=== PATIENT | male | born 1955 | race Caucasian/White ===

== ENCOUNTER 2019-12-02 12:07 | Inpatient (IN) | payer MEDICARE, SELFPAY ==
--- NOTE | 2019-11-29 10:29 | HO.ANESPROP2 ---
Documented by User: Tatum Lopez 11/29/19 10:45 HPI - Anesthesia Eval Consult details Narrative: 64yo M for bilateral fifth toe amp PMFSH Past Medical History Medical History Anxiety Cardiomyopathy CHF (congestive heart failure) Diabetes History of sigmoidoscopy HTN (hypertension) Hypogonadism Obesity 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 Proteinuria Renal cancer Surgical History Surgical History History of cataract surgery History of colectomy History of colonoscopy History of reversal of ileostomy Social History Social History (Updated 12/02/19 @ 10:23 by Yeni Jones) Alcohol intake: current Alcohol intake frequency: does not drink Smoking Status: Former smoker Tobacco Type: Cigarette Smoked in Last 30 Days: No Smoking Quit Date: 15 years ago Advance Directives: No Advance Directives Information Provided: No Meds Allergies Allergy/AdvReac Type Severity Reaction Status Date / Time No Known Allergies Allergy Unverified 11/14/19 18:27 [No Known Allergies*] metformin AdvReac Unknown diarrhea Verified 05/02/19 00:00 none Allergy Unknown Uncoded 10/11/19 00:00 Home Medications Medication Instructions Recorded Confirmed Type aspirin 325 mg PO DAILY 11/29/19 11/29/19 History carvedilol 6.25 mg PO BID 11/29/19 11/29/19 History gabapentin 300 mg PO TID 11/29/19 11/29/19 History glipizide 2.5 mg PO DAILY 11/29/19 11/29/19 History lisinopril 30 mg PO DAILY 11/29/19 11/29/19 History lorazepam 0.5 mg PO BEDTIME PRN 11/29/19 11/29/19 History oxycodone 15 mg PO Q4H PRN 11/29/19 12/02/19 History sennosides [senna] 8.6 mg PO BEDTIME 11/29/19 11/29/19 History sertraline 50 mg PO DAILY 11/29/19 11/29/19 History sulfamethoxazole-trimethoprim 1 tab PO BID 11/29/19 11/29/19 History [Bactrim DS] vancomycin 500 mg PO QID 11/29/19 11/29/19 History Exam Exam Date and Time: November 29, 2019 1029 Pertinent Lab Results Pertinent Lab Results: Laboratory Tests 09/19/19 09/19/19 12:34 12:34 WBC 7.1 Hgb 7.9 L Hct 27.0 L Plt Count 254 D Sodium 141 Potassium 4.6 Chloride 104 Bicarbonate 32 H BUN 25 H Creatinine 1.40 ECHO 05/2019: LVEF 30-35%, Gr 2 DD, LA mod dilated, mild calc of AV, mild MAC, mild TR, mod pulm htn MIBI 05/2019: nml perfusion EKG 09/02/19: NSR with SA @ 88, nonspec T wave abn Assessment and Plan Assessment Anesthesia Assessment: Chart Reviewed Documented by User: Yeni Jones 12/02/19 11:16 PMF Past Medical History Medical History Anxiety Cardiomyopathy CHF (congestive heart failure) Diabetes History of sigmoidoscopy HTN (hypertension) Hypogonadism Obesity 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 Proteinuria Renal cancer Surgical History Surgical History History of cataract surgery History of colectomy History of colonoscopy History of reversal of ileostomy Social History Social History (Updated 12/02/19 @ 10:23 by Yeni Jones) Alcohol intake: current Alcohol intake frequency: does not drink Smoking Status: Former smoker Tobacco Type: Cigarette Smoked in Last 30 Days: No Smoking Quit Date: 15 years ago Advance Directives: No Advance Directives Information Provided: No Meds Allergies Allergy/AdvReac Type Severity Reaction Status Date / Time No Known Allergies Allergy Unverified 11/14/19 18:27 [No Known Allergies*] metformin AdvReac Unknown diarrhea Verified 05/02/19 00:00 none Allergy Unknown Uncoded 10/11/19 00:00 Home Medications Medication Instructions Recorded Confirmed Type aspirin 325 mg PO DAILY 11/29/19 11/29/19 History carvedilol 6.25 mg PO BID 11/29/19 11/29/19 History gabapentin 300 mg PO TID 11/29/19 11/29/19 History glipizide 2.5 mg PO DAILY 11/29/19 11/29/19 History lisinopril 30 mg PO DAILY 11/29/19 11/29/19 History lorazepam 0.5 mg PO BEDTIME PRN 11/29/19 11/29/19 History oxycodone 15 mg PO Q4H PRN 11/29/19 12/02/19 History sennosides [senna] 8.6 mg PO BEDTIME 11/29/19 11/29/19 History sertraline 50 mg PO DAILY 11/29/19 11/29/19 History sulfamethoxazole-trimethoprim 1 tab PO BID 11/29/19 11/29/19 History [Bactrim DS] vancomycin 500 mg PO QID 11/29/19 11/29/19 History Exam Airway Mallampati Class: II Loose/Missing/Broken Teeth: Yes, Upper and Lower Heart: RRR Lungs: CTA Assessment and Plan Assessment Anesthesia Assessment: Anesthesia Plan Discussed, Consent Obtained and Chart Reviewed Final Anesthetic Review NPO: Yes ASA Class: II Final Preanesthetic Review: Meds & Allergies Reviewed, Consent Obtained/Reviewed, Med/Surg/Anes Hx Reviewed and Anes Risks/Benef Reviewed Patient Risk: High Procedure Risk: Low Anesthetic Plan Anesthetic Plan: GA Disposition: Standard PACU
[2019-12-02] VITALS (18 sets, daily range): BP systolic 120–166; BP diastolic 41–75; PULSE 54–77; RESP 16–20; TEMP 36.6–37.7; O2SAT 92–100; BMI 37.8
[2019-12-02 09:51] LABS: Glucose, Whole Blood 68 mg/dL (60-115)
--- NOTE | 2019-12-02 10:05 | HO.ANESPROP2 ---
[facility] [place] Past Medical History Medical History Anxiety Cardiomyopathy CHF (congestive heart failure) Diabetes History of sigmoidoscopy HTN (hypertension) Hypogonadism Obesity 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 Proteinuria Renal cancer Surgical History Surgical History History of cataract surgery History of colectomy History of colonoscopy History of reversal of ileostomy Social History Social History Advance Directives: No Advance Directives Information Provided: No Meds Allergies Allergy/AdvReac Type Severity Reaction Status Date / Time No Known Allergies Allergy Unverified 11/14/19 18:27 [No Known Allergies*] metformin AdvReac Unknown diarrhea Verified 05/02/19 00:00 none Allergy Unknown Uncoded 10/11/19 00:00 Home Medications Medication Instructions Recorded Confirmed Type aspirin 325 mg PO DAILY 11/29/19 11/29/19 History carvedilol 6.25 mg PO BID 11/29/19 11/29/19 History gabapentin 300 mg PO TID 11/29/19 11/29/19 History glipizide 2.5 mg PO DAILY 11/29/19 11/29/19 History lisinopril 30 mg PO DAILY 11/29/19 11/29/19 History lorazepam 0.5 mg PO BEDTIME PRN 11/29/19 11/29/19 History oxycodone 15 mg PO Q4H PRN 11/29/19 11/29/19 History sennosides [senna] 8.6 mg PO BEDTIME 11/29/19 11/29/19 History sertraline 50 mg PO DAILY 11/29/19 11/29/19 History sulfamethoxazole-trimethoprim 1 tab PO BID 11/29/19 11/29/19 History [Bactrim DS] vancomycin 500 mg PO QID 11/29/19 11/29/19 History Exam Exam Date and Time: December 02, 2019 1005 Height,Weight and Vital Signs: Height 6 ft 2 in Weight 133.81 kg Last Vital Signs Temp 98.9 F 12/02/19 09:38 Pulse 61 12/02/19 09:38 Resp 16 12/02/19 09:38 BP 137/68 12/02/19 09:38 Pulse Ox 97 12/02/19 09:38 Pertinent Lab Results Pertinent Lab Results: Laboratory Tests 12/02/19 09:48 POC Glucose 68 Airway Mallampati Class: I TM Dist: >3cm Neck ROM: Full Loose/Missing/Broken Teeth: Yes, Upper and Lower Heart: RRR Lungs: CTA
[2019-12-02 10:08] LABS: Hematocrit 27.9 % (42-52); Hemoglobin 8.2 g/dl (14.0-18.0); Mean Corpuscular HGB Conc 29.4 g/dl (31.0-36.0); Mean Corpuscular Hemoglobin 22.5 pg (27.0-33.0); Mean Corpuscular Volume 76.6 fL (80-98); Platelet Count 260 X10*3/uL (160-400); Red Blood Count 3.64 X10*6/uL (4.60-5.80); Red Cell Distribution Width 17.9 % (11.0-16.0); White Blood Count 6.4 X10*3/uL (4.8-10.8)
[2019-12-02 12:04] LABS: Glucose, Whole Blood 59 mg/dL (60-115)
[2019-12-02] MEDS: Acetaminophen 325 MG TABLET 650 MG PO (12:26)
[2019-12-02] MEDS: oxyCODONE HCl Immed Release 5 MG TABLET PO ×2 (12:29→21:09)
[2019-12-02 12:37] LABS: Glucose, Whole Blood 95 mg/dL (60-115)
--- NOTE | 2019-12-02 14:30 | OP_ITS ---
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 He has had noninvasive arterial testing, appears to be relatively stable. He now presents for operative intervention. Risks, benefits, and complications were discussed in detail with the patient. The patient understood and consented. PREOPERATIVE DIAGNOSIS: bilateral foot gangerene POSTOPERATIVE DIAGNOSIS:same PROCEDURE PERFORMED: Bilateral 5th toe ray amputation. ESTIMATED BLOOD LOSS: Minimal. COMPLICATIONS: ANESTHESIA: General. ASSISTANTS: SPECIMENS: Two. PREPROCEDURE DIAGNOSIS: Bilateral lower extremity 5th toe gangrene. POSTPROCEDURE DIAGNOSIS: Bilateral lower extremity 5th toe gangrene. DESCRIPTION OF PROCEDURE: The patient was brought to the operating room, prior to which a time-out was called for patient identification and site verification. Bilateral feet were prepped and draped in standard surgical fashion. First, we turned our attention to the right side. We made a curvilinear incision over the 5th toe going all the way down through the metatarsal head. We went through skin and soft tissue using a power saw. We cut through across the metatarsal and subsequently file that down. The deep layer was reapproximated using 2-0 Vicryl, superficial layer with a 2-0 nylon. We approximated as close as possible. Wound was irrigated out prior to closer. Xeroform and sterile dressing were applied. In a similar fashion, we did the same thing on the left side. We went all the way down below the metatarsal head and transected with a power saw. Once again, deep layer was reapproximated with 2-0 Vicryl, superficial layer with 2-0 nylon. Xeroform and sterile dressing were applied. At the end of the case, sponge and instrument counts were correct. The patient tolerated the procedure well, returned to Recovery with stable vitals. DRAINS: None. MD HENOK Wesley/JOSELITO / [id number] MTDD
[2019-12-02] MEDS: 0.9 % Sodium Chloride Flush 3 ML SYRINGE 2 ML IVFLUSH (16:30)
[2019-12-02] MEDS: Dextrose 5 % and 0.9 % NaCl 1,000 ML 80 ML IVCONT (18:55)
[2019-12-02] MEDS: ceFAZolin Sodium/Dextrose,Iso 2 GM/50 ML PIGGYBACK IV (18:56)
[2019-12-02] MEDS: Morphine Sulfate 2 MG/ML CARTRIDGE IVPUSH (18:57)
[2019-12-02 21:13] LABS: Glucose, Whole Blood 89 mg/dL (60-115)
[2019-12-02] MEDS: HYDROmorphone HCl 1 MG/ML SYRINGE IVPUSH (22:37)
--- NOTE | 2019-12-02 23:00 | PC.NURSE ---
PATIENT RECEIVED PRN MORPHINE FOR 8/10 PAIN IN LEFT FOOT. MORPHINE WAS INEFFECTIVE. PRN OXYCODONE WAS GIVEN PO, AND ALSO INEFFECTIVE AT RELIEVING PAIN. PATIENT WAS EXHIBITING 10/10 PAIN IN LEFT FOOT, UNCONTROLLABLE SHAKING, NAUSEA, AND HEADACHE. REQUESTED ORDER FOR ADDITIONAL PAIN MEDS FROM HOSPITALIST. 1MG DILAUDID GIVEN IV WITH POSITIVE EFFECTS. BLEEDING WAS NOTED THROUGH THE AYE BANDAGE, AT THE UNDERSIDE OF THE LEFT FOOT. MESSAGE WAS SENT TO CENTRAL OFFICE ASSOCIATE SURGEON TO UPDATE. NO NEW ORDERS RECEIVED. BLEEDING SEEMED TO HAVE STOPPED AND WAS LATER NOTED TO APPEAR DRIED. CONTINUE TO MONITOR FOR CHANGES. PATIENT REFUSED SUBCUTANEOUS HEPARIN, COVERING PHYSICIAN NOTIFIED. DOCUMENTED ON APR
[2019-12-03] VITALS (8 sets, daily range): BP systolic 133–166; BP diastolic 56–72; PULSE 67–78; RESP 16–20; TEMP 37.2–37.7; O2SAT 96–99
[2019-12-03] MEDS: Morphine Sulfate 2 MG/ML CARTRIDGE IVPUSH ×5 (00:55→19:21)
[2019-12-03] MEDS: oxyCODONE HCl Immed Release 5 MG TABLET PO ×3 (08:07→18:12)
[2019-12-03] MEDS: HYDROmorphone HCl 2 MG/ML VIAL IVPUSH (08:44)
--- NOTE | 2019-12-03 09:44 | P.PNGS_ITS ---
Subjective Subjective Patient reports: still having pain Interval history: patient is postop day 1 status post bilateral 5th toe amputation. He had a rather rough night. Pain was poorly controlled. He is tolerating a diet this morning. He has no other interval issues. He is now for postop day 1 followup Physical Exam Vital Signs and I&O and Narrative: Vital Signs and I&O: Vital Signs Temp 99.6 F 12/03/19 08:00 Pulse 69 12/03/19 08:00 Resp 19 12/03/19 08:00 BP 153/72 H 12/03/19 08:00 Pulse Ox 99 12/03/19 08:00 Intake & Output 12/02/19 12/03/19 12/03/19 18:59 06:59 18:59 Intake Total 0 / 270 270 / 270 1000 / 1000 Output Total 300 / 1375 1075 / 1375 Balance -300 / -1105 -805 / -1105 1000 / 1000 Urine Output (Aver age ml/kg/hr) 0.19 0.67 0.67 Weight 295 lb Intake: Intake, Oral Kaiser unt 220 / 220 Intake, IV Amoun t 0 / 50 50 / 50 1000 / 1000 ceFAZolin Sodi um/Dextrose,Iso 2 50 / 50 gm In 50 ml @ 100 mls/hr IV POSTOP@1740 SC H Rx#:[id number] Dextrose 5 % a nd 0.9 % NaCl 1, 1000 / 1000 000 ml @ 80 ml s/hr IVCONT . [id number] [facility] Rx #:[id number] Lactated Ringe rs 1,000 ml In 1, 0 / 0 000 ml @ 20 ml s/hr IVCONT .Q24H [facility] Rx#:[id number] Output: Output, Urine Am ount 300 / 1375 1075 / 1375 Other: Meal Refused No NPO Yes No Dinner % Eaten 75% Urine Urinal Body Mass Index 37.8 Const: General: cooperative, healthy appearing and in distress ( pain appears to be an issue) mild Neck: Neck: Yes normal visual inspection Chest: Chest palpation & inspection: normal inspection of the chest Resp: Effort & Inspection: normal respiratory effort and able to speak in complete sentences Cardio: Jugular venous distension: no JVD Rate: regular rate Heart s ounds: S1 normal heart sound present and S2 normal heart sound present Skin: General skin exam: no rashes or lesions noted Lesions: no lesions Extrem: General: Yes normal to inspection Progress Note: A&P Assessment and plan (1) Amputation toe: Status: Acute Assessment and Plan: patient is postop day 1. Will continue conservative management. For dressing changes Tomorrow. I have increased his pain management and added Dilaudid to better assist in pain control. hospitalist consult pending. Once pain is better controlled may return to facility. Fall Risk Details Current Medications: Current Medications Generic Name Dose Route Start Last Admin Trade Name Freq PRN Reason Stop Dose Admin Acetaminophen 650 mg 12/02/19 16:09 Acetaminophen 325 Mg Tablet PO Q6H PRN Pain, Mild (Pain Scale 1-3) Heparin Sodium (Porcine) 5,000 unit 12/02/19 17:00 12/03/19 07:10 Heparin Sodium,Porcine 5,000 Unit/Ml Vial SUBCUT Not Given Q8H [facility] Hydromorphone HCl 2 mg 12/03/19 08:37 12/03/19 08:44 Hydromorphone Hcl 2 Mg/Ml Vial IVPUSH 2 mg Q6H PRN Administration Pain, Severe (Pain Scale 7-10) Dextrose/Sodium Chloride 1,000 mls @ 80 mls/hr 12/02/19 16:09 12/03/19 08:11 D5ns IVCONT Infused .[id number] [facility] Infusion Morphine Sulfate 2 mg 12/02/19 16:09 12/03/19 07:07 Morphine Sulfate 2 Mg/Ml Cartridge IVPUSH 2 mg Q4H PRN Administration Pain, Severe (Pain Scale 7-10) Oxycodone HCl 5 mg 12/02/19 16:09 12/03/19 08:07 Oxycodone Hcl Immed Release 5 Mg Tablet PO 5 mg Q4H PRN Administration Pain, Moderate (Pain Scale 4-6 Sodium Chloride 2 ml 12/02/19 16:00 12/03/19 07:10 0.9 % Sodium Chloride Flush 3 Ml Syringe IVFLUSH Not Given QSHIFT [facility] Time Spent With Patient Time: Total time spent is greater than 50% in coordination of care (as documented) at patient's floor/unit and/or counseling patient: 25 minutes Time with patient: 25 - 35 minutes
--- NOTE | 2019-12-03 09:54 | P.CONIM_ITS ---
History of Present Illness Data of Consult Service Date: 12/03/19 Requesting physician: Felton Farmer Primary Care Provider: MD JENA Ware Reason for consult: Medical Management 64-year-old man with history of cardiomyopathy, hypertension and diabetes, admitted by vascular surgery and is status post bilateral 5th toe amputation. Patient did have some issues overnight with pain management however this morning stated that he does feel better and his pain is much better controlled with addition of pain medications. His vital signs are stable at this point. Medical consultation was placed for medical management. Review of Systems Review of Systems: Denies any recent fever chills or decrease in appetite respiratory denies any shortness of breath coverage production cardiovascular is adjustment of any PND or edema gastrointestinal denies any dysphagia abdominal pain nausea vomiting or diarrhea genitourinary denies any dysuria frequency or hematuria musculoskeletal Pain to bilateral feet, status post bilateral 5th toe amputation neuropsych denies any weakness or seizures all other systems reviewed are negative [facility] Medical History (Updated 12/03/19 @ 10:04 by Chasidy Willis NP) Anxiety Cardiomyopathy CHF (congestive heart failure) Diabetes History of sigmoidoscopy HTN (hypertension) Hypogonadism Obesity 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 Proteinuria Renal cancer Pertinent family history: CAD Family history: reviewed and not pertinent Surgical History History of cataract surgery History of colectomy History of colonoscopy History of reversal of ileostomy Social History (Updated 12/02/19 @ 10:23 by Yeni Jones) Alcohol intake: current Alcohol intake frequency: does not drink Smoking Status: Former smoker Tobacco Type: Cigarette Smoked in Last 30 Days: No Smoking Quit Date: 15 years ago Currently Displaying Signs/Symptoms of Drug Intoxication Withdrawal: No Advance Directives: No Advance Directives Information Provided: No Do you have thoughts of harming others: None Do you have a plan to hurt others: No Plan Meds Allergies Allergy/AdvReac Type Severity Reaction Status Date / Time No Known Allergies Allergy Unverified 11/14/19 18:27 [No Known Allergies*] metformin AdvReac Unknown diarrhea Verified 05/02/19 00:00 none Allergy Unknown Uncoded 10/11/19 00:00 Home Medications Medication Instructions Recorded Confirmed Type aspirin 325 mg PO DAILY 11/29/19 11/29/19 History carvedilol 6.25 mg PO BID 11/29/19 11/29/19 History gabapentin 300 mg PO TID 11/29/19 11/29/19 History glipizide 2.5 mg PO DAILY 11/29/19 11/29/19 History lisinopril 30 mg PO DAILY 11/29/19 11/29/19 History lorazepam 0.5 mg PO BEDTIME PRN 11/29/19 11/29/19 History oxycodone 15 mg PO Q4H PRN 11/29/19 12/02/19 History sennosides [senna] 8.6 mg PO BEDTIME 11/29/19 11/29/19 History sertraline 50 mg PO DAILY 11/29/19 11/29/19 History sulfamethoxazole-trimethoprim 1 tab PO BID 11/29/19 11/29/19 History [Bactrim DS] vancomycin 500 mg PO QID 11/29/19 11/29/19 History Physical Exam Vital Signs and Narrative: Vital Signs: Last Vital Signs Temp 99.6 F 12/03/19 08:00 Pulse 69 12/03/19 08:00 Resp 19 12/03/19 08:00 BP 153/72 H 12/03/19 08:00 Pulse Ox 99 12/03/19 08:00 Body Mass Index 37.8 Appearing in no acute distress head is normocephalic atraumatic eyes pupils are PERRLA sclera is anicteric mouth throat mucous membranes are intact and moist neck is supple no lymphadenopathy, no JVD noted lung sounds are clear to auscultation heart regular rate rhythm, clear S1, S2 positive bowel sounds, abdomen is soft, nontender musculoskeletal bilateral feet dressing intact. neuro patient is alert x3, no focal deficits Results Labs Labs: Laboratory Tests 12/02/19 12/02/19 12/02/19 09:46 09:48 12:00 WBC 6.4 RBC 3.64 L Hgb 8.2 L Hct 27.9 L MCV 76.6 L MCH 22.5 L MCHC 29.4 L RDW 17.9 H Plt Count 260 MPV 9.0 L Absolute Nucleated RBC 0.000 Nucleated RBC % (auto) 0.0 POC Glucose 68 59 L* 12/02/19 12/02/19 12:32 21:09 WBC RBC Hgb Hct MCV MCH MCHC RDW Plt Count MPV Absolute Nucleated RBC Nucleated RBC % (auto) POC Glucose 95 89 Assessment and Plan (1) Amputation toe: Status: Acute (2) Cardiomyopathy: Problem details: EF 30-35% Status: Chronic (3) Anxiety: Status: Chronic (4) Diabetes: Status: Chronic (5) HTN (hypertension): Status: Chronic 64-year-old man admitted vascular surgery and status post bilateral 5th toe amputation. Bilateral toe amputation. Management as per surgical team. Hypertension . Stable blood pressure. Continue lisinopril. Diabetes . Sliding scale, ADA diet, Hold glipizide, low blood sugars yesterday. Cardiomyopathy. continue carvedilol. Anxiety. Continue lorazepam and sertraline. DVT prophylaxis with heparin Discussed with Dr. Henry Full code
[2019-12-03 10:15] LABS: MANUAL DIFF FLAG NO
[2019-12-03 10:23] LABS: Basophils Percent Auto 0.4 % (0-2); Eosinophils Absolute Auto 0.3 X10*3/uL (0.0-0.4); Eosinophils Percent Auto 3.9 % (0-4); Hematocrit 25.9 % (42-52); Hemoglobin 7.8 g/dl (14.0-18.0); Imm Gran Abs Auto 0.04 X10*3/uL (0.00-0.03); Imm Gran Pct Auto 0.5 % (0.0-0.4); Lymphocytes Percent Auto 12.7 % (20-40); Mean Corpuscular HGB Conc 30.1 g/dl (31.0-36.0); Mean Corpuscular Hemoglobin 22.8 pg (27.0-33.0); Mean Corpuscular Volume 75.7 fL (80-98); Mean Platelet Volume 9.1 fL (9.4-12.4); Monocytes Absolute Auto 0.8 X10*3/uL (0.1-1.2); Monocytes Percent Auto 9.4 % (2-11); Neutrophils Absolute Auto 5.9 X10*3/uL (2.0-8.3); Neutrophils Percent Auto 73.1 % (45-73); Platelet Count 234 X10*3/uL (160-400); Red Blood Count 3.42 X10*6/uL (4.60-5.80); Red Cell Distribution Width 17.8 % (11.0-16.0)
[2019-12-03 10:50] LABS: Blood Urea Nitrogen 29 mg/dL (9-16); Calcium 7.8 mg/dL (8.4-10.2); Creatinine Clr Calc Pharmacy 144.7; Estimated Glomerular Filt Rate > 60; Glucose Random 105 mg/dL (60-115)
[2019-12-03 11:00] LABS: Anion Gap 9 (12-20); Carbon Dioxide 26 mmol/L (22-29); Chloride 104 mmol/L (96-108); Potassium 4.3 mmol/l (3.3-5.1); Sodium 135 mmol/L (135-145)
--- NOTE | 2019-12-03 12:51 | MHC.CM.PN ---
NURSE EDUCATIONAL PROGRAM DIRECTOR NOTE [facility] [employer];;l RECORD REVIEWED ALONG WITH CASE DISCUSSED WITH STAFF NurSE MET WITH PATIENT AND EXPLAINED THE ROLE OF THE NURSE EDUCATIONAL PROGRAM DIRECTOR TO HOMe . HE REPROTED THAT HE HAS BEEN IN [facility]HAB AND THE PLAN IS FOR HIM TO RETURN BACK THERE FOR COMPLeTION OF HIS REHAB , HE REPORTED THAT PRIOR TO REHAB HE WAS LIVING WITH HIS MOTHER DOMINGUEZ BRANDT (BUT SHE IS CURRENTLY iN REHAB AT THE [facility] HE IS NOW POST OP discharge plqn retunr back to [facility] for continuation of his reghab transportstion to be determined actin mellisas vs julio césar [facility] imm givern educated about the importance of having hcp and wioll send clinicals to [facility]
--- NOTE | 2019-12-03 14:46 | PM.EVENT ---
Event Note Event Note: The patient was seen and evaluated with Chasidy Willis NP. I agree with her note, assessment and plan with the following. In summary, 64-year-old man admitted vascular surgery and status post bilateral 5th toe amputation. post amputation management per surgical team continue treatment diabetes and hypertension Monitor blood pressure and blood values Thank you for the consult, will continue to follow the patient with you
--- NOTE | 2019-12-03 15:23 | HO.POSTANES ---
Post Anesthesia Evaluation Post Anesthesia Evaluation Vital Signs: Vital Signs Temp Pulse Resp BP Pulse Ox 12/03/19 12:28 98.9 F 67 17 133/56 L 98 12/03/19 08:00 99.6 F 69 19 153/72 H 99 12/03/19 04:00 18 Anesthesia: General Mental Status: Awake Pain Control: Satisfactory Nausea/Vomiting: None Hydration: Adequate Anesthesia-Related Issues: No Anes. Related Issues
[2019-12-03 17:00] LABS: Glucose, Whole Blood 85 mg/dL (60-115)
--- NOTE | 2019-12-03 18:06 | PC.NURSE ---
0700am pt crying and shaking in pain 12/06 . Pt medicated at 0705 with morphine with no effect , pt complaining of sever pain cont to cry , pt medicated at 0800 with oxycodone , call to Dr dragan Clarke into see pt , new order for Dilaudid 2mg given at 0844 with good effect . Pt states pain improved by 0930
[2019-12-03 21:20] LABS: Glucose, Whole Blood 98 mg/dL (60-115)
[2019-12-03] MEDS: carvediloL 6.25 MG TABLET PO (21:40)
[2019-12-04] VITALS (9 sets, daily range): BP systolic 118–175; BP diastolic 56–74; PULSE 61–74; RESP 16–19; TEMP 36.3–37.3; O2SAT 97–99
[2019-12-04] MEDS: Morphine Sulfate 2 MG/ML CARTRIDGE IVPUSH ×5 (00:21→19:33)
[2019-12-04] MEDS: 0.9 % Sodium Chloride Flush 3 ML SYRINGE 2 ML IVFLUSH ×4 (01:31→20:32)
[2019-12-04 07:08] LABS: Hematocrit 26.7 % (42-52); Hemoglobin 8.1 g/dl (14.0-18.0); Mean Corpuscular HGB Conc 30.3 g/dl (31.0-36.0); Mean Corpuscular Hemoglobin 22.9 pg (27.0-33.0); Mean Corpuscular Volume 75.6 fL (80-98); Mean Platelet Volume 9.3 fL (9.4-12.4); Platelet Count 236 X10*3/uL (160-400); Red Blood Count 3.53 X10*6/uL (4.60-5.80); Red Cell Distribution Width 17.7 % (11.0-16.0)
[2019-12-04 07:37] LABS: Glucose, Whole Blood 86 mg/dL (60-115)
[2019-12-04] MEDS: carvediloL 6.25 MG TABLET PO ×2 (07:38→20:31)
[2019-12-04] MEDS: Sertraline HCL 50 MG TABLET PO (07:38)
[2019-12-04] MEDS: lisinopriL 10 MG TABLET 30 MG PO (07:39)
[2019-12-04] MEDS: oxyCODONE HCl Immed Release 5 MG TABLET PO (07:39)
[2019-12-04 07:42] LABS: Anion Gap 11 (12-20); Blood Urea Nitrogen 26 mg/dL (9-16); Calcium 7.7 mg/dL (8.4-10.2); Carbon Dioxide 24 mmol/L (22-29); Chloride 106 mmol/L (96-108); Creatinine Clr Calc Pharmacy 146.6; Estimated Glomerular Filt Rate > 60; Glucose Random 82 mg/dL (60-115); Potassium 4.1 mmol/l (3.3-5.1); Sodium 137 mmol/L (135-145)
--- NOTE | 2019-12-04 09:04 | MHC.CM.PN ---
dc plan is to return to [facility], ref. has been made. cm to cot. to follow.
[2019-12-04] MEDS: HYDROmorphone HCl 2 MG/ML VIAL IVPUSH (10:34)
--- NOTE | 2019-12-04 11:06 | HO.VASCPN ---
Subjective Subjective Patient reports: no new complaints, feels better and still having pain Interval history: Patient is postop day 2 status post bilateral 5th toe amputation. Appears to be doing relatively well. Pain is better controlled. He is for dressing change today. Physical Exam Vital Signs and I&O and Narrative: Vital Signs and I&O: Vital Signs Temp 98.1 F 12/04/19 07:29 Pulse 65 12/04/19 07:29 Resp 18 12/04/19 07:29 BP 175/74 H 12/04/19 07:29 Pulse Ox 98 12/04/19 07:29 Intake & Output 12/03/19 12/04/19 12/04/19 18:59 06:59 18:59 Intake Total 1760 / 1880 120 / 1880 480 / 480 Output Total 850 / 1700 850 / 1700 350 / 350 Balance 910 / 180 -730 / 180 130 / 130 Urine Output (Aver age ml/kg/hr) 0.53 0.53 0.22 Intake: Intake, Oral [place] unt 760 / 880 120 / 880 480 / 480 Intake, IV Amoun t 1000 / 1000 Dextrose 5 % a nd 0.9 % NaCl 1, 1000 / 1000 000 ml @ 80 ml s/hr IVCONT . [id number] [facility] Rx #:[id number] Output: Output, Urine Am ount 850 / 1700 850 / 1700 350 / 350 Other: Meal Refused No NPO No Breakfast % Eate n 75% 0% Lunch % Eaten 100% Number of Incont inent Voids 2 Urine Urinal Urinal Urine Color Yellow Tea Body Mass Index 37.8 Const: General: cooperative, healthy appearing and no acute distress Orientation/consciousness: oriented to person, oriented to place and oriented to time HENMT: Head: Yes normal to inspection Neck: Carotids: no bruits Chest: Chest palpation & inspection: normal inspection of the chest Resp: Effort & Inspection: normal respiratory effort and able to speak in complete sentences Auscultation: clear to auscultation bilaterally Cardio: Rate: regular rate Heart sounds: S1 normal heart sound present and S2 normal heart sound present GI: Inspection: Yes normal to inspection Skin: Other: Bilateral amputation sites healing well. Minimal drainage. Bleeding appropriately. Good granulation base. General skin exam: no rashes or lesions noted Neuro: General: oriented to person, oriented to place, oriented to time and CN's II-XI intact bilaterally Extrem: General: Yes normal to inspection, Yes full ROM and Yes no clubbing, cyanosis or edema Psych: Appearance: grossly normal and well kempt Speech and movement: Normal speech and movement present Affect: normal affect Progress Note: A&P Assessment and plan (1) Amputation toe: Status: Acute Assessment and Plan: Patient is status post bilateral toe amp. Pain control continues to be an issue. If it does improve would plan for discharge tomorrow. Dressing was changed. He may return to facility most likely tomorrow. Will coordinate effort. Dressing orders written. Will also involve PT OT. Fall Risk Details Current Medications: Current Medications Generic Name Dose Route Start Last Admin Trade Name Freq PRN Reason Stop Dose Admin Acetaminophen 650 mg 12/02/19 16:09 Acetaminophen 325 Mg Tablet PO Q6H PRN Pain, Mild (Pain Scale 1-3) Carvedilol 6.25 mg 12/03/19 21:00 12/04/19 07:38 Carvedilol 6.25 Mg Tablet PO 6.25 mg BID [facility] Administration Protocol Heparin Sodium (Porcine) 5,000 unit 12/02/19 17:00 12/04/19 07:43 Heparin Sodium,Porcine 5,000 Unit/Ml Vial SUBCUT Not Given Q8H [facility] Hydromorphone HCl 2 mg 12/03/19 08:37 12/04/19 10:34 Hydromorphone Hcl 2 Mg/Ml Vial IVPUSH 2 mg Q6H PRN Administration Pain, Severe (Pain Scale 7-10) Insulin Human Lispro 0 unit 12/03/19 16:30 12/04/19 07:41 Insulin Lispro 100 Unit/Ml 3 Ml Vial SUBCUT 12/04/19 11:42 Not Given QIDACHS [facility] Protocol Lisinopril 30 mg 12/04/19 09:00 12/04/19 07:39 Lisinopril 10 Mg Tablet PO 30 mg DAILY [facility] Administration Protocol Lorazepam 0.5 mg 12/03/19 10:06 Lorazepam 0.5 Mg Tablet PO BEDTIME PRN Anxiety Morphine Sulfate 2 mg 12/02/19 16:09 12/04/19 08:27 Morphine Sulfate 2 Mg/Ml Cartridge IVPUSH 2 mg Q4H PRN Administration Pain, Severe (Pain Scale 7-10) Oxycodone HCl 5 mg 12/02/19 16:09 12/04/19 07:39 Oxycodone Hcl Immed Release 5 Mg Tablet PO 5 mg Q4H PRN Administration Pain, Moderate (Pain Scale 4-6 Sertraline HCl 50 mg 12/04/19 09:00 12/04/19 07:38 Sertraline Hcl 50 Mg Tablet PO 50 mg DAILY [facility] Administration Sodium Chloride 2 ml 12/02/19 16:00 12/04/19 07:41 0.9 % Sodium Chloride Flush 3 Ml Syringe IVFLUSH 2 ml QSHIFT [facility] Administration Time Spent With Patient Time: Total time spent is greater than 50% in coordination of care (as documented) at patient's floor/unit and/or counseling patient: Time with patient: 15 - 24 minutes
[2019-12-04 11:38] LABS: Glucose, Whole Blood 104 mg/dL (60-115)
--- NOTE | 2019-12-04 12:16 | HO.PM.IMPN ---
Subjective Subjective Date of Service: 12/04/19 Interval History: seen and evaluated this morning Complaining of pain both of his lower extremities next [place] denies any fever or chills No reported overnight events Review of Systems Review of Systems: Yes all other systems are reviewed and are negative Constitutional Constitutional: Reports no additional constitutional complaints Musculoskeletal pain at the surgical site, no drainage. Physical Exam Vital Signs and I&O and Narrative: Vital Signs and I&O: Vital Signs Temp 98.7 F 12/04/19 11:09 Pulse 61 12/04/19 11:55 Resp 18 12/04/19 11:09 BP 118/56 L 12/04/19 11:55 Pulse Ox 99 12/04/19 11:55 Intake & Output 12/03/19 12/04/19 12/04/19 18:59 06:59 18:59 Intake Total 1760 / 1880 120 / 1880 480 / 480 Output Total 850 / 1700 850 / 1700 750 / 750 Balance 910 / 180 -730 / 180 -270 / -270 Urine Output (Aver age ml/kg/hr) 0.53 0.53 0.47 Intake: Intake, Oral [place] unt 760 / 880 120 / 880 480 / 480 Intake, IV Amoun t 1000 / 1000 Dextrose 5 % a nd 0.9 % NaCl 1, 1000 / 1000 000 ml @ 80 ml s/hr IVCONT . [id number] [facility] Rx #:[id number] Output: Output, Urine Am ount 850 / 1700 850 / 1700 750 / 750 Other: Meal Refused No NPO No Breakfast % Eate n 75% 0% Lunch % Eaten 100% Number of Incont inent Voids 2 Urine Urinal Urinal Urine Color Yellow Tea Body Mass Index 37.8 Const: General: cooperative and well developed Nutritional Appearance: average body habitus Orientation/consciousness: oriented to person and oriented to place Neck: Neck: Yes normal visual inspection and Yes full ROM Resp: Effort & Inspection: normal respiratory effort Auscultation: clear to auscultation bilaterally Cardio: Jugular venous distension: no JVD Heart sounds: S1 normal heart sound present and S2 normal heart sound present GI: Inspection: Yes normal to inspection Auscultation: normal bowel sounds Neuro: General: oriented to person and oriented to place Extrem: Other: Bilateral lower extremities in dressing, no drainage noted. Objective Data Current Medications Generic Name Dose Route Start Last Admin Trade Name Christianq PRN Reason Stop Dose Admin Acetaminophen 650 mg 12/02/19 16:09 Acetaminophen 325 Mg Tablet PO Q6H PRN Pain, Mild (Pain Scale 1-3) Carvedilol 6.25 mg 12/03/19 21:00 12/04/19 07:38 Carvedilol 6.25 Mg Tablet PO 6.25 mg BID [facility] Administration Protocol Heparin Sodium (Porcine) 5,000 unit 12/02/19 17:00 12/04/19 07:43 Heparin Sodium,Porcine 5,000 Unit/Ml Vial SUBCUT Not Given Q8H [facility] Hydromorphone HCl 1 mg 12/04/19 11:11 Hydromorphone Hcl 2 Mg/Ml Vial IVPUSH Q6H PRN Pain, Severe (Pain Scale 7-10) Lisinopril 30 mg 12/04/19 09:00 12/04/19 07:39 Lisinopril 10 Mg Tablet PO 30 mg DAILY [facility] Administration Protocol Lorazepam 0.5 mg 12/03/19 10:06 Lorazepam 0.5 Mg Tablet PO BEDTIME PRN Anxiety Morphine Sulfate 2 mg 12/02/19 16:09 12/04/19 08:27 Morphine Sulfate 2 Mg/Ml Cartridge IVPUSH 2 mg Q4H PRN Administration Pain, Severe (Pain Scale 7-10) Oxycodone HCl 10 mg 12/04/19 11:11 Oxycodone Hcl Immed Release 5 Mg Tablet PO Q4H PRN Pain, Moderate (Pain Scale 4-6 Sertraline HCl 50 mg 12/04/19 09:00 12/04/19 07:38 Sertraline Hcl 50 Mg Tablet PO 50 mg DAILY [facility] Administration Sodium Chloride 2 ml 12/02/19 16:00 12/04/19 07:41 0.9 % Sodium Chloride Flush 3 Ml Syringe IVFLUSH 2 ml QSHIFT [facility] Administration Labs CBC & Chem 7: 12/04/19 06:20 12/04/19 06:20 Labs: Laboratory Results - last 24 hr 12/03/19 12/03/19 12/04/19 16:57 21:16 06:20 MCV 75.6 L MCH 22.9 L MCHC 30.3 L RDW 17.7 H Plt Count 236 MPV 9.3 L Absolute Nucleated RBC 0.000 Nucleated RBC % (auto) 0.0 Anion Gap Estim Creat Clear Calc Estimated GFR POC Glucose 85 98 Random Glucose Calcium 12/04/19 12/04/19 12/04/19 06:20 07:33 11:35 MCV MCH MCHC RDW Plt Count MPV Absolute Nucleated RBC Nucleated RBC % (auto) Anion Gap 11 L Estim Creat Clear Calc 146.6 Estimated GFR > 60 POC Glucose 86 104 Random Glucose 82 Calcium 7.7 L Assessment and Plan (1) Amputation toe: Status: Acute (2) Diabetes: Status: Chronic (3) HTN (hypertension): Status: Chronic (4) Anxiety: Status: Chronic (5) Cardiomyopathy: Problem details: EF 30-35% Status: Chronic Assessment and Plan: 64-year-old man admitted vascular surgery and status post bilateral 5th toe amputation. Bilateral toe amputation. Pain management increase oxycodone to 10 mg as needed To use Dilaudid as needed vascular surgery following the wounds Management as per surgical team. Hypertension . Stable blood pressure. Continue lisinopril. Diabetes . Sliding scale, ADA diet, Hold glipizide Cardiomyopathy. continue carvedilol. Anxiety. Continue lorazepam and sertraline. DVT prophylaxis heparin
[2019-12-04 17:06] LABS: Glucose, Whole Blood 87 mg/dL (60-115)
[2019-12-04] MEDS: oxyCODONE HCl Immed Release 5 MG TABLET 10 MG PO (17:29)
[2019-12-04 20:49] LABS: Glucose, Whole Blood 123 mg/dL (60-115)
[2019-12-05] VITALS (7 sets, daily range): BP systolic 143–160; BP diastolic 56–72; PULSE 60–69; RESP 16–20; TEMP 36.2–36.8; O2SAT 95–98; BMI 37.8
[2019-12-05] MEDS: LORazepam 0.5 MG TABLET PO (00:35)
[2019-12-05] MEDS: Morphine Sulfate 2 MG/ML CARTRIDGE IVPUSH ×3 (00:35→09:33)
[2019-12-05 06:47] LABS: MANUAL DIFF FLAG NO
[2019-12-05 06:57] LABS: Basophils Absolute Auto 0.1 X10*3/uL (0.0-0.2); Basophils Percent Auto 0.8 % (0-2); Eosinophils Absolute Auto 0.7 X10*3/uL (0.0-0.4); Eosinophils Percent Auto 11.9 % (0-4); Hematocrit 25.9 % (42-52); Hemoglobin 7.9 g/dl (14.0-18.0); Imm Gran Abs Auto 0.02 X10*3/uL (0.00-0.03); Imm Gran Pct Auto 0.3 % (0.0-0.4); Lymphocytes Absolute Auto 1.1 X10*3/uL (1.2-4.9); Lymphocytes Percent Auto 18.5 % (20-40); Mean Corpuscular HGB Conc 30.5 g/dl (31.0-36.0); Mean Corpuscular Hemoglobin 23.2 pg (27.0-33.0); Mean Platelet Volume 9.1 fL (9.4-12.4); Monocytes Absolute Auto 0.7 X10*3/uL (0.1-1.2); Monocytes Percent Auto 11.7 % (2-11); Neutrophils Absolute Auto 3.4 X10*3/uL (2.0-8.3); Neutrophils Percent Auto 56.8 % (45-73); Platelet Count 238 X10*3/uL (160-400); Red Blood Count 3.41 X10*6/uL (4.60-5.80); Red Cell Distribution Width 17.6 % (11.0-16.0)
[2019-12-05] MEDS: oxyCODONE HCl Immed Release 5 MG TABLET 10 MG PO (07:32)
[2019-12-05] MEDS: Sertraline HCL 50 MG TABLET PO (07:33)
[2019-12-05] MEDS: lisinopriL 10 MG TABLET 30 MG PO (07:33)
[2019-12-05 07:34] LABS: Anion Gap 10 (12-20); Blood Urea Nitrogen 24 mg/dL (9-16); Calcium 7.8 mg/dL (8.4-10.2); Carbon Dioxide 25 mmol/L (22-29); Chloride 106 mmol/L (96-108); Creatinine Clr Calc Pharmacy 137.4; Estimated Glomerular Filt Rate > 60; Glucose Random 119 mg/dL (60-115); Potassium 4.1 mmol/l (3.3-5.1); Sodium 137 mmol/L (135-145)
[2019-12-05] MEDS: carvediloL 6.25 MG TABLET PO ×2 (07:35→20:05)
[2019-12-05] MEDS: 0.9 % Sodium Chloride Flush 3 ML SYRINGE 2 ML IVFLUSH ×2 (07:36→16:58)
[2019-12-05 08:24] LABS: Glucose, Whole Blood 104 mg/dL (60-115)
[2019-12-05] MEDS: HYDROmorphone HCl 2 MG TABLET PO (09:56)
[2019-12-05] MEDS: Acetaminophen 325 MG TABLET 650 MG PO ×3 (09:56→22:33)
--- NOTE | 2019-12-05 11:37 | P.PNIM_ITS ---
Subjective Subjective Date of Service: 12/05/19 Interval History: the patient was seen and evaluated this morning Laying his bed, complaining pain on his legs Denies any fever, chills or shortness of breath No reported other overnight events. Review of Systems Review of Systems: Yes all other systems are reviewed and are negative Respiratory Respiratory: Reports no additional respiratory complaints Physical Exam Vital Signs and I&O and Narrative: Vital Signs and I&O: Vital Signs Temp 97.3 F 12/05/19 07:50 Pulse 60 12/05/19 10:57 Resp 18 12/05/19 07:50 BP 160/72 H 12/05/19 10:57 Pulse Ox 98 12/05/19 10:57 Intake & Output 12/04/19 12/05/19 12/05/19 18:59 06:59 18:59 Intake Total 960 / 960 Output Total 1100 / 1100 0 / 1100 Balance -140 / -140 0 / -140 Urine Output (Aver age ml/kg/hr) 0.69 0.00 Intake: Intake, Oral [place] unt 960 / 960 Output: Output, Urine Am ount 1100 / 1100 0 / 1100 Other: Breakfast % Eate n 0% Lunch % Eaten 100% Dinner % Eaten 75% Number of Unmeas ured Voids 1 Urine Color Pale Yellow Body Mass Index 37.8 Const: General: cooperative and comfortable Orientation/consciousness: oriented to person and oriented to place Neck: Neck: Yes normal visual inspection and Yes full ROM Resp: Effort & Inspection: normal respiratory effort Auscultation: clear to auscultation bilaterally Cardio: Jugular venous distension: no JVD Heart sounds: S1 normal heart sound present and S2 normal heart sound present GI: Inspection: Yes normal to inspection Auscultation: normal bowel sounds Neuro: General: oriented to person and oriented to place Extrem: Other: bilateral feet covered with dressing, no drainage noted. Objective Data Current Medications Generic Name Dose Route Start Last Admin Trade Name Freq PRN Reason Stop Dose Admin Acetaminophen 650 mg 12/05/19 09:45 12/05/19 09:56 Acetaminophen 325 Mg Tablet PO 650 mg Q6H [facility] Administration Carvedilol 6.25 mg 12/03/19 21:00 12/05/19 07:35 Carvedilol 6.25 Mg Tablet PO 6.25 mg BID [facility] Administration Protocol Heparin Sodium (Porcine) 5,000 unit 12/02/19 17:00 12/05/19 07:35 Heparin Sodium,Porcine 5,000 Unit/Ml Vial SUBCUT Not Given Q8H [facility] Hydromorphone HCl 1 mg 12/05/19 09:44 Hydromorphone Hcl 2 Mg/Ml Vial IVPUSH Q4H PRN Pain, Severe (Pain Scale 7-10) Lisinopril 30 mg 12/04/19 09:00 12/05/19 07:33 Lisinopril 10 Mg Tablet PO 30 mg DAILY [facility] Administration Protocol Lorazepam 0.5 mg 12/03/19 10:06 12/05/19 00:35 Lorazepam 0.5 Mg Tablet PO 0.5 mg BEDTIME PRN Administration Anxiety Sertraline HCl 50 mg 12/04/19 09:00 12/05/19 07:33 Sertraline Hcl 50 Mg Tablet PO 50 mg DAILY [facility] Administration Sodium Chloride 2 ml 12/02/19 16:00 12/05/19 07:36 0.9 % Sodium Chloride Flush 3 Ml Syringe IVFLUSH 2 ml QSHIFT [facility] Administration Labs CBC & Chem 7: 12/05/19 06:35 12/05/19 06:35 Labs: Laboratory Results - last 24 hr 12/04/19 12/04/19 12/04/19 11:35 17:02 20:44 MCV MCH MCHC RDW Plt Count MPV Immature Gran % (Auto) Neut % (Auto) Lymph % (Auto) Hendricks % (Auto) Eos % (Auto) Baso % (Auto) Lymph # (Auto) Hendricks # (Auto) Eos # (Auto) Baso # (Auto) Abs Immat Gran (auto) Absolute Neuts (auto) Absolute Nucleated RBC Nucleated RBC % (auto) Anion Gap Estim Creat Clear Calc Estimated GFR POC Glucose 104 87 123 H Random Glucose Calcium 12/05/19 12/05/19 12/05/19 06:35 06:35 07:53 MCV 76.0 L MCH 23.2 L MCHC 30.5 L RDW 17.6 H Plt Count 238 MPV 9.1 L Immature Gran % (Auto) 0.3 Neut % (Auto) 56.8 Lymph % (Auto) 18.5 L [place] % (Auto) 11.7 H Eos % (Auto) 11.9 H Baso % (Auto) 0.8 Lymph # (Auto) 1.1 L Hendricks # (Auto) 0.7 Eos # (Auto) 0.7 H Baso # (Auto) 0.1 Abs Immat Gran (auto) 0.02 Absolute Neuts (auto) 3.4 Absolute Nucleated RBC 0.000 Nucleated RBC % (auto) 0.0 Anion Gap 10 L Estim Creat Clear Calc 137.4 Estimated GFR > 60 POC Glucose 104 Random Glucose 119 H D Calcium 7.8 L Assessment and Plan (1) Amputation toe: Status: Acute (2) Diabetes: Status: Chronic (3) Cardiomyopathy: Problem details: EF 30-35% Status: Chronic (4) Anxiety: Status: Chronic (5) HTN (hypertension): Status: Chronic Assessment and Plan: 64-year-old man admitted vascular surgery and status post bilateral 5th toe amputation. Bilateral toe amputation. Pain management Discontinue oxycodone start Tylenol around the clock To use Dilaudid p.o. and IV as needed vascular surgery following the wounds Management as per surgical team. Hypertension . Stable blood pressure. Continue lisinopril. Diabetes . Sliding scale, ADA diet, Hold glipizide Cardiomyopathy. continue carvedilol. Anxiety. Continue lorazepam and sertraline. DVT prophylaxis heparin
[2019-12-05 12:20] LABS: Glucose, Whole Blood 120 mg/dL (60-115)
[2019-12-05] MEDS: Docusate Sodium 100 MG/10 ML LIQUID PO (12:39)
--- NOTE | 2019-12-05 12:55 | HO.VASCPN ---
Subjective Subjective Patient reports: no new complaints and feels better Interval history: patient is postop day 3 status post bilateral of 5th toe amputation. No events overnight. Pain appears to be somewhat better controlled. Tolerating regular diet. Was up comfortably in bed watching a movie at the time of my visit. Physical Exam Vital Signs and I&O and Narrative: Vital Signs and I&O: Vital Signs Temp 97.3 F 12/05/19 11:55 Pulse 60 12/05/19 11:55 Resp 18 12/05/19 11:55 BP 149/69 H 12/05/19 11:55 Pulse Ox 95 12/05/19 11:55 Intake & Output 12/04/19 12/05/19 12/05/19 18:59 06:59 18:59 Intake Total 960 / 960 Output Total 1100 / 1100 0 / 1100 Balance -140 / -140 0 / -140 Urine Output (Aver age ml/kg/hr) 0.69 0.00 Intake: Intake, Oral [place] unt 960 / 960 Output: Output, Urine Am ount 1100 / 1100 0 / 1100 Other: Breakfast % Eate n 0% Lunch % Eaten 100% Dinner % Eaten 75% Number of Unmeas ured Voids 1 Urine Color Pale Yellow Body Mass Index 37.8 Const: General: cooperative, healthy appearing and no acute distress Orientation/consciousness: oriented to person, oriented to place and oriented to time HENMT: Head: Yes normal to inspection Neck: Carotids: no bruits Chest: Chest palpation & inspection: normal inspection of the chest Resp: Effort & Inspection: normal respiratory effort and able to speak in complete sentences Auscultation: clear to auscultation bilaterally Cardio: Rate: regular rate Heart sounds: S1 normal heart sound present and S2 normal heart sound present GI: Inspection: Yes normal to inspection Skin: General skin exam: no rashes or lesions noted Wounds: amputation site ( Bilateral 5th toe clean dry and intact) Neuro: General: oriented to person, oriented to place, oriented to time and CN's II-XI intact bilaterally Extrem: General: Yes normal to inspection, Yes full ROM and Yes no clubbing, cyanosis or edema Psych: Appearance: grossly normal and well kempt Speech and movement: Normal speech and movement present Affect: normal affect Progress Note: A&P Assessment and plan (1) Amputation toe: Status: Acute Assessment and Plan: patient doing extremely well status post bilateral toe amputation. Case discussed with social work for placement to rehab. Will obtain COVID testing. Case discussed with hospitalist team as well. If pain reasonably controlled and he is feeling well would anticipate transfer to rehab facility as early as tomorrow. Thank you for allowing us to assist in his care. Fall Risk Details Current Medications: Current Medications Generic Name Dose Route Start Last Admin Trade Name Freq PRN Reason Stop Dose Admin Acetaminophen 650 mg 12/05/19 09:45 12/05/19 09:56 Acetaminophen 325 Mg Tablet PO 650 mg Q6H [facility] Administration Carvedilol 6.25 mg 12/03/19 21:00 12/05/19 07:35 Carvedilol 6.25 Mg Tablet PO 6.25 mg BID [facility] Administration Protocol Docusate Sodium 100 mg 12/05/19 12:05 12/05/19 12:39 Docusate Sodium 100 Mg/10 Ml Liquid PO 100 mg DAILY [facility] Administration Heparin Sodium (Porcine) 5,000 unit 12/02/19 17:00 12/05/19 07:35 Heparin Sodium,Porcine 5,000 Unit/Ml Vial SUBCUT Not Given Q8H [facility] Hydromorphone HCl 1 mg 12/05/19 09:44 Hydromorphone Hcl 2 Mg/Ml Vial IVPUSH Q4H PRN Pain, Severe (Pain Scale 7-10) Lisinopril 30 mg 12/04/19 09:00 12/05/19 07:33 Lisinopril 10 Mg Tablet PO 30 mg DAILY [facility] Administration Protocol Lorazepam 0.5 mg 12/03/19 10:06 12/05/19 00:35 Lorazepam 0.5 Mg Tablet PO 0.5 mg BEDTIME PRN Administration Anxiety Sertraline HCl 50 mg 12/04/19 09:00 12/05/19 07:33 Sertraline Hcl 50 Mg Tablet PO 50 mg DAILY [facility] Administration Sodium Chloride 2 ml 12/02/19 16:00 12/05/19 07:36 0.9 % Sodium Chloride Flush 3 Ml Syringe IVFLUSH 2 ml QSHIFT [facility] Administration Time Spent With Patient Time: Total time spent is greater than 50% in coordination of care (as documented) at patient's floor/unit and/or counseling patient: Time with patient: 15 - 24 minutes
[2019-12-05] MEDS: HYDROmorphone HCl 2 MG/ML VIAL 1 MG IVPUSH ×3 (14:04→22:34)
--- NOTE | 2019-12-05 14:04 | MHC.CM.PN ---
DISCHARGE NOTE PT WILL DISCHARGE BACK TO [facility] TODAY AT 1600 [facility]IA [facility]
[2019-12-05 16:17] LABS: SARS COV2 PCR INHOUSE NEGATIVE (Negative)
[2019-12-05 16:49] LABS: Glucose, Whole Blood 115 mg/dL (60-115)
--- NOTE | 2019-12-05 16:49 | MHC.CM.PN ---
DISCHARGE NOTE PT PREPARED TO DC BACK TO [facility] TODAY. COVID TEST DONE AND RESULTS FORWARDED. BLS TRANSPORT BOOKED AND ON HOLD. ONCE DC ORDER IS IN, PTS NURSE IS AWARE THEY SHOULD CALL [facility] NURSE AT [phone] TO GIVE REPORT AND SET UP A TIME. ONCE A TIME IS KNOWN, NURSE WILL INFORM CM TO ALERT TRANSPORTATION
[2019-12-05 21:11] LABS: Glucose, Whole Blood 111 mg/dL (60-115)
[2019-12-06] VITALS: BP 156/73; PULSE 61; RESP 16; TEMP 35.9; O2SAT 98
[2019-12-06] MEDS: 0.9 % Sodium Chloride Flush 3 ML SYRINGE 2 ML IVFLUSH ×2 (02:02→10:19)
[2019-12-06] MEDS: Acetaminophen 325 MG TABLET 650 MG PO ×2 (03:52→09:07)
[2019-12-06 04:00] VITALS: BP 161/72; PULSE 63; RESP 16; TEMP 36; O2SAT 99
[2019-12-06] MEDS: HYDROmorphone HCl 2 MG/ML VIAL 1 MG IVPUSH (04:39)
[2019-12-06 08:00] VITALS: BP 170/81; PULSE 61; RESP 19; TEMP 36; O2SAT 97
[2019-12-06 08:02] LABS: Glucose, Whole Blood 114 mg/dL (60-115)
[2019-12-06] MEDS: HYDROmorphone HCl 2 MG TABLET 1 MG PO ×2 (09:05→13:05)
[2019-12-06] MEDS: Sertraline HCL 50 MG TABLET PO (09:06)
[2019-12-06] MEDS: lisinopriL 10 MG TABLET 30 MG PO (09:07)
[2019-12-06] MEDS: Docusate Sodium 100 MG/10 ML LIQUID PO (09:07)
[2019-12-06] MEDS: carvediloL 6.25 MG TABLET PO (09:07)
--- NOTE | 2019-12-06 09:49 | MHC.CM.PN ---
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
--- NOTE | 2019-12-06 09:51 | MHC.CM.PN ---
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 transportation family
--- NOTE | 2019-12-06 10:25 | TS_ITS ---
ADMITTING DIAGNOSIS: Nonhealing bilateral lower extremity foot ulcers. DISCHARGE DIAGNOSIS: Nonhealing bilateral lower extremity foot ulcers. HOSPITAL COURSE: The patient was brought in electively on 12/02/2019, underwent bilateral 5th toe amputation. Postoperatively, he was admitted for observation due to bilateral amputee. Pain control seem to be an issue throughout his hospitalization. It did eventually resolved and he was subsequently transitioned to p.o. pain medications. He was upon discharge doing well. Pain was well controlled, tolerating a regular diet. No additional issues. CONDITION UPON DISCHARGE: Stable. DISCHARGE DIET: Regular. DISCHARGE MEDICATIONS: Included aspirin 325 mg oral daily, carvedilol 6.25 mg oral twice a day, gabapentin 300 mg oral 3 times a day, glipizide 2.5 mg oral daily, lisinopril 30 mg oral daily, lorazepam 0.5 mg oral at bedtime, oxycodone 15 mg oral every 4 hours as needed for pain, senna 8.6 mg oral at bedtime, sertraline 500 mg oral daily. All antibiotics were discontinued. DISCHARGE INSTRUCTIONS: Wound care: Xeroform followed by 4 x 4 and Kerlix wrap to bilateral lower extremities to be changed daily. May ambulate. He is to follow up with us in approximately 2 weeks' time for suture removal. Should there be any questions or concerns, please contact our office at [phone]. MD HENOK Wesley/JOSELITO / [phone]
[2019-12-06 11:42] VITALS: BP 175/95; PULSE 69; RESP 17; TEMP 36.5; O2SAT 98
[2019-12-06 11:56] LABS: Glucose, Whole Blood 114 mg/dL (60-115)
--- NOTE | 2019-12-06 16:27 | P.PNIM_ITS ---
Subjective Subjective Interval History: the patient was seen and evaluated this morning Laying his bed, complaining pain on his legs Denies any fever, chills or shortness of breath No reported other overnight events. Physical Exam Vital Signs and I&O and Narrative: Vital Signs and I&O: Vital Signs Temp 97.7 F 12/06/19 11:42 Pulse 69 12/06/19 11:42 Resp 17 12/06/19 11:42 BP 175/95 H 12/06/19 11:42 Pulse Ox 98 12/06/19 11:42 Intake & Output 12/05/19 12/06/19 12/06/19 18:59 06:59 18:59 Intake Total 960 / 1200 240 / 1200 Output Total 300 / 650 350 / 650 Balance 660 / 550 -110 / 550 Urine Output (Aver age ml/kg/hr) 0.19 0.22 Weight 133.81 kg Intake: Intake, Oral [place] unt 960 / 1200 240 / 1200 Output: Output, Urine Am ount 300 / 650 350 / 650 Other: Meal Refused No Breakfast % Eate n 100% Lunch % Eaten 100% Dinner % Eaten 100% Number of Unmeas ured Voids 1 Urine Urinal Urine Color Yellow Body Mass Index 37.8 Const: General: cooperative, comfortable and well developed Nutritional Appearance: average body habitus Orientation/consciousness: oriented to person and oriented to place Neck: Neck: Yes normal visual inspection and Yes full ROM Resp: Effort & Inspection: normal respiratory effort Auscultation: clear to auscultation bilaterally Cardio: Jugular venous distension: no JVD Heart sounds: S1 normal heart sound present and S2 normal heart sound present GI: Inspection: Yes normal to inspection Auscultation: normal bowel sounds Neuro: General: oriented to person and oriented to place Extrem: Other: bilateral feet covered with dressing, no drainage noted. Objective Data Labs CBC & Chem 7: 12/05/19 06:35 12/05/19 06:35 Labs: Laboratory Results - last 24 hr 12/05/19 12/05/19 12/06/19 16:46 21:07 07:17 POC Glucose 115 111 114 12/06/19 11:41 POC Glucose 114 Assessment and Plan (1) Amputation toe: Status: Acute (2) Diabetes: Status: Chronic (3) Cardiomyopathy: Problem details: EF 30-35% Status: Chronic (4) Anxiety: Status: Chronic (5) HTN (hypertension): Status: Chronic Assessment and Plan: 64-year-old man admitted vascular surgery and status post bilateral 5th toe ampu tation. Bilateral toe amputation. Pain management Discontinue oxycodone start Tylenol around the clock To use Dilaudid p.o. and IV as needed vascular surgery following the wounds Management as per surgical team. Hypertension . Stable blood pressure. Continue lisinopril. Diabetes . Sliding scale, ADA diet, Hold glipizide Cardiomyopathy. continue carvedilol. Anxiety. Continue lorazepam and sertraline. DVT prophylaxis heparin
== END 2019-12-06 13:23 | DRG 256 ==
LOC: HO.S3 13:53
PROVIDERS: Nurse Practitioner; Student in an Organized Health Care Education/Training Program; Admitting Provider Surgery Vascular Surgery; PCP Internal Medicine; Visit Provider Surgery Vascular Surgery
PROC: 0Y6Y0Z0 Detachment at Left 5th Toe, Complete, Open Approach (ICD-10-PCS; principal; 2019-12-02 10:30)
DX: E11.52 Type 2 diabetes mellitus with diabetic peripheral angiopathy with gangrene (principal); I42.9 Cardiomyopathy, unspecified; E11.621 Type 2 diabetes mellitus with foot ulcer; E11.42 Type 2 diabetes mellitus with diabetic polyneuropathy; L97.529 Non-pressure chronic ulcer of other part of left foot with unspecified severity; L97.519 Non-pressure chronic ulcer of other part of right foot with unspecified severity; F41.9 Anxiety disorder, unspecified; I11.0 Hypertensive heart disease with heart failure; Z20.828 Contact with and (suspected) exposure to other viral communicable diseases; E66.9 Obesity, unspecified; Z68.37 Body mass index [BMI] 37.0-37.9, adult; Z87.891 Personal history of nicotine dependence; Z79.82 Long term (current) use of aspirin; Z79.891 Long term (current) use of opiate analgesic; Z79.899 Other long term (current) drug therapy
CPT/HCPCS: 36415; 80048; 82947; 85025; 85027; 87635; 88305; 88311; 97110; 97162; 97535; J0690; J1170; J2250; J2270; J3010

== ENCOUNTER 2019-12-17 16:30 | Inpatient (IN) | payer MEDICARE, OTHER, SELFPAY ==
[2019-12-17 16:37] VITALS: BP 112/48; PULSE 66; RESP 20; TEMP 36.8; O2SAT 99; BMI 80.6
--- NOTE | 2019-12-17 16:52 | XR_ITS ---
EXAMINATION: XR CHEST CLINICAL INFORMATION: Shortness of breath COMPARISON: Chest x-ray 09/02/2019 TECHNIQUE: Frontal view of the chest was obtained. FINDINGS: Cardiac silhouette is normal in size. Lungs are well aerated. There is no lobar consolidation. No pleural effusion or pneumothorax. Stable positioning of left chest subclavian port. Right upper extremity PICC line expected position with tip terminating within the mid SVC. IMPRESSION: No acute pulmonary pathology.
--- NOTE | 2019-12-17 16:54 | ED.ABDPAIN ---
HPI - Abdominal Pain General Chief Complaint: Abdominal Pain Stated Complaint: NAUSEA,ABD PAIN, CONCERN ABOUT LABS Time Seen by Provider: 12/17/19 16:43 History of Present Illness HPI narrative: Patient is a 64-year-old male with a history diabetes, cardiomyopathy, hypertension, status post amputation presented today with having abdominal pain earlier today. Mainly over the right side. No subjective fever. [facility] noted patient had a temperature of 103. Patient denies any coughing any congestion any upper respiratory symptoms. No pain on urination. there is no change in the amount of ostomy output. No vomiting. No nausea. The abdominal pain has subsided. Currently patient has no symptoms. Patient denies any frequency. No coughing. Related Data Home Medications Medication Instructions Recorded Confirmed aspirin 325 mg PO DAILY 11/29/19 11/29/19 carvedilol 6.25 mg PO BID 11/29/19 11/29/19 gabapentin 300 mg PO TID 11/29/19 11/29/19 glipizide 2.5 mg PO DAILY 11/29/19 11/29/19 lisinopril 30 mg PO DAILY 11/29/19 11/29/19 lorazepam 0.5 mg PO BEDTIME PRN 11/29/19 11/29/19 oxycodone 15 mg PO Q4H PRN 11/29/19 12/02/19 sennosides [senna] 8.6 mg PO BEDTIME 11/29/19 11/29/19 sertraline 50 mg PO DAILY 11/29/19 11/29/19 Allergies Allergy/AdvReac Type Severity Reaction Status Date / Time No Known Allergies Allergy Unverified 11/14/19 18:27 [No Known Allergies*] metformin AdvReac Unknown diarrhea Verified 05/02/19 00:00 none Allergy Unknown Uncoded 10/11/19 00:00 Review of Systems Review of Systems Constitutional: No Weight loss, No Fever, No Chills, No Night Sweats, No Fatigue, No Malaise ENT/Mouth: No Hearing loss, No Ear Pain, No Nasal Congestion, No Sinus Pain, No Hoarseness, No sore throat, No Rhinorrhea, No Swallowing Difficulty Eyes: No Eye Pain, No Swelling, No Redness, No Foreign Body, No Discharge, No Vision Changes Cardiovascular: No Chest Pain, No SOB, No Dyspnea on Exertion, No Orthopnea, No Edema, No Palpitations Respiratory: No Cough, No Sputum, No Wheezing, No Smoke Exposure, No Dyspnea Gastrointestinal: No Nausea, No Vomiting, No Diarrhea, No Constipation, + abdominal Pain, No Hematochezia, No Melena Genitourinary: no irregular bleeding, No Dysuria, No Urinary Frequency, No Hematuria, No Urinary Incontinence, No Urgency, No Flank Pain, No Urinary Flow Changes, No Hesitancy Musculoskeletal: No joint pain, No Myalgias, No Joint Swelling Skin: No Skin Lesions, No rash Neuro: No Weakness, No Numbness, No Paresthesias, No Loss of Consciousness, No Dizziness, No Headache Psych: No Anxiety/Panic, No Depression, No SI/HI/AH/VH, No Social Issues, Heme/Lymph: No Bruising, No Bleeding,No Lymphadenopathy Endocrine: No Polyuria, No Polydipsia, No Temperature Intolerance Physical Exam Vital Signs: Vital Signs: Vital Signs Temp Pulse Resp BP Pulse Ox 12/17/19 22:52 99.0 F 92 20 150/54 H 96 12/17/19 22:00 98.5 F 92 17 123/46 L 93 12/17/19 20:56 101.0 F H 96 20 181/70 H 93 12/17/19 19:22 68 16 139/65 96 12/17/19 16:37 98.3 F 66 20 112/48 L 99 Body Mass Index 80.6 Appearance: Alert. Oriented X3. No acute distress. Eyes: Pupils equal, round and reactive to light. ENT: Pharynx normal. Neck: Normal inspection. Neck supple. No lymph nodes noted. No crepitus CVS: Normal heart rate and rhythm. Pulses normal. Normal S1 and S2 Respiratory: No respiratory distress. Breath sounds normal. No Wheezing. No rales Abdomen: Soft and nontender. No rigidity. No distention. good BS x4 Skin: Skin warm and dry. Normal skin color. Normal skin turgor. Extremities: No lower extremity edema. Neurovascular intact to all extremities. No Lacerations. No Rash Neuro: Oriented X 3. No motor deficit. No sensory deficit. Moving all extermities. No slurred speech MDM - Abdominal Pain MDM Narrative Medical decision making narrative: patient's BUN creatinine elevated at 56 and 1. his potassium initially return 6.2. It was repeated and the potassium was the same. EKG showed a sinus pattern heart rate is 90 p.r. cares QT within normal limits there is no acute ST segment elevation noted. There is no T-wave that speak. Patient given insulin, glucose, Kayexalate. Placed on a monitor. Will admit patient for further evaluation. IV fluids given. Patient had an elevated white count of 22.[address] scan of the abdomen did not show any acute findings. Patient's urine did show a UTI. Likely the cause of patient's elevated white count. We will go ahead and start antibiotics. Currently in stable condition awaiting admissions. Lab Data Result diagrams: 12/17/19 17:28 12/17/19 21:07 Labs: Lab Results 12/17/19 12/17/19 12/17/19 Range/Units 17:28 17:28 21:07 WBC 22.5 H (4.8-10.8) X10*3/uL RBC 3.60 L (4.60-5.80) X10*6/uL Hgb 8.3 L (14.0-18.0) g/dl Hct 27.7 L (42-52) % MCV 76.9 L (80-98) fL MCH 23.1 L (27.0-33.0) pg MCHC 30.0 L (31.0-36.0) g/dl RDW 18.5 H (11.0-16.0) % Plt Count 251 (160-400) X10*3/uL MPV 9.4 (9.4-12.4) fL Immature Gran % (Auto) 0.7 H (0.0-0.4) % Neut % (Auto) 85.9 H (45-73) % Lymph % (Auto) 6.8 L (20-40) % [place] % (Auto) 6.2 (2-11) % Eos % (Auto) 0.2 (0-4) % Baso % (Auto) 0.2 (0-2) % Lymph # (Auto) 1.5 (1.2-4.9) X10*3/uL [place] # (Auto) 1.4 H (0.1-1.2) X10*3/uL Eos # (Auto) 0.1 (0.0-0.4) X10*3/uL Baso # (Auto) 0.1 (0.0-0.2) X10*3/uL Abs Immat Gran (auto) 0.16 H (0.00-0.03) X10*3/uL Absolute Neuts (auto) 19.3 H (2.0-8.3) X10*3/uL Absolute Nucleated RBC 0.000 (0.0-0.012) X10*3/uL Nucleated RBC % (auto) 0.0 (0.0-0.2) /100WBC Sodium 132 L 132 L (135-145) mmol/L Potassium 6.2 H* D 6.2 H* (3.3-5.1) mmol/l Chloride 105 104 (96-108) mmol/L Carbon Dioxide 22 22 (22-29) mmol/L Anion Gap 11 L 12 (12-20) BUN 58 H D 56 H (9-16) mg/dL Creatinine 1.13 1.15 (0.5-1.4) mg/dL Estim Creat Clear Calc 154.5 151.8 Estimated GFR > 60 > 60 Random Glucose 81 85 (60-115) mg/dL Lactic Acid (0.5-2.0) mmol/L Calcium 8.1 L 8.2 L (8.4-10.2) mg/dL Total Bilirubin 0.3 (0.0-1.0) mg/dL Direct Bilirubin 0.2 (0.0-0.5) mg/dL AST 100 H (5-37) U/L ALT 134 H (0-40) U/L Alkaline Phosphatase 123 H (39-117) U/L Total Protein 6.3 L (6.5-8.0) g/dL Albumin 2.7 L (3.5-5.0) g/dL Lipase 6 L (8-78) U/L Urine Color Urine Appearance Urine pH (5.0-8.0) Ur Specific [place] (1.005-1.025) Urine Protein (NEG-TRACE) MG/DL Urine Glucose (UA) (NEG) MG/DL Urine Ketones (NEG) MG/DL Urine Blood (NEG) Urine Nitrite (NEG) Ur Leukocyte Esterase (NEG) Urine RBC (0) /HPF Urine WBC (0-4) /HPF Ur Squamous Epith Cells /LPF Urine Bacteria /LPF 12/17/19 12/17/19 Range/Units 22:40 22:52 WBC (4.8-10.8) X10*3/uL RBC (4.60-5.80) X10*6/uL Hgb (14.0-18.0) g/dl Hct (42-52) % MCV (80-98) fL MCH (27.0-33.0) pg MCHC (31.0-36.0) g/dl RDW (11.0-16.0) % Plt Count (160-400) X10*3/uL MPV (9.4-12.4) fL Immature Gran % (Auto) (0.0-0.4) % Neut % (Auto) (45-73) % Lymph % (Auto) (20-40) % [place] % (Auto) (2-11) % Eos % (Auto) (0-4) % Baso % (Auto) (0-2) % Lymph # (Auto) (1.2-4.9) X10*3/uL [place] # (Auto) (0.1-1.2) X10*3/uL Eos # (Auto) (0.0-0.4) X10*3/uL Baso # (Auto) (0.0-0.2) X10*3/uL Abs Immat Gran (auto) (0.00-0.03) X10*3/uL Absolute Neuts (auto) (2.0-8.3) X10*3/uL Absolute Nucleated RBC (0.0-0.012) X10*3/uL Nucleated RBC % (auto) (0.0-0.2) /100WBC Sodium (135-145) mmol/L Potassium (3.3-5.1) mmol/l Chloride (96-108) mmol/L Carbon Dioxide (22-29) mmol/L Anion Gap (12-20) BUN (9-16) mg/dL Creatinine (0.5-1.4) mg/dL Estim Creat Clear Calc Estimated GFR Random Glucose (60-115) mg/dL Lactic Acid 0.6 (0.5-2.0) mmol/L Calcium (8.4-10.2) mg/dL Total Bilirubin (0.0-1.0) mg/dL Direct Bilirubin (0.0-0.5) mg/dL AST (5-37) U/L ALT (0-40) U/L Alkaline Phosphatase (39-117) U/L Total Protein (6.5-8.0) g/dL Albumin (3.5-5.0) g/dL Lipase (8-78) U/L Urine Color YELLOW Urine Appearance TURBID Urine pH 7.0 (5.0-8.0) Ur Specific [place] 1.015 (1.005-1.025) Urine Protein 3+ H (NEG-TRACE) MG/DL Urine Glucose (UA) NEG (NEG) MG/DL Urine Ketones NEG (NEG) MG/DL Urine Blood 3+ H (NEG) Urine Nitrite POS H (NEG) Ur Leukocyte Esterase 2+ H (NEG) Urine RBC 0 (0) /HPF Urine WBC TNTC H (0-4) /HPF Ur Squamous Epith Cells TRACE /LPF Urine Bacteria 2+ /LPF Critical Care Time Critical Care Time Total Critical Care Time: 40 Attestation: I have personally provided 40 minutes of critical care time exclusive of time spent on separately billable procedures. Time includes review of lab data, radiology results, discussion with consultants, and monitoring for potential decompensation. Interventions were performed as documented above Discharge Plan Discharge Clinical Impression: Acute hyperkalemia, Acute UTI Prescriptions: No Action sennosides [senna] 8.6 mg Tablet 8.6 mg PO BEDTIME RF: 0 carvedilol 6.25 mg Tablet 6.25 mg PO BID RF: 0 aspirin 325 mg Tablet 325 mg PO DAILY RF: 0 oxycodone 15 mg Tablet 15 mg PO Q4H PRN (Reason: Pain, Mild) RF: 0 lorazepam 0.5 mg Tablet 0.5 mg PO BEDTIME PRN (Reason: Anxiety) RF: 0 glipizide 2.5 mg Tablet Extended Release 24hr 2.5 mg PO DAILY RF: 0 lisinopril 30 mg Tablet 30 mg PO DAILY RF: 0 gabapentin 300 mg Capsule 300 mg PO TID RF: 0 sertraline 50 mg Tablet 50 mg PO DAILY RF: 0 PMFSH Past Medical History Medical History Anxiety Cardiomyopathy CHF (congestive heart failure) Diabetes History of sigmoidoscopy HTN (hypertension) Hypogonadism Obesity 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 Proteinuria Renal cancer Surgical History History of cataract surgery History of colectomy History of colonoscopy History of reversal of ileostomy Social History Social History Household Members: None Housing: Assisted Living Facility Alcohol intake: current Alcohol intake frequency: does not drink Smoking Status: Former smoker Tobacco Type: Cigarette Smoked in Last 30 Days: No Use of substances other than those prescribed or required for medical reasons: No Advance Directives: No Advance Directives Information Provided: No service: No Current occupational status: disabled
--- NOTE | 2019-12-17 17:26 | PC.NURSE ---
PT HAS PICC LINE RIGHT ARM. PER OK TO USE TO LABS/FLUIDS.
--- NOTE | 2019-12-17 17:31 | PC.NURSE ---
PT REFUSING COVID TEST. STATES HE HAD ONE YESTEDAY AND WAS NEGATIVE. MADE AWARE.
[2019-12-17] MEDS: ondansetron HCL 4 MG/2 ML VIAL IVPUSH (17:32)
[2019-12-17] MEDS: 0.9 % Sodium Chloride 1,000 ML 999 ML IVCONT ×3 (17:32→22:12)
[2019-12-17 17:47] LABS: MANUAL DIFF FLAG NO
[2019-12-17 17:52] LABS: Basophils Absolute Auto 0.1 X10*3/uL (0.0-0.2); Basophils Percent Auto 0.2 % (0-2); Eosinophils Absolute Auto 0.1 X10*3/uL (0.0-0.4); Eosinophils Percent Auto 0.2 % (0-4); Hematocrit 27.7 % (42-52); Hemoglobin 8.3 g/dl (14.0-18.0); Imm Gran Abs Auto 0.16 X10*3/uL (0.00-0.03); Imm Gran Pct Auto 0.7 % (0.0-0.4); Lymphocytes Absolute Auto 1.5 X10*3/uL (1.2-4.9); Lymphocytes Percent Auto 6.8 % (20-40); Mean Corpuscular Hemoglobin 23.1 pg (27.0-33.0); Mean Corpuscular Volume 76.9 fL (80-98); Mean Platelet Volume 9.4 fL (9.4-12.4); Monocytes Absolute Auto 1.4 X10*3/uL (0.1-1.2); Monocytes Percent Auto 6.2 % (2-11); Neutrophils Absolute Auto 19.3 X10*3/uL (2.0-8.3); Neutrophils Percent Auto 85.9 % (45-73); Platelet Count 251 X10*3/uL (160-400); Red Cell Distribution Width 18.5 % (11.0-16.0); White Blood Count 22.5 X10*3/uL (4.8-10.8)
--- NOTE | 2019-12-17 18:11 | CT_ITS ---
EXAMINATION: CT ABDOMEN AND PELVIS WITH CONTRAST CLINICAL INFORMATION: 64-year-old male with abdominal pain COMPARISON: CT abdomen pelvis 09/19/2019 TECHNIQUE: Multidetector volumetric images were obtained from the superior aspect of the liver through the pubic symphysis following administration 85 mL of Omnipaque 350 intravenous contrast. Sagittal and coronal reformatted images were obtained on the technologist's workstation. Oral contrast: No This CT examination was performed using dose optimization techniques as appropriate, variously including the following: *Automated exposure control *Adjustment of mA and/or kV according to patient size (this includes techniques or standardized protocols for targeted exams where dose is matched to indication/reason for exam; i.e. extremities or head) *Use of iterative reconstruction technique DLP: 966 mGy-cm FINDINGS: Visualized lung bases demonstrate mild dependent atelectasis. The liver demonstrates normal size, contour and attenuation. The gallbladder is normal in appearance. Mild fatty atrophy of the pancreas. The spleen and adrenal glands are unremarkable. Symmetrically enhancing kidneys. There is no hydronephrosis bilaterally. A few small bilateral renal cysts are noted. Prominent bilateral perinephric stranding is again appreciated. The stomach is decompressed. Loops of small bowel are normal in caliber. Patient is status post partial left colectomy with left lower quadrant colostomy. There is a mild stool burden within the proximal colon. The appendix is unremarkable. There is similar diastases of the ventral abdominal wall with some soft tissue stranding without subcutaneous abscess. There is chronic rectal wall thickening with similar masslike soft tissue extension posteriorly. There is no gross pelvic abscess. The bladder is well-distended. There is mild diffuse bladder wall thickening which is slightly more prominent posteriorly. Similar shotty bilateral inguinal lymph nodes. Nonaneurysmal abdominal aorta which demonstrates mild to moderate atherosclerotic disease. Prominent retroperitoneal lymph nodes are stable. Degenerative changes of the spine. IMPRESSION: Similar perirectal changes with no presacral mass. There is no bowel obstruction. No air is present within the bladder. There is no hydronephrosis of either kidney.
[2019-12-17 18:48] LABS: Alanine Aminotransferase 134 U/L (0-40); Albumin Level 2.7 g/dL (3.5-5.0); Alkaline Phosphatase 123 U/L (39-117); Anion Gap 11 (12-20); Aspartate Amino Transferase 100 U/L (5-37); Bilirubin Direct 0.2 mg/dL (0.0-0.5); Bilirubin Total 0.3 mg/dL (0.0-1.0); Blood Urea Nitrogen 58 mg/dL (9-16); Calcium 8.1 mg/dL (8.4-10.2); Carbon Dioxide 22 mmol/L (22-29); Chloride 105 mmol/L (96-108); Creatinine Clr Calc Pharmacy 154.5; Estimated Glomerular Filt Rate > 60; Glucose Random 81 mg/dL (60-115); Lipase 6 U/L (8-78); Potassium 6.2 mmol/l (3.3-5.1); Sodium 132 mmol/L (135-145); Total Protein 6.3 g/dL (6.5-8.0)
[2019-12-17] MEDS: iohexoL 350 MG/ML 100 ML INFUS..BTL IV (19:17)
[2019-12-17 19:22] VITALS: BP 139/65; PULSE 68; RESP 16; O2SAT 96
[2019-12-17 20:56] VITALS: BP 181/70; PULSE 96; RESP 20; TEMP 38.3; O2SAT 93
--- NOTE | 2019-12-17 21:59 | ECG_ITS ---
Test Reason : HYPERKALEMIA Blood Pressure : / mmHG Vent. Rate : 089 BPM Atrial Rate : 089 BPM P-R Int : 188 ms QRS Dur : 094 ms QT Int : 358 ms P-R-T Axes : 001 000 091 degrees QTc Int : 435 ms Normal sinus rhythm Nonspecific T wave abnormality Abnormal ECG When compared with ECG of 02-SEP-2019 16:06, T wave inversion no longer evident in v5-6 Referred By: Saba Hedrick Electronically Signed By:ANIL SALGADO MD
[2019-12-17 22:00] VITALS: BP 123/46; PULSE 92; RESP 17; TEMP 36.9; O2SAT 93
[2019-12-17 22:01] LABS: Anion Gap 12 (12-20); Blood Urea Nitrogen 56 mg/dL (9-16); Calcium 8.2 mg/dL (8.4-10.2); Carbon Dioxide 22 mmol/L (22-29); Chloride 104 mmol/L (96-108); Creatinine Clr Calc Pharmacy 151.8; Estimated Glomerular Filt Rate > 60; Glucose Random 85 mg/dL (60-115); Potassium 6.2 mmol/l (3.3-5.1); Sodium 132 mmol/L (135-145)
[2019-12-17] MEDS: Insulin Regular, Human 100 UNIT/ML 3 ML VIAL IVPUSH (22:12)
[2019-12-17 22:52] VITALS: BP 150/54; PULSE 92; RESP 20; TEMP 37.2; O2SAT 96
[2019-12-17 23:04] LABS: Glucose Urine UA NEG (NEG); Leukocyte Esterase Urine 2+ (NEG); Nitrite Urine POS (NEG); Specific Gravity - Urine 1.015 (1.005-1.025); Urine Blood 3+ (NEG); Urine Ketones NEG (NEG); Urine Protein 3+ MG/DL (NEG-TRACE)
[2019-12-17 23:05] LABS: Appearance Urine TURBID; Color Urine YELLOW
[2019-12-17 23:23] LABS: Bacteria Urine 2+ /LPF; RBC Urine 0 /HPF (0); Squamous Epithelial Cell Urine TRACE /LPF; WBC Urine TNTC /HPF (0-4)
[2019-12-17 23:35] LABS: Lactic Acid 0.6 mmol/L (0.5-2.0)
[2019-12-18] VITALS (9 sets, daily range): BP systolic 98–128; BP diastolic 41–70; PULSE 70–81; RESP 16–20; TEMP 36.3–36.8; O2SAT 93–99
[2019-12-18 00:03] LABS: SARS COV2 PCR INHOUSE NEGATIVE (Negative)
[2019-12-18] MEDS: cefTRIAXone sodium 1 GM in 0.9 % Sodium Chloride 50 ML IV ×2 (01:00→20:16)
--- NOTE | 2019-12-18 01:12 | PM.IMHP ---
History of Present Illness Date of Service: 12/18/19 Chief Complaint: abnormal labs / fever 64 y/o male with extensive PMHX who presented from [place] due to abnormal labs/fever. Per history provided by the patient, he reports that has been in the NH after had colostomy bag place x2 s/p colon cancer. Today was transferred to our facility as was found to have abnormal labs as well as fever. On presentation to the ED patient is found to have an episode of fever of 101, hypertensive initially which corrected without intervention. WBC of 22.5 with left shift, UA strongly positive for UTI. Imaging of abdomen negative for any acute pathology. K of 6.2, creatinine normal. Elevated LFT's without evidence of obstruction on imaging. Patient was given Kayexalate, Insulin and one dose of Rocephin per ED. EKG negative at present for any acute changes. Decision for admission given. Patient seen and examined at the bedside, laying down in bed in no acute distress. vitals stable. ROS as above otherwise negative. Physical exam positive for colostomy bag. PMHX: Hypertension Rectal cancer Diabetes mellitus type 2 Diabetic neuropathy Status post low anterior resection with loop ileostomy PSx: s/p ileostomy Toxic habits: No hx of alcohol abuse, smoking or IVDA Review of Systems Review of Systems: Yes Other (chills/subjective fever ) [facility] Medical History Anxiety Cardiomyopathy CHF (congestive heart failure) Diabetes History of sigmoidoscopy HTN (hypertension) Hypogonadism Obesity 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 Proteinuria Renal cancer Family history: reviewed and not pertinent Surgical History History of cataract surgery History of colectomy History of colonoscopy History of reversal of ileostomy Social History Household Members: None Housing: Assisted Living Facility Alcohol intake: current Alcohol intake frequency: does not drink Smoking Status: Former smoker Tobacco Type: Cigarette Smoked in Last 30 Days: No Use of substances other than those prescribed or required for medical reasons: No Advance Directives: No Advance Directives Information Provided: No service: No Current occupational status: disabled Meds Allergies Allergy/AdvReac Type Severity Reaction Status Date / Time No Known Allergies Allergy Unverified 11/14/19 18:27 [No Known Allergies*] metformin AdvReac Unknown diarrhea Verified 05/02/19 00:00 none Allergy Unknown Uncoded 10/11/19 00:00 Home Medications Medication Instructions Recorded Confirmed Type aspirin 325 mg PO DAILY 11/29/19 11/29/19 History carvedilol 6.25 mg PO BID 11/29/19 11/29/19 History gabapentin 300 mg PO TID 11/29/19 11/29/19 History glipizide 2.5 mg PO DAILY 11/29/19 11/29/19 History lisinopril 30 mg PO DAILY 11/29/19 11/29/19 History lorazepam 0.5 mg PO BEDTIME PRN 11/29/19 11/29/19 History oxycodone 15 mg PO Q4H PRN 11/29/19 12/02/19 History sennosides [senna] 8.6 mg PO BEDTIME 11/29/19 11/29/19 History sertraline 50 mg PO DAILY 11/29/19 11/29/19 History Physical Exam Vital Signs and Narrative: Vital Signs: Last Vital Signs Temp 99.0 F 12/17/19 22:52 Pulse 92 12/17/19 22:52 Resp 20 12/17/19 22:52 BP 150/54 H 12/17/19 22:52 Pulse Ox 96 12/17/19 22:52 Body Mass Index 80.6 Const: General: cooperative, healthy appearing and comfortable Orientation/consciousness: patient oriented x3 HENMT: Head: Yes normal to inspection Eyes: General: appearance normal, both eyes and all related structures Neck: Yes normal visual inspection Chest: Chest palpation & inspection: normal inspection of the chest Resp: Effort & Inspection: normal respiratory effort Cardio: Jugular venous distension: no JVD Rate: regular rate Rhythm: regular rhythm Heart sounds: S1 normal heart sound present and S2 normal heart sound present GI: Inspection: Yes normal to inspection Rectal Exam - Male: Yes other (colostomy bag in place ) Skin: General skin exam: no rashes or lesions noted Neuro: General: patient oriented x3 Motor exam (neuro): 5/5 motor strength present throughout Extrem: General: Yes normal to inspection Psych: Appearance: grossly normal Results Labs Labs: Laboratory Tests 12/17/19 12/17/19 12/17/19 17:28 17:28 21:07 WBC 22.5 H RBC 3.60 L Hgb 8.3 L Hct 27.7 L MCV 76.9 L MCH 23.1 L MCHC 30.0 L RDW 18.5 H Plt Count 251 MPV 9.4 Immature Gran % (Auto) 0.7 H Neut % (Auto) 85.9 H Lymph % (Auto) 6.8 L [place] % (Auto) 6.2 Eos % (Auto) 0.2 Baso % (Auto) 0.2 Lymph # (Auto) 1.5 [place] # (Auto) 1.4 H Eos # (Auto) 0.1 Baso # (Auto) 0.1 Abs Immat Gran (auto) 0.16 H Absolute Neuts (auto) 19.3 H Absolute Nucleated RBC 0.000 Nucleated RBC % (auto) 0.0 Sodium 132 L 132 L Potassium 6.2 H* D 6.2 H* Chloride 105 104 Carbon Dioxide 22 22 Anion Gap 11 L 12 BUN 58 H D 56 H Creatinine 1.13 1.15 Estim Creat Clear Calc 154.5 151.8 Estimated GFR > 60 > 60 Random Glucose 81 85 Lactic Acid Calcium 8.1 L 8.2 L Total Bilirubin 0.3 Direct Bilirubin 0.2 AST 100 H ALT 134 H Alkaline Phosphatase 123 H Total Protein 6.3 L Albumin 2.7 L Lipase 6 L Urine Color Urine Appearance Urine pH Ur Specific [place] Urine Protein Urine Glucose (UA) Urine Ketones Urine Blood Urine Nitrite Ur Leukocyte Esterase Urine RBC Urine WBC Ur Squamous Epith Cells Urine Bacteria Coronavirus (PCR) 12/17/19 12/17/19 12/17/19 22:40 22:40 22:52 WBC RBC Hgb Hct MCV MCH MCHC RDW Plt Count MPV Immature Gran % (Auto) Neut % (Auto) Lymph % (Auto) [place] % (Auto) Eos % (Auto) Baso % (Auto) Lymph # (Auto) [place] # (Auto) Eos # (Auto) Baso # (Auto) Abs Immat Gran (auto) Absolute Neuts (auto) Absolute Nucleated RBC Nucleated RBC % (auto) Sodium Potassium Chloride Carbon Dioxide Anion Gap BUN Creatinine Estim Creat Clear Calc Estimated GFR Random Glucose Lactic Acid 0.6 Calcium Total Bilirubin Direct Bilirubin AST ALT Alkaline Phosphatase Total Protein Albumin Lipase Urine Color YELLOW Urine Appearance TURBID Urine pH 7.0 Ur Specific [place] 1.015 Urine Protein 3+ H Urine Glucose (UA) NEG Urine Ketones NEG Urine Blood 3+ H Urine Nitrite POS H Ur Leukocyte Esterase 2+ H Urine RBC 0 Urine WBC TNTC H Ur Squamous Epith Cells TRACE Urine Bacteria 2+ Coronavirus (PCR) NEGATIVE Assessment and Plan (1) Sepsis: Status: Acute S/p one dose of zosyn for gram negative coverage Continue with zosyn and follow up Ucx and Bcx Keep MAP >65 mmHg electronic device monitor IV hydration Infectious disease consult in the am Awaiting for ED to finish medication reconciliation (2) Acute UTI: Status: Acute Zosyn for gram negative coverage Follow up Bcx and Ucx Infectious disease consult in the am (3) Acute hyperkalemia: Status: Acute S/p insulin and kayexalate treatment follow up repeat BMP in 3 hrs from now (4) HTN (hypertension): Status: Chronic Hold Lisinopril given hyperkalemia Continue with carvedilol home dose (5) Diabetes: Status: Chronic Hold PO hypoglycemic meds Start with Insulin regimen
[2019-12-18] MEDS: Gabapentin 100 MG CAPSULE PO (05:37)
--- NOTE | 2019-12-18 05:57 | PC.NURSE ---
Arrived from ED at around 0430 and transferred safely to bed. Alert and oriented x4, coherent and conversant, complained of neuropathic pain on both feet. He has intact dressing on both feet from left 5th toe and right 5th toe amputation. Incontinent of urine, placed [place] catheter. Paged Dr. Laureano for pain medication, Gabapentin 100 mg given. Resting comfortably in bed at the time being. Needs were attended. Will continue care plan Spoke to ED nurse prior to patient arrival to [facility] if patient need tele and stated not needed. Patient has XK+ of 6.2 and refused Kayexalate at ED.
[2019-12-18 07:59] LABS: Glucose, Whole Blood 85 mg/dL (60-115)
[2019-12-18 08:24] LABS: Basophils Percent Auto 0.1 % (0-2); Eosinophils Percent Auto 0.1 % (0-4); Hematocrit 23.9 % (42-52); Hemoglobin 7.2 g/dl (14.0-18.0); Imm Gran Abs Auto 0.19 X10*3/uL (0.00-0.03); Imm Gran Pct Auto 0.9 % (0.0-0.4); Lymphocytes Absolute Auto 1.4 X10*3/uL (1.2-4.9); Lymphocytes Percent Auto 6.5 % (20-40); MANUAL DIFF FLAG SCAN; Mean Corpuscular HGB Conc 30.1 g/dl (31.0-36.0); Mean Corpuscular Hemoglobin 23.2 pg (27.0-33.0); Mean Corpuscular Volume 76.8 fL (80-98); Mean Platelet Volume 9.4 fL (9.4-12.4); Monocytes Absolute Auto 1.5 X10*3/uL (0.1-1.2); Neutrophils Absolute Auto 18.4 X10*3/uL (2.0-8.3); Neutrophils Percent Auto 85.4 % (45-73); Platelet Count 212 X10*3/uL (160-400); Red Blood Count 3.11 X10*6/uL (4.60-5.80); Red Cell Distribution Width 18.6 % (11.0-16.0); SCAN SMEAR FLAG 1; White Blood Count 21.5 X10*3/uL (4.8-10.8)
[2019-12-18 09:04] LABS: Alanine Aminotransferase 115 U/L (0-40); Albumin Level 2.3 g/dL (3.5-5.0); Alkaline Phosphatase 100 U/L (39-117); Aspartate Amino Transferase 78 U/L (5-37); Bilirubin Direct 0.2 mg/dL (0.0-0.5); Bilirubin Total 0.3 mg/dL (0.0-1.0); Total Protein 5.4 g/dL (6.5-8.0)
[2019-12-18 09:06] LABS: Anion Gap 12 (12-20); Blood Urea Nitrogen 60 mg/dL (9-16); Carbon Dioxide 19 mmol/L (22-29); Chloride 104 mmol/L (96-108); Creatinine Clr Calc Pharmacy 125.6; Estimated Glomerular Filt Rate 52; Glucose Random 78 mg/dL (60-115); Potassium 5.6 mmol/l (3.3-5.1); Sodium 129 mmol/L (135-145)
[2019-12-18 09:12] LABS: SLIDE REVIEW VERIFIED
[2019-12-18 09:30] LABS: Calcium 7.5 mg/dL (8.4-10.2)
[2019-12-18] MEDS: 0.9 % Sodium Chloride 1,000 ML 100 ML IVCONT (09:35)
[2019-12-18] MEDS: Sertraline HCL 50 MG TABLET 100 MG PO (09:36)
[2019-12-18] MEDS: Aspirin 325 MG TABLET PO (09:36)
[2019-12-18 09:50] LABS: HBsAGNum1 0.16 S/CO (0.00-0.99); Hepatitis B Surface Antigen Negative (Negative)
[2019-12-18 09:51] LABS: ~Hepatitis A Antibody IgM Nonreactive (Nonreactive)
--- NOTE | 2019-12-18 10:13 | MHC.CM.PN ---
IMM 12/18/19 MALE 64 LIVES ALONE IN [place]. He was sent to [facility] from [facility] He has been at [facility] for 2 months (per Pt report)for STR. He requires assist all functional mobility. DP return to [facility] for STR , via BLS.
--- NOTE | 2019-12-18 11:55 | MHC.PIE ---
P PT WITH DOUBLE LUMEN PICC TO RIGHT UPPER ARM. UNABLE TO FLUSH EITHER PORT. CLAVES CHANGED TO BOTH PORTS AND STILL UNBLE TO FLUSH I DR PAGAN NOTIFIED E AWAITNING ANY NEW ORDERS
--- NOTE | 2019-12-18 14:34 | PC.NURSE ---
NEW IV SITE TO LEFT ARM. DR PAGAN AWARE. NO NEW ORDERS AT THIS TIME. MD WILL ADDRESS PICC REMOVAL
--- NOTE | 2019-12-18 14:39 | PC.NURSE ---
PT REFUSED REPOSITIONING, REFUSED TO HAVE THIS NURSE CHECK DRESSINGS ON FEET UPON ARRIVAL TO THIS UNIT. DOES NOT WANT TO BE BOTHERED, STATES JUST LET ME SLEEP WILL ATTEMPT LATER
--- NOTE | 2019-12-18 14:57 | PC.NURSE ---
CONTACTED [facility] REGARDING IV ANTIBIOTICS. STATED PT NO LONGER IS RECEIVING ANTIBIOTICS, ONLY A HEPLOCK FLUSH FOR PICC. DR PAGAN AWARE
[2019-12-18] MEDS: 0.9 % Sodium Chloride Flush 3 ML SYRINGE IVFLUSH (15:34)
[2019-12-18] MEDS: oxyCODONE HCl Immed Release 5 MG TABLET PO ×2 (16:39→22:14)
[2019-12-18] MEDS: Sennosides 8.6 MG TABLET PO (20:16)
[2019-12-18] MEDS: carvediloL 6.25 MG TABLET PO (20:16)
[2019-12-18] MEDS: Acetaminophen 325 MG TABLET 650 MG PO (20:17)
[2019-12-19] VITALS (8 sets, daily range): BP systolic 99–186; BP diastolic 44–77; PULSE 66–95; RESP 18–20; TEMP 36.9–37.2; O2SAT 97–99; BMI 80.6
[2019-12-19] MEDS: 0.9 % Sodium Chloride 1,000 ML 100 ML IVCONT (01:09)
[2019-12-19 06:21] LABS: MANUAL DIFF FLAG NO
[2019-12-19 06:34] LABS: Basophils Percent Auto 0.2 % (0-2); Eosinophils Absolute Auto 0.1 X10*3/uL (0.0-0.4); Eosinophils Percent Auto 0.6 % (0-4); Hematocrit 27.9 % (42-52); Hemoglobin 8.4 g/dl (14.0-18.0); Imm Gran Abs Auto 0.13 X10*3/uL (0.00-0.03); Imm Gran Pct Auto 0.7 % (0.0-0.4); Lymphocytes Absolute Auto 0.8 X10*3/uL (1.2-4.9); Lymphocytes Percent Auto 4.7 % (20-40); Mean Corpuscular HGB Conc 30.1 g/dl (31.0-36.0); Mean Corpuscular Hemoglobin 22.8 pg (27.0-33.0); Mean Corpuscular Volume 75.8 fL (80-98); Mean Platelet Volume 9.9 fL (9.4-12.4); Monocytes Absolute Auto 1.3 X10*3/uL (0.1-1.2); Monocytes Percent Auto 7.2 % (2-11); Neutrophils Absolute Auto 15.4 X10*3/uL (2.0-8.3); Neutrophils Percent Auto 86.6 % (45-73); Platelet Count 258 X10*3/uL (160-400); Red Blood Count 3.68 X10*6/uL (4.60-5.80); Red Cell Distribution Width 18.6 % (11.0-16.0); White Blood Count 17.8 X10*3/uL (4.8-10.8)
[2019-12-19 07:04] LABS: Anion Gap 16 (12-20); Blood Urea Nitrogen 60 mg/dL (9-16); Calcium 7.6 mg/dL (8.4-10.2); Carbon Dioxide 16 mmol/L (22-29); Chloride 106 mmol/L (96-108); Creatinine Clr Calc Pharmacy 136.4; Estimated Glomerular Filt Rate 57; Glucose Random 93 mg/dL (60-115); Potassium 5.8 mmol/l (3.3-5.1); Sodium 132 mmol/L (135-145)
[2019-12-19] MEDS: oxyCODONE HCl Immed Release 5 MG TABLET PO ×2 (07:11→13:49)
[2019-12-19] MEDS: 0.9 % Sodium Chloride Flush 3 ML SYRINGE IVFLUSH ×2 (07:12→17:52)
[2019-12-19 08:03] LABS: Glucose, Whole Blood 144 mg/dL (60-115)
[2019-12-19] MEDS: Sodium Polystyrene Sulfon/Sorb 15 GM/60 ML ORAL.SUSP 30 GM PO (09:19)
[2019-12-19] MEDS: carvediloL 6.25 MG TABLET PO ×2 (09:20→21:15)
[2019-12-19] MEDS: Aspirin 325 MG TABLET PO (09:21)
[2019-12-19] MEDS: Sertraline HCL 50 MG TABLET 100 MG PO (09:45)
--- NOTE | 2019-12-19 10:56 | P.CONNP_ITS ---
History of Present Illness Reason for Consult Consult date: 12/19/19 Reason for consult: hyperK Chief Complaint Chief complaint: Abnormal labs/fever History of Present Illness Narrative: C/O N/V and noted abnl labs and fevver: hyperK, mild hypoNa incr wbc and anemia Overall feeling better Was on lisiniopril Recieved jkayex and repeat K better No NSAID use Multiple chronic med probs: Hypertension Rectal cancer Diabetes mellitus type 2 Diabetic neuropathy Status post low anterior resection with loop ileostomy ( colon Ca) Review of Systems Review of Systems Yes all other systems are reviewed and are negative [facility] Past Medical History Medical History Anxiety Cardiomyopathy CHF (congestive heart failure) Diabetes History of sigmoidoscopy HTN (hypertension) Hypogonadism Obesity 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 Proteinuria Renal cancer Family History Family history: reviewed and not pertinent Surgical History Surgical History History of cataract surgery History of colectomy History of colonoscopy History of reversal of ileostomy Social History Social History Household Members: Other Housing: Shelter Do you presently have visiting nurse or other home services: No Alcohol intake: current Alcohol intake frequency: does not drink Smoking Status: Former smoker Tobacco Type: Cigarette Smoked in Last 30 Days: No Patient Interested in Nicotine Replacement: No Patient Given Instructions on How to Stop Smoking: No (quit 15 years ago) Second Hand Smoke Exposure: No Use of substances other than those prescribed or required for medical reasons: No Currently Displaying Signs/Symptoms of Drug Intoxication Withdrawal: No Any prior treatment program specific to substance use: No Have you been hit, kicked, punched, or otherwise hurt by someone within the past year? If so, by whom?: No Do you feel safe in your current relationship?: No Current Relationship Is there a partner from a previous relationship who is making you feel unsafe now?: No Are you made to feel afraid or neglected: No Spiritual Healthcare Practices: Not this time Religion Healthcare Practices: Yazdanism Cultural Healthcare Practices: None Advance Directives: No Advance Directives Information Provided: No Advance Directives on File: No Do you have thoughts of harming others: None Do you have a plan to hurt others: No Plan Recently lost weight without trying: No service: Yes (per pt report) Current occupational status: disabled Meds Allergies Allergy/AdvReac Type Severity Reaction Status Date / Time No Known Allergies Allergy Unverified 11/14/19 18:27 [No Known Allergies*] metformin AdvReac Unknown diarrhea Verified 05/02/19 00:00 none Allergy Unknown Uncoded 10/11/19 00:00 Home Medications Medication Instructions Recorded Confirmed Type aspirin 325 mg PO DAILY 11/29/19 12/18/19 History carvedilol 6.25 mg PO BID 11/29/19 12/18/19 History gabapentin 600 mg PO TID 11/29/19 12/18/19 History glipizide 2.5 mg PO DAILY 11/29/19 12/18/19 History lisinopril 30 mg PO DAILY 11/29/19 12/18/19 History lorazepam 0.5 mg PO TID PRN 11/29/19 12/18/19 History sennosides [senna] 8.6 mg PO BEDTIME 11/29/19 12/18/19 History sertraline 100 mg PO DAILY 11/29/19 12/18/19 History hydromorphone 2 mg PO Q6-8H PRN 12/18/19 12/18/19 History Physical Exam Vital Signs: Vital Signs Temp Pulse Resp BP Pulse Ox 12/19/19 09:20 77 120/53 L 12/19/19 07:56 99 F 77 20 120/53 L 97 12/19/19 00:00 98.6 F 71 20 110/61 98 12/18/19 20:16 78 126/70 12/18/19 15:18 98.1 F 72 16 128/60 99 12/18/19 11:11 98.1 F 74 20 114/56 L 98 Body Mass Index 80.6 Appearance: Alert. Oriented X3. No acute distress. Eyes: Pupils equal, round and reactive to light. ENT: Pharynx normal. Neck: Normal inspection. Neck supple. No lymph nodes noted. No crepitus CVS: Normal heart rate and rhythm. Pulses normal. Normal S1 and S2 Respiratory: No respiratory distress. Breath sounds normal. No Wheezing. No rales Abdomen: Soft and nontender. No rigidity. No distention. good BS x4 Skin: Skin warm and dry. Normal skin color. Normal skin turgor. Extremities: No lower extremity edema. Neurovascular intact to all extremities. No Lacerations. No Rash Neuro: Oriented X 3. No motor deficit. No sensory deficit. Moving all extermities. No slurred speech Const General: cooperative, healthy appearing and comfortable Orientation/consciousness: patient oriented x3 HENMT Head: Yes normal to inspection Eyes General: appearance normal, both eyes and all related structures Neck Neck: Yes normal visual inspection Chest Chest palpation & inspection: normal inspection of the chest Resp Effort & Inspection: normal respiratory effort Cardio Jugular venous distension: no JVD Rate: regular rate Rhythm: regular rhythm Heart sounds: S1 normal heart sound present and S2 normal heart sound present GI Inspection: Yes normal to inspection Rectal Exam - Male: Yes other (colostomy bag in place ) Skin General skin exam: no rashes or lesions noted Neuro General: patient oriented x3 Motor exam (neuro): 5/5 motor strength present throughout Extrem General: Yes normal to inspection Psych Appearance: grossly normal Results Lab Results Result Diagrams: 12/19/19 05:20 12/19/19 05:20 Lab results: Chemistry 12/17/19 12/17/19 12/18/19 17:28 21:07 07:57 Sodium 132 L 132 L 129 L Potassium 6.2 H* D 6.2 H* 5.6 H Carbon Dioxide 22 22 19 L BUN 58 H D 56 H 60 H Creatinine 1.13 1.15 1.39 Calcium 8.1 L 8.2 L 7.5 L 12/19/19 05:20 Sodium 132 L Potassium 5.8 H Carbon Dioxide 16 L BUN 60 H Creatinine 1.28 Calcium 7.6 L Hematology 12/17/19 12/18/19 12/19/19 17:28 07:57 05:20 WBC 22.5 H 21.5 H 17.8 H Hgb 8.3 L 7.2 L 8.4 L Plt Count 251 212 258 Urinalysis 12/17/19 22:52 Urine Color YELLOW Urine Appearance TURBID Urine pH 7.0 Ur Specific [place] 1.015 Urine Protein 3+ H Urine Glucose (UA) NEG Urine Ketones NEG Urine Blood 3+ H Urine Nitrite POS H Ur Leukocyte Esterase 2+ H Urine RBC 0 Urine WBC TNTC H Ur Squamous Epith Cells TRACE Assessment and Plan (1) Sepsis: Status: Acute (2) Acute UTI: Status: Acute (3) Acute hyperkalemia: Status: Acute (4) HTN (hypertension): Status: Chronic (5) Diabetes: Status: Chronic 1. HyperK: multifact including being on AYE-I and NAGMA causinbg transcellular shifting better after kayex 2. HypoNa: mild 3. N/V: w/u in porgrerss 4. Anemia 5. NAGMA: d/t ileostomy 6. DM REC: IV NaHCO3 to vol replace and incr HCO3 which will help control K; repeat K as may need additional kayexlate; avid AYE/ARB; anemia w/u; cheak [facility] Will follow with team
[2019-12-19 11:48] LABS: Glucose, Whole Blood 121 mg/dL (60-115)
[2019-12-19] MEDS: Sodium Bicarbonate 8.4% 50 MEQ in Dextrose 5 % 950 ML 100 MEQ IVCONT (13:49)
[2019-12-19 16:22] LABS: Glucose, Whole Blood 116 mg/dL (60-115)
--- NOTE | 2019-12-19 16:36 | HO.PM.IMPN ---
Subjective Subjective Date of Service: 12/19/19 Interval History: seen and examined this Am was being upcooperative with care initially but then complied doesnt want to remove picc line and tired of being poked reports weakness, but otherwise okay Review of Systems General - no fevers or chills, weakness Cardiovascular - no chest pain Respiratory - no shortness of breath or cough Abdominal- no abdominal pain, nausea, vomiting, diarrhea Physical Exam Vital Signs: Vital Signs: Vital Signs Temp Pulse Resp BP Pulse Ox 12/19/19 16:00 98.7 F 69 20 148/74 H 99 12/19/19 11:16 98.4 F 66 18 99/44 L 97 12/19/19 09:20 77 120/53 L 12/19/19 07:56 99 F 77 20 120/53 L 97 12/19/19 00:00 98.6 F 71 20 110/61 98 12/18/19 20:16 78 126/70 Body Mass Index 80.6 General - no acute distress, appears comfortable Cardiovascular - regular rate and rhythm, S1-S2 Lungs - normal respiratory effort, clear to auscultation bilaterally, no wheezing Abdomen - soft, nontender, no rebound regarding Extremities - no edema bilaterally Neuro - awake and alert, no focal deficits Objective Data Current Medications Generic Name Dose Route Start Last Admin Trade Name Carloz PRN Reason Stop Dose Admin Aspirin 325 mg 12/18/19 09:00 12/19/19 09:21 Aspirin 325 Mg Tablet PO 325 mg DAILY [facility] Administration Carvedilol 6.25 mg 12/18/19 09:00 12/19/19 09:20 Carvedilol 6.25 Mg Tablet PO 6.25 mg BID [facility] Administration Protocol Heparin Sodium (Porcine) 5,000 unit 12/18/19 08:00 12/19/19 09:21 Heparin Sodium,Porcine 5,000 Unit/Ml Vial SUBCUT Not Given Q8H [facility] Ceftriaxone Sodium 1 gm/ 50 mls @ 100 mls/hr 12/18/19 22:00 12/18/19 20:46 Sodium Chloride IV Infused Q24H [facility] Infusion Sodium Bicarbonate 50 meq/ 1,000 mls @ 100 mls/hr 12/19/19 11:45 12/19/19 13:49 Dextrose IVCONT 100 mls/hr .Q10H [facility] Administration Insulin Human Lispro 5 unit 12/18/19 07:30 12/19/19 13:50 Insulin Lispro 100 Unit/Ml 3 Ml Vial SUBCUT Not Given QIDACHS [facility] Oxycodone HCl 5 mg 12/18/19 16:17 12/19/19 13:49 Oxycodone Hcl Immed Release 5 Mg Tablet PO 5 mg Q6H PRN Administration Pain, Severe (Pain Scale 7-10) Senna 8.6 mg 12/18/19 21:00 12/18/19 20:16 Sennosides 8.6 Mg Tablet PO 8.6 mg BEDTIME [facility] Administration Sertraline HCl 100 mg 12/18/19 09:00 12/19/19 09:45 Sertraline Hcl 50 Mg Tablet PO 100 mg DAILY [facility] Administration Sodium Chloride 3 ml 12/18/19 08:00 12/19/19 07:12 0.9 % Sodium Chloride Flush 3 Ml Syringe IVFLUSH 3 ml QSHIFT [facility] Administration Labs CBC & Chem 7: 12/19/19 05:20 12/19/19 05:20 Microbiology Microbiology Results: Microbiology 12/17/19 Unknown Urine clean catch - Clean Catch Midstream Urine Culture - Preliminary Culture in progress. Assessment and Plan (1) Acute UTI: Status: Acute Assessment and Plan: This is a 64-year-old male who [facility] for reported abnormal labs and fever. He is admitted for hyperkalemia and possibly acute urinary tract infection 1. urinary tract infection c&s pending blood cx ordered 12/18/2019 Am, but cancelled -- no documentation as to why, but it appears that patient may have refused ??; no signs of sepsis at this time, but will ensure patient is not bacteremic 2. HyperK initially improved, but now increasing nephrology consulted bicarb drip started 3. Chronic Anemia h/h stable monitor 4. HTN continue current meds 5. DM sliding scale diabetic diet 6. Mood continue meds Full Code DVT pptx, heparin
[2019-12-19] MEDS: oxyCODONE HCl Immed Release 5 MG TABLET 10 MG PO (19:41)
[2019-12-19 21:09] LABS: Glucose, Whole Blood 143 mg/dL (60-115)
[2019-12-19] MEDS: cefTRIAXone sodium 1 GM in 0.9 % Sodium Chloride 50 ML IV (21:15)
[2019-12-20] MEDS: Sodium Bicarbonate 8.4% 50 MEQ in Dextrose 5 % 950 ML 100 MEQ IVCONT (00:21)
[2019-12-20] MEDS: oxyCODONE HCl Immed Release 5 MG TABLET 10 MG PO ×3 (03:22→18:32)
[2019-12-20 03:37] VITALS: BP 152/74; PULSE 74; RESP 18; TEMP 36.6; O2SAT 99
[2019-12-20 06:16] LABS: MANUAL DIFF FLAG NO
[2019-12-20 06:33] LABS: Basophils Percent Auto 0.2 % (0-2); Eosinophils Absolute Auto 0.2 X10*3/uL (0.0-0.4); Eosinophils Percent Auto 1.3 % (0-4); Hematocrit 24.1 % (42-52); Hemoglobin 7.4 g/dl (14.0-18.0); Imm Gran Abs Auto 0.07 X10*3/uL (0.00-0.03); Imm Gran Pct Auto 0.6 % (0.0-0.4); Lymphocytes Absolute Auto 0.8 X10*3/uL (1.2-4.9); Lymphocytes Percent Auto 6.6 % (20-40); Mean Corpuscular HGB Conc 30.7 g/dl (31.0-36.0); Mean Corpuscular Volume 74.8 fL (80-98); Mean Platelet Volume 9.6 fL (9.4-12.4); Monocytes Percent Auto 8.2 % (2-11); Neutrophils Absolute Auto 9.8 X10*3/uL (2.0-8.3); Neutrophils Percent Auto 83.1 % (45-73); Platelet Count 243 X10*3/uL (160-400); Red Blood Count 3.22 X10*6/uL (4.60-5.80); Red Cell Distribution Width 18.4 % (11.0-16.0); White Blood Count 11.8 X10*3/uL (4.8-10.8)
[2019-12-20 06:56] LABS: Blood Urea Nitrogen 44 mg/dL (9-16); Calcium 7.2 mg/dL (8.4-10.2); Creatinine Clr Calc Pharmacy 164.7; Estimated Glomerular Filt Rate > 60; Glucose Random 134 mg/dL (60-115)
[2019-12-20 07:11] LABS: Anion Gap 13 (12-20); Carbon Dioxide 18 mmol/L (22-29); Chloride 106 mmol/L (96-108); Potassium 4.3 mmol/l (3.3-5.1); Sodium 133 mmol/L (135-145)
[2019-12-20 08:00] VITALS: BP 134/65; PULSE 69; RESP 20; TEMP 36.1; O2SAT 98
--- NOTE | 2019-12-20 08:45 | P.PNNP_ITS ---
Subjective Subjective Interval history: seen and examined this Am cooperative today reports feeling better No new issues Physical Exam Vital Signs: Vital Signs: Vital Signs Temp Pulse Resp BP Pulse Ox 12/20/19 23:42 98.7 F 72 18 165/76 H 96 12/20/19 20:59 63 148/67 H 12/20/19 15:25 98 F 63 17 148/67 H 98 12/20/19 11:18 69 134/65 12/20/19 08:00 97.0 F 69 20 134/65 98 12/20/19 03:37 97.9 F 74 18 152/74 H 99 Body Mass Index 80.6 Appearance: Alert. Oriented X3. No acute distress. Eyes: Pupils equal, round and reactive to light. ENT: Pharynx normal. Neck: Normal inspection. Neck supple. No lymph nodes noted. No crepitus CVS: Normal heart rate and rhythm. Pulses normal. Normal S1 and S2 Respiratory: No respiratory distress. Breath sounds normal. No Wheezing. No rales Abdomen: Soft and nontender. No rigidity. No distention. good BS x4 Skin: Skin warm and dry. Normal skin color. Normal skin turgor. Extremities: No lower extremity edema. Neurovascular intact to all extremities. No Lacerations. No Rash Neuro: Oriented X 3. No motor deficit. No sensory deficit. Moving all extermities. No slurred speech Const: General: cooperative, healthy appearing and comfortable O rientation/consciousness: patient oriented x3 HENMT: Head: Yes normal to inspection Eyes: General: appearance normal, both eyes and all related structures Neck: Neck: Yes normal visual inspection Chest: Chest palpation & inspection: normal inspection of the chest Resp: Effort & Inspection: normal respiratory effort Cardio: Jugular venous distension: no JVD Rate: regular rate Rhythm: regular rhythm Heart sounds: S1 normal heart sound present and S2 normal heart sound present GI: Inspection: Yes normal to inspection Rectal Exam - Male: Yes other (colostomy bag in place ) Skin: General skin exam: no rashes or lesions noted Neuro: General: patient oriented x3 Motor exam (neuro): 5/5 motor strength present throughout Extrem: General: Yes normal to inspection Psych: Appearance: grossly normal Assessment & Plan Assessment and plan (1) Sepsis: Status: Acute (2) Acute UTI: Status: Acute (3) Acute hyperkalemia: Status: Acute (4) HTN (hypertension): Status: Chronic (5) Diabetes: Status: Chronic Assessment and Plan: 1. HyperK: resolved 2. HypoNa: mild 3. N/V: resolved 4. Anemia 5. NAGMA: d/t ileostomy 6. DM 7. H/O NRProt REC: cont po NaHCO3 avoid AYE/ARB; anemia w/u; recheck UAC Will follow with team Time Spent With Patient Time: Total time spent is greater than 50% in coordination of care (as documented) at patient's floor/unit and/or counseling patient:
[2019-12-20 09:01] LABS: Alanine Aminotransferase 83 U/L (0-40); Albumin Level 2.3 g/dL (3.5-5.0); Alkaline Phosphatase 139 U/L (39-117); Aspartate Amino Transferase 43 U/L (5-37); Total Protein 5.6 g/dL (6.5-8.0)
[2019-12-20 09:26] LABS: Bilirubin Direct < 0.2 mg/dL (0.0-0.5); Bilirubin Total 0.2 mg/dL (0.0-1.0)
[2019-12-20] MEDS: Aspirin 325 MG TABLET PO (11:17)
[2019-12-20 11:18] VITALS: BP 134/65; PULSE 69
[2019-12-20] MEDS: Sertraline HCL 50 MG TABLET 100 MG PO (11:18)
[2019-12-20] MEDS: carvediloL 6.25 MG TABLET PO ×2 (11:18→20:59)
--- NOTE | 2019-12-20 11:43 | MHC.CM.PN ---
IMM 12/19/19 DC Today to [facility] via S.
--- NOTE | 2019-12-20 13:16 | MHC.CM.PN ---
Per RN DC on hold.
[2019-12-20] MEDS: Alteplase Cath Clear 2 MG VIAL INTRACATH (14:25)
[2019-12-20] MEDS: 0.9 % Sodium Chloride Flush 3 ML SYRINGE IVFLUSH (15:14)
[2019-12-20] MEDS: Sodium Bicarbonate 650 MG TABLET PO ×2 (15:21→20:58)
[2019-12-20 15:25] VITALS: BP 148/67; PULSE 63; RESP 17; TEMP 36.6; O2SAT 98
--- NOTE | 2019-12-20 15:39 | P.PNIM_ITS ---
Subjective Subjective Date of Service: 12/20/19 Interval History: seen and examined this Am cooperative today reports feeling better feels ready for discharge Review of Systems General - no fevers or chills Cardiovascular - no chest pain Respiratory - no shortness of breath or cough Abdominal- no abdominal pain, nausea, vomiting, diarrhea Physical Exam Vital Signs: Vital Signs: Vital Signs Temp Pulse Resp BP Pulse Ox 12/20/19 15:25 98 F 63 17 148/67 H 98 12/20/19 11:18 69 134/65 12/20/19 08:00 97.0 F 69 20 134/65 98 12/20/19 03:37 97.9 F 74 18 152/74 H 99 12/19/19 23:51 98.6 F 74 18 140/65 H 97 12/19/19 21:15 80 12/19/19 19:44 98.5 F 95 20 186/77 H 97 12/19/19 16:00 98.7 F 69 20 148/74 H 99 Body Mass Index 80.6 General - no acute distress, appears comfortable Cardiovascular - regular rate and rhythm, S1-S2 Lungs - normal respiratory effort, clear to auscultation bilaterally, no wheezing Abdomen - soft, nontender, no rebound regarding Extremities - no edema bilaterally, wound clean Neuro - awake and alert, no focal deficits Objective Data Current Medications Generic Name Dose Route Start Last Admin Trade Name Carloz PRN Reason Stop Dose Admin Aspirin 325 mg 12/18/19 09:00 12/20/19 11:17 Aspirin 325 Mg Tablet PO 325 mg DAILY [facility] Administration Carvedilol 6.25 mg 12/18/19 09:00 12/20/19 11:18 Carvedilol 6.25 Mg Tablet PO 6.25 mg BID [facility] Administration Protocol Heparin Sodium (Porcine) 5,000 unit 12/18/19 08:00 12/20/19 15:15 Heparin Sodium,Porcine 5,000 Unit/Ml Vial SUBCUT Not Given Q8H [facility] Ceftriaxone Sodium 1 gm/ 50 mls @ 100 mls/hr 12/18/19 22:00 12/19/19 22:18 Sodium Chloride IV Infused Q24H [facility] Infusion Insulin Human Lispro 5 unit 12/18/19 07:30 12/20/19 15:15 Insulin Lispro 100 Unit/Ml 3 Ml Vial SUBCUT Not Given QIDACHS [facility] Oxycodone HCl 10 mg 12/19/19 16:39 12/20/19 11:18 Oxycodone Hcl Immed Release 5 Mg Tablet PO 10 mg Q6H PRN Administration Pain, Severe (Pain Scale 7-10) Senna 8.6 mg 12/18/19 21:00 12/19/19 21:18 Sennosides 8.6 Mg Tablet PO Not Given BEDTIME [facility] Sertraline HCl 100 mg 12/18/19 09:00 12/20/19 11:18 Sertraline Hcl 50 Mg Tablet PO 100 mg DAILY [facility] Administration Sodium Bicarbonate 650 mg 12/20/19 15:00 12/20/19 15:21 Sodium Bicarbonate 650 Mg Tablet PO 650 mg TID [facility] Administration Sodium Chloride 3 ml 12/18/19 08:00 12/20/19 15:14 0.9 % Sodium Chloride Flush 3 Ml Syringe IVFLUSH 3 ml QSHIFT [facility] Administration Labs CBC & Chem 7: 12/20/19 05:26 12/20/19 05:26 Microbiology Microbiology Results: Microbiology 12/17/19 Unknown Urine clean catch - Clean Catch Midstream Urine Culture - Preliminary Gram negative jason Gram negative jason#2 Assessment and Plan (1) Acute UTI: Status: Acute Assessment and Plan: This is a 64-year-old male who was sent from custodial facility for reported abnormal labs and fever. He is admitted for hyperkalemia and possibly acute urinary tract infection 1. urinary tract infection c&s pending -- growing GNB clinically responding to rocephin, continue the same now -- await final results; anticipate po antibiotics by tomorrow pt allowed blood cx today, unlikely to help much given hes been on abx for a few days now not septic 2. HyperK, metabolic acidosis K resolved change bicarb drip to PO bicarb neprhology input appreicated 3. Chronic Anemia h/h relatively stable continue with monitoring no need for transfusion at this time 4. HTN continue current meds 5. DM sliding scale diabetic diet 6. Mood continue meds Full Code DVT pptx, heparin
--- NOTE | 2019-12-20 19:26 | PC.NURSE ---
ALTEPLASE GIVEN TO PATIENT PER PROTOCOL. ABLE TO MAKE PURPLE PORT PATENT WITH GOOD BLOOD RETURN. UNABLE TO FLUSH RED PORT STILL. HOSPITALIST MADE AWARE.
[2019-12-20] MEDS: cefTRIAXone sodium 1 GM in 0.9 % Sodium Chloride 50 ML IV (20:52)
[2019-12-20 20:59] VITALS: BP 148/67; PULSE 63
[2019-12-20 23:42] VITALS: BP 165/76; PULSE 72; RESP 18; TEMP 37.1; O2SAT 96
[2019-12-21 07:17] VITALS: BP 149/67; PULSE 75; RESP 18; TEMP 36.7; O2SAT 98
[2019-12-21] MEDS: 0.9 % Sodium Chloride Flush 3 ML SYRINGE IVFLUSH (08:57)
[2019-12-21] MEDS: Sodium Bicarbonate 650 MG TABLET PO ×2 (09:01→13:28)
[2019-12-21] MEDS: carvediloL 6.25 MG TABLET PO (09:01)
[2019-12-21] MEDS: Sertraline HCL 50 MG TABLET 100 MG PO (09:01)
[2019-12-21] MEDS: Aspirin 325 MG TABLET PO (09:01)
[2019-12-21 09:02] VITALS: BMI 32.8
[2019-12-21 09:04] LABS: Glucose, Whole Blood 122 mg/dL (60-115)
[2019-12-21] MEDS: oxyCODONE HCl Immed Release 5 MG TABLET 10 MG PO (09:09)
[2019-12-21 11:14] VITALS: BP 151/65; PULSE 62; RESP 16; TEMP 37.1; O2SAT 97
[2019-12-21 11:20] LABS: Glucose, Whole Blood 105 mg/dL (60-115)
--- NOTE | 2019-12-21 11:55 | P.PNIM_ITS ---
Subjective Subjective Interval History: seen and examined this Am remains cooperative with care no copmlkaints, reports feeling well today Physical Exam Vital Signs: Vital Signs: Vital Signs Temp Pulse Resp BP Pulse Ox 12/21/19 11:14 98.8 F 62 16 151/65 H 97 12/21/19 07:17 98.1 F 75 18 149/67 H 98 12/20/19 23:42 98.7 F 72 18 165/76 H 96 12/20/19 20:59 63 148/67 H 12/20/19 15:25 98 F 63 17 148/67 H 98 Body Mass Index 32.8 General - no acute distress, appears comfortable Cardiovascular - regular rate and rhythm, S1-S2 Lungs - normal respiratory effort, clear to auscultation bilaterally, no wheezing Abdomen - soft, nontender, no rebound regarding Extremities - no edema bilaterally, wounds clean Neuro - awake and alert, no focal deficits Objective Data Current Medications Generic Name Dose Route Start Last Admin Trade Name Freq PRN Reason Stop Dose Admin Aspirin 325 mg 12/18/19 09:00 12/21/19 09:01 Aspirin 325 Mg Tablet PO 325 mg DAILY [facility] Administration Carvedilol 6.25 mg 12/18/19 09:00 12/21/19 09:01 Carvedilol 6.25 Mg Tablet PO 6.25 mg BID [facility] Administration Protocol Heparin Sodium (Porcine) 5,000 unit 12/18/19 08:00 12/21/19 08:57 Heparin Sodium,Porcine 5,000 Unit/Ml Vial SUBCUT Not Given Q8H [facility] Meropenem 1 gm/ Sodium 100 mls @ 100 mls/hr 12/21/19 10:00 12/21/19 11:18 Chloride IV Infused Q8H [facility] Infusion Insulin Human Lispro 0 unit 12/20/19 16:30 12/21/19 11:17 Insulin Lispro 100 Unit/Ml 3 Ml Vial SUBCUT Not Given QIDACHS [facility] Protocol Oxycodone HCl 10 mg 12/19/19 16:39 12/21/19 09:09 Oxycodone Hcl Immed Release 5 Mg Tablet PO 10 mg Q6H PRN Administration Pain, Severe (Pain Scale 7-10) Senna 8.6 mg 12/18/19 21:00 12/20/19 20:59 Sennosides 8.6 Mg Tablet PO Not Given BEDTIME [facility] Sertraline HCl 100 mg 10/21/20 09:00 12/21/19 09:01 Sertraline Hcl 50 Mg Tablet PO 100 mg DAILY [facility] Administration Sodium Bicarbonate 650 mg 12/20/19 15:00 12/21/19 09:01 Sodium Bicarbonate 650 Mg Tablet PO 650 mg TID [facility] Administration Sodium Chloride 3 ml 12/18/19 08:00 12/21/19 08:57 0.9 % Sodium Chloride Flush 3 Ml Syringe IVFLUSH 3 ml QSHIFT [facility] Administration Labs CBC & Chem 7: 12/20/19 05:26 12/20/19 05:26 Microbiology Microbiology Results: Microbiology 12/20/19 05:26 Blood - Venous Blood Culture - Preliminary No growth after 24 hours. 12/20/19 05:26 Blood - Venous Blood Culture - Preliminary No growth after 24 hours. 12/17/19 Unknown Urine clean catch - Clean Catch Midstream Urine Culture - Final Escherichia coli Providencia rettgeri Assessment and Plan (1) Acute UTI: Status: Acute Assessment and Plan: This is a 64-year-old male who was sent from assisted facility for reported abnormal labs and fever. He is admitted for hyperkalemia and possibly acute urinary tract infection 1. ESBL E. Coli + Providencia Rettgeri UTI Change to Merrem, Invanz 1g x 14 days upon d/c (D/W ID) blood cx negative to date 2. HyperK, metabolic acidosis resolved/improved PO bicarb nephrology input appreciated 3. Chronic Anemia stable monitor 4. HTN Coreg 5. DM sliding scale diabetic diet 6. Mood continue meds Full Code DVT pptx, heparin dispo: to SNF once bed available, medically stable for d/c at this time
[2019-12-21 12:02] LABS: Creatinine Urine 28.43 mg/dL
--- NOTE | 2019-12-21 12:07 | MHC.CM.PN ---
Pt will discharge today, back to [facility] . Pt will be transported via [facility]LS at 1400 hours
[2019-12-21 12:38] LABS: Total Protein Urine Random 236 mg/dL (<12)
--- NOTE | 2019-12-21 13:07 | P.DS_ITS ---
DS: Providers Provider Date of admission: 12/18/19 01:44 Primary care physician: Unknown Physician Consults: 12/18/19 07:25 Consult to Physician Routine Consulting Provider: Kasie Gupta Reason for consultation: Sepsis Has provider been notified: No 12/19/19 07:25 Consult to Nephrology Routine Consulting Provider: Jatinder Prado Reason for consultation: persistant hyperK 12/21/19 10:07 Consult to Infectious Diseases Routine Consulting Provider: Dre Armstrong Reason for consultation: RESTRCITED ANTIBIOTIC Has provider been notified: No DS: Diagnosis Discharge Diagnosis (1) Acute UTI: Status: Acute (2) Sepsis: Status: Acute (3) Hyperkalemia: Status: Acute DS: Summary Hospital Course Hospital Course: Patient presented with abnormal labs and a fever reported at the group home [facility]. Upon arrival to the emergency room he was found to be hyperkalemic as well as urinalysis which was concerning for urinary tract infection. For his hyperkalemia he was initially treated with Kayexalate, insulin and did have improvement initially only to have his potassium rebounded. Nephrology was subsequently consulted and recommended bicarb drip with which his hyperkalemia resolved. he will be transition oral bicarb at the time of discharge and his lisinopril has been discontinued. In regards to his urinary tract infection, he was started on ceftriaxone and once his urine cultures resulted positive for ESBL E coli he was transitioned to meropenem in the hospital and will be discharged home with Invanz 1 g for a total 13 more days. Unfortunate, the patient had refused blood cultures multiple times during the 1st 2 days of his stay. However he did allow them later on and those are negative at this time. Of note, patient did have a recent surgery completed by vascular surgery. He needs to follow up with Dr. Farmer at [facility] early next week. Time Spent with Patient Time attestation: Total time spent providing and/or coordinating discharge services: Physical Exam Vital Signs: Vital Signs: Vital Signs Temp Pulse Resp BP Pulse Ox 12/21/19 11:14 98.8 F 62 16 151/65 H 97 12/21/19 07:17 98.1 F 75 18 149/67 H 98 12/20/19 23:42 98.7 F 72 18 165/76 H 96 12/20/19 20:59 63 148/67 H 12/20/19 15:25 98 F 63 17 148/67 H 98 Body Mass Index 32.8 General - no acute distress, appears comfortable Cardiovascular - regular rate and rhythm, S1-S2 Lungs - normal respiratory effort, clear to auscultation bilaterally, no wheezing Abdomen - soft, nontender, no rebound regarding Extremities - no edema bilaterally, wounds clean Neuro - awake and alert, no focal deficits DS: Data Data Completed and Pending Completed studies during hospitalization [Text1]: Procedures Detachment at Left 5th Toe, Complete, Open Approach (12/02/19) Detachment at Right 5th Toe, Complete, Open Approach (12/02/19) Labs on day of discharge: Labs from last 24 hours 12/21/19 12/21/19 12/21/19 11:16 10:31 08:59 POC Glucose 105 122 H U Random Total Protein 236 H Urine Creatinine 28.43 Preliminary micro results at discharge 12/20/19 05:26 Blood Culture - Preliminary Blood - Venous No growth after 24 hours. 12/20/19 05:26 Blood Culture - Preliminary Blood - Venous No growth after 24 hours. Sodium 133 Potassium 4.3 Chloride 106 Bicarb 18 BUN 44 Creatinine 1.06 Discharge Plan Discharge Patient Disposition: Xfer SNF Referrals: [facility] [Other] (RETURN TO SNF at 3:30 pm via BLS ) Felton Farmer MD [Physician] - 1 Week (call for appt next week) Physician,Unknown [Primary Care Provider] - Discharge Medications: New sodium bicarbonate 650 mg Tablet 650 mg PO TID Qty: 90 RF: 0 ertapenem [Invanz] 1 gram recon soln 1 g IV DAILY Qty: 13 RF: 0 hydromorphone [Dilaudid] 2 mg tablet 2 mg PO Q6H PRN (Reason: pain (scale score 7-10)) Qty: 14 RF: 0 Continued lorazepam 0.5 mg Tablet 0.5 mg PO TID PRN (Reason: Anxiety) Qty: 10 RF: 0 sennosides [senna] 8.6 mg Tablet 8.6 mg PO BEDTIME RF: 0 carvedilol 6.25 mg Tablet 6.25 mg PO BID RF: 0 aspirin 325 mg Tablet 325 mg PO DAILY RF: 0 glipizide 2.5 mg Tablet Extended Release 24hr 2.5 mg PO DAILY RF: 0 gabapentin 300 mg Capsule 600 mg PO TID RF: 0 sertraline 50 mg Tablet 100 mg PO DAILY RF: 0 Discontinued hydromorphone 2 mg PO Q6-8H PRN (Reason: Pain, Moderate) RF: 0 lisinopril 30 mg Tablet 30 mg PO DAILY RF: 0 Discharge Orders: Discharge Order (Routine); Ordered 12/21/19 Ordered By: Dre Armstrong Diet: advance to your usual diet Activity on Discharge: As tolerated Visit Report Forms: Patient Portal Discharge page Care Plan Goals: Finish antibiotics Health Concerns: UTI Toe amputations Plan of Treatment: 2 weeks (13 more days of Invanz 1g) Follow up with Dr. Farmer for your follow up appt
[2019-12-21] MEDS: Ertapenem Sodium 1 GM in 0.9 % Sodium Chloride 50 ML IV (13:28)
== END 2019-12-21 17:09 | disposition skilled nursing facility (03) | DRG 872 ==
LOC: HO.ED 23:54 → HO.S3 12-18 02:56 → HO.IMC 12-18 08:30
PROVIDERS: Family Medicine; Internal Medicine Nephrology; Admitting Provider Internal Medicine; Emergency Provider Emergency Medicine Emergency Medical Services; Visit Provider Internal Medicine Hypertension Specialist
DX: A41.9 Sepsis, unspecified organism (principal); I42.9 Cardiomyopathy, unspecified; N39.0 Urinary tract infection, site not specified; E87.2 Acidosis; Z16.12 Extended spectrum beta lactamase (ESBL) resistance; F41.9 Anxiety disorder, unspecified; E87.5 Hyperkalemia; B96.20 Unspecified Escherichia coli [E. coli] as the cause of diseases classified elsewhere; D63.1 Anemia in chronic kidney disease; I11.0 Hypertensive heart disease with heart failure; I50.9 Heart failure, unspecified; E11.9 Type 2 diabetes mellitus without complications; Z20.828 Contact with and (suspected) exposure to other viral communicable diseases; Z87.891 Personal history of nicotine dependence; Z79.82 Long term (current) use of aspirin; Z79.899 Other long term (current) drug therapy
CPT/HCPCS: 36415; 71045; 74177; 80048; 80076; 81001; 81003; 82947; 83605; 83690; 84156; 85025; 86709; 87040; 87086; 87088; 87186; 87340; 87635; 93005; 96361; 96365; 96375; 99232; 99285; 99291; J2405; J2997

== ENCOUNTER → 2020-01-02 15:10 | Outpatient (BNVA) | payer MEDICARE, MEDICAID, OTHER, SELFPAY | PROVIDERS: Visit Provider Surgery Vascular Surgery | DX: S98.132D Complete traumatic amputation of one left lesser toe, subsequent encounter (principal); S98.131D Complete traumatic amputation of one right lesser toe, subsequent encounter | CPT/HCPCS: 99212 ==

== ENCOUNTER → 2020-02-26 13:39 | Outpatient (BNVA) | payer MEDICARE, MEDICAID, SELFPAY | PROVIDERS: Visit Provider Surgery | DX: C20 Malignant neoplasm of rectum (principal) | CPT/HCPCS: 99212 ==

== ENCOUNTER 2020-03-12 09:05 | Outpatient (REF) | payer MEDICARE, MEDICAID, SELFPAY ==
--- NOTE | 2020-03-12 09:09 | CT_ITS ---
EXAMINATION: CT ABDOMEN AND PELVIS WITH CONTRAST CLINICAL INFORMATION: Malignant neoplasm of the rectum. COMPARISON: 12/17/2019 TECHNIQUE: Multidetector volumetric images were obtained from the superior aspect of the liver through the pubic symphysis following administration 85 mL of Omnipaque 350 intravenous contrast. Sagittal and coronal reformatted images were obtained on the technologist's workstation. Oral contrast: No. This CT examination was performed using dose optimization techniques as appropriate, variously including the following: Automated exposure control. Adjustment of mA and/or kV according to patient size (this includes techniques or standardized protocols for targeted exams where dose is matched to indication/reason for exam; i.e. extremities or head). Use of iterative reconstruction technique. DLP: 756 mGy-cm FINDINGS: LUNG BASES: The lung bases are clear. The heart size is normal. LIVER, GALLBLADDER, AND BILIARY TREE: The liver is normal in size, shape, and attenuation. No focal hepatic lesion or biliary ductal dilatation is present. The gallbladder is unremarkable with no evidence of radiopaque gallstones, gallbladder wall thickening, or obvious pericholecystic inflammatory changes. PANCREAS: Unremarkable. SPLEEN: Unremarkable. ADRENAL GLANDS: Unremarkable. KIDNEYS AND URETERS: The kidneys are normal in size, shape, and attenuation. No hydronephrosis, hydroureter, or calculi seen. No perinephric stranding. There is a 9 mm lesion in the upper pole cortex left kidney and an exophytic 1.8 cm lesion lower pole right kidney. BLADDER: Unremarkable. GASTROINTESTINAL TRACT: There is a left descending colostomy with scattered stool seen throughout the remaining colon. Oral contrast opacified small bowel loops are normal caliber. Appendix is normal caliber. There is a rectal stump and remaining distal sigmoid colon filled with fluids. Mild annular thickening of the rectum with perirectal fat stranding is present. There is presacral soft tissue thickening likely post radiation changes and/or port scar. ABDOMINAL WALL: There is diastases of the abdominal wall with hernia. A left lower quadrant colostomy is present. LYMPH NODES: There are small shotty lymph nodes seen in the retroperitoneum and the aortic bifurcation and aortocaval region. The largest lymph node measures 1.0 cm anterior to the distal abdominal aorta on axial image. VASCULAR: Unremarkable. PELVIC VISCERA: Unremarkable. OSSEOUS STRUCTURES: There are degenerative disc changes throughout the lower dorsal and upper lumbar spine. There are degenerative disc changes L2-L3 disc level with ventral and posterior spondylosis. No fracture or lytic process seen. CT/CT abdomen pelvis w con IMPRESSION: There is left descending colostomy with blind ending sigmoid stump. There is diffuse annular thickening involving rectum with intraluminal fluid collection in the sigmoid and the rectal segments. There is mild perirectal fat stranding and moderate presacral soft tissue thickening likely post radiation changes. No abnormal lymph nodes seen in this region. Rest of the colon and small bowel loops are unremarkable. Appendix is normal. Bilateral small renal cysts.
[2020-03-12 09:58] LABS: MANUAL DIFF FLAG NO
[2020-03-12 10:07] LABS: Basophils Percent Auto 0.4 % (0-2); Eosinophils Absolute Auto 0.5 X10*3/uL (0.0-0.4); Eosinophils Percent Auto 7.2 % (0-4); Hemoglobin 8.2 g/dl (14.0-18.0); Imm Gran Abs Auto 0.04 X10*3/uL (0.00-0.03); Imm Gran Pct Auto 0.5 % (0.0-0.4); Immature Retic Fraction 11.5 % (2.3-13.4); Lymphocytes Absolute Auto 1.4 X10*3/uL (1.2-4.9); Lymphocytes Percent Auto 18.9 % (20-40); Mean Corpuscular HGB Conc 28.3 g/dl (31.0-36.0); Mean Corpuscular Hemoglobin 22.2 pg (27.0-33.0); Mean Corpuscular Volume 78.4 fL (80-98); Mean Platelet Volume 9.4 fL (9.4-12.4); Monocytes Absolute Auto 0.8 X10*3/uL (0.1-1.2); Monocytes Percent Auto 10.2 % (2-11); Neutrophils Absolute Auto 4.6 X10*3/uL (2.0-8.3); Neutrophils Percent Auto 62.8 % (45-73); Platelet Count 261 X10*3/uL (160-400); Retic HGB Equivalent 21.6 pg (30.0-35.0); Reticulocyte Percent 2.5 % (0.5-1.8); Reticulocytes Absolute 0.094 X10*6/uL (0.026-0.095); White Blood Count 7.3 X10*3/uL (4.8-10.8)
[2020-03-12 10:41] LABS: Alanine Aminotransferase 40 U/L (0-40); Alkaline Phosphatase 97 U/L (39-117); Anion Gap 13 (12-20); Aspartate Amino Transferase 32 U/L (5-37); Bilirubin Total 0.2 mg/dL (0.0-1.0); Blood Urea Nitrogen 65 mg/dL (9-16); Calcium 8.5 mg/dL (8.4-10.2); Carbon Dioxide 19 mmol/L (22-29); Chloride 114 mmol/L (96-108); Estimated Glomerular Filt Rate 50; Glucose Random 97 mg/dL (60-115); Potassium 5.8 mmol/l (3.3-5.1); Sodium 140 mmol/L (135-145); Total Protein 7.3 g/dL (6.5-8.0)
[2020-03-12 11:01] LABS: Ferritin 127 ng/mL (20-250)
[2020-03-12] MEDS: iohexoL 350 MG/ML 100 ML INFUS..BTL 85 ML IV (11:57)
== END 2020-03-12 09:06 | disposition home or self-care (01) ==
LOC: HO.CT 09:05
PROVIDERS: Visit Provider Surgery
DX: C20 Malignant neoplasm of rectum (principal)
CPT/HCPCS: 36415; 74177; 80053; 82728; 85025; 85045; Q9967

== ENCOUNTER → 2020-03-24 13:15 | Outpatient (BNVA) | payer MEDICARE, MEDICAID, SELFPAY | PROVIDERS: PCP Family Medicine; Visit Provider Surgery | DX: C20 Malignant neoplasm of rectum (principal) | CPT/HCPCS: 99212 ==

== ENCOUNTER → 2020-05-04 11:11 | Outpatient (BNVA) | payer MEDICARE, MEDICAID, SELFPAY | PROVIDERS: PCP Family Medicine; Visit Provider Physician Assistant | DX: Z13.89 Encounter for screening for other disorder (principal) | CPT/HCPCS: Q3014 ==

== ENCOUNTER → 2020-05-19 09:02 | Outpatient (BNVA) | payer MEDICARE, MEDICAID, SELFPAY | PROVIDERS: PCP Family Medicine; Visit Provider Surgery Vascular Surgery | DX: I73.9 Peripheral vascular disease, unspecified (principal) | CPT/HCPCS: 99212 ==

== ENCOUNTER 2020-08-16 15:28 | Inpatient (IN) | payer MEDICARE, MEDICAID, SELFPAY ==
--- NOTE | ~2020-08-16 | CT_ITS ---
EXAMINATION: CT FOOT WITH CONTRAST, BILATERAL CLINICAL INFORMATION: Evaluate for osteomyelitis COMPARISON: None TECHNIQUE: CT of the right foot and of the left foot are performed following intravenous administration of 85 mL Omnipaque 350 iodinated contrast, with sagittal and coronal reformats. This CT examination was performed using dose optimization techniques as appropriate, variously including the following: *Automated exposure control *Adjustment of mA and/or kV according to patient size (this includes techniques or standardized protocols for targeted exams where dose is matched to indication/reason for exam; i.e. extremities or head) *Use of iterative reconstruction technique DLP: 194 mGy-cm FINDINGS: Right foot: There has been amputation of the distal 5th metatarsal and 5th toe. Possible soft tissue defect along the plantar aspect of the 4th MTP joint with there is cortical irregularity of the 4th metatarsal head, as well as the base of the proximal phalanx suggesting osteomyelitis and a septic joint. No additional foci of cortical irregularity concerning for osteomyelitis is evident. Left foot: There has been amputation of the distal 5th metatarsal and 5th toe. No cortical erosions or irregularity concerning for active osteomyelitis. Both feet demonstrate diffuse vascular calcifications. No peripherally enhancing fluid collections are identified to suggest abscess of either foot. CT/CT foot LT w con IMPRESSION: Septic joint with osteomyelitis of the right 4th MTP joint is strongly suspected. No additional foci suspicious for osteomyelitis are identified in either foot.
--- NOTE | ~2020-08-16 | CT_ITS ---
EXAMINATION: CT FOOT WITH CONTRAST, BILATERAL CLINICAL INFORMATION: Evaluate for osteomyelitis COMPARISON: None TECHNIQUE: CT of the right foot and of the left foot are performed following intravenous administration of 85 mL Omnipaque 350 iodinated contrast, with sagittal and coronal reformats. This CT examination was performed using dose optimization techniques as appropriate, variously including the following: *Automated exposure control *Adjustment of mA and/or kV according to patient size (this includes techniques or standardized protocols for targeted exams where dose is matched to indication/reason for exam; i.e. extremities or head) *Use of iterative reconstruction technique DLP: 194 mGy-cm FINDINGS: Right foot: There has been amputation of the distal 5th metatarsal and 5th toe. Possible soft tissue defect along the plantar aspect of the 4th MTP joint with there is cortical irregularity of the 4th metatarsal head, as well as the base of the proximal phalanx suggesting osteomyelitis and a septic joint. No additional foci of cortical irregularity concerning for osteomyelitis is evident. Left foot: There has been amputation of the distal 5th metatarsal and 5th toe. No cortical erosions or irregularity concerning for active osteomyelitis. Both feet demonstrate diffuse vascular calcifications. No peripherally enhancing fluid collections are identified to suggest abscess of either foot. CT/CT foot RT w con IMPRESSION: Septic joint with osteomyelitis of the right 4th MTP joint is strongly suspected. No additional foci suspicious for osteomyelitis are identified in either foot.
--- NOTE | ~2020-08-16 | US_ITS ---
EXAMINATION: NONINVASIVE ASSESSMENT OF THE ARTERIES OF BOTH LOWER EXTREMITIES WITH PVR EXAM AND BILATERAL LOWER EXTREMITY DUPLEX CLINICAL INFORMATION: Nonhealing ulcer right foot TECHNIQUE: Ankle pulse volume recordings, ankle pressure measurements and ankle brachial indices were obtained of the lower extremity arterial system bilaterally in addition to duplex Doppler techniques with wave form analysis and measurement of velocities in the common femoral, profunda femoral, superficial femoral, popliteal and tibial arteries. The study was performed only at rest. COMPARISON: Previous exam October 2019 FINDINGS: a) AT REST: RIGHT LE. The right ankle-brachial index is: 1 2. Right ankle pressure: normal. 3. Right ankle PVR waveform: normal. 4. Right direct duplex Doppler findings: There is mild stenosis and vessel wall calcification of the popliteal and posterior tibial artery. * Common femoral artery: 123 cm/s, Diastolic flow reversal: Yes * Superficial femoral artery (proximal, mid, distal): 89, 120 and 122 cm/s, Diastolic flow reversal: Yes * Popliteal artery: 172 cm/s, Diastolic flow reversal: Yes * Posterior tibial artery: 116 cm/s, Diastolic flow reversal: Yes LEFT LE. The left ankle-brachial index is: 1.2 2. Left ankle pressure: normal. 3. Left ankle PVR waveform: normal. 4. Left direct duplex Doppler findings: There is vessel wall calcification. * Common femoral artery: 151 cm/s, Diastolic flow reversal: Yes * Superficial femoral artery (proximal, mid, distal): 100, 105 and 93 cm/s, Diastolic flow reversal: Yes * Popliteal artery: 267 cm/s, Diastolic flow reversal: Yes * Posterior tibial artery: 90 cm/s, Diastolic flow reversal: Yes RIGOBERTO Reference: * >0.97-1.25 = normal - no significant arterial disease * 0.75-0.96 = mild peripheral arterial disease * 0.5-0.74 = moderate peripheral arterial disease * <0.50 = severe peripheral arterial disease US/US arterial duplex LE BI IMPRESSION: There is increased peak systolic velocity in the bilateral popliteal and posterior tibial arteries. This is increased from October 2019 exam. There are mild stenosis seen in the right popliteal and posterior tibial arteries. Ankle-brachial indices are normal bilaterally.
--- NOTE | ~2020-08-16 | XR_ITS ---
EXAMINATION: XR CHEST CLINICAL INFORMATION: PICC line tip. COMPARISON: None TECHNIQUE: Frontal view of the chest was obtained. FINDINGS: The lungs are well-expanded and clear of acute process. The heart size and pulmonary vascularity is normal. There is a left central port with its tip in the SVC. No gross bony abnormality seen. XR/XR chest 1V IMPRESSION: Left central port catheter tip in proximal SVC. The lungs are clear.
[2020-08-16 16:03] VITALS: BP 134/53; PULSE 60; RESP 18; TEMP 36.6; O2SAT 95; BMI 33.8
--- NOTE | 2020-08-16 16:07 | ECG_ITS ---
Test Reason : CHEST PAIN Blood Pressure : / mmHG Vent. Rate : 056 BPM Atrial Rate : 056 BPM P-R Int : 208 ms QRS Dur : 188 ms QT Int : 514 ms P-R-T Axes : 057 -63 086 degrees QTc Int : 496 ms Atrial-sensed ventricular-paced rhythm Abnormal ECG When compared with ECG of 17-DEC-2019 22:33, Ventricular-paced rhythm now seen Referred By: Mary Grier Electronically Signed By:EDWARD HINES
--- NOTE | 2020-08-16 16:08 | ED.GENADULT ---
HPI - General Adult General Chief complaint: General Medical Stated complaint: WOUND ON FOOT Time Seen by Provider: 08/16/20 15:54 Source: patient and EMS Mode of arrival: EMS Limitations: no limitations History of Present Illness HPI narrative: Patient comes to the emergency room from [facility]. Patient was sent here for evaluation of chest pain and unhealed surgical wound sites from both feet. Also, a chest x-ray was done earlier today at the [facility], chest x-ray report showed a PICC line tip, but the patient does not have a PICC line. Patient states that he does not know why the [facility] staff sent him here for chest pain because he has not had any chest pain at all. Patient denies shortness of breath. Patient states that his complaint of today would be his own healed wound sites in both feet. Patient had bilateral 5th metatarsal amputation bilaterally in November 2019. Patient has severe neuropathy and does not feel his toes. However, he is aware that the surgical sites have been draining constantly for the last few months. For [facility], patient is currently on oral doxycycline, likely due to the current foot infection. Related Data Home Medications Medication Instructions Recorded Confirmed aspirin 325 mg PO DAILY 11/29/19 05/04/20 carvedilol 6.25 mg PO BID 11/29/19 05/04/20 gabapentin 600 mg PO TID 11/29/19 03/24/20 glipizide 2.5 mg PO DAILY 11/29/19 05/04/20 sennosides [senna] 8.6 mg PO BEDTIME 11/29/19 05/04/20 sertraline 100 mg PO DAILY 11/29/19 05/04/20 Previous Rx's Medication Instructions Recorded lorazepam 0.5 mg PO TID PRN #10 tab 12/21/19 sodium bicarbonate 650 mg PO TID #90 tab 12/21/19 Allergies Allergy/AdvReac Type Severity Reaction Status Date / Time metformin AdvReac Unknown diarrhea Verified 05/04/20 11:11 Review of Systems Review of Systems: Constitutional : No Weight loss, No Fever, No Chills, No Night Sweats, No Fatigue, No Malaise ENT/Mouth : No Hearing loss, No Ear Pain, No Nasal Congestion, No Sinus Pain, No Hoarseness, No sore throat, No Rhinorrhea, No Swallowing Difficulty Eyes: No Eye Pain, No Swelling, No Redness, No Foreign Body, No Discharge, No Vision Changes Cardiovascular : No Chest Pain, No SOB, No Dyspnea on Exertion, No Orthopnea, No Edema, No Palpitations Respiratory : No Cough, No Sputum, No Wheezing, No Smoke Exposure, No Dyspnea Gastrointestinal : No Nausea, No Vomiting, No Diarrhea, No Constipation, No abdominal Pain, No Hematochezia, No Melena Genitourinary : no irregular bleeding, No Dysuria, No Urinary Frequency, No Hematuria, No Urinary Incontinence, No Urgency, No Flank Pain, No Urinary Flow Changes, No Hesitancy Musculoskeletal : No joint pain, No Myalgias, No Joint Swelling Skin: complaining of unhealed wound sites in both feet for several months, no pain, complaining of current discharged on the left foot Neuro : No Weakness, No Numbness, No Paresthesias, No Loss of Consciousness, No Dizziness, No Headache Psych : No Anxiety/Panic, No Depression, No SI/HI/AH/VH, No Social Issues, Heme/Lymph: No Bruising, No Bleeding,No Lymphadenopathy Endocrine : No Polyuria, No Polydipsia, No Temperature Intolerance REPLACED BY [facility] Past Medical History Medical History Anxiety Cardiomyopathy CHF (congestive heart failure) Diabetes History of sigmoidoscopy HTN (hypertension) Hypogonadism Obesity 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 Proteinuria Surgical History History of amputation of foot through metatarsal bone History of cataract surgery History of colectomy History of colonoscopy History of reversal of ileostomy Family History Family History Mother Diabetes Social History Social History Household Members: Other Housing: Care Home Do you presently have visiting nurse or other home services: No Alcohol intake: former Years Smoked: 15 years Second Hand Smoke Exposure: No Advance Directives: No Advance Directives Information Provided: No service: Yes (per pt report) Current occupational status: disabled Physical Exam Vital Signs: Vital Signs: Last Vital Signs Temp 97.8 F 08/16/20 19:12 Pulse 58 08/16/20 19:12 Resp 18 08/16/20 19:12 BP 152/73 H 08/16/20 19:12 Pulse Ox 96 08/16/20 19:12 Body Mass Index 33.8 Appearance: Alert. Oriented X3. No acute distress. Eyes: Pupils equal, round and reactive to light. ENT: Pharynx normal. Neck: Normal inspection. Neck supple. No lymph nodes noted. No crepitus CVS: Normal heart rate and rhythm. Pulses normal. Normal S1 and S2 Respiratory: No respiratory distress. Breath sounds normal. No Wheezing. No rales Abdomen: Soft and nontender. No rigidity. No distention. Skin: Skin warm and dry. See below Extremities: No lower extremity edema. Patient has healing surgical sites over the bilateral 5th metatarsal spaces, the left foot is draining a small amount of pus, the right foot Neuro: Oriented X 3. No motor deficit. No sensory deficit. Moving all extermities. No slurred speech. Course Course Course Narrative: I discussed with the patient he likely has right-sided foot osteomyelitis. Patient being admitted. Patient was given Zosyn and vancomycin, at this time, sepsis is not suspected, white blood cell count and lactic acid within normal limits, no fever, no tachycardia, blood pressure 152/73. Fluids are cautiously being given due to patient's history of CHF Medical Decision Making Lab Data Result diagrams: 08/16/20 16:36 08/16/20 16:36 Labs: Lab Results 08/16/20 08/16/20 08/16/20 Range/Units 16:36 16:36 16:36 WBC 6.2 (4.8-10.8) X10*3/uL RBC 3.59 L (4.60-5.80) X10*6/uL Hgb 8.0 L (14.0-18.0) g/dl Hct 27.0 L (42-52) % MCV 75.2 L (80-98) fL MCH 22.3 L (27.0-33.0) pg MCHC 29.6 L (31.0-36.0) g/dl RDW 18.0 H (11.0-16.0) % Plt Count 271 (160-400) X10*3/uL MPV 9.2 L (9.4-12.4) fL Immature Gran % (Auto) 0.8 H (0.0-0.4) % Neut % (Auto) 61.6 (45-73) % Lymph % (Auto) 22.0 (20-40) % Craig % (Auto) 7.9 (2-11) % Eos % (Auto) 7.4 H (0-4) % Baso % (Auto) 0.3 (0-2) % Lymph # (Auto) 1.4 (1.2-4.9) X10*3/uL Craig # (Auto) 0.5 (0.1-1.2) X10*3/uL Eos # (Auto) 0.5 H (0.0-0.4) X10*3/uL Baso # (Auto) 0.0 (0.0-0.2) X10*3/uL Abs Immat Gran (auto) 0.05 H (0.00-0.03) X10*3/uL Absolute Neuts (auto) 3.9 (2.0-8.3) X10*3/uL Absolute Nucleated RBC 0.000 (0.0-0.012) X10*3/uL Nucleated RBC % (auto) 0.0 (0.0-0.2) /100WBC PT (10.8-13.0) SEC INR (0.9-1.1) Sodium 142 (135-145) mmol/L Potassium 4.9 (3.3-5.1) mmol/L Chloride 112 H (96-108) mmol/L Carbon Dioxide 22 (22-29) mmol/L Anion Gap 13 (12-20) BUN 42 H (9-16) mg/dL Creatinine 1.02 (0.5-1.4) mg/dL Estim Creat Clear Calc 104.7 Estimated GFR > 60 POC Glucose (60-115) mg/dL Random Glucose 118 H (60-115) mg/dL Lactic Acid (0.5-2.0) mmol/L Calcium 8.3 L (8.4-10.2) mg/dL Total Bilirubin 0.2 (0.0-1.0) mg/dL Direct Bilirubin < 0.2 (0.0-0.5) mg/dL AST 11 D (5-37) U/L ALT 10 (0-40) U/L Alkaline Phosphatase 81 (39-117) U/L Troponin I High Sens 16.6 (<3.5-35.0) ng/L B-Natriuretic Peptide (<100) pg/mL Total Protein 6.9 (6.5-8.0) g/dL Albumin 2.8 L (3.5-5.0) g/dL 08/16/20 08/16/20 08/16/20 Range/Units 16:36 16:36 16:36 WBC (4.8-10.8) X10*3/uL RBC (4.60-5.80) X10*6/uL Hgb (14.0-18.0) g/dl Hct (42-52) % MCV (80-98) fL MCH (27.0-33.0) pg MCHC (31.0-36.0) g/dl RDW (11.0-16.0) % Plt Count (160-400) X10*3/uL MPV (9.4-12.4) fL Immature Gran % (Auto) (0.0-0.4) % Neut % (Auto) (45-73) % Lymph % (Auto) (20-40) % Craig % (Auto) (2-11) % Eos % (Auto) (0-4) % Baso % (Auto) (0-2) % Lymph # (Auto) (1.2-4.9) X10*3/uL Craig # (Auto) (0.1-1.2) X10*3/uL Eos # (Auto) (0.0-0.4) X10*3/uL Baso # (Auto) (0.0-0.2) X10*3/uL Abs Immat Gran (auto) (0.00-0.03) X10*3/uL Absolute Neuts (auto) (2.0-8.3) X10*3/uL Absolute Nucleated RBC (0.0-0.012) X10*3/uL Nucleated RBC % (auto) (0.0-0.2) /100WBC PT 13.8 H (10.8-13.0) SEC INR 1.2 H (0.9-1.1) Sodium (135-145) mmol/L Potassium (3.3-5.1) mmol/L Chloride (96-108) mmol/L Carbon Dioxide (22-29) mmol/L Anion Gap (12-20) BUN (9-16) mg/dL Creatinine (0.5-1.4) mg/dL Estim Creat Clear Calc Estimated GFR POC Glucose (60-115) mg/dL Random Glucose (60-115) mg/dL Lactic Acid 0.8 (0.5-2.0) mmol/L Calcium (8.4-10.2) mg/dL Total Bilirubin (0.0-1.0) mg/dL Direct Bilirubin (0.0-0.5) mg/dL AST (5-37) U/L ALT (0-40) U/L Alkaline Phosphatase (39-117) U/L Troponin I High Sens (<3.5-35.0) ng/L B-Natriuretic Peptide 747 H (<100) pg/mL Total Protein (6.5-8.0) g/dL Albumin (3.5-5.0) g/dL 08/16/20 Range/Units 21:00 WBC (4.8-10.8) X10*3/uL RBC (4.60-5.80) X10*6/uL Hgb (14.0-18.0) g/dl Hct (42-52) % MCV (80-98) fL MCH (27.0-33.0) pg MCHC (31.0-36.0) g/dl RDW (11.0-16.0) % Plt Count (160-400) X10*3/uL MPV (9.4-12.4) fL Immature Gran % (Auto) (0.0-0.4) % Neut % (Auto) (45-73) % Lymph % (Auto) (20-40) % Craig % (Auto) (2-11) % Eos % (Auto) (0-4) % Baso % (Auto) (0-2) % Lymph # (Auto) (1.2-4.9) X10*3/uL Craig # (Auto) (0.1-1.2) X10*3/uL Eos # (Auto) (0.0-0.4) X10*3/uL Baso # (Auto) (0.0-0.2) X10*3/uL Abs Immat Gran (auto) (0.00-0.03) X10*3/uL Absolute Neuts (auto) (2.0-8.3) X10*3/uL Absolute Nucleated RBC (0.0-0.012) X10*3/uL Nucleated RBC % (auto) (0.0-0.2) /100WBC PT (10.8-13.0) SEC INR (0.9-1.1) Sodium (135-145) mmol/L Potassium (3.3-5.1) mmol/L Chloride (96-108) mmol/L Carbon Dioxide (22-29) mmol/L Anion Gap (12-20) BUN (9-16) mg/dL Creatinine (0.5-1.4) mg/dL Estim Creat Clear Calc Estimated GFR POC Glucose 82 (60-115) mg/dL Random Glucose (60-115) mg/dL Lactic Acid (0.5-2.0) mmol/L Calcium (8.4-10.2) mg/dL Total Bilirubin (0.0-1.0) mg/dL Direct Bilirubin (0.0-0.5) mg/dL AST (5-37) U/L ALT (0-40) U/L Alkaline Phosphatase (39-117) U/L Troponin I High Sens (<3.5-35.0) ng/L B-Natriuretic Peptide (<100) pg/mL Total Protein (6.5-8.0) g/dL Albumin (3.5-5.0) g/dL Imaging Data Chest x-ray: Radiologist's impression: FINDINGS: The lungs are well-expanded and clear of acute process. The heart size and pulmonary vascularity is normal. There is a left central port with its tip in the SVC. No gross bony abnormality seen. XR/XR chest 1V IMPRESSION: Left central port catheter tip in proximal SVC. The lungs are clear. Right and left foot CT scan: Radiologist's impression: [address] [id number] Scan ReportSigned Patient: Antwan PhelanR#: [id number]: [id number]/Sex: 64 / MADM Date: 08/16/20Loc: HO.EDAttending Dr: Ordering Physician: MITCHEL JULIO MD Date of Service: 08/16/20 Procedure(s): CT foot RT w con Accession Number(s): [id number] cc: MITCHEL JULIO MD~ EXAMINATION: CT FOOT WITH CONTRAST, BILATERAL CLINICAL INFORMATION: Evaluate for osteomyelitis COMPARISON: None TECHNIQUE: CT of the right foot and of the left foot are performed following intravenous administration of 85 mL Omnipaque 350 iodinated contrast, with sagittal and coronal reformats. This CT examination was performed using dose optimization techniques as appropriate, variously including the following: *Automated exposure control *Adjustment of mA and/or kV according to patient size (this includes techniques or standardized protocols for targeted exams where dose is matched to indication/reason for exam; i.e. extremities or head) *Use of iterative reconstruction technique DLP: 194 mGy-cm FINDINGS: Right foot: There has been amputation of the distal 5th metatarsal and 5th toe. Possible soft tissue defect along the plantar aspect of the 4th MTP joint with there is cortical irregularity of the 4th metatarsal head, as well as the base of the proximal phalanx suggesting osteomyelitis and a septic joint. No additional foci of cortical irregularity concerning for osteomyelitis is evident. Left foot: There has been amputation of the distal 5th metatarsal and 5th toe. No cortical erosions or irregularity concerning for active osteomyelitis. Both feet demonstrate diffuse vascular calcifications. No peripherally enhancing fluid collections are identified to suggest abscess of either foot. CT/CT foot RT w con IMPRESSION: Septic joint with osteomyelitis of the right 4th MTP joint is strongly suspected. No additional foci suspicious for osteomyelitis are identified in either foot. ECG Data Attestation: I personally reviewed and interpreted this ECG as follows: (Sinus bradycardia, heart rate 56, no ST segment depression or elevation, ventricularly paced, QTC 496) Discharge Plan Discharge Clinical Impression: Foot osteomyelitis, right Qualifiers: Osteomyelitis type: unspecified type Qualified Code(s): M86.9 - Osteomyelitis, unspecified Patient Disposition: Admitted As Inpatient
[2020-08-16 16:43] LABS: MANUAL DIFF FLAG NO
[2020-08-16 16:49] LABS: INTERNATIONAL NORM RATIO 1.2 (0.9-1.1); Prothrombin Time 13.8 SEC (10.8-13.0)
[2020-08-16 16:51] LABS: Basophils Percent Auto 0.3 % (0-2); Eosinophils Absolute Auto 0.5 X10*3/uL (0.0-0.4); Eosinophils Percent Auto 7.4 % (0-4); Imm Gran Abs Auto 0.05 X10*3/uL (0.00-0.03); Imm Gran Pct Auto 0.8 % (0.0-0.4); Lymphocytes Absolute Auto 1.4 X10*3/uL (1.2-4.9); Mean Corpuscular HGB Conc 29.6 g/dl (31.0-36.0); Mean Corpuscular Hemoglobin 22.3 pg (27.0-33.0); Mean Corpuscular Volume 75.2 fL (80-98); Mean Platelet Volume 9.2 fL (9.4-12.4); Monocytes Absolute Auto 0.5 X10*3/uL (0.1-1.2); Monocytes Percent Auto 7.9 % (2-11); Neutrophils Absolute Auto 3.9 X10*3/uL (2.0-8.3); Neutrophils Percent Auto 61.6 % (45-73); Platelet Count 271 X10*3/uL (160-400); Red Blood Count 3.59 X10*6/uL (4.60-5.80); White Blood Count 6.2 X10*3/uL (4.8-10.8)
[2020-08-16 17:20] LABS: Lactic Acid 0.8 mmol/L (0.5-2.0)
[2020-08-16 17:24] LABS: Alanine Aminotransferase 10 U/L (0-40); Albumin Level 2.8 g/dL (3.5-5.0); Alkaline Phosphatase 81 U/L (39-117); Anion Gap 13 (12-20); Aspartate Amino Transferase 11 U/L (5-37); Bilirubin Direct < 0.2 mg/dL (0.0-0.5); Bilirubin Total 0.2 mg/dL (0.0-1.0); Blood Urea Nitrogen 42 mg/dL (9-16); Calcium 8.3 mg/dL (8.4-10.2); Carbon Dioxide 22 mmol/L (22-29); Chloride 112 mmol/L (96-108); Creatinine Clr Calc Pharmacy 104.7; Estimated Glomerular Filt Rate > 60; Glucose Random 118 mg/dL (60-115); Potassium 4.9 mmol/L (3.3-5.1); Sodium 142 mmol/L (135-145); Total Protein 6.9 g/dL (6.5-8.0)
[2020-08-16 17:31] LABS: B Type Natriuretic Peptide 747 pg/mL (<100); Troponin-I High Sensitivity 16.6 ng/L (<3.5-35.0)
[2020-08-16 19:12] VITALS: BP 152/73; PULSE 58; RESP 18; TEMP 36.6; O2SAT 96
[2020-08-16] MEDS: iohexoL 350 MG/ML 100 ML INFUS..BTL IV (19:55)
[2020-08-16 21:04] LABS: Glucose, Whole Blood 82 mg/dL (60-115)
[2020-08-16 21:42] LABS: Troponin-I High Sensitivity 14.3 ng/L (<3.5-35.0)
[2020-08-16 22:28] VITALS: BP 145/55; PULSE 60; RESP 18; TEMP 36.5; O2SAT 92
[2020-08-16] MEDS: Piperacillin Sodium/Tazobactam 3.375 GM in 0.9 % Sodium Chloride 50 ML IV (22:42)
[2020-08-16] MEDS: 0.9 % Sodium Chloride 1,000 ML 500 ML IVCONT (22:42)
[2020-08-17] VITALS (8 sets, daily range): BP systolic 132–174; BP diastolic 55–79; PULSE 51–115; RESP 17–19; TEMP 36.1–37; O2SAT 90–94
[2020-08-17] MEDS: vancomycin HCL 1,500 MG in 0.9 % Sodium Chloride 500 ML 333.33 MG IV
--- NOTE | 2020-08-17 00:31 | CA_ITS ---
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 Study Quality: Fair ECG Rhythm: Sinus Conclusions: - There is mild aortic valve stenosis. - There is moderate mitral annular calcification. - Moderate pulmonary hypertension is present. - The left ventricular systolic function is low normal. The visually estimated ejection fraction is between 50-55%. Findings Procedure Information Contrast agent, definity, is being given per protocol without apparent complications. The patient receives contrast. Left Ventricle Normal left ventricular cavity size. There is mildly increased left ventricular wall thickness. The left ventricular systolic function is low normal. The visually estimated ejection fraction is between 50-55%. There is no evidence of regional wall motion abnormalities. There is paradoxical septal motion consistent with a right ventricular pacemaker. Diastolic function is indeterminate on the basis of available data. Right Ventricle Normal right ventricular cavity size and systolic function. Atria The left atrium is moderately dilated. Aortic Valve There is a normal trileaflet aortic valve. There is mild thickening of the aortic valve. There is mild aortic valve stenosis. The peak aortic velocity is 1.90 m/s. The aortic valve area is 1.28 cm2. There is no aortic valve regurgitation. Mitral Valve There is moderate mitral annular calcification. There is no mitral valve regurgitation. There is no mitral valve stenosis. Pulmonic Valve The pulmonic valve is likely normal. Tricuspid Valve Normal tricuspid valve structure and function. There is trace tricuspid valve regurgitation. Moderately elevated right atrial pressure. Moderate pulmonary hypertension is present. Great Vessels All visible segments of the aorta are normal in size. The visualized portions of the pulmonary artery and branches are normal. Venous The inferior vena cava is dilated and does not collapse with inspiration. Pericardium/Pleural There is no evidence of pericardial effusion. Prior Study Comparison Changes noted compared to prior study. EF has improved from 30-35% to 50 55%. Measurements 2D Linear Measurements LVIDd: 4.49 3.9-5.3/4.2-5.9 cm LVIDd Index: 1.80 2.4-3.2/2.2-3.1 cm/m2 LVIDs: 3.55 2.0-3.6 cm LVPWd: 1.10 0.7-1.1 cm Ao Root: 3.40 2.1-3.5 cm LA Diam: 4.00 2.7-3.8/3.0-4.0 cm LAIDs Index: 1.60 1.5-2.3 cm/m2 LV Mass: 382.51 67-162/88-224 g LV Mass Index: 153.00 43-95/49-115 g/m2 LVOT Diam: 2.10 3.0+(-)1.3 cm 2D Systolic Function EF 4C: 45.00 >55% EF 2C: 39.50 >55% Mitral Valve MV VTI: 0.32 MV Pk Edilberto: 1.87 MV Mn Edilberto: 1.03 MV Pk Grad: 14.00 MV Mn Grad: 6.00 MV Pk E: 1.35 MV Decel Time: 286.00 E'Lateral: 7.94 E'Medial: 10.40 E/E' Med: 13.00 E/E' Lat: 17.00 PHT: 84.00 MVA PHT: 2.62 MVA Continuity: 1.59 Decel Freestone: 4.70 Aortic Valve AoV Pk Edilberto: 1.90 AoV Mn Edilberto: 1.41 AoV VTI: 0.40 AoV Pk Grad: 14.00 Aov Mn Grad: 9.00 LISANDRA Cont.VTI: 1.28 LVOT LVOT Pk Edilberto: 0.89 LVOT Mn Edilberto: 0.56 LVOT VTI: 0.15 LVOT Pk Grad: 3.00 LVOT Mn Grad: 2.00 LVOT Diam: 2.10 LVOT Area: 3.46 Diastolic Function MV Pk E: 1.35 E'Medial: 10.40 E/E' Med: 13.00 E' Laterial: 7.94 E/E' Lat: 17.00 Tricuspid Valve TR Pk Edilberto: 3.21 TR Pk Grad: 41.00 RA Press: 15.00 RVSP: 56.00 Great Vessels Aorta Ao Root-2D: 3.40 2.0-3.7 cm Pulmonary Valve PV Pk Edilberto: 1.10 Peak PV Grad: 5.00 Updated in Other Vendor System with Status of Final Theodore Hayes MD electronically signed on 08/17/2020 4:28:54 PM with status of Final
--- NOTE | 2020-08-17 01:09 | PC.NURSE ---
Patient has a colostomy that this adjusto writer operator was just made aware of. Voice Engineer notified to bring ostomy supplies down. Patient has mucous coming out of his anus and was wearing a brief which was soaked. Bed linens were changed.
[2020-08-17] MEDS: 0.9 % Sodium Chloride Flush 3 ML SYRINGE IVFLUSH ×3 (01:16→13:57)
[2020-08-17 02:05] LABS: Erythrocyte Sedimentation Rate 82 MM/HR (0-15)
[2020-08-17 03:42] LABS: COVID-19 Test Negative (Negative)
[2020-08-17] MEDS: Piperacillin Sodium/Tazobactam 3.375 GM in 0.9 % Sodium Chloride 50 ML IV ×4 (05:08→23:17)
[2020-08-17 05:11] LABS: Glucose, Whole Blood 106 mg/dL (60-115)
[2020-08-17] MEDS: ondansetron HCL 4 MG/2 ML VIAL IVPUSH (05:20)
--- NOTE | 2020-08-17 06:47 | PM.IMHP ---
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 When he was asked to come to the hospital because they were not healing. He denies any fever or chills, reports some pain in the sole of his feet bilaterally as well as some swelling in his feet but denies any chest pain, shortness of breath, nausea or vomiting, no diarrhea constipation, no urinary symptoms. No numbness tingling or weakness anywhere. He is currently wheelchair-bound and does not use his feet for walking. on arrival to the hospital patient is vital significant temperature of 97.8?, heart rate of 60, respiratory rate of 18, blood pressure of 134/53, satting 95% on room air Labs are significant for WBC count 6.2, hemoglobin of 8 which is chronically this low, hematocrit 27, chloride of 112, BUN of 42, creatinine of 1.02, lactic acid of 0.8, CRP of 1.8, ESR of 82, BNP of 747, albumin of 2.8, CT of the feet shows septic joint with osteomyelitis of the right 4th metatarsal joint is strongly suspected. Patient will be admitted for further management Review of Systems Review of Systems: Yes all other systems are reviewed and are negative [facility] Medical History Anxiety Cardiomyopathy CHF (congestive heart failure) Diabetes History of sigmoidoscopy HTN (hypertension) Hypogonadism Obesity 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 Proteinuria Family History Mother Diabetes Surgical History History of amputation of foot through metatarsal bone History of cataract surgery History of colectomy History of colonoscopy History of reversal of ileostomy Social History Household Members: Other Housing: [facility] Do you presently have visiting nurse or other home services: No Alcohol intake: never Patient Tobacco Use Status: Never used Tobacco Years Smoked: 15 years Second Hand Smoke Exposure: No Use of substances other than those prescribed or required for medical reasons: No Have you been hit, kicked, punched, or otherwise hurt by someone within the past year? If so, by whom?: No Do you feel safe in your current relationship?: No Current Relationship Is there a partner from a previous relationship who is making you feel unsafe now?: No Are you made to feel afraid or neglected: No Advance Directives: No Advance Directives Information Provided: No Do you have thoughts of harming others: None Do you have a plan to hurt others: No Plan Recently lost weight without trying: No Nutrition Risks: No Nutritional Risk Poor oral hygiene: Yes service: Yes (per pt report) Current occupational status: disabled Meds Allergies Allergy/AdvReac Type Severity Reaction Status Date / Time metformin AdvReac Unknown diarrhea Verified 05/04/20 11:11 Active Medications: Current Medications Generic Name Dose Route Start Last Admin Trade Name Freq PRN Reason Stop Dose Admin Acetaminophen 650 mg 08/17/20 00:31 Acetaminophen 325 Mg Tablet PO Q6H PRN Pain, Mild (Pain Scale 1-3) Docusate Sodium 100 mg 08/17/20 00:31 Docusate Sodium 100 Mg Capsule PO DAILY PRN Constipation Heparin Sodium (Porcine) 5,000 unit 08/17/20 00:31 08/17/20 01:17 Heparin Sodium,Porcine 5,000 Unit/Ml Vial SUBCUT Not Given Q12H CHECO Piperacillin Sod/Tazobactam 50 mls @ 100 mls/hr 08/17/20 05:00 08/17/20 05:51 Sod 3.375 gm/ Sodium Chloride IV Infused Q6H [facility]CO Infusion Vancomycin HCl 2,000 mg/ 540 mls @ 270 mls/hr 08/17/20 12:00 Sodium Chloride IV Q12H [facility]CO Ondansetron HCl 4 mg 08/17/20 00:31 08/17/20 05:20 Ondansetron Hcl 4 Mg/2 Ml Vial IVPUSH 4 mg Q8H PRN Administration Nausea and Vomiting Oxycodone HCl 5 mg 08/17/20 00:31 Oxycodone Hcl Immed Release 5 Mg Tablet PO Q6H PRN Pain, Severe (Pain Scale 7-10) Pharmacy Consult 1 each 08/17/20 00:31 Consult Rx Vancomycin Dosing MISCELLANE DAILY PRN Consult order Sodium Chloride 3 ml 08/17/20 00:31 08/17/20 01:16 0.9 % Sodium Chloride Flush 3 Ml Syringe IVFLUSH 3 ml [facility] Administration Home Medications Medication Instructions Recorded Confirmed Last Taken Type aspirin 325 mg PO DAILY 11/29/19 05/04/20 Unknown History carvedilol 6.25 mg PO BID 11/29/19 05/04/20 Unknown History gabapentin 800 mg PO TID 11/29/19 03/24/20 Unknown History glipizide 2.5 mg PO DAILY 11/29/19 05/04/20 Unknown History sennosides [senna] 8.6 mg PO BEDTIME 11/29/19 05/04/20 Unknown History sertraline 100 mg PO DAILY 11/29/19 05/04/20 Unknown History acetaminophen 650 mg PO Q6H PRN 08/16/20 08/16/20 Unknown History amlodipine 1 tab PO DAILY 08/16/20 08/16/20 Unknown History ascorbic acid (vitamin C) [Vitamin 500 mg PO DAILY 08/16/20 08/16/20 Unknown History C] bisacodyl 10 mg UT DAILY PRN 08/16/20 08/16/20 Unknown History buspirone 10 mg PO BID 08/16/20 08/16/20 Unknown History cholecalciferol (vitamin D3) 25 mcg PO DAILY 08/16/20 08/16/20 Unknown History divalproex [Depakote] PO 08/16/20 Unknown History doxycycline hyclate 1 cap PO BID 08/16/20 08/16/20 Unknown History ferrous sulfate 325 mg PO DAILY 08/16/20 08/16/20 Unknown History glucagon mg 08/16/20 Unknown History guaifenesin 200 mg PO Q4H PRN 08/16/20 08/16/20 Unknown History guaifenesin 600 mg PO BID 08/16/20 08/16/20 Unknown History loperamide 4 mg DAILY 08/16/20 08/16/20 Unknown History magnesium hydroxide [Milk of 30 ml PO DAILY 08/16/20 08/16/20 Unknown History Magnesia] melatonin 9 mg BEDTIME 08/16/20 08/16/20 Unknown History pregabalin [Lyrica] 100 mg PO TID 08/16/20 08/16/20 Unknown History tramadol 50 mg PO Q6H PRN 08/16/20 08/16/20 Unknown History Physical Exam Vital Signs and Narrative: Vital Signs: Last Vital Signs Temp 98.6 F 08/17/20 05:10 Pulse 115 H 08/17/20 05:10 Resp 18 08/17/20 05:10 BP 145/55 H 08/17/20 00:31 Pulse Ox 92 08/17/20 05:10 Body Mass Index 33.8 Const: General: cooperative and no acute distress Orientation/consciousness: patient oriented x3 Eyes: General: appearance normal, both eyes and all related structures Resp: Effort & Inspection: normal respiratory effort and able to speak in complete sentences Cardio: Rate: regular rate Rhythm: regular rhythm GI: Palpation (GI): Soft to palpation Auscultation: normal bowel sounds Skin: General skin exam: no rashes or lesions noted Neuro: General: patient oriented x3 Cognition (Neuro): normal cognition Extrem: Other: Bilateral 5th toe amputation, surgical site with serosanguineous drainage, no tenderness, no significant erythema, mild warmth General: Yes no pedal edema Results Labs CBC and Chem 7: 08/16/20 16:36 08/16/20 16:36 Labs: Laboratory Results - last 24 hr 08/16/20 08/16/20 08/16/20 16:36 16:36 16:36 MCV 75.2 L MCH 22.3 L MCHC 29.6 L RDW 18.0 H Plt Count 271 MPV 9.2 L Immature Gran % (Auto) 0.8 H Neut % (Auto) 61.6 Lymph % (Auto) 22.0 Banner % (Auto) 7.9 Eos % (Auto) 7.4 H Baso % (Auto) 0.3 Lymph # (Auto) 1.4 Banner # (Auto) 0.5 Eos # (Auto) 0.5 H Baso # (Auto) 0.0 Abs Immat Gran (auto) 0.05 H Absolute Neuts (auto) 3.9 Absolute Nucleated RBC 0.000 Nucleated RBC % (auto) 0.0 ESR PT INR Anion Gap 13 Estim Creat Clear Calc 104.7 Estimated GFR > 60 POC Glucose Random Glucose 118 H Lactic Acid Calcium 8.3 L Total Bilirubin 0.2 Direct Bilirubin < 0.2 AST 11 D ALT 10 Alkaline Phosphatase 81 Troponin I High Sens 16.6 C-Reactive Protein 1.80 H B-Natriuretic Peptide Total Protein 6.9 Albumin 2.8 L COVID-19 (KORYE) COVID-19 Clin Com 08/16/20 08/16/20 08/16/20 16:36 16:36 16:36 MCV MCH MCHC RDW Plt Count MPV Immature Gran % (Auto) Neut % (Auto) Lymph % (Auto) Banner % (Auto) Eos % (Auto) Baso % (Auto) Lymph # (Auto) Banner # (Auto) Eos # (Auto) Baso # (Auto) Abs Immat Gran (auto) Absolute Neuts (auto) Absolute Nucleated RBC Nucleated RBC % (auto) ESR PT 13.8 H INR 1.2 H Anion Gap Estim Creat Clear Calc Estimated GFR POC Glucose Random Glucose Lactic Acid 0.8 Calcium Total Bilirubin Direct Bilirubin AST ALT Alkaline Phosphatase Troponin I High Sens C-Reactive Protein B-Natriuretic Peptide 747 H Total Protein Albumin COVID-19 (KOREY) COVID-19 [employer] 08/16/20 08/16/20 08/16/20 16:36 20:57 21:00 MCV MCH MCHC RDW Plt Count MPV Immature Gran % (Auto) Neut % (Auto) Lymph % (Auto) Banner % (Auto) Eos % (Auto) Baso % (Auto) Lymph # (Auto) Banner # (Auto) Eos # (Auto) Baso # (Auto) Abs Immat Gran (auto) Absolute Neuts (auto) Absolute Nucleated RBC Nucleated RBC % (auto) ESR Cancelled PT INR Anion Gap Estim Creat Clear Calc Estimated GFR POC Glucose 82 Random Glucose Lactic Acid Calcium Total Bilirubin Direct Bilirubin AST ALT Alkaline Phosphatase Troponin I High Sens 14.3 C-Reactive Protein B-Natriuretic Peptide Total Protein Albumin COVID-19 (KOREY) COVID-19 [employer] Com 08/17/20 08/17/20 08/17/20 01:26 03:19 05:08 MCV MCH MCHC RDW Plt Count MPV Immature Gran % (Auto) Neut % (Auto) Lymph % (Auto) Banner % (Auto) Eos % (Auto) Baso % (Auto) Lymph # (Auto) Banner # (Auto) Eos # (Auto) Baso # (Auto) Abs Immat Gran (auto) Absolute Neuts (auto) Absolute Nucleated RBC Nucleated RBC % (auto) ESR 82 H PT INR Anion Gap Estim Creat Clear Calc Estimated GFR POC Glucose 106 Random Glucose Lactic Acid Calcium Total Bilirubin Direct Bilirubin AST ALT Alkaline Phosphatase Troponin I High Sens C-Reactive Protein B-Natriuretic Peptide Total Protein Albumin COVID-19 (KOREY) Negative COVID-19 Clin Com See Note Imaging Radiologist's Impressions: Impressions Chest X-Ray 08/16/20 16:07 IMPRESSION: Left central port catheter tip in proximal SVC. The lungs are clear. Foot CT 08/16/20 17:59 IMPRESSION: Septic joint with osteomyelitis of the right 4th MTP joint is strongly suspected. No additional foci suspicious for osteomyelitis are identified in either foot. Foot CT 08/16/20 17:59 IMPRESSION: Septic joint with osteomyelitis of the right 4th MTP joint is strongly suspected. No additional foci suspicious for osteomyelitis are identified in either foot. Assessment and Plan (1) Foot osteomyelitis, right: Qualifiers: Osteomyelitis type: unspecified type Qualified Code(s): M86.9 - Osteomyelitis, unspecified Status: Acute (2) Nonhealing surgical wound: Status: Acute (3) Diabetic foot ulcers: Status: Acute # nonhealing surgical wound - this set of surgical wounds of the 5th metatarsal amputation on both feet is draining, does not appear to have healed - patient with no leukocytosis afebrile - has elevated ESR and CRP - evidence of osteomyelitis on the right on CT - will start patient on broad-spectrum antibiotics - will consult surgery and Infectious Disease # osteomyelitis of the right 4th metatarsal - broad-spectrum antibiotics - infectious and surgical team consult # diabetes - low-dose sliding scale insulin - diabetic diet # hypertension - stable - continue amlodipine Some of his medications cannot be verified and will need pharmacy verification DVT prophylaxis: Heparin subQ Quality Stroke Does the patient have a stroke diagnosis?: No VTE Prior VTE?: No VTE Risk Level:: Medical - moderate - high VTE Device Contraindication: Treatment Not Indicated VTE Drug Contraindication: N/A - Med Ordered
[2020-08-17 07:25] LABS: Glucose, Whole Blood 100 mg/dL (60-115)
[2020-08-17] MEDS: Pregabalin 100 MG CAPSULE PO ×3 (08:58→20:20)
[2020-08-17] MEDS: Cholecalciferol (Vitamin D3) 25 MCG TABLET PO (08:59)
[2020-08-17] MEDS: busPIRone HCl 10 MG TABLET PO ×2 (08:59→20:20)
[2020-08-17] MEDS: amLODIPine Besylate 5 MG TABLET PO (08:59)
[2020-08-17] MEDS: Ascorbic Acid 500 MG TABLET PO (09:02)
[2020-08-17] MEDS: vancomycin HCL 750 MG in 0.9 % Sodium Chloride 250 ML 265 MG IV ×2 (11:00→19:29)
[2020-08-17 11:14] LABS: Glucose, Whole Blood 113 mg/dL (60-115)
[2020-08-17] MEDS: Heparin Sodium,Porcine 5,000 UNIT/ML VIAL 5000 UNIT SUBCUT (11:55)
--- NOTE | 2020-08-17 12:59 | MHC.CM.PN ---
IMM 08/17/20 Male 64DX NON healing wounds.HCP on file. Lives @ [facility]. return to [facility] via BLS. CM will follow.
[2020-08-17 13:23] LABS: Basophils Percent Auto 0.2 % (0-2); Eosinophils Absolute Auto 0.1 X10*3/uL (0.0-0.4); Eosinophils Percent Auto 0.8 % (0-4); Hemoglobin 8.4 g/dl (14.0-18.0); Imm Gran Pct Auto 0.8 % (0.0-0.4); Lymphocytes Absolute Auto 0.3 X10*3/uL (1.2-4.9); Lymphocytes Percent Auto 2.8 % (20-40); MANUAL DIFF FLAG SCAN; Mean Corpuscular Hemoglobin 21.3 pg (27.0-33.0); Mean Corpuscular Volume 76.1 fL (80-98); Mean Platelet Volume 8.7 fL (9.4-12.4); Monocytes Absolute Auto 0.4 X10*3/uL (0.1-1.2); Monocytes Percent Auto 3.4 % (2-11); Platelet Count 243 X10*3/uL (160-400); Red Blood Count 3.94 X10*6/uL (4.60-5.80); Red Cell Distribution Width 18.5 % (11.0-16.0); SCAN SMEAR FLAG 1; White Blood Count 11.9 X10*3/uL (4.8-10.8)
[2020-08-17 13:47] LABS: SLIDE REVIEW VERIFIED
[2020-08-17 13:53] LABS: Anion Gap 10 (12-20); Blood Urea Nitrogen 35 mg/dL (9-16); Calcium 8.4 mg/dL (8.4-10.2); Carbon Dioxide 25 mmol/L (22-29); Chloride 112 mmol/L (96-108); Creatinine Clr Calc Pharmacy 93.6; Estimated Glomerular Filt Rate > 60; Glucose Random 136 mg/dL (60-115); Potassium 4.7 mmol/L (3.3-5.1); Sodium 142 mmol/L (135-145)
--- NOTE | 2020-08-17 14:11 | P.PNIM_ITS ---
Subjective Subjective Date of Service: 08/18/20 Interval History: Follow up foot wound non healing no pain Physical Exam Vital Signs: Vital Signs: Last Vital Signs Temp 97.5 F 08/17/20 11:17 Pulse 58 08/17/20 11:17 Resp 19 08/17/20 11:17 BP 150/67 H 08/17/20 11:17 Pulse Ox 91 L 08/17/20 11:17 Body Mass Index 33.8 Appearing in no acute distress lung sounds are clear to auscultation heart regular rate rhythm, clear S1, S2 positive bowel sounds, abdomen is soft, nontender neuro patient is alert x3, no focal deficits Objective Data Current Medications Generic Name Dose Route Start Last Admin Trade Name Freq PRN Reason Stop Dose Admin Acetaminophen 650 mg 08/17/20 00:31 Acetaminophen 325 Mg Tablet PO Q6H PRN Pain, Mild (Pain Scale 1-3) Amlodipine Besylate 5 mg 08/17/20 09:00 08/17/20 08:59 Amlodipine Besylate 5 Mg Tablet PO 5 mg DAILY [facility] Administration Protocol Ascorbic Acid 500 mg 08/17/20 09:00 08/17/20 09:02 Ascorbic Acid 500 Mg Tablet PO 500 mg DAILY [facility] Administration Bisacodyl 10 mg 08/17/20 06:58 Bisacodyl 10 Mg Supp.Rect [place] DAILY PRN Constipation Buspirone HCl 10 mg 08/17/20 09:00 08/17/20 08:59 Buspirone Hcl 10 Mg Tablet PO 10 mg BID [facility] Administration Docusate Sodium 100 mg 08/17/20 00:31 Docusate Sodium 100 Mg Capsule PO DAILY PRN Constipation Heparin Sodium (Porcine) 5,000 unit 08/17/20 00:31 08/17/20 11:55 Heparin Sodium,Porcine 5,000 Unit/Ml Vial SUBCUT 5,000 unit Q12H [facility] Administration Piperacillin Sod/Tazobactam 50 mls @ 100 mls/hr 08/17/20 05:00 08/17/20 10:32 Sod 3.375 gm/ Sodium Chloride IV Infused Q6H [facility] Infusion Vancomycin HCl 750 mg/ Sodium 265 mls @ 265 mls/hr 08/17/20 12:00 08/17/20 11:52 Chloride IV Infused Q8H [facility] Infusion Insulin Human Lispro 0 unit 08/17/20 07:30 08/17/20 11:01 Insulin Lispro 100 Unit/Ml 3 Ml Vial SUBCUT Not Given QIDACHS [facility] Protocol Melatonin 9 mg 08/17/20 21:00 Melatonin 3 Mg Tablet PO BEDTIME [facility] Ondansetron HCl 4 mg 08/17/20 00:31 08/17/20 05:20 Ondansetron Hcl 4 Mg/2 Ml Vial IVPUSH 4 mg Q8H PRN Administration Nausea and Vomiting Oxycodone HCl 5 mg 08/17/20 00:31 Oxycodone Hcl Immed Release 5 Mg Tablet PO Q6H PRN Pain, Severe (Pain Scale 7-10) Pharmacy Consult 1 each 08/17/20 00:31 Consult Rx Vancomycin Dosing MISCELLANE DAILY PRN Consult order Pregabalin 100 mg 08/17/20 09:00 08/17/20 14:00 Pregabalin 100 Mg Capsule PO 100 mg TID [facility] Administration Sodium Chloride 3 ml 08/17/20 00:31 08/17/20 13:57 0.9 % Sodium Chloride Flush 3 Ml Syringe IVFLUSH 3 ml QSHIFT [facility] Administration Tramadol HCl 50 mg 08/17/20 06:58 Tramadol Hcl 50 Mg Tablet PO Q6H PRN Pain Vitamin D 25 mcg 08/17/20 09:00 08/17/20 08:59 Cholecalciferol (Vitamin D3) 25 Mcg Tablet PO 25 mcg DAILY [facility] Administration Labs CBC & Chem 7: 08/18/20 05:18 08/18/20 05:18 Labs: Laboratory Results - last 24 hr 08/16/20 08/16/20 08/16/20 16:36 16:36 16:36 MCV 75.2 L MCH 22.3 L MCHC 29.6 L RDW 18.0 H Plt Count 271 MPV 9.2 L Immature Gran % (Auto) 0.8 H Neut % (Auto) 61.6 Lymph % (Auto) 22.0 [place] % (Auto) 7.9 Eos % (Auto) 7.4 H Baso % (Auto) 0.3 Lymph # (Auto) 1.4 [place] # (Auto) 0.5 Eos # (Auto) 0.5 H Baso # (Auto) 0.0 Abs Immat Gran (auto) 0.05 H Absolute Neuts (auto) 3.9 Absolute Nucleated RBC 0.000 Nucleated RBC % (auto) 0.0 Smear Tech's Comments ESR PT INR Anion Gap 13 Estim Creat Clear Calc 104.7 Estimated GFR > 60 POC Glucose Random Glucose 118 H Lactic Acid Calcium 8.3 L Total Bilirubin 0.2 Direct Bilirubin < 0.2 AST 11 D ALT 10 Alkaline Phosphatase 81 Troponin I High Sens 16.6 C-Reactive Protein 1.80 H B-Natriuretic Peptide Total Protein 6.9 Albumin 2.8 L COVID-19 ([facility]) COVID-19 [employer] 08/16/20 08/16/20 08/16/20 16:36 16:36 16:36 MCV MCH MCHC RDW Plt Count MPV Immature Gran % (Auto) Neut % (Auto) Lymph % (Auto) [place] % (Auto) Eos % (Auto) Baso % (Auto) Lymph # (Auto) [place] # (Auto) Eos # (Auto) Baso # (Auto) Abs Immat Gran (auto) Absolute Neuts (auto) Absolute Nucleated RBC Nucleated RBC % (auto) Smear Tech's Comments ESR PT 13.8 H INR 1.2 H Anion Gap Estim Creat Clear Calc Estimated GFR POC Glucose Random Glucose Lactic Acid 0.8 Calcium Total Bilirubin Direct Bilirubin AST ALT Alkaline Phosphatase Troponin I High Sens C-Reactive Protein B-Natriuretic Peptide 747 H Total Protein Albumin COVID-19 ([facility]) COVID-19 [employer] 08/16/20 08/16/20 08/16/20 16:36 20:57 21:00 MCV MCH MCHC RDW Plt Count MPV Immature Gran % (Auto) Neut % (Auto) Lymph % (Auto) [place] % (Auto) Eos % (Auto) Baso % (Auto) Lymph # (Auto) [place] # (Auto) Eos # (Auto) Baso # (Auto) Abs Immat Gran (auto) Absolute Neuts (auto) Absolute Nucleated RBC Nucleated RBC % (auto) Smear Tech's Comments ESR Cancelled PT INR Anion Gap Estim Creat Clear Calc Estimated GFR POC Glucose 82 Random Glucose Lactic Acid Calcium Total Bilirubin Direct Bilirubin AST ALT Alkaline Phosphatase Troponin I High Sens 14.3 C-Reactive Protein B-Natriuretic Peptide Total Protein Albumin COVID-19 ([facility]) COVID-19 [employer] 08/17/20 08/17/20 08/17/20 01:26 03:19 05:08 MCV MCH MCHC RDW Plt Count MPV Immature Gran % (Auto) Neut % (Auto) Lymph % (Auto) [place] % (Auto) Eos % (Auto) Baso % (Auto) Lymph # (Auto) [place] # (Auto) Eos # (Auto) Baso # (Auto) Abs Immat Gran (auto) Absolute Neuts (auto) Absolute Nucleated RBC Nucleated RBC % (auto) Smear Tech's Comments ESR 82 H PT INR Anion Gap Estim Creat Clear Calc Estimated GFR POC Glucose 106 Random Glucose Lactic Acid Calcium Total Bilirubin Direct Bilirubin AST ALT Alkaline Phosphatase Troponin I High Sens C-Reactive Protein B-Natriuretic Peptide Total Protein Albumin COVID-19 ([facility]) Negative COVID-19 Clin Com See Note 08/17/20 08/17/20 08/17/20 07:13 11:00 13:15 MCV 76.1 L MCH 21.3 L MCHC 28.0 L RDW 18.5 H Plt Count 243 MPV 8.7 L Immature Gran % (Auto) 0.8 H Neut % (Auto) 92.0 H Lymph % (Auto) 2.8 L [place] % (Auto) 3.4 Eos % (Auto) 0.8 Baso % (Auto) 0.2 Lymph # (Auto) 0.3 L [place] # (Auto) 0.4 Eos # (Auto) 0.1 Baso # (Auto) 0.0 Abs Immat Gran (auto) 0.10 H Absolute Neuts (auto) 11.0 H Absolute Nucleated RBC 0.000 Nucleated RBC % (auto) 0.0 Smear Tech's Comments VERIFIED ESR PT INR Anion Gap Estim Creat Clear Calc Estimated GFR POC Glucose 100 113 Random Glucose Lactic Acid Calcium Total Bilirubin Direct Bilirubin AST ALT Alkaline Phosphatase Troponin I High Sens C-Reactive Protein B-Natriuretic Peptide Total Protein Albumin COVID-19 ([facility]) COVID-19 Clin Com 08/17/20 13:15 MCV MCH MCHC RDW Plt Count MPV Immature Gran % (Auto) Neut % (Auto) Lymph % (Auto) [place] % (Auto) Eos % (Auto) Baso % (Auto) Lymph # (Auto) [place] # (Auto) Eos # (Auto) Baso # (Auto) Abs Immat Gran (auto) Absolute Neuts (auto) Absolute Nucleated RBC Nucleated RBC % (auto) Smear Tech's Comments ESR PT INR Anion Gap 10 L Estim Creat Clear Calc 93.6 Estimated GFR > 60 POC Glucose Random Glucose 136 H Lactic Acid Calcium 8.4 Total Bilirubin Direct Bilirubin AST ALT Alkaline Phosphatase Troponin I High Sens C-Reactive Protein B-Natriuretic Peptide Total Protein Albumin COVID-19 ([facility]) COVID-19 Clin Com Progress Note: A&P (1) Diabetic foot ulcers: Status: Acute Assessment and Plan: 64-year-old man admitted with osteomyelitis nonhealing surgical wound. this set of surgical wounds of the 5th metatarsal amputation on both feet is draining, does not appear to have healed patient with no leukocytosis afebrile has elevated ESR and CRP evidence of osteomyelitis on the right on CT - will start patient on broad-spectrum antibiotics - will consult surgery and Infectious Disease diabetes - low-dose sliding scale insulin - diabetic diet hypertension - stable - continue amlodipine DVT prophylaxis: Heparin subQ attending: Dr. Armstrong full code Quality Stroke Does the patient have a stroke diagnosis?: No VTE Prior VTE?: No VTE Risk Level:: Medical - moderate - high VTE Device Contraindication: Treatment Not Indicated VTE Drug Contraindication: N/A - Med Ordered
--- NOTE | 2020-08-17 15:57 | P.CNID_ITS ---
History of Present Illness Data of Consult Service Date: 08/17/20 Requesting physician: Dre Armstrong Primary Care Provider: Winston Mir MD HPI Reason for consult: left foot infection He presents to hospital with left foot discomfort He had area draining last two weeks at least He has no fever He has CT scan plantar left fourth MTP joint osteomyelitis Review of Systems Review of Systems: Yes all other systems are reviewed and are negative PMFSH Past Medical History Medical History Anxiety Cardiomyopathy CHF (congestive heart failure) Diabetes History of sigmoidoscopy HTN (hypertension) Hypogonadism Obesity 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 Proteinuria Family History Family History Mother Diabetes Family history: reviewed and not pertinent Surgical History Surgical History History of amputation of foot through metatarsal bone History of cataract surgery History of colectomy History of colonoscopy History of reversal of ileostomy Social History Social History Household Members: Other Housing: Shelter Do you presently have visiting nurse or other home services: No Alcohol intake: never Patient Tobacco Use Status: Never used Tobacco Years Smoked: 15 years Second Hand Smoke Exposure: No Use of substances other than those prescribed or required for medical reasons: No Currently Displaying Signs/Symptoms of Drug Intoxication Withdrawal: No Have you been hit, kicked, punched, or otherwise hurt by someone within the past year? If so, by whom?: No Do you feel safe in your current relationship?: No Current Relationship Is there a partner from a previous relationship who is making you feel unsafe now?: No Are you made to feel afraid or neglected: No Advance Directives: No Advance Directives Information Provided: No Do you have thoughts of harming others: None Do you have a plan to hurt others: No Plan Recently lost weight without trying: No Nutrition Risks: No Nutritional Risk Poor oral hygiene: Yes service: No Current occupational status: disabled Meds Allergies Allergy/AdvReac Type Severity Reaction Status Date / Time metformin AdvReac Unknown diarrhea Verified 05/04/20 11:11 Active Medications: Current Medications Generic Name Dose Route Start Last Admin Trade Name Freq PRN Reason Stop Dose Admin Acetaminophen 650 mg 08/17/20 00:31 Acetaminophen 325 Mg Tablet PO Q6H PRN Pain, Mild (Pain Scale 1-3) Amlodipine Besylate 5 mg 08/17/20 09:00 08/17/20 08:59 Amlodipine Besylate 5 Mg Tablet PO 5 mg DAILY [facility] Administration Protocol Ascorbic Acid 500 mg 08/17/20 09:00 08/17/20 09:02 Ascorbic Acid 500 Mg Tablet PO 500 mg DAILY [facility] Administration Bisacodyl 10 mg 08/17/20 06:58 Bisacodyl 10 Mg Supp.Rect [place] DAILY PRN Constipation Buspirone HCl 10 mg 08/17/20 09:00 08/17/20 08:59 Buspirone Hcl 10 Mg Tablet PO 10 mg BID [facility] Administration Docusate Sodium 100 mg 08/17/20 00:31 Docusate Sodium 100 Mg Capsule PO DAILY PRN Constipation Heparin Sodium (Porcine) 5,000 unit 08/17/20 00:31 08/17/20 11:55 Heparin Sodium,Porcine 5,000 Unit/Ml Vial SUBCUT 5,000 unit Q12H [facility] Administration Piperacillin Sod/Tazobactam 50 mls @ 100 mls/hr 08/17/20 05:00 08/17/20 10:32 Sod 3.375 gm/ Sodium Chloride IV Infused Q6H [facility] Infusion Vancomycin HCl 750 mg/ Sodium 265 mls @ 265 mls/hr 08/17/20 12:00 08/17/20 11:52 Chloride IV Infused Q8H [facility] Infusion Insulin Human Lispro 0 unit 08/17/20 07:30 08/17/20 11:01 Insulin Lispro 100 Unit/Ml 3 Ml Vial SUBCUT Not Given QIDACHS [facility] Protocol Melatonin 9 mg 08/17/20 21:00 Melatonin 3 Mg Tablet PO BEDTIME [facility] Ondansetron HCl 4 mg 08/17/20 00:31 08/17/20 05:20 Ondansetron Hcl 4 Mg/2 Ml Vial IVPUSH 4 mg Q8H PRN Administration Nausea and Vomiting Oxycodone HCl 5 mg 08/17/20 00:31 Oxycodone Hcl Immed Release 5 Mg Tablet PO Q6H PRN Pain, Severe (Pain Scale 7-10) Pharmacy Consult 1 each 08/17/20 00:31 Consult Rx Vancomycin Dosing MISCELLANE DAILY PRN Consult order Pregabalin 100 mg 08/17/20 09:00 08/17/20 14:00 Pregabalin 100 Mg Capsule PO 100 mg TID [facility] Administration Sodium Chloride 3 ml 08/17/20 00:31 08/17/20 13:57 0.9 % Sodium Chloride Flush 3 Ml Syringe IVFLUSH 3 ml QSHIFT [facility] Administration Tramadol HCl 50 mg 08/17/20 06:58 Tramadol Hcl 50 Mg Tablet PO Q6H PRN Pain Vitamin D 25 mcg 08/17/20 09:00 08/17/20 08:59 Cholecalciferol (Vitamin D3) 25 Mcg Tablet PO 25 mcg DAILY [facility] Administration Home Medications Medication Instructions Recorded Confirmed Last Taken Type aspirin 325 mg PO DAILY 11/29/19 08/17/20 Unknown History carvedilol 6.25 mg PO BID 11/29/19 08/17/20 Unknown History glipizide 2.5 mg PO DAILY 11/29/19 08/17/20 Unknown History sennosides [senna] 8.6 mg PO BEDTIME 11/29/19 08/17/20 Unknown History amlodipine 1 tab PO DAILY 08/16/20 08/16/20 Unknown History ascorbic acid (vitamin C) [Vitamin 500 mg PO DAILY 08/16/20 08/16/20 Unknown History C] bisacodyl 10 mg [place] DAILY PRN 08/16/20 08/16/20 Unknown History buspirone 10 mg PO BID 08/16/20 08/16/20 Unknown History cholecalciferol (vitamin D3) 25 mcg PO DAILY 08/16/20 08/16/20 Unknown History divalproex [Depakote] 125 mg PO DAILY@199908/16/20 08/17/20 Unknown History doxycycline hyclate 1 cap PO BID 08/16/20 08/16/20 Unknown History ferrous sulfate 325 mg PO DAILY 08/16/20 08/16/20 Unknown History guaifenesin 200 mg PO Q4H PRN 08/16/20 08/16/20 Unknown History loperamide 2 mg BID PRN 08/16/20 08/17/20 Unknown History magnesium hydroxide [Milk of 30 ml PO DAILY PRN 08/16/20 08/16/20 Unknown History Magnesia] melatonin 9 mg BEDTIME 08/16/20 08/16/20 Unknown History pregabalin [Lyrica] 100 mg PO TID 08/16/20 08/16/20 Unknown History tramadol 50 mg PO Q6H PRN 08/16/20 08/16/20 Unknown History acetaminophen 650 mg PO Q6H PRN 08/17/20 08/17/20 Unknown History gabapentin 800 mg PO TID 08/17/20 08/17/20 Unknown History glucagon 1 mg IM Q20M PRN 08/17/20 08/17/20 Unknown History guaifenesin [Mucinex] 600 mg PO BID 08/17/20 08/17/20 Unknown History sertraline 100 mg PO DAILY 08/17/20 08/17/20 Unknown History Physical Exam Vital Signs: Vital Signs: Last Vital Signs Temp 97.5 F 08/17/20 11:17 Pulse 58 08/17/20 11:17 Resp 19 08/17/20 11:17 BP 150/67 H 08/17/20 11:17 Pulse Ox 91 L 08/17/20 11:17 Body Mass Index 33.8 Const: General: cooperative HENMT: Head: Yes normal to inspection Mouth: Normal oral and palatal mucosa present Resp: Effort & Inspection: normal respiratory effort Cardio: Rate: regular rate Rhythm: regular rhythm GI: Palpation (GI): Soft to palpation and nontender : General: Yes no CVA tenderness Back/Spine/Pelvis: Back: no CVA tenderness Extrem: Other: left foot erythema fourth MTP joint Results Labs CBC & Chem 7: 08/17/20 13:15 08/17/20 13:15 Labs: Short CBC 08/16/20 08/17/20 Range/Units 16:36 13:15 WBC 6.2 11.9 H (4.8-10.8) X10*3/uL Hgb 8.0 L 8.4 L (14.0-18.0) g/dl Hct 27.0 L 30.0 L (42-52) % Plt Count 271 243 (160-400) X10*3/uL BMP 08/16/20 08/17/20 16:36 13:15 Sodium 142 142 Potassium 4.9 4.7 Chloride 112 H 112 H Carbon Dioxide 22 25 BUN 42 H 35 H Creatinine 1.02 1.14 Calcium 8.3 L 8.4 Liver Function 06/20/21 Range/Units 16:36 Total Bilirubin 0.2 (0.0-1.0) mg/dL Direct Bilirubin < 0.2 (0.0-0.5) mg/dL AST 11 D (5-37) U/L ALT 10 (0-40) U/L Alkaline Phosphatase 81 (39-117) U/L Albumin 2.8 L (3.5-5.0) g/dL Assessment and Plan (1) Diabetic foot ulcers: Status: Acute Diabetic foot infection There is concern over anerobes,gram negative,gram positive Would continue Vancomycin and Zosyn Would likely give Ertapenem for six weeks if no MRSA found Surgical evaluation (2) Nonhealing surgical wound: Status: Acute
[2020-08-17 16:27] LABS: Glucose, Whole Blood 112 mg/dL (60-115)
[2020-08-17 20:03] LABS: Glucose, Whole Blood 130 mg/dL (60-115)
[2020-08-17] MEDS: Melatonin 3 MG TABLET 9 MG PO (20:20)
[2020-08-17] MEDS: oxyCODONE HCl Immed Release 5 MG TABLET PO (20:23)
[2020-08-18] VITALS (7 sets, daily range): BP systolic 107–147; BP diastolic 63–90; PULSE 56–97; RESP 15–20; TEMP 35.9–37.1; O2SAT 97–100
[2020-08-18] MEDS: 0.9 % Sodium Chloride Flush 3 ML SYRINGE IVFLUSH ×4 (00:51→21:56)
[2020-08-18] MEDS: vancomycin HCL 750 MG in 0.9 % Sodium Chloride 250 ML 166.67 MG IV (03:42)
[2020-08-18] MEDS: Piperacillin Sodium/Tazobactam 3.375 GM in 0.9 % Sodium Chloride 50 ML IV ×4 (05:16→21:54)
[2020-08-18] MEDS: oxyCODONE HCl Immed Release 5 MG TABLET PO ×2 (05:21→17:29)
[2020-08-18 06:16] LABS: Hematocrit 26.9 % (42-52); Hemoglobin 7.6 g/dl (14.0-18.0); Mean Corpuscular HGB Conc 28.3 g/dl (31.0-36.0); Mean Corpuscular Hemoglobin 21.4 pg (27.0-33.0); Mean Corpuscular Volume 75.8 fL (80-98); Mean Platelet Volume 9.4 fL (9.4-12.4); Platelet Count 231 X10*3/uL (160-400); Red Blood Count 3.55 X10*6/uL (4.60-5.80); Red Cell Distribution Width 18.5 % (11.0-16.0); White Blood Count 5.9 X10*3/uL (4.8-10.8)
[2020-08-18 06:44] LABS: Anion Gap 11 (12-20); Blood Urea Nitrogen 34 mg/dL (9-16); Calcium 7.9 mg/dL (8.4-10.2); Carbon Dioxide 22 mmol/L (22-29); Chloride 113 mmol/L (96-108); Creatinine Clr Calc Pharmacy 86.8; Estimated Glomerular Filt Rate 59; Glucose Random 73 mg/dL (60-115); Potassium 4.5 mmol/L (3.3-5.1); Sodium 141 mmol/L (135-145)
[2020-08-18 07:15] LABS: Glucose, Whole Blood 87 mg/dL (60-115)
[2020-08-18] MEDS: Pregabalin 100 MG CAPSULE PO ×3 (07:59→21:54)
[2020-08-18] MEDS: amLODIPine Besylate 5 MG TABLET PO (07:59)
[2020-08-18] MEDS: Cholecalciferol (Vitamin D3) 25 MCG TABLET PO (07:59)
[2020-08-18] MEDS: Ascorbic Acid 500 MG TABLET PO (08:00)
[2020-08-18] MEDS: busPIRone HCl 10 MG TABLET PO ×2 (08:00→21:54)
--- NOTE | 2020-08-18 10:06 | PM.CNGS ---
History of Present Illness Consult details Consult date: 08/18/20 Reason for consult: wound care Narrative: 64-year-old gentleman well known to me with prior history bilateral diabetic nonhealing lateral 5th toe foot ulcers. He has undergone bilateral amputations of the 5th toes. He was in a facility and there was concern about nonhealing amputation sites and in particular the right 4th toe. He now presents to us for vascular evaluation. Review of Systems Review of Systems: Yes all other systems are reviewed and are negative Constitutional: Constitutional: Reports no additional constitutional complaints ENT: Reports Normal hearing present Cardiovascular: Cardiovascular: Denies chest pain, Denies chest pain at rest, Denies chest pain with activity and Denies pedal edema Respiratory: Respiratory: Denies cough Gastrointestinal: Gastrointestinal: Denies abdominal pain Musculoskeletal: Musculoskeletal: Denies abnormal gait, Denies muscle cramps and Denies radiating pain into limb Integumentary/Breasts: Skin/Breast: Denies skin ulcer and Denies wounds Neurologic: Reports Normal hearing present and Denies abnormal gait Psychiatric: Psychiatric: Reports no additional psychiatric complaints PMFSH Past Medical History Medical History Anxiety Cardiomyopathy CHF (congestive heart failure) Diabetes History of sigmoidoscopy HTN (hypertension) Hypogonadism Obesity 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 Proteinuria Family History Family History Mother Diabetes Family history: reviewed and not pertinent Surgical History Surgical History History of amputation of foot through metatarsal bone History of cataract surgery History of colectomy History of colonoscopy History of reversal of ileostomy Social History Social History Household Members: Other Housing: Skilled Nursing Do you presently have visiting nurse or other home services: No Alcohol intake: never Patient Tobacco Use Status: Never used Tobacco Years Smoked: 15 years Second Hand Smoke Exposure: No Use of substances other than those prescribed or required for medical reasons: No Currently Displaying Signs/Symptoms of Drug Intoxication Withdrawal: No Have you been hit, kicked, punched, or otherwise hurt by someone within the past year? If so, by whom?: No Do you feel safe in your current relationship?: No Current Relationship Is there a partner from a previous relationship who is making you feel unsafe now?: No Are you made to feel afraid or neglected: No Advance Directives: No Advance Directives Information Provided: No Do you have thoughts of harming others: None Do you have a plan to hurt others: No Plan Recently lost weight without trying: No Nutrition Risks: No Nutritional Risk Poor oral hygiene: Yes service: No Current occupational status: disabled Meds Allergies Allergy/AdvReac Type Severity Reaction Status Date / Time metformin AdvReac Unknown diarrhea Verified 05/04/20 11:11 Active Medications: Current Medications Generic Name Dose Route Start Last Admin Trade Name Freq PRN Reason Stop Dose Admin Acetaminophen 650 mg 08/17/20 00:31 Acetaminophen 325 Mg Tablet PO Q6H PRN Pain, Mild (Pain Scale 1-3) Amlodipine Besylate 5 mg 08/17/20 09:00 08/18/20 07:59 Amlodipine Besylate 5 Mg Tablet PO 5 mg DAILY CHECO Administration Protocol Ascorbic Acid 500 mg 08/17/20 09:00 08/18/20 08:00 Ascorbic Acid 500 Mg Tablet PO 500 mg DAILY CHECO Administration Bisacodyl 10 mg 08/17/20 06:58 Bisacodyl 10 Mg Supp.Rect MI DAILY PRN Constipation Buspirone HCl 10 mg 08/17/20 09:00 08/18/20 08:00 Buspirone Hcl 10 Mg Tablet PO 10 mg BID CHECO Administration Docusate Sodium 100 mg 08/17/20 00:31 Docusate Sodium 100 Mg Capsule PO DAILY PRN Constipation Heparin Sodium (Porcine) 5,000 unit 08/17/20 00:31 08/18/20 00:51 Heparin Sodium,Porcine 5,000 Unit/Ml Vial SUBCUT Not Given Q12H CHECO Piperacillin Sod/Tazobactam 50 mls @ 100 mls/hr 08/17/20 05:00 08/18/20 05:54 Sod 3.375 gm/ Sodium Chloride IV Infused Q6H CHECO Infusion Vancomycin HCl 750 mg/ Sodium 265 mls @ 265 mls/hr 08/17/20 12:00 08/18/20 05:18 Chloride IV Infused Q8H CHECO Infusion Insulin Human Lispro 0 unit 08/17/20 07:30 08/18/20 07:54 Insulin Lispro 100 Unit/Ml 3 Ml Vial SUBCUT Not Given QIDACHS [facility] Protocol Melatonin 9 mg 08/17/20 21:00 08/17/20 20:20 Melatonin 3 Mg Tablet PO 9 mg BEDTIME CHECO Administration Ondansetron HCl 4 mg 08/17/20 00:31 08/17/20 05:20 Ondansetron Hcl 4 Mg/2 Ml Vial IVPUSH 4 mg Q8H PRN Administration Nausea and Vomiting Oxycodone HCl 5 mg 08/17/20 00:31 08/18/20 05:21 Oxycodone Hcl Immed Release 5 Mg Tablet PO 5 mg Q6H PRN Administration Pain, Severe (Pain Scale 7-10) Pharmacy Consult 1 each 08/17/20 00:31 Consult Rx Vancomycin Dosing MISCELLANE DAILY PRN Consult order Pregabalin 100 mg 08/17/20 09:00 08/18/20 07:59 Pregabalin 100 Mg Capsule PO 100 mg TID CHECO Administration Sodium Chloride 3 ml 08/17/20 00:31 08/18/20 07:59 0.9 % Sodium Chloride Flush 3 Ml Syringe IVFLUSH 3 ml QSHIFT CHECO Administration Tramadol HCl 50 mg 08/17/20 06:58 Tramadol Hcl 50 Mg Tablet PO Q6H PRN Pain Vitamin D 25 mcg 08/17/20 09:00 08/18/20 07:59 Cholecalciferol (Vitamin D3) 25 Mcg Tablet PO 25 mcg DAILY CHECO Administration Home Medications Medication Instructions Recorded Confirmed Last Taken Type aspirin 325 mg PO DAILY 11/29/19 08/17/20 Unknown History carvedilol 6.25 mg PO BID 11/29/19 08/17/20 Unknown History glipizide 2.5 mg PO DAILY 11/29/19 08/17/20 Unknown History sennosides [senna] 8.6 mg PO BEDTIME 11/29/19 08/17/20 Unknown History amlodipine 1 tab PO DAILY 08/16/20 08/16/20 Unknown History ascorbic acid (vitamin C) [Vitamin 500 mg PO DAILY 08/16/20 08/16/20 Unknown History C] bisacodyl 10 mg MI DAILY PRN 08/16/20 08/16/20 Unknown History buspirone 10 mg PO BID 08/16/20 08/16/20 Unknown History cholecalciferol (vitamin D3) 25 mcg PO DAILY 08/16/20 08/16/20 Unknown History divalproex [Depakote] 125 mg PO DAILY@199908/16/20 08/17/20 Unknown History doxycycline hyclate 1 cap PO BID 08/16/20 08/16/20 Unknown History ferrous sulfate 325 mg PO DAILY 08/16/20 08/16/20 Unknown History guaifenesin 200 mg PO Q4H PRN 08/16/20 08/16/20 Unknown History loperamide 2 mg BID PRN 08/16/20 08/17/20 Unknown History magnesium hydroxide [Milk of 30 ml PO DAILY PRN 08/16/20 08/16/20 Unknown History Magnesia] melatonin 9 mg BEDTIME 08/16/20 08/16/20 Unknown History pregabalin [Lyrica] 100 mg PO TID 08/16/20 08/16/20 Unknown History tramadol 50 mg PO Q6H PRN 08/16/20 08/16/20 Unknown History acetaminophen 650 mg PO Q6H PRN 08/17/20 08/17/20 Unknown History gabapentin 800 mg PO TID 08/17/20 08/17/20 Unknown History glucagon 1 mg IM Q20M PRN 08/17/20 08/17/20 Unknown History guaifenesin [Mucinex] 600 mg PO BID 08/17/20 08/17/20 Unknown History sertraline 100 mg PO DAILY 08/17/20 08/17/20 Unknown History Physical Exam Vital Signs: Vital Signs: Last Vital Signs Temp 96.6 F L 08/18/20 07:05 Pulse 86 08/18/20 07:59 Resp 18 08/18/20 07:05 BP 139/63 08/18/20 07:59 Pulse Ox 99 08/18/20 07:05 Body Mass Index 33.8 Const: General: cooperative, healthy appearing and comfortable Orientation/consciousness: oriented to person, oriented to place and oriented to time HENMT: Head: Yes normal to inspection Neck: Neck: Yes normal visual inspection Carotids: no bruits Chest: Chest palpation & inspection: normal inspection of the chest Resp: Effort & Inspection: normal respiratory effort and able to speak in complete sentences Auscultation: clear to auscultation bilaterally, no crackles, no rales, no rhonchi and no wheezes Cardio: Rate: regular rate Rhythm: regular rhythm Heart sounds: S1 normal heart sound present and S2 normal heart sound present Bruits: no carotid bruits Peripheral pulses: Peripheral pulses 2+ throughout GI: Inspection: Yes normal to inspection Skin: Wounds: amputation site (Small punctate openings on bilateral amputation sites with good granulation) Hair: normal Neuro: General: oriented to person, oriented to place and oriented to time Cranial nerves: Yes CN's II-XII intact bilaterally and Yes Normal hearing present Cognition (Neuro): normal cognition Motor exam (neuro): 5/5 motor strength present throughout Extrem: Other: venous exam: No significant superficial varicosities or spider telangiectasias, minimal edema General: No clubbing, No cyanosis and No edema Psych: Appearance: grossly normal Mental Status: mental status grossly normal Speech and movement: Normal speech and movement present Results Labs Result diagrams: 08/18/20 05:18 08/18/20 05:18 Labs: Abnormal lab results 08/17/20 08/17/20 08/17/20 Range/Units 13:15 13:15 19:53 WBC 11.9 H (4.8-10.8) X10*3/uL RBC 3.94 L (4.60-5.80) X10*6/uL Hgb 8.4 L (14.0-18.0) g/dl Hct 30.0 L (42-52) % MCV 76.1 L (80-98) fL MCH 21.3 L (27.0-33.0) pg MCHC 28.0 L (31.0-36.0) g/dl RDW 18.5 H (11.0-16.0) % MPV 8.7 L (9.4-12.4) fL Immature Gran % (Auto) 0.8 H (0.0-0.4) % Neut % (Auto) 92.0 H (45-73) % Lymph % (Auto) 2.8 L (20-40) % Lymph # (Auto) 0.3 L (1.2-4.9) X10*3/uL Abs Immat Gran (auto) 0.10 H (0.00-0.03) X10*3/uL Absolute Neuts (auto) 11.0 H (2.0-8.3) X10*3/uL Chloride 112 H (96-108) mmol/L Anion Gap 10 L (12-20) BUN 35 H (9-16) mg/dL POC Glucose 130 H (60-115) mg/dL Random Glucose 136 H (60-115) mg/dL Calcium (8.4-10.2) mg/dL 08/18/20 08/18/20 Range/Units 05:18 05:18 WBC (4.8-10.8) X10*3/uL RBC 3.55 L (4.60-5.80) X10*6/uL Hgb 7.6 L (14.0-18.0) g/dl Hct 26.9 L (42-52) % MCV 75.8 L (80-98) fL MCH 21.4 L (27.0-33.0) pg MCHC 28.3 L (31.0-36.0) g/dl RDW 18.5 H (11.0-16.0) % MPV (9.4-12.4) fL Immature Gran % (Auto) (0.0-0.4) % Neut % (Auto) (45-73) % Lymph % (Auto) (20-40) % Lymph # (Auto) (1.2-4.9) X10*3/uL Abs Immat Gran (auto) (0.00-0.03) X10*3/uL Absolute Neuts (auto) (2.0-8.3) X10*3/uL Chloride 113 H (96-108) mmol/L Anion Gap 11 L (12-20) BUN 34 H (9-16) mg/dL POC Glucose (60-115) mg/dL Random Glucose (60-115) mg/dL Calcium 7.9 L (8.4-10.2) mg/dL Short CBC 08/17/20 08/18/20 Range/Units 13:15 05:18 WBC 11.9 H 5.9 (4.8-10.8) X10*3/uL Hgb 8.4 L 7.6 L (14.0-18.0) g/dl Hct 30.0 L 26.9 L (42-52) % Plt Count 243 231 (160-400) X10*3/uL BMP 08/17/20 08/18/20 13:15 05:18 Sodium 142 141 Potassium 4.7 4.5 Chloride 112 H 113 H Carbon Dioxide 25 22 BUN 35 H 34 H Creatinine 1.14 1.23 Calcium 8.4 7.9 L All other labs normal. Assessment and Plan (1) PVD (peripheral vascular disease): Status: Acute Patient underwent bilateral toe amputation on 12/02/2019. He has been doing relatively well but the wounds are slow to heal. It appears that they have good granulation beds. Right 4th toe is viable. Would recommend continued local wound care. Id note appreciated and would consider 6 weeks IV antibiotics. Of note arterial testing is within normal limits with an RIGOBERTO on the right of 1.0 and on the left of 1.2. No surgical intervention indicated. Thank you for allowing us to assist in this patient's care. If there are any questions or concerns please do not hesitate to contact us. Procedures Date of Service Date of Service: 08/18/20
[2020-08-18 10:54] LABS: Glucose, Whole Blood 90 mg/dL (60-115)
--- NOTE | 2020-08-18 11:25 | PM.IMPN ---
Subjective Subjective Date of Service: 08/18/20 <Chasidy Willis NP - Last Filed: 08/18/20 11:39> 08/19/20 <Dre Armstrong MD - Last Filed: 08/19/20 16:22> Interval History: follow-up foot wound nonhealing ulcer moderate amount of pain to both of his feet <Chasidy Willis NP - Last Filed: 08/18/20 11:39> Physical Exam Vital Signs: Vital Signs: Last Vital Signs Temp 97.0 F 08/18/20 11:14 Pulse 57 08/18/20 11:14 Resp 20 08/18/20 11:14 BP 145/68 H 08/18/20 11:14 Pulse Ox 100 08/18/20 11:14 Body Mass Index 33.8 <Chasidy Willis NP - Last Filed: 08/18/20 11:39> Appearing in no acute distress lung sounds are clear to auscultation heart regular rate rhythm, clear S1, S2 positive bowel sounds, abdomen is soft, nontender neuro patient is alert x3, no focal deficits <Chasidy Willis NP - Last Filed: 08/18/20 11:39> Objective Data Current Medications Generic Name Dose Route Start Last Admin Trade Name Freq PRN Reason Stop Dose Admin Acetaminophen 650 mg 08/17/20 00:31 Acetaminophen 325 Mg Tablet PO Q6H PRN Pain, Mild (Pain Scale 1-3) Amlodipine Besylate 5 mg 08/17/20 09:00 08/18/20 07:59 Amlodipine Besylate 5 Mg Tablet PO 5 mg DAILY CHECO Administration Protocol Ascorbic Acid 500 mg 08/17/20 09:00 08/18/20 08:00 Ascorbic Acid 500 Mg Tablet PO 500 mg DAILY CHECO Administration Bisacodyl 10 mg 08/17/20 06:58 Bisacodyl 10 Mg Supp.Rect DC DAILY PRN Constipation Buspirone HCl 10 mg 08/17/20 09:00 08/18/20 08:00 Buspirone Hcl 10 Mg Tablet PO 10 mg BID CHECO Administration Docusate Sodium 100 mg 08/17/20 00:31 Docusate Sodium 100 Mg Capsule PO DAILY PRN Constipation Heparin Sodium (Porcine) 5,000 unit 08/17/20 00:31 08/18/20 00:51 Heparin Sodium,Porcine 5,000 Unit/Ml Vial SUBCUT Not Given Q12H [facility]CO Piperacillin Sod/Tazobactam 50 mls @ 100 mls/hr 08/17/20 05:00 08/18/20 05:54 Sod 3.375 gm/ Sodium Chloride IV Infused Q6H [facility] Infusion Vancomycin HCl 750 mg/ Sodium 265 mls @ 265 mls/hr 08/17/20 12:00 08/18/20 05:18 Chloride IV Infused Q8H [facility] Infusion Insulin Human Lispro 0 unit 08/17/20 07:30 08/18/20 07:54 Insulin Lispro 100 Unit/Ml 3 Ml Vial SUBCUT Not Given QIDACHS [facility] Protocol Melatonin 9 mg 08/17/20 21:00 08/17/20 20:20 Melatonin 3 Mg Tablet PO 9 mg BEDTIME CHECO Administration Ondansetron HCl 4 mg 08/17/20 00:31 08/17/20 05:20 Ondansetron Hcl 4 Mg/2 Ml Vial IVPUSH 4 mg Q8H PRN Administration Nausea and Vomiting Oxycodone HCl 5 mg 08/17/20 00:31 08/18/20 05:21 Oxycodone Hcl Immed Release 5 Mg Tablet PO 5 mg Q6H PRN Administration Pain, Severe (Pain Scale 7-10) Pharmacy Consult 1 each 08/17/20 00:31 Consult Rx Vancomycin Dosing MISCELLANE DAILY PRN Consult order Pregabalin 100 mg 08/17/20 09:00 08/18/20 07:59 Pregabalin 100 Mg Capsule PO 100 mg TID CHECO Administration Sodium Chloride 3 ml 08/17/20 00:31 08/18/20 07:59 0.9 % Sodium Chloride Flush 3 Ml Syringe IVFLUSH 3 ml QSHIFT [facility]CO Administration Tramadol HCl 50 mg 08/17/20 06:58 Tramadol Hcl 50 Mg Tablet PO Q6H PRN Pain Vitamin D 25 mcg 08/17/20 09:00 08/18/20 07:59 Cholecalciferol (Vitamin D3) 25 Mcg Tablet PO 25 mcg DAILY CHECO Administration <Chasidy Willis NP - Last Filed: 08/18/20 11:39> Labs CBC & Chem 7: : 08/19/20 04:38 08/19/20 04:38 <Chasidy Willis NP - Last Filed: 08/18/20 11:39> Labs: Laboratory Results - last 24 hr 08/17/20 08/17/20 08/17/20 13:15 13:15 16:23 MCV 76.1 L MCH 21.3 L MCHC 28.0 L RDW 18.5 H Plt Count 243 MPV 8.7 L Immature Gran % (Auto) 0.8 H Neut % (Auto) 92.0 H Lymph % (Auto) 2.8 L [place] % (Auto) 3.4 Eos % (Auto) 0.8 Baso % (Auto) 0.2 Lymph # (Auto) 0.3 L [place] # (Auto) 0.4 Eos # (Auto) 0.1 Baso # (Auto) 0.0 Abs Immat Gran (auto) 0.10 H Absolute Neuts (auto) 11.0 H Absolute Nucleated RBC 0.000 Nucleated RBC % (auto) 0.0 Smear Tech's Comments VERIFIED Anion Gap 10 L Estim Creat Clear Calc 93.6 Estimated GFR > 60 POC Glucose 112 Random Glucose 136 H Calcium 8.4 08/17/20 08/18/20 08/18/20 19:53 05:18 05:18 MCV 75.8 L MCH 21.4 L MCHC 28.3 L RDW 18.5 H Plt Count 231 MPV 9.4 Immature Gran % (Auto) Neut % (Auto) Lymph % (Auto) [place] % (Auto) Eos % (Auto) Baso % (Auto) Lymph # (Auto) [place] # (Auto) Eos # (Auto) Baso # (Auto) Abs Immat Gran (auto) Absolute Neuts (auto) Absolute Nucleated RBC 0.000 Nucleated RBC % (auto) 0.0 Smear Tech's Comments Anion Gap 11 L Estim Creat Clear Calc 86.8 Estimated GFR 59 POC Glucose 130 H Random Glucose 73 D Calcium 7.9 L 08/18/20 08/18/20 07:04 10:51 MCV MCH MCHC RDW Plt Count MPV Immature Gran % (Auto) Neut % (Auto) Lymph % (Auto) [place] % (Auto) Eos % (Auto) Baso % (Auto) Lymph # (Auto) [place] # (Auto) Eos # (Auto) Baso # (Auto) Abs Immat Gran (auto) Absolute Neuts (auto) Absolute Nucleated RBC Nucleated RBC % (auto) Smear Tech's Comments Anion Gap Estim Creat Clear Calc Estimated GFR POC Glucose 87 90 Random Glucose Calcium <Chasidy Willis NP - Last Filed: 08/18/20 11:39> Microbiology Microbiology Results: Microbiology 08/16/20 16:40 Blood - Venous Blood Culture - Preliminary No growth after 24 hours. 08/16/20 16:36 Blood - Venous Blood Culture - Preliminary No growth after 24 hours. <Chasidy Willis NP - Last Filed: 08/18/20 11:39> Progress Note: A&P (1) Diabetic foot ulcers: Status: Acute <Chasidy Willis NP - Last Filed: 08/18/20 11:39> Assessment and Plan: 64-year-old man admitted with osteomyelitis Anemia. Seems chronic but low today hx of rectal cancer, radiation no obvious bleeding -Check iron studies -occult stool nonhealing surgical wound. this set of surgical wounds of the 5th metatarsal amputation on both feet is draining, does not appear to have healed patient with no leukocytosis afebrile has elevated ESR and CRP evidence of osteomyelitis on the right on CT CX neg after 24 hrs if no MRSA will likely need 6 weeks of ertapenem - continue broad-spectrum antibiotics for now - will consult surgery and Infectious Disease - PICC line tomorrow if neg blood cx diabetes - low-dose sliding scale insulin - diabetic diet hypertension - stable - continue amlodipine DVT prophylaxis: Heparin subQ attending: Dr. Armstrong full code <Chasidy Willis NP - Last Filed: 08/18/20 11:39> Quality Stroke Does the patient have a stroke diagnosis?: No <Chasidy Willis NP - Last Filed: 08/18/20 11:39> VTE Prior VTE?: No <Chasidy Willis NP - Last Filed: 08/18/20 11:39> VTE Risk Level:: Medical - moderate - high <Chasidy Willis NP - Last Filed: 08/18/20 11:39> VTE Device Contraindication: Treatment Not Indicated <Chasidy Willis NP - Last Filed: 08/18/20 11:39> VTE Drug Contraindication: N/A - Med Ordered <Chaisdy Willis NP - Last Filed: 08/18/20 11:39>
[2020-08-18 11:26] LABS: Vancomycin Trough 20.1 mcg/mL (10.0-20.0)
[2020-08-18] MEDS: vancomycin HCL 750 MG in 0.9 % Sodium Chloride 250 ML 166 MG IV (11:51)
[2020-08-18 12:15] LABS: Iron 22 mcg/dL (45-160); Percent Iron Saturation 9 % (15-50); Total Iron Binding Capacity 245 mcg/dL (228-428); Unsaturated Iron Binding 223 ug/dL
[2020-08-18 12:35] LABS: Ferritin 66 ng/mL (20-250)
[2020-08-18 12:57] LABS: Folate 7.1 ng/mL (> or = 4.0); Vitamin B12 591 pg/mL (200-900)
[2020-08-18 14:56] LABS: OBS Int Ctl Valid YES; OBS1 NEGATIVE (NEGATIVE)
[2020-08-18 16:23] LABS: Glucose, Whole Blood 84 mg/dL (60-115)
[2020-08-18] MEDS: vancomycin HCL 750 MG in 0.9 % Sodium Chloride 250 ML 265 MG IV (17:21)
[2020-08-18] MEDS: Melatonin 3 MG TABLET 9 MG PO (21:54)
--- NOTE | 2020-08-19 01:39 | PC.NURSE ---
Patient is refusing all injections including poc, heparin etc. Patient educated on the importance of complying with the plan of care and medication regimen. Will con't to encourage participation with care plan.
[2020-08-19 03:46] VITALS: BP 148/81; PULSE 60; RESP 18; TEMP 36.6; O2SAT 93
[2020-08-19 04:44] LABS: Hematocrit 25.9 % (42-52); Hemoglobin 7.5 g/dl (14.0-18.0); Mean Corpuscular Hemoglobin 21.6 pg (27.0-33.0); Mean Corpuscular Volume 74.6 fL (80-98); Mean Platelet Volume 8.6 fL (9.4-12.4); Platelet Count 193 X10*3/uL (160-400); Red Blood Count 3.47 X10*6/uL (4.60-5.80); Red Cell Distribution Width 18.6 % (11.0-16.0); White Blood Count 6.1 X10*3/uL (4.8-10.8)
[2020-08-19] MEDS: Piperacillin Sodium/Tazobactam 3.375 GM in 0.9 % Sodium Chloride 50 ML IV ×2 (05:16→10:00)
[2020-08-19 05:18] LABS: Anion Gap 9 (12-20); Blood Urea Nitrogen 27 mg/dL (9-16); Calcium 7.8 mg/dL (8.4-10.2); Carbon Dioxide 22 mmol/L (22-29); Chloride 116 mmol/L (96-108); Creatinine Clr Calc Pharmacy 94.5; Estimated Glomerular Filt Rate > 60; Glucose Random 124 mg/dL (60-115); Sodium 143 mmol/L (135-145)
[2020-08-19 05:24] LABS: Vancomycin Trough 18.6 mcg/mL (10.0-20.0)
[2020-08-19 07:08] LABS: Glucose, Whole Blood 106 mg/dL (60-115)
[2020-08-19] MEDS: vancomycin HCL 750 MG in 0.9 % Sodium Chloride 250 ML 265 MG IV (07:08)
[2020-08-19] MEDS: 0.9 % Sodium Chloride Flush 3 ML SYRINGE IVFLUSH ×2 (07:14→15:20)
[2020-08-19] MEDS: traMADoL HCL 50 MG TABLET PO (07:22)
[2020-08-19 07:23] VITALS: BP 149/67; PULSE 55; RESP 18; TEMP 36.4; O2SAT 96
[2020-08-19] MEDS: Acetaminophen 325 MG TABLET 650 MG PO (08:25)
[2020-08-19] MEDS: oxyCODONE HCl Immed Release 5 MG TABLET PO (08:25)
[2020-08-19] MEDS: Cholecalciferol (Vitamin D3) 25 MCG TABLET PO (08:30)
[2020-08-19] MEDS: amLODIPine Besylate 5 MG TABLET PO (08:30)
[2020-08-19] MEDS: Pregabalin 100 MG CAPSULE PO ×2 (08:30→14:02)
[2020-08-19] MEDS: busPIRone HCl 10 MG TABLET PO (08:30)
[2020-08-19] MEDS: Ascorbic Acid 500 MG TABLET PO (08:30)
[2020-08-19 11:08] LABS: Glucose, Whole Blood 132 mg/dL (60-115)
[2020-08-19 11:14] VITALS: BP 144/69; PULSE 61; RESP 20; TEMP 36.5; O2SAT 96
--- NOTE | 2020-08-19 13:19 | P.PICC_ITS ---
PICC Line Insertion NPICC Diagnosis: OSTEOMYELITIS Indication: JAIL IV ANTIBIOTICS Pertinent Labs: REVIEWED Technique: Following informed consent including risks, benefits and alternatives and using sterile technique including cap and mask, sterile gown, glove and drape, the RIGHT arm was prepped and draped in the usual sterile fashion of full barrier technique with CHG. Following completion of [place] Protocol the skin and soft tissues were anesthetized with 1% Lidocaine plain. Using ultrasound guidance, BASILIC vein access was obtained IN SINGLE ATTEMPT BY THIS RN. Over an 0.018 wire through peel-away sheath, a SINGLE LUMEN, PASV, 4-ROMANIAN PICC line was positioned. Catheter length is 41 CM internal length, 0 CM external length, for a total trimmed length of 41 CM. The procedure was performed in S-272. Tip verification was performed by Denisse Cee with Mitch 3CG. Tip located in SVC. Ultrasound was used to document vein patency and for needle entry. A formal ultrasound picture and cardiac rhythm strip was recorded. Vascular Starch Mangle Tender has released the line for use and it is currently dressed with a StatLock, Tegaderm, and CHG disc. Verification has been performed for blood return and line patency. Arm Circumference: 35 CM Equipment: Fed Playbook POWERPICC SOLO Catheter Type: 4 ROMANIAN, SINGLE LUMEN, PASV Lot #: [id number]
--- NOTE | 2020-08-19 13:43 | P.DS_ITS ---
DS: Providers Provider Date of Service: 08/19/20 <Chasidy Willis NP - Last Filed: 08/19/20 13:53> Date of admission: 08/17/20 00:31 <Chasidy Willis NP - Last Filed: 08/19/20 13:53> Date of discharge: 08/19/20 <Chasidy Willis NP - Last Filed: 08/19/20 13:53> Primary care physician: Winston Mir MD <Chasidy Willis NP - Last Filed: 08/19/20 13:53> Admitting clinician: Chio Dinh <Chasidy Willis NP - Last Filed: 08/19/20 13:53> Attending physician on admission: Chio Dinh <Chasidy Willis NP - Last Filed: 08/19/20 13:53> Consults: 08/17/20 00:31 Consult to General Surgery Routine Consulting Provider: Amador Hall Reason for consultation: osteomyelitis Has provider been notified: No Consult to Infectious Diseases Routine Consulting Provider: Kasie Gupta Reason for consultation: Osteomyelitis Has provider been notified: No 08/17/20 15:11 Consult to Vascular Surgery Routine Consulting Provider: Felton Farmer Reason for consultation: non healing leg wounds Has provider been notified: No 08/18/20 11:38 Consult to Gastroenterology Routine Consulting Provider: Cassidy Alcaraz Reason for consultation: anemia Has provider been notified: No <Chasidy Willis NP - Last Filed: 08/19/20 13:53> Attending physician on discharge: Dre Armstrong <Chasidy Willis NP - Last Filed: 08/19/20 13:53> Discharging clinician: Chasidy Willis <Chasidy Willis NP - Last Filed: 08/19/20 13:53> DS: Diagnosis Discharge Diagnosis (1) Diabetic foot ulcers: Status: Acute <Chasidy Willis NP - Last Filed: 08/19/20 13:53> DS: Medications Discharge Medications Home Medications: Home Medications Medication Instructions Recorded Confirmed aspirin 325 mg PO DAILY 11/29/19 08/17/20 carvedilol 6.25 mg PO BID 11/29/19 08/17/20 glipizide 2.5 mg PO DAILY 11/29/19 08/17/20 sennosides [senna] 8.6 mg PO BEDTIME 11/29/19 08/17/20 amlodipine 1 tab PO DAILY 08/16/20 08/16/20 ascorbic acid (vitamin C) [Vitamin 500 mg PO DAILY 08/16/20 08/16/20 C] bisacodyl 10 mg VT DAILY PRN 08/16/20 08/16/20 buspirone 10 mg PO BID 08/16/20 08/16/20 cholecalciferol (vitamin D3) 25 mcg PO DAILY 08/16/20 08/16/20 divalproex [Depakote] 125 mg PO DAILY@199908/16/20 08/17/20 ferrous sulfate 325 mg PO DAILY 08/16/20 08/16/20 guaifenesin 200 mg PO Q4H PRN 08/16/20 08/16/20 loperamide 2 mg BID PRN 08/16/20 08/17/20 magnesium hydroxide [Milk of 30 ml PO DAILY PRN 08/16/20 08/16/20 Magnesia] melatonin 9 mg BEDTIME 08/16/20 08/16/20 pregabalin [Lyrica] 100 mg PO TID 08/16/20 08/16/20 tramadol 50 mg PO Q6H PRN 08/16/20 08/16/20 acetaminophen 650 mg PO Q6H PRN 08/17/20 08/17/20 gabapentin 800 mg PO TID 08/17/20 08/17/20 glucagon 1 mg IM Q20M PRN 08/17/20 08/17/20 guaifenesin [Mucinex] 600 mg PO BID 08/17/20 08/17/20 sertraline 100 mg PO DAILY 08/17/20 08/17/20 Previous Rx's Medication Instructions Recorded lorazepam 0.5 mg PO TID PRN #10 tab 12/21/19 sodium bicarbonate 650 mg PO TID #90 tab 12/21/19 ertapenem [Invanz] 1 g IV DAILY 42 Days ea 08/19/20 oxycodone 5 mg PO Q6H PRN 3 Days #12 tab 08/19/20 <Chasidy Willis NP - Last Filed: 08/19/20 13:53> DS: Summary Hospital Course Hospital Course: HP as per admitting provider This is a 64-year-old male with past medical history of CHF, diabetes, diabetic neuropathy status post amputation of the fifth metatarsal on both right and left foot, HTN, history of rectal cancer, who presents to the hospital with nonhealing toe amputation sites, patient reports that he has been intermediate since he had his surgeries of the amputation of both of his right and left 5th toe 9 months ago, he was being cared for by wound care for those 2 wounds and was never told that there was any issue until today. When he was asked to come to the hospital because they were not healing. He denies any fever or chills, reports some pain in the sole of his feet bilaterally as well as some swelling in his feet but denies any chest pain, shortness of breath, nausea or vomiting, no diarrhea constipation, no urinary symptoms. No numbness tingling or weakness anywhere. He is currently wheelchair-bound and does not use his feet for walking. on arrival to the hospital patient is vital significant temperature of 97.8?, heart rate of 60, respiratory rate of 18, blood pressure of 134/53, satting 95% on room air. Labs are significant for WBC count 6.2, hemoglobin of 8 which is chronically this low, hematocrit 27, chloride of 112, BUN of 42, creatinine of 1.02, lactic acid of 0.8, CRP of 1.8, ESR of 82, BNP of 747, albumin of 2.8, CT of the feet shows septic joint with osteomyelitis of the right 4th metatarsal joint is strongly suspected . Osteomyelitis. History of nonhealing surgical wound, 5th metatarsal amputation on both feet had both been draining. Evidence of osteomyelitis on the CT showing Septic joint with osteomyelitis of the right 4th MTP joint is stronglys uspected. No additional foci suspicious for osteomyelitis are identified in either foot. Patient was started on broad-spectrum antibiotics initially with vancomycin and Zosyn. Was seen and evaluated by Infectious Disease with recommendation to start ertapenem if no MRSA was present. He was also seen and evaluated by the vascular surgeon WHO RECOMMENDED LOCAL WOUND CARE, ARTERIAL TESTING WITHIN NORMAL LIMITS. Patient was continue 6 weeks of IV ertapenem had PICC line placed. Pain management for few days. Anemia. Seems to be at baseline. Occult stool was negative. Consider recheck in H&H in 1 week. Attending Attestation: Patient seen and examined independently and I was present during arriaza portion of E/M service. Agree with Parish Willis NP's history, physical, assessment, and plan. Pt admitted for diabetic foot infection. Started on vanco/zosyn. Evaluated by ID and Vascular surgery. No urgent surgical needs deemded. ID recommended 6 weeks of antibiotcs -- will be d/c on 6 weeks Ertapenam. <Chasidy Willis NP - Last Filed: 08/19/20 13:53> Time Spent with Patient Time attestation: Total time spent providing and/or coordinating discharge services: <Chasidy Willis NP - Last Filed: 08/19/20 13:53> Discharge coordination time: Greater than 30 minutes <Chasidy Willis NP - Last Filed: 08/19/20 13:53> Quality: Stroke Does the patient have a stroke diagnosis?: No <Chasidy Willis NP - Last Filed: 08/19/20 13:53> Physical Exam Vital Signs: Vital Signs: Last Vital Signs Temp 97.7 F 08/19/20 11:14 Pulse 61 08/19/20 11:14 Resp 20 08/19/20 11:14 BP 144/69 H 08/19/20 11:14 Pulse Ox 96 08/19/20 11:14 Body Mass Index 33.8 <Chasidy Willis NP - Last Filed: 08/19/20 13:53> Appearing in no acute distress head is normocephalic atraumatic eyes pupils are PERRLA sclera is anicteric mouth throat mucous membranes are intact and moist neck is supple no lymphadenopathy, no JVD noted lung sounds are clear to auscultation heart regular rate rhythm, clear S1, S2 positive bowel sounds, abdomen is soft, nontender neuro patient is alert x3, no focal deficits Bilateral poor healing diabetic foot wounds <Chasidy Willis NP - Last Filed: 08/19/20 13:53> DS: Data Data Completed and Pending Completed studies during hospitalization [Text1]: Procedures Detachment at Left 5th Toe, Complete, Open Approach (12/02/19) Detachment at Right 5th Toe, Complete, Open Approach (12/02/19) <Chasidy Willis NP - Last Filed: 08/19/20 13:53> Labs on day of discharge: Laboratory Results - last 24 hr 08/18/20 08/18/20 08/19/20 14:45 16:16 04:38 WBC 6.1 RBC 3.47 L Hgb 7.5 L Hct 25.9 L MCV 74.6 L MCH 21.6 L MCHC 29.0 L RDW 18.6 H Plt Count 193 MPV 8.6 L Absolute Nucleated RBC 0.000 Nucleated RBC % (auto) 0.0 Sodium Potassium Chloride Carbon Dioxide Anion Gap BUN Creatinine Estim Creat Clear Calc Estimated GFR POC Glucose 84 Random Glucose Calcium Stool Occult Blood NEGATIVE Vancomycin Trough Blood Type Antibody Screen Crossmatch ([facility]) 08/19/20 08/19/20 08/19/20 04:38 04:38 07:05 WBC RBC Hgb Hct MCV MCH MCHC RDW Plt Count MPV Absolute Nucleated RBC Nucleated RBC % (auto) Sodium 143 Potassium 4.0 Chloride 116 H Carbon Dioxide 22 Anion Gap 9 L BUN 27 H Creatinine 1.13 Estim Creat Clear Calc 94.5 Estimated GFR > 60 POC Glucose 106 Random Glucose 124 H D Calcium 7.8 L Stool Occult Blood Vancomycin Trough 18.6 Blood Type Antibody Screen Crossmatch ([facility]) 08/19/20 08/19/20 09:06 11:04 WBC RBC Hgb Hct MCV MCH MCHC RDW Plt Count MPV Absolute Nucleated RBC Nucleated RBC % (auto) Sodium Potassium Chloride Carbon Dioxide Anion Gap BUN Creatinine Estim Creat Clear Calc Estimated GFR POC Glucose 132 H Random Glucose Calcium Stool Occult Blood Vancomycin Trough Blood Type A Positive Antibody Screen NEGATIVE Crossmatch ([facility]) See Detail Preliminary micro results at discharge 08/16/20 16:40 Blood Culture - Preliminary Blood - Venous No growth after 48 hours. 08/16/20 16:36 Blood Culture - Preliminary Blood - Venous No growth after 48 hours. <Chasidy Willis NP - Last Filed: 08/19/20 13:53> Discharge Plan Discharge Anticipated Discharge Date/Time: 08/19/20 13:31 <Chasidy Willis NP - Last Filed: 08/19/20 13:53> Patient Disposition: [facility] <Chasidy Willis NP - Last Filed: 08/19/20 13:53> Discharge Diagnosis: osteomyelitis to nonhealing foot wound anemia <Chasidy Willis NP - Last Filed: 08/19/20 13:53> osteomyelitis to nonhealing foot wound anemia <Dre Armstrong MD - Last Filed: 08/19/20 16:36> Referrals: Winston Mir MD [Primary Care Provider] - 1 Week <Chasidy Willis NP - Last Filed: 08/19/20 13:53> Discharge Medications: New oxycodone 5 mg Tablet 5 mg PO Q6H PRN (Reason: Pain, Severe (Pain Scale 7-10)) 3 Days Qty: 12 RF: 0 ertapenem [Invanz] 1 gram Recon Soln 1 g IV DAILY 42 Days RF: 0 Continued sodium bicarbonate 650 mg Tablet 650 mg PO TID Qty: 90 RF: 0 lorazepam 0.5 mg Tablet 0.5 mg PO TID PRN (Reason: Anxiety) Qty: 10 RF: 0 tramadol 50 mg Tablet 50 mg PO Q6H PRN (Reason: Pain) RF: 0 loperamide 2 mg Tablet 2 mg BID PRN (Reason: Diarrhea) RF: 0 melatonin 3 mg Tablet 9 mg BEDTIME RF: 0 amlodipine 5 mg tablet 1 tab PO DAILY RF: 0 guaifenesin 100 mg/5 mL Liquid 200 mg PO Q4H PRN (Reason: Cough) RF: 0 magnesium hydroxide [Milk of Magnesia] 400 mg/5 mL Suspension 30 ml PO DAILY PRN (Reason: Constipation) RF: 0 bisacodyl 10 mg Suppository 10 mg VT DAILY PRN (Reason: Constipation) RF: 0 ferrous sulfate 325 mg (65 mg iron) Tablet 325 mg PO DAILY RF: 0 buspirone 10 mg Tablet 10 mg PO BID RF: 0 divalproex [Depakote] 125 mg Tablet,Delayed Release (Dr/Ec) 125 mg PO DAILY@1999 RF: 0 ascorbic acid (vitamin C) [Vitamin C] 500 mg Tablet Extended Release 500 mg PO DAILY RF: 0 cholecalciferol (vitamin D3) 25 mcg (1,000 unit) Capsule 25 mcg PO DAILY RF: 0 pregabalin [Lyrica] 100 mg Capsule 100 mg PO TID RF: 0 sertraline 100 mg Tablet 100 mg PO DAILY RF: 0 guaifenesin [Mucinex] 600 mg Tablet Extended Release 12hr 600 mg PO BID RF: 0 gabapentin 800 mg Tablet 800 mg PO TID RF: 0 glucagon 1 mg/mL Recon Soln 1 mg IM Q20M PRN (Reason: Hypoglycemia) RF: 0 acetaminophen 325 mg Tablet 650 mg PO Q6H PRN (Reason: Pain (Scale Score 1-3)) RF: 0 sennosides [senna] 8.6 mg Tablet 8.6 mg PO BEDTIME RF: 0 carvedilol 6.25 mg Tablet 6.25 mg PO BID RF: 0 aspirin 325 mg Tablet 325 mg PO DAILY RF: 0 glipizide 2.5 mg Tablet Extended Release 24hr 2.5 mg PO DAILY RF: 0 Discontinued doxycycline hyclate 100 mg capsule 1 cap PO BID RF: 0 <Chasidy Willis NP - Last Filed: 08/19/20 13:53> Diet: advance to usual diet <Chasidy Willis NP - Last Filed: 08/19/20 13:53> advance to usual diet <Dre Armstrong MD - Last Filed: 08/19/20 16:36> Activity on Discharge: As tolerated <Chasidy Willis NP - Last Filed: 08/19/20 13:53> As tolerated <Dre Armstrong MD - Last Filed: 08/19/20 16:36> Stand Alone Forms: Patient Portal Discharge page <Chasidy Willis NP - Last Filed: 08/19/20 13:53> Care Plan Goals: continued healing to foot wounds <Chasidy Willis NP - Last Filed: 08/19/20 13:53> Health Concerns: osteomyelitis to nonhealing foot wound anemia <Chasidy Willis NP - Last Filed: 08/19/20 13:53> Plan of Treatment: PICC line placed for ertapenem for 6 weeks follow-up with vascular surgeon as needed <Chasidy Willis NP - Last Filed: 08/19/20 13:53> Assessment: see discharge summary <Chasidy Willis NP - Last Filed: 08/19/20 13:53>
[2020-08-19] MEDS: Morphine Sulfate 4 MG/ML CARTRIDGE 3 MG IVPUSH (14:06)
--- NOTE | 2020-08-19 14:37 | PC.NURSE ---
Skin/wound assessment completed today. Patient has a grade 2 diabetic ulcer to right foot and a grade 1 diabetic ulcer to left foot. Silver Alginate was applied to both wounds. A foam was used to cover left ulcer and gauze and roll gauze was used to cover the right ulcer. Patient tolerated changing well. Dry skin noted on patient. No other openings noted.
[2020-08-19 15:10] VITALS: BP 160/78; PULSE 62; RESP 18; TEMP 36.7; O2SAT 95
--- NOTE | 2020-08-19 15:11 | MHC.CM.PN ---
Male 64 discharged today. Pt returning to [facility] @ 6pm via BLS. DC info has been sent.
[2020-08-19] MEDS: Ertapenem Sodium 1 GM in 0.9 % Sodium Chloride 50 ML IV (15:18)
[2020-08-19 16:00] LABS: Glucose, Whole Blood 101 mg/dL (60-115)
[2020-08-19 16:09] LABS: COVID-19 Test Negative (Negative)
[2020-08-19] MEDS: Heparin Sodium,Porcine Flush 50 UNITS, 0.9 % Sodium Chloride Flush 5 ML IVFLUSH (16:09)
== END 2020-08-19 18:02 | DRG 565 ==
LOC: HO.ED 21:26 → HO.IMC 08-17 03:43
PROVIDERS: Internal Medicine; Nurse Practitioner Acute Care; Admitting Provider Internal Medicine; Emergency Provider Emergency Medicine; PCP Family Medicine; Visit Provider Family Medicine
DX: T87.44 Infection of amputation stump, left lower extremity (principal); M86.9 Osteomyelitis, unspecified; I13.0 Hypertensive heart and chronic kidney disease with heart failure and stage 1 through stage 4 chronic kidney disease, or unspecified chronic kidney disease; E11.42 Type 2 diabetes mellitus with diabetic polyneuropathy; E11.69 Type 2 diabetes mellitus with other specified complication; T87.43 Infection of amputation stump, right lower extremity; E11.22 Type 2 diabetes mellitus with diabetic chronic kidney disease; D63.1 Anemia in chronic kidney disease; N18.9 Chronic kidney disease, unspecified; Z85.048 Personal history of other malignant neoplasm of rectum, rectosigmoid junction, and anus; E11.51 Type 2 diabetes mellitus with diabetic peripheral angiopathy without gangrene; Z20.822 Contact with and (suspected) exposure to COVID-19; Z79.82 Long term (current) use of aspirin; Z79.899 Other long term (current) drug therapy
CPT/HCPCS: 36415; 36573; 71045; 73701; 80048; 80076; 80202; 82272; 82607; 82728; 82746; 82947; 83540; 83605; 83880; 84484; 85025; 85027; 85610; 85652; 86140; 86850; 86900; 86901; 86920; 86922; 87040; 87635; 93005; 93306; 93923; 93925; 99285; C1751; J1335; J1642; J2270; J2405; J2543; J3370; Q9957; Q9967

== ENCOUNTER 2020-09-01 14:17 | Inpatient (IN) | payer MEDICARE, MEDICAID, SELFPAY ==
[2020-09-01] VITALS (8 sets, daily range): BP systolic 140–155; BP diastolic 61–93; PULSE 55–108; RESP 14–20; TEMP 36.6–37.1; O2SAT 93–96; BMI 34.2
--- NOTE | ~2020-09-01 | CT_ITS ---
EXAMINATION: CT CHEST, ABDOMEN AND PELVIS WITHOUT CONTRAST CLINICAL INFORMATION: Reason for Exam abdominal pain vomiting COMPARISON: CT abdomen pelvis 03/12/2020, CTA chest 06/23/2019 TECHNIQUE: Multidetector volumetric imaging was performed from the thoracic inlet through the pubic symphysis without IV contrast. Sagittal and coronal reformatted images were obtained on the technologist's workstation. This CT examination was performed using dose optimization techniques as appropriate, variously including the following: *Automated exposure control *Adjustment of mA and/or kV according to patient size (this includes techniques or standardized protocols for targeted exams where dose is matched to indication/reason for exam; i.e. extremities or head) *Use of iterative reconstruction technique DLP: 1747 mGy-cm FINDINGS: CHEST: Lung: Trace bilateral pleural effusions are seen. Some minimal bibasilar atelectasis is present. Coronary calcifications are present. A new cardiac device appears to be present in the region of the intraventricular septum, most likely some sort of pacemaker. Mediastinum: The central vascular structures are unremarkable. Some small mediastinal lymph nodes are present the largest in the right paratracheal region measuring 2.5 x 1.0 cm in transverse dimension. No hilar or mediastinal lymphadenopathy. Bilateral central venous lines are present with their tips in the SVC. Pericardium/Pleura: No significant effusion. No pleural mass or thickening. Chest Wall/Axilla: Unremarkable ABDOMEN/PELVIS: Peritoneal Space: No significant free air or free fluid identified. Liver, Gallbladder, Biliary Tree: The liver is normal in size, shape, and attenuation. No focal hepatic lesion or biliary ductal dilatation is present. The gallbladder is unremarkable with no evidence of radiopaque gallstones, gallbladder wall thickening, or obvious pericholecystic inflammatory changes. Pancreas: Unremarkable Spleen: Unremarkable Adrenal Glands: Unremarkable Kidneys and Ureters: The kidneys are normal in size, shape, and attenuation. Bilateral perirenal stranding is present, without hydronephrosis, hydroureter, or calculi seen. A exophytic right lower pole renal cyst is present. Bladder: Unremarkable Gastrointestinal Tract: Again seen is thickening in the perisigmoid space with a blind-ending sigmoid stump. Findings are better elucidated on the prior study which was performed with IV contrast. The descending colon colostomy is present in the left lower quadrant, unchanged. There is no evidence of bowel obstruction. The appendix is unremarkable. Abdominal Wall: Some periumbilical bulging is seen with diastases but no gross hernia. Chronic changes noted in the midline lower pelvic back with some chronic calcifications and increased soft tissue density, unchanged. Lymph Nodes: No retroperitoneal lymphadenopathy. Vascular: Calcific atherosclerotic changes present in the aorta and iliofemoral vessels as well as aortic branch vessels.. The IVC appears unremarkable. PELVIC VISCERA: Prostate and seminal vesicles unremarkable. There is calcification of the vas deferens. OSSEUS STRUCTURES: Moderate degenerative changes are noted in the spine. No bony destructive lesions are seen. CT/CT abdomen pelvis wo con IMPRESSION: Presacral collection unchanged when compared to the prior study. Chronic changes in the posterior lower back wall with calcifications. No acute finding is seen. Postsurgical changes with Wilma pouch and left lower quadrant colostomy. No acute intrathoracic disease.
--- NOTE | ~2020-09-01 | CT_ITS ---
EXAMINATION: CT ANGIOGRAM OF THE CHEST WITH AND WITHOUT CONTRAST (CT PULMONARY ANGIOGRAM FOR PE) CLINICAL INFORMATION: Reason for Exam hypoxia COMPARISON: Previous chest CT from yesterday and chest x-ray July 2020 TECHNIQUE: Prior to contrast administration, noncontrast localization images were obtained. Subsequently, multidetector volumetric imaging was performed from the thoracic inlet to below the diaphragms following the administration of 71 mL Omnipaque 350 intravenous contrast. No contrast reaction reported Sagittal, coronal, and MIP oblique sagittal reformatted images were obtained on the CT workstation, uploaded to PACS, and reviewed. This CT examination was performed using dose optimization techniques as appropriate, variously including the following: *Automated exposure control *Adjustment of mA and/or kV according to patient size (this includes techniques or standardized protocols for targeted exams where dose is matched to indication/reason for exam; i.e. extremities or head) *Use of iterative reconstruction technique Total exam dose-length product 190 mGy-cm FINDINGS: QUALITY OF STUDY/CONTRAST BOLUS: Satisfactory. PULMONARY ARTERIES: No central or segmental pulmonary emboli. THORACIC AORTA: No aneurysm or dissection. LUNG: There is bronchial wall thickening and peribronchial nodules seen in the right upper and right lower lobes suggestive of a small bronchopneumonia. This is increased compared to yesterday's exam. There is dependent atelectasis seen at the lung bases. The lungs are otherwise clear. PLEURA: No pleural effusion or pneumothorax. MEDIASTINUM: Normal heart size. There is a cardiac device in the lower interventricular septum appears unchanged. There is mild coronary artery calcification. There is no pericardial effusion. There is shotty bilateral hilar and mediastinal lymphadenopathy. No enlarged lymph nodes are seen. There is a right upper extremity PICC line and left subclavian port with tip in the SVC. No evidence of septal bowing or right heart strain. CHEST WALL/AXILLA: No axillary or internal mammary lymphadenopathy. OSSEOUS STRUCTURES: No acute or suspicious osseous abnormality. There are mild degenerative changes of the spine. UPPER ABDOMEN: Unremarkable. No reflux of contrast into the hepatic veins to suggest elevated right heart pressures. CT/CT angio chest PE protocol IMPRESSION: No evidence of pulmonary embolism. Right upper and right lower lobe bronchopneumonia. Diffuse shotty mediastinal and hilar lymphadenopathy. VTE: negative
--- NOTE | 2020-09-01 14:27 | ECG_ITS ---
Test Reason : VOMITING Blood Pressure : / mmHG Vent. Rate : 114 BPM Atrial Rate : 119 BPM P-R Int : 000 ms QRS Dur : 160 ms QT Int : 396 ms P-R-T Axes : 000 -67 087 degrees QTc Int : 545 ms Ventricular-paced rhythm Abnormal ECG When compared with ECG of 16-AUG-2020 16:53, Vent. rate has increased BY 58 BPM Referred By: Aniyah Griffiths Electronically Signed By:EDWARD HINES
--- NOTE | 2020-09-01 14:30 | ED_ITS ---
HPI - Nausea/Vomiting/Diarrhea General Chief complaint: Nausea/Vomiting/Diarrhea Stated complaint: N/V/ABD PAIN Time Seen by Provider: 09/01/20 14:18 Source: patient, EMS, RN notes reviewed and old records reviewed Mode of arrival: EMS Limitations: no limitations History of Present Illness HPI Narrative: 64 yo male with hx of R foot metatarsal osteomyelitis DC here on 08/19/20 with 6 weeks of ertapenem, HTN, DM, rectal cancer s/p colostomy, PVD, cardiomyopathy comes from SNF with c/o nausea vomiting and not feeling well today but SNF RN notes also mention a dry cough lower O2 sats 86% that responded to supplemental O2 and a concern for air embolus from his PICC line due to the PCC line being left open on 08/22? unsure when it was closed but they used it today for IV ertapenem and when he comes to the ED the patient's PICC line has a port covering it. Patient states I think the antibiotics are making me sick. MD elicited complaint: nausea, vomiting and abdominal pain Pertinent past history: abdominal surgery Onset (ago): day(s) (today) Description of vomiting: food contents and watery Associated nausea: Yes Associated abdominal pain: Yes Location of pain: diffuse Pain consistency: constant Severity: moderate Quality: cramping Exacerbating factors: eating Relieving factors: none Context: recent antibiotic use and history of abdominal surgery Associated symptoms: myalgias, cough, fever/chills, headaches, loss of appetite, malaise, nausea/vomiting and weakness Treatment prior to arrival: other (received his IV ertapenem through PICC line today) Related Data Home Medications Medication Instructions Recorded Confirmed aspirin 325 mg PO DAILY 11/29/19 09/01/20 carvedilol 6.25 mg PO BID 11/29/19 09/01/20 glipizide 2.5 mg PO DAILY 11/29/19 09/01/20 sennosides [senna] 8.6 mg PO BEDTIME 11/29/19 09/01/20 amlodipine 1 tab PO DAILY 08/16/20 09/01/20 ascorbic acid (vitamin C) [Vitamin 500 mg PO DAILY 08/16/20 09/01/20 C] bisacodyl 10 mg KS DAILY PRN 08/16/20 09/01/20 buspirone 10 mg PO BID 08/16/20 09/01/20 cholecalciferol (vitamin D3) 25 mcg PO DAILY 08/16/20 09/01/20 divalproex [Depakote] 125 mg PO DAILY@199908/16/20 09/01/20 ferrous sulfate 325 mg PO DAILY 08/16/20 09/01/20 guaifenesin 200 mg PO Q4H PRN 08/16/20 09/01/20 loperamide 2 mg BID PRN 08/16/20 09/01/20 magnesium hydroxide [Milk of 30 ml PO DAILY PRN 08/16/20 09/01/20 Magnesia] melatonin 9 mg BEDTIME 08/16/20 09/01/20 pregabalin [Lyrica] 100 mg PO TID 08/16/20 09/01/20 tramadol 50 mg PO Q6H PRN 08/16/20 09/01/20 acetaminophen 650 mg PO Q6H PRN 08/17/20 09/01/20 gabapentin 800 mg PO TID 08/17/20 09/01/20 glucagon 1 mg IM NEEDED 08/17/20 09/01/20 guaifenesin [Mucinex] 600 mg PO BID 08/17/20 09/01/20 sertraline 100 mg PO DAILY 08/17/20 09/01/20 oxycodone 5 mg PO Q6H PRN 09/01/20 09/01/20 Previous Rx's Medication Instructions Recorded lorazepam 0.5 mg PO TID PRN #10 tab 12/21/19 sodium bicarbonate 650 mg PO TID #90 tab 12/21/19 ertapenem [Invanz] 1 g IV DAILY 42 Days ea 08/19/20 Allergies Allergy/AdvReac Type Severity Reaction Status Date / Time metformin AdvReac Unknown diarrhea Verified 05/04/20 11:11 Review of Systems Review of Systems: Constitutional : No Weight loss, No Fever, pos Chills, pos Fatigue, pos Malaise ENT/Mouth : No sore throat, No Rhinorrhea Eyes: No Eye Pain, No Swelling, No Redness Cardiovascular : No Chest Pain, No SOB, No Dyspnea on Exertion, No Orthopnea, No Edema, No Palpitations Respiratory : pos Cough, No Sputum, No Wheezing Gastrointestinal : pos Nausea, pos Vomiting, No Diarrhea, No Constipation, pos abdominal Pain, No Hematochezia, No Melena Genitourinary : No Dysuria, No Urinary Frequency, No Hematuria, Musculoskeletal : No joint pain, No Myalgias, No Joint Swelling Skin : No Skin Lesions, No rash Neuro : pos Weakness, No Numbness, No Dizziness, No Headache Psych : No Anxiety/Panic, No Depression Heme/Lymph: No Bruising, No Bleeding,No Lymphadenopathy Endocrine : No Polyuria, No Polydipsia All other systems reviewed and are negative Gastrointestinal: Gastrointestinal: Reports nausea PMFSH Past Medical History Attestation statement: The following information was validated with the patient. Source: old records reviewed Medical History Anxiety Cardiomyopathy CHF (congestive heart failure) Diabetes History of sigmoidoscopy HTN (hypertension) Hypogonadism Obesity 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 Proteinuria Surgical History History of amputation of foot through metatarsal bone History of cataract surgery History of colectomy History of colonoscopy History of reversal of ileostomy Family History Family History Mother Diabetes Social History Social History Household Members: Other Housing: Intermediate Do you presently have visiting nurse or other home services: No Alcohol intake: never Patient Tobacco Use Status: Never used Tobacco Years Smoked: 15 years Second Hand Smoke Exposure: No Advance Directives: Yes Advance Directives on File: Yes Advance Directives Date on File: 09/01/20 service: No Current occupational status: disabled Physical Exam Vital Signs: Vital Signs: Last Vital Signs Temp 98.4 F 09/01/20 15:31 Pulse 55 09/01/20 15:31 Resp 20 09/01/20 15:31 BP 154/61 H 09/01/20 15:31 Pulse Ox 94 09/01/20 15:31 Body Mass Index 34.2 Appearance: Alert. Oriented X3. No acute distress. Eyes: Pupils equal, round and reactive to light. ENT: Pharynx normal. Neck: Normal inspection. Neck supple. CVS: Normal heart rate and rhythm. Pulses normal. Respiratory: No respiratory distress. Breath sounds coarse and diminished at bases Abdomen: Soft and mild diffuse ttp - ostomy brown stool p/p/p Skin: Skin hot to touch and clammy. pale skin color. Normal skin turgor. Extremities: No lower extremity edema. No calf ttp R foot ulcer scant bleeding noted no surrounding erythema/odor/purulence Neuro: Oriented X 3. No motor deficit. No sensory deficit. Course Course Course Narrative: signed out to Linda Conway [employer] MDM - Nausea/Vomiting/Diarrhea MDM Narrative Medical decision making narrative: 64 yo male with hx of R foot metatarsal osteomyelitis DC here on 08/19/20 with 6 weeks of ertapenem, HTN, DM, rectal cancer s/p colostomy, PVD, cardiomyopathy comes from SNF with c/o nausea vomiting and not feeling well today but SNF RN notes also mention a dry cough lower O2 sats 86% that responded to supplemental O2 and a concern for air embolus from his PICC line due to the PCC line being left open on 08/22? unsure when it was closed but they used it today for IV ertapenem and when he comes to the ED the patient's PICC line has a port covering it. The patient looks pale, warm to the touch, his R foot appears to be healing well he has coarse lung sounds and a dry cough, his abdomen has mild diffuse ttp his stoma is p/p/p. At this time labs, cultures, IVF, CT scan of chest for pneumonia and CT scan of abdomen for obstruction given nausea - he could also have a bacteremia if the SNF left his PICC line open without closing it. Dispo per results and findings. Lab Data Result diagrams: 09/01/20 15:15 09/01/20 15:17 Labs: Lab Results 09/01/20 09/01/20 Range/Units 15:15 15:17 WBC 7.1 (4.8-10.8) X10*3/uL RBC 4.16 L (4.60-5.80) X10*6/uL Hgb 9.1 L D (14.0-18.0) g/dl Hct 31.3 L D (42-52) % MCV 75.2 L (80-98) fL MCH 21.9 L (27.0-33.0) pg MCHC 29.1 L (31.0-36.0) g/dl RDW 19.7 H (11.0-16.0) % Plt Count 218 (160-400) X10*3/uL MPV 10.3 (9.4-12.4) fL Immature Gran % (Auto) 0.3 (0.0-0.4) % Neut % (Auto) 77.1 H (45-73) % Lymph % (Auto) 9.9 L (20-40) % [place] % (Auto) 7.9 (2-11) % Eos % (Auto) 4.4 H (0-4) % Baso % (Auto) 0.4 (0-2) % Lymph # (Auto) 0.7 L (1.2-4.9) X10*3/uL [place] # (Auto) 0.6 (0.1-1.2) X10*3/uL Eos # (Auto) 0.3 (0.0-0.4) X10*3/uL Baso # (Auto) 0.0 (0.0-0.2) X10*3/uL Abs Immat Gran (auto) 0.02 (0.00-0.03) X10*3/uL Absolute Neuts (auto) 5.4 (2.0-8.3) X10*3/uL Absolute Nucleated RBC 0.000 (0.0-0.012) X10*3/uL Nucleated RBC % (auto) 0.0 (0.0-0.2) /100WBC Sodium 139 (135-145) mmol/L Potassium 5.6 H D (3.3-5.1) mmol/L Chloride 109 H (96-108) mmol/L Carbon Dioxide 24 (22-29) mmol/L Anion Gap 12 (12-20) BUN 29 H (9-16) mg/dL Creatinine 0.93 (0.5-1.4) mg/dL Estim Creat Clear Calc 115.4 Estimated GFR > 60 Random Glucose 72 D (60-115) mg/dL Calcium 9.2 D (8.4-10.2) mg/dL Discharge Plan Discharge Clinical Impression: Vomiting Prescriptions: No Action sodium bicarbonate 650 mg Tablet 650 mg PO TID Qty: 90 RF: 0 lorazepam 0.5 mg Tablet 0.5 mg PO TID PRN (Reason: Anxiety) Qty: 10 RF: 0 tramadol 50 mg Tablet 50 mg PO Q6H PRN (Reason: Pain) RF: 0 loperamide 2 mg Tablet 2 mg BID PRN (Reason: Diarrhea) RF: 0 melatonin 3 mg Tablet 9 mg BEDTIME RF: 0 amlodipine 5 mg tablet 1 tab PO DAILY RF: 0 guaifenesin 100 mg/5 mL Liquid 200 mg PO Q4H PRN (Reason: Cough) RF: 0 magnesium hydroxide [Milk of Magnesia] 400 mg/5 mL Suspension 30 ml PO DAILY PRN (Reason: Constipation) RF: 0 bisacodyl 10 mg Suppository 10 mg KS DAILY PRN (Reason: Constipation) RF: 0 ferrous sulfate 325 mg (65 mg iron) Tablet 325 mg PO DAILY RF: 0 buspirone 10 mg Tablet 10 mg PO BID RF: 0 divalproex [Depakote] 125 mg Tablet,Delayed Release (Dr/Ec) 125 mg PO DAILY@1999 RF: 0 ascorbic acid (vitamin C) [Vitamin C] 500 mg Tablet Extended Release 500 mg PO DAILY RF: 0 cholecalciferol (vitamin D3) 25 mcg (1,000 unit) Capsule 25 mcg PO DAILY RF: 0 pregabalin [Lyrica] 100 mg Capsule 100 mg PO TID RF: 0 sertraline 100 mg Tablet 100 mg PO DAILY RF: 0 guaifenesin [Mucinex] 600 mg Tablet Extended Release 12hr 600 mg PO BID RF: 0 gabapentin 800 mg Tablet 800 mg PO TID RF: 0 glucagon 1 mg/mL Recon Soln 1 mg IM NEEDED RF: 0 acetaminophen 325 mg Tablet 650 mg PO Q6H PRN (Reason: elevated temp or pain) RF: 0 ertapenem [Invanz] 1 gram Recon Soln 1 g IV DAILY 42 Days RF: 0 oxycodone 5 mg tablet 5 mg PO Q6H PRN (Reason: Pain) RF: 0 sennosides [senna] 8.6 mg Tablet 8.6 mg PO BEDTIME RF: 0 carvedilol 6.25 mg Tablet 6.25 mg PO BID RF: 0 aspirin 325 mg Tablet 325 mg PO DAILY RF: 0 glipizide 2.5 mg Tablet Extended Release 24hr 2.5 mg PO DAILY RF: 0
[2020-09-01 15:33] LABS: Eosinophils Percent Auto 4.4 % (0-4); Hemoglobin 9.1 g/dl (14.0-18.0); Imm Gran Abs Auto 0.02 X10*3/uL (0.00-0.03); Imm Gran Pct Auto 0.3 % (0.0-0.4); Lymphocytes Absolute Auto 0.7 X10*3/uL (1.2-4.9); Monocytes Absolute Auto 0.6 X10*3/uL (0.1-1.2); Red Cell Distribution Width 19.7 % (11.0-16.0); SCAN SMEAR FLAG 1
[2020-09-01 15:35] LABS: Basophils Percent Auto 0.4 % (0-2); Eosinophils Absolute Auto 0.3 X10*3/uL (0.0-0.4); Hematocrit 31.3 % (42-52); Lymphocytes Percent Auto 9.9 % (20-40); Mean Corpuscular HGB Conc 29.1 g/dl (31.0-36.0); Mean Corpuscular Hemoglobin 21.9 pg (27.0-33.0); Mean Corpuscular Volume 75.2 fL (80-98); Mean Platelet Volume 10.3 fL (9.4-12.4); Monocytes Percent Auto 7.9 % (2-11); Neutrophils Absolute Auto 5.4 X10*3/uL (2.0-8.3); Neutrophils Percent Auto 77.1 % (45-73); Platelet Count 218 X10*3/uL (160-400); Red Blood Count 4.16 X10*6/uL (4.60-5.80); White Blood Count 7.1 X10*3/uL (4.8-10.8)
[2020-09-01] MEDS: Acetaminophen 325 MG TABLET 650 MG PO (15:35)
[2020-09-01] MEDS: ondansetron HCL 4 MG/2 ML VIAL IVPUSH (15:35)
[2020-09-01 15:38] LABS: MANUAL DIFF FLAG NO; PLT ABN DIST 1
[2020-09-01 15:57] LABS: Anion Gap 12 (12-20); Blood Urea Nitrogen 29 mg/dL (9-16); Calcium 9.2 mg/dL (8.4-10.2); Carbon Dioxide 24 mmol/L (22-29); Chloride 109 mmol/L (96-108); Creatinine Clr Calc Pharmacy 115.4; Estimated Glomerular Filt Rate > 60; Glucose Random 72 mg/dL (60-115); Potassium 5.6 mmol/L (3.3-5.1); Sodium 139 mmol/L (135-145)
[2020-09-01 16:09] LABS: Lactic Acid 0.5 mmol/L (0.5-2.0)
[2020-09-01 16:12] LABS: Alanine Aminotransferase 15 U/L (0-40); Albumin Level 2.9 g/dL (3.5-5.0); Alkaline Phosphatase 100 U/L (39-117); Aspartate Amino Transferase 17 U/L (5-37); Bilirubin Direct < 0.2 mg/dL (0.0-0.5); Bilirubin Total 0.4 mg/dL (0.0-1.0); Lipase 266 U/L (8-78); Magnesium 1.7 mg/dL (1.6-2.6); Total Protein 6.8 g/dL (6.5-8.0); Valproate < 2.0 mcg/mL (50.0-100.0)
[2020-09-01 16:15] LABS: COVID-19 Test Negative (Negative); IDNOW Serial# 08D9AD1C
--- NOTE | 2020-09-01 16:15 | PHA.MEDREC ---
Pharmacy Consult ? Medication Reconciliation Pharmacy has completed the medication reconciliation.
[2020-09-01 16:55] LABS: Triglycerides 122 mg/dL
[2020-09-01 17:24] LABS: Procalcitonin 0.08 ng/mL
[2020-09-01] MEDS: Morphine Sulfate 4 MG/ML CARTRIDGE IVPUSH (19:47)
--- NOTE | 2020-09-01 21:12 | P.HPHOSP_ITS ---
History of Present Illness Date of Service: 09/01/20 Chief Complaint: Nausea/Vomiting 64-year-old male with a past medical history of hypertension, hyperlipidemia, diabetes, history of rectal cancer status post colostomy, peripheral vascular disease, cardiomyopathy, history of diabetic foot ulcer /right foot metatarsal osteomyelitis - discharged on 08/19/2020 for 6 weeks of antibiotics via PICC line in the right arm; presented to the hospital with a chief complaint of nausea and vomiting. Patient reports that over the past 2 days he has been having cough -try; at the assisted noted to be hypoxic at 86%, subsequently placed on supplemental oxygen and brought him to the hospital for further evaluation. at the time of my interview patient denies any chest pain palpitations lightheadedness or dizziness. Patient reports he has been having cough. And nausea vomiting and abdominal discomfort. Denies any aspiration. Denies any diarrhea. Reports that he has been getting ertapenem through the PICC line and last received was the Morning before he came into the hospital. review of all other systems is negative except mentioned above ER course: Per ER team patient was initially noted to the head or hypoxic to 86% on room air, subsequently placed on nasal cannula; noted a mild diffuse abdominal tenderness; arm: Stent back showed brown stool; CT abdomen showed no acute intra-abdominal process; CT chest noncontrast showed no acute process. labs were essentially benign at his baseline except for potassium 5.6. Patient given gentle fluids. Admitted for further management. Also noted a mildly elevated lipase. [facility] Medical History Anxiety Cardiomyopathy CHF (congestive heart failure) Diabetes History of sigmoidoscopy HTN (hypertension) Hypogonadism Obesity 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 Proteinuria Family History Mother Diabetes Surgical History History of amputation of foot through metatarsal bone History of cataract surgery History of colectomy History of colonoscopy History of reversal of ileostomy Social History Household Members: Other Housing: Alf Alcohol intake: never Patient Tobacco Use Status: Never used Tobacco Years Smoked: 15 years Second Hand Smoke Exposure: No Advance Directives Date on File: 09/01/20 service: Yes Current occupational status: disabled Meds Allergies Allergy/AdvReac Type Severity Reaction Status Date / Time metformin AdvReac Unknown diarrhea Verified 05/04/20 11:11 Active Medications: Current Medications Generic Name Dose Route Start Last Admin Trade Name Freq PRN Reason Stop Dose Admin Acetaminophen 650 mg 09/01/20 21:00 Acetaminophen 325 Mg Tablet PO Q6H PRN Pain, Mild (Pain Scale 1-3) Acetaminophen 650 mg 09/01/20 21:05 Acetaminophen 325 Mg Tablet PO Q6H PRN elevated temp or pain Albuterol/Ipratropium 3 ml 09/01/20 21:00 Albuterol/Iprat 2.5/0.5mg 3 Ml Ampul.Neb INHALE Q4H PRN Shortness of Breath/Wheezing Amlodipine Besylate 5 mg 09/02/20 09:00 Amlodipine Besylate 5 Mg Tablet PO DAILY [facility] Protocol Aspirin 325 mg 09/02/20 09:00 Aspirin 325 Mg Tablet PO DAILY [facility] Bisacodyl 10 mg 09/01/20 21:05 Bisacodyl 10 Mg Supp.Rect SC DAILY PRN Constipation Buspirone HCl 10 mg 09/02/20 09:00 Buspirone Hcl 10 Mg Tablet PO BID [facility] Carvedilol 6.25 mg 09/02/20 09:00 Carvedilol 6.25 Mg Tablet PO BID [facility] Protocol Enoxaparin Sodium 40 mg 09/01/20 21:00 Enoxaparin Sodium 40 Mg/0.4 Ml Syringe SUBCUT Q24H [facility] Ertapenem 1 gm 09/02/20 09:00 Ertapenem Sodium 1 Gm Vial IV DAILY [facility] Gabapentin 800 mg 09/02/20 09:00 Gabapentin 400 Mg Capsule PO TID [facility] Glipizide 2.5 mg 09/02/20 09:00 Glipizide Xl 2.5 Mg Tab.Er.24 PO DAILY [facility] Guaifenesin ml 09/01/20 21:05 Guaifenesin 100 Mg/5 Ml Liquid PO Q4H PRN Cough Guaifenesin 600 mg 09/02/20 09:00 Guaifenesin La 600 Mg Tab.Er.12h PO BID [facility] Dextrose/Sodium Chloride 1,000 mls @ 100 mls/hr 09/01/20 21:00 D51/2ns IVCONT .Q10H [facility] Lorazepam 0.5 mg 09/01/20 21:05 Lorazepam 0.5 Mg Tablet PO TID PRN Anxiety Magnesium Hydroxide 30 ml 09/01/20 21:05 Milk Of Magnesia 30 Ml Oral.Susp PO DAILY PRN Constipation Melatonin 6 mg 09/01/20 21:00 Melatonin 3 Mg Tablet PO BEDTIME PRN Insomnia Melatonin 9 mg 09/02/20 21:00 Melatonin 3 Mg Tablet PO BEDTIME [facility] Non-Formulary Medication 500 mg 09/02/20 09:00 Ascorbic Acid (Vitamin C) [Vitamin C] PO DAILY [facility] Non-Formulary Medication 125 mg 09/02/20 20:00 Divalproex [Depakote] PO DAILY@2000 [facility] Non-Formulary Medication 325 mg 09/02/20 09:00 Ferrous Sulfate PO DAILY [facility] Non-Formulary Medication 1 mg 09/01/20 21:15 Glucagon IM NEEDED [facility] Ondansetron HCl 4 mg 09/01/20 21:00 Ondansetron Hcl 4 Mg/2 Ml Vial IVPUSH Q8H PRN Nausea and Vomiting Oxycodone HCl 5 mg 09/01/20 21:05 Oxycodone Hcl Immed Release 5 Mg Tablet PO Q6H PRN Pain Pharmacy Consult 1 each 09/01/20 14:26 Consult Rx Perform Med Rec MISCELLANE ONCE PRN Consult order Pregabalin 100 mg 09/02/20 09:00 Pregabalin 100 Mg Capsule PO TID [facility] Senna 17.2 mg 09/01/20 21:00 Sennosides 8.6 Mg Tablet PO BEDTIME PRN Constipation Senna 8.6 mg 09/02/20 21:00 Sennosides 8.6 Mg Tablet PO BEDTIME [facility] Sertraline HCl 100 mg 09/02/20 09:00 Sertraline Hcl 100 Mg Tablet PO DAILY [facility] Sodium Bicarbonate 650 mg 09/02/20 09:00 Sodium Bicarbonate 650 Mg Tablet PO TID [facility] Sodium Chloride 3 ml 09/02/20 00:00 0.9 % Sodium Chloride Flush 3 Ml Syringe IVFLUSH QSHIFT [facility] Tramadol HCl 50 mg 09/01/20 21:05 Tramadol Hcl 50 Mg Tablet PO Q6H PRN Pain Vitamin D 25 mcg 09/02/20 09:00 Cholecalciferol (Vitamin D3) 25 Mcg Tablet PO DAILY [facility] Home Medications Medication Instructions Recorded Confirmed Last Taken Type aspirin 325 mg PO DAILY 11/29/19 09/01/20 09/01/20 History carvedilol 6.25 mg PO BID 11/29/19 09/01/20 09/01/20 History glipizide 2.5 mg PO DAILY 11/29/19 09/01/20 09/01/20 History sennosides [senna] 8.6 mg PO BEDTIME 11/29/19 09/01/20 08/31/20 History amlodipine 1 tab PO DAILY 08/16/20 09/01/20 09/01/20 History ascorbic acid (vitamin C) [Vitamin 500 mg PO DAILY 08/16/20 09/01/20 09/01/20 History C] bisacodyl 10 mg SC DAILY PRN 08/16/20 09/01/20 Unknown History buspirone 10 mg PO BID 08/16/20 09/01/20 09/01/20 History cholecalciferol (vitamin D3) 25 mcg PO DAILY 08/16/20 09/01/20 09/01/20 History divalproex [Depakote] 125 mg PO DAILY@199908/16/20 09/01/20 08/31/20 History ferrous sulfate 325 mg PO DAILY 08/16/20 09/01/20 09/01/20 History guaifenesin 200 mg PO Q4H PRN 08/16/20 09/01/20 Unknown History loperamide 2 mg BID PRN 08/16/20 09/01/20 Unknown History magnesium hydroxide [Milk of 30 ml PO DAILY PRN 08/16/20 09/01/20 Unknown History Magnesia] melatonin 9 mg BEDTIME 08/16/20 09/01/20 08/31/20 History pregabalin [Lyrica] 100 mg PO TID 08/16/20 09/01/20 09/01/20 History tramadol 50 mg PO Q6H PRN 08/16/20 09/01/20 Unknown History acetaminophen 650 mg PO Q6H PRN 08/17/20 09/01/20 Unknown History gabapentin 800 mg PO TID 08/17/20 09/01/20 09/01/20 History glucagon 1 mg IM NEEDED 08/17/20 09/01/20 Unknown History guaifenesin [Mucinex] 600 mg PO BID 08/17/20 09/01/20 09/01/20 History sertraline 100 mg PO DAILY 08/17/20 09/01/20 09/01/20 History oxycodone 5 mg PO Q6H PRN 09/01/20 09/01/20 Unknown History Physical Exam Vital Signs and Narrative: Vital Signs: Last Vital Signs Temp 98.4 F 09/01/20 20:00 Pulse 108 H 09/01/20 21:04 Resp 14 09/01/20 21:04 BP 148/64 H 09/01/20 20:00 Pulse Ox 96 09/01/20 20:00 Body Mass Index 34.2 Gen: Appears be in no acute distress; having cough - try; had an episode of vomiting -clear vomitus. HEENT: NCAT, Moist mucosa. Pulmonary: Vesicular breath sounds, fair air entry CVS: Normal S1-S2 Abdomen: BS+, Soft, Mildly tender diffusely Extremities: Warm well perfused ; right metatarsal ulcer has dressing in place; appears healing a Neuro: Alert and awake. Results Labs CBC and Chem 7: 09/01/20 15:15 09/01/20 22:50 Labs: Laboratory Results - last 24 hr 09/01/20 09/01/20 09/01/20 15:15 15:15 15:15 MCV 75.2 L MCH 21.9 L MCHC 29.1 L RDW 19.7 H Plt Count 218 MPV 10.3 Immature Gran % (Auto) 0.3 Neut % (Auto) 77.1 H Lymph % (Auto) 9.9 L [place] % (Auto) 7.9 Eos % (Auto) 4.4 H Baso % (Auto) 0.4 Lymph # (Auto) 0.7 L [place] # (Auto) 0.6 Eos # (Auto) 0.3 Baso # (Auto) 0.0 Abs Immat Gran (auto) 0.02 Absolute Neuts (auto) 5.4 Absolute Nucleated RBC 0.000 Nucleated RBC % (auto) 0.0 Anion Gap Estim Creat Clear Calc Estimated GFR Random Glucose Lactic Acid 0.5 Calcium Magnesium 1.7 Total Bilirubin 0.4 Direct Bilirubin < 0.2 AST 17 D ALT 15 Alkaline Phosphatase 100 D Total Protein 6.8 Albumin 2.9 L Triglycerides 122 Lipase 266 H Procalcitonin Valproic Acid < 2.0 L COVID-19 ([facility]) COVID-19 Clin Com 09/01/20 09/01/20 09/01/20 15:16 15:17 15:21 MCV MCH MCHC RDW Plt Count MPV Immature Gran % (Auto) Neut % (Auto) Lymph % (Auto) [place] % (Auto) Eos % (Auto) Baso % (Auto) Lymph # (Auto) [place] # (Auto) Eos # (Auto) Baso # (Auto) Abs Immat Gran (auto) Absolute Neuts (auto) Absolute Nucleated RBC Nucleated RBC % (auto) Anion Gap 12 Estim Creat Clear Calc 115.4 Estimated GFR > 60 Random Glucose 72 D Lactic Acid Calcium 9.2 D Magnesium Total Bilirubin Direct Bilirubin AST ALT Alkaline Phosphatase Total Protein Albumin Triglycerides Lipase Procalcitonin 0.08 Valproic Acid COVID-19 ([facility]) Negative COVID-19 Clin Com See Note Imaging Radiologist's Impressions: Impressions Abdomen/Pelvis CT 09/01/20 14:26 IMPRESSION: Presacral collection unchanged when compared to the prior study. Chronic changes in the posterior lower back wall with calcifications. No acute finding is seen. Postsurgical changes with Wilma pouch and left lower quadrant colostomy. No acute intrathoracic disease. Chest CT 09/01/20 14:27 IMPRESSION: Presacral collection unchanged when compared to the prior study. Chronic changes in the posterior lower back wall with calcifications. No acute finding is seen. Postsurgical changes with Wilma pouch and left lower quadrant colostomy. No acute intrathoracic disease. Assessment and Plan (1) Vomiting: Qualifiers: Nausea presence: with nausea Vomiting Intractability: non-intractable Vomiting type: unspecified Qualified Code(s): R11.2 - Nausea with vomiting, unspecified Status: Resolved 64-year-old male with past medical history of hypertension, hyperlipidemia, diabetes, diabetic foot ulcer, right metatarsal osteomyelitis- on 6 weeks of IV ertapenem via PICC line on the right upper extremity starting 08/19/2020; presented to the hospital today with a chief complaint of nausea vomiting abdominal discomfort/ cough/ hypoxia Nausea/vomiting /abdominal discomfort: CT abdomen showed no acute intra- abdominal process. Likely gastritis. Lipase was mildly elevated. Abdomen was mildly tender diffusely; colostomy bag site appears to have no acute process going on; colostomy bag has brown stool. The supportive care Pepcid b.i.d. Zofran p.r.n. right metatarsal osteomyelitis: Patient was receiving ertapenem via PICC line. Reportedly PICC line was opened and not probably maintained, as concern by ER team; will hold using the PICC line for now. Patient has peripheral IV access. PICC line site has no erythema or tenderness. PICC line re-evaluation by the team in the morning. continue ertapenem via peripheral IV line. Diabetes: Insulin sliding scale cough/ hypoxia: Patient currently not in respiratory distress. On supplemental oxygen. ER team initially consulted for air embolism -spoke to the radiologist who read the CT scan-> mentioned that he did not see any aid in the pulmonary trunk. Patient is fairly less mobile, will obtain a D-dimer and if positive will consider CT chest with PE protocol. no evidence of pneumonia on the CT chest noncontrast. Cough suppressants mild hyperkalemia: Patient received IV fluids. Will repeat potassium levels. for all other chronic conditions, home medications will be continued DVT prophylaxis: Subcu heparin Code status: Full code Quality Stroke Does the patient have a stroke diagnosis?: No VTE Prior VTE?: No VTE Risk Level:: Medical - moderate - high VTE Device Contraindication: Patient Refused VTE Drug Contraindication: N/A - Med Ordered
[2020-09-01] MEDS: Dextrose 5 % and 0.45 % NaCl 1,000 ML 100 ML IVCONT (21:37)
--- NOTE | 2020-09-01 21:42 | PC.NURSE ---
pt refusing lovenox at this time hospitalist aware
[2020-09-01 21:46] LABS: D Dimer 919 NG/ML
--- NOTE | 2020-09-01 22:10 | PC.NURSE ---
nurse to nurse report given to Areli PARKER
--- NOTE | 2020-09-01 22:52 | MHC.CM.PN ---
CM met with admitted pt prior to bed assignment. IMM reviewed and signed per protocol. HCP on file. HCP/mother Cherelle Rangel ([phone]) is the HCP. Pt was d/c from [facility] on 08/19/20 to [facility] for IV antibiotic therapy for 6 weeks for osteomyelitis. Returned to [facility] with cough, hypoxia and re-evaluation of PICC line. MOLST on file. -full code. D/C plan is to return to [facility] to resume IV antibiotic therapy. Transportation by chair van. Will place return referral to [facility] in [employer]. CM to follow for d/c needs.
[2020-09-01] MEDS: Benzonatate 100 MG CAPSULE PO (23:25)
[2020-09-01] MEDS: guaiFENesin 100 MG/5 ML LIQUID 10 ML PO (23:25)
[2020-09-01] MEDS: Melatonin 3 MG TABLET 6 MG PO (23:26)
[2020-09-01] MEDS: oxyCODONE HCl Immed Release 5 MG TABLET PO (23:26)
[2020-09-01 23:33] LABS: Anion Gap 12 (12-20); Blood Urea Nitrogen 25 mg/dL (9-16); Carbon Dioxide 23 mmol/L (22-29); Chloride 108 mmol/L (96-108); Estimated Glomerular Filt Rate > 60; Glucose Random 130 mg/dL (60-115); Potassium 5.1 mmol/L (3.3-5.1); Sodium 138 mmol/L (135-145)
[2020-09-02] VITALS (12 sets, daily range): BP systolic 132–180; BP diastolic 62–87; PULSE 54–73; RESP 16–18; TEMP 36.1–36.6; O2SAT 91–96; BMI 34.2
[2020-09-02 01:25] LABS: Glucose, Whole Blood 118 mg/dL (60-115)
--- NOTE | 2020-09-02 07:21 | PC.NURSE ---
Patient admitted to room [facility]- around 2300 on 09/01/20. Patient arrived from ed with oxygen 2 liters via nasal cannula. No active order for oxygen therapy, Dr. Joseph notified to place an order for 2L oxygen. Patient has a PICC line present on admission to right upper arm, per MD hold off using picc line until re-evaluated. Patient also with redness/peeling skin to bilateral buttocks. Chronic wounds to bilateral feet. Pictures taken and placed in chart. Wound care nurse notified of skin issues.
[2020-09-02 07:25] LABS: Glucose, Whole Blood 99 mg/dL (60-115)
[2020-09-02] MEDS: Dextrose 5 % and 0.45 % NaCl 1,000 ML 100 ML IVCONT ×2 (08:11→16:56)
[2020-09-02] MEDS: Famotidine/PF 20 MG/2 ML VIAL IVPUSH ×2 (08:12→21:38)
[2020-09-02] MEDS: busPIRone HCl 10 MG TABLET PO ×2 (08:18→21:37)
[2020-09-02] MEDS: Gabapentin 400 MG CAPSULE 800 MG PO ×3 (08:19→21:37)
[2020-09-02] MEDS: Pregabalin 100 MG CAPSULE PO ×3 (08:20→21:37)
[2020-09-02] MEDS: Ascorbic Acid 500 MG TABLET PO (08:20)
[2020-09-02] MEDS: carvediloL 6.25 MG TABLET PO ×2 (08:20→21:37)
[2020-09-02] MEDS: Ferrous Sulfate 324 MG TABLET.DR PO (08:20)
[2020-09-02] MEDS: Sertraline HCL 100 MG TABLET PO (08:20)
[2020-09-02] MEDS: Cholecalciferol (Vitamin D3) 25 MCG TABLET PO (08:21)
[2020-09-02] MEDS: Sodium Bicarbonate 650 MG TABLET PO ×3 (08:22→21:37)
[2020-09-02] MEDS: Aspirin 325 MG TABLET PO (08:22)
[2020-09-02] MEDS: amLODIPine Besylate 5 MG TABLET PO (08:22)
[2020-09-02] MEDS: 0.9 % Sodium Chloride Flush 3 ML SYRINGE IVFLUSH ×3 (08:24→21:38)
[2020-09-02] MEDS: Ertapenem Sodium 1 GM in 0.9 % Sodium Chloride 50 ML IV (08:25)
[2020-09-02] MEDS: guaiFENesin LA 600 MG TAB.ER.12H PO ×2 (08:26→21:37)
[2020-09-02 11:17] LABS: Glucose, Whole Blood 99 mg/dL (60-115)
--- NOTE | 2020-09-02 12:16 | HO.PM.IMPN ---
Subjective Subjective Date of Service: 09/15/20 Interval History: Seen in f/u for nausea and vomiting, abdominal discomfort. He is refusing to eat, no breakfast and no lunch, CT showed no acute finding Review of Systems Gen: no fever Resp: no sob, no cough CV: no chest, no WILDER, no leg edema GI: n/v, no abd pain Neuro: No confusion Physical Exam Vital Signs: Vital Signs: Last Vital Signs Temp 96.9 F 09/02/20 11:12 Pulse 66 09/02/20 11:12 Resp 17 09/02/20 11:12 BP 140/67 H 09/02/20 11:12 Pulse Ox 95 09/02/20 11:12 Body Mass Index 34.2 Const: Other: General: AO X 3, no acute distress Resp: CTA bilateral CVS: S1,S2,RRR GI: +BS, NT, no distention Skin: No rash Neuro: motor grossly intact Psych: appropriate affect Objective Data Current Medications Generic Name Dose Route Start Last Admin Trade Name Freq PRN Reason Stop Dose Admin Acetaminophen 650 mg 09/01/20 21:00 Acetaminophen 325 Mg Tablet PO Q6H PRN Pain, Mild (Pain Scale 1-3) Albuterol/Ipratropium 3 ml 09/01/20 21:00 Albuterol/Iprat 2.5/0.5mg 3 Ml Ampul.Neb INHALE Q4H PRN Shortness of Breath/Wheezing Amlodipine Besylate 5 mg 09/02/20 09:00 09/02/20 08:22 Amlodipine Besylate 5 Mg Tablet PO 5 mg DAILY [facility] Administration Protocol Ascorbic Acid 500 mg 09/02/20 09:00 09/02/20 08:20 Ascorbic Acid 500 Mg Tablet PO 500 mg DAILY [facility] Administration Aspirin 325 mg 09/02/20 09:00 09/02/20 08:22 Aspirin 325 Mg Tablet PO 325 mg DAILY [facility] Administration Benzonatate 100 mg 09/01/20 21:34 09/01/20 23:25 Benzonatate 100 Mg Capsule PO 100 mg TID PRN Administration Cough Bisacodyl 10 mg 09/01/20 21:05 Bisacodyl 10 Mg Supp.Rect AL DAILY PRN Constipation Buspirone HCl 10 mg 09/02/20 09:00 09/02/20 08:18 Buspirone Hcl 10 Mg Tablet PO 10 mg BID [facility] Administration Carvedilol 6.25 mg 09/02/20 09:00 09/02/20 08:20 Carvedilol 6.25 Mg Tablet PO 6.25 mg BID [facility] Administration Protocol Divalproex Sodium 125 mg 09/02/20 20:00 Divalproex Sodium Sprinkles 125 Mg PO DAILY@2000 [facility] Enoxaparin Sodium 40 mg 09/01/20 21:00 09/01/20 21:50 Enoxaparin Sodium 40 Mg/0.4 Ml Syringe SUBCUT Not Given Q24H [facility] Famotidine 20 mg 09/02/20 09:00 09/02/20 08:12 Famotidine/Pf 20 Mg/2 Ml Vial IVPUSH 20 mg BID [facility] Administration Ferrous Sulfate 324 mg 09/02/20 09:00 09/02/20 08:20 Ferrous Sulfate 324 Mg Tablet. PO 324 mg DAILY [facility] Administration Gabapentin 800 mg 09/02/20 09:00 09/02/20 08:19 Gabapentin 400 Mg Capsule PO 800 mg TID [facility] Administration Glipizide 2.5 mg 09/02/20 08:00 09/02/20 08:23 Glipizide Xl 2.5 Mg Tab.Er.24 PO Not Given DAILY@0800 [facility] Guaifenesin 10 ml 09/01/20 21:05 09/01/20 23:25 Guaifenesin 100 Mg/5 Ml Liquid PO 10 ml Q4H PRN Administration Cough Guaifenesin 600 mg 09/02/20 09:00 09/02/20 08:26 Guaifenesin La 600 Mg Tab.Er.12h PO 600 mg BID [facility] Administration Dextrose/Sodium Chloride 1,000 mls @ 100 mls/hr 09/01/20 21:00 09/02/20 08:11 D51/2ns IVCONT 100 mls/hr .Q10H [facility] Administration Ertapenem 1 gm/ Sodium 50 mls @ 100 mls/hr 09/02/20 09:00 09/02/20 10:01 Chloride IV Infused DAILY [facility] Infusion Insulin Human Lispro 0 unit 09/02/20 07:30 09/02/20 11:37 Insulin Lispro 100 Unit/Ml 3 Ml Vial SUBCUT Not Given QIDACHS [facility] Protocol Lorazepam 0.5 mg 09/01/20 21:05 Lorazepam 0.5 Mg Tablet PO TID PRN Anxiety Magnesium Hydroxide 30 ml 09/01/20 21:05 Milk Of Magnesia 30 Ml Oral.Susp PO DAILY PRN Constipation Melatonin 6 mg 09/01/20 21:00 09/01/20 23:26 Melatonin 3 Mg Tablet PO 6 mg BEDTIME PRN Administration Insomnia Melatonin 9 mg 09/02/20 21:00 Melatonin 3 Mg Tablet PO BEDTIME [facility] Ondansetron HCl 4 mg 09/01/20 21:00 Ondansetron Hcl 4 Mg/2 Ml Vial IVPUSH Q8H PRN Nausea and Vomiting Oxycodone HCl 5 mg 09/01/20 21:05 09/01/20 23:26 Oxycodone Hcl Immed Release 5 Mg Tablet PO 5 mg Q6H PRN Administration Pain, Severe (Pain Scale 7-10) Pharmacy Consult 1 each 09/01/20 14:26 Consult Rx Perform Med Rec MISCELLANE ONCE PRN Consult order Pregabalin 100 mg 09/02/20 09:00 09/02/20 08:20 Pregabalin 100 Mg Capsule PO 100 mg TID [facility] Administration Senna 17.2 mg 09/01/20 21:00 Sennosides 8.6 Mg Tablet PO BEDTIME PRN Constipation Senna 8.6 mg 09/02/20 21:00 Sennosides 8.6 Mg Tablet PO BEDTIME [facility] Sertraline HCl 100 mg 09/02/20 09:00 09/02/20 08:20 Sertraline Hcl 100 Mg Tablet PO 100 mg DAILY [facility] Administration Sodium Bicarbonate 650 mg 09/02/20 09:00 09/02/20 08:22 Sodium Bicarbonate 650 Mg Tablet PO 650 mg TID [facility] Administration Sodium Chloride 3 ml 09/02/20 00:00 09/02/20 08:24 0.9 % Sodium Chloride Flush 3 Ml Syringe IVFLUSH 3 ml QSHIFT [facility] Administration Tramadol HCl 50 mg 09/01/20 21:05 Tramadol Hcl 50 Mg Tablet PO Q6H PRN Pain, Moderate (Pain Scale 4-6 Vitamin D 25 mcg 09/02/20 09:00 09/02/20 08:21 Cholecalciferol (Vitamin D3) 25 Mcg Tablet PO 25 mcg DAILY [facility] Administration Labs CBC & Chem 7: 09/01/20 15:15 09/01/20 22:50 Labs: Laboratory Results - last 24 hr 09/01/20 09/01/20 09/01/20 15:15 15:15 15:15 WBC 7.1 RBC 4.16 L Hgb 9.1 L D Hct 31.3 L D MCV 75.2 L MCH 21.9 L MCHC 29.1 L RDW 19.7 H Plt Count 218 MPV 10.3 Immature Gran % (Auto) 0.3 Neut % (Auto) 77.1 H Lymph % (Auto) 9.9 L Mcdonald % (Auto) 7.9 Eos % (Auto) 4.4 H Baso % (Auto) 0.4 Lymph # (Auto) 0.7 L Mcdonald # (Auto) 0.6 Eos # (Auto) 0.3 Baso # (Auto) 0.0 Abs Immat Gran (auto) 0.02 Absolute Neuts (auto) 5.4 Absolute Nucleated RBC 0.000 Nucleated RBC % (auto) 0.0 D-Dimer Sodium Potassium Chloride Carbon Dioxide Anion Gap BUN Creatinine Estim Creat Clear Calc Estimated GFR POC Glucose Random Glucose Lactic Acid 0.5 Calcium Magnesium 1.7 Total Bilirubin 0.4 Direct Bilirubin < 0.2 AST 17 D ALT 15 Alkaline Phosphatase 100 D Total Protein 6.8 Albumin 2.9 L Triglycerides 122 Lipase 266 H Procalcitonin Valproic Acid < 2.0 L COVID-19 ([facility]) COVID-19 Clin Com 09/01/20 09/01/20 09/01/20 15:16 15:17 15:21 WBC RBC Hgb Hct MCV MCH MCHC RDW Plt Count MPV Immature Gran % (Auto) Neut % (Auto) Lymph % (Auto) Mcdonald % (Auto) Eos % (Auto) Baso % (Auto) Lymph # (Auto) Mcdonald # (Auto) Eos # (Auto) Baso # (Auto) Abs Immat Gran (auto) Absolute Neuts (auto) Absolute Nucleated RBC Nucleated RBC % (auto) D-Dimer Sodium 139 Potassium 5.6 H D Chloride 109 H Carbon Dioxide 24 Anion Gap 12 BUN 29 H Creatinine 0.93 Estim Creat Clear Calc 115.4 Estimated GFR > 60 POC Glucose Random Glucose 72 D Lactic Acid Calcium 9.2 D Magnesium Total Bilirubin Direct Bilirubin AST ALT Alkaline Phosphatase Total Protein Albumin Triglycerides Lipase Procalcitonin 0.08 Valproic Acid COVID-19 ([facility]) Negative COVID-19 Clin Com See Note 09/01/20 09/01/20 09/02/20 21:27 22:50 01:20 WBC RBC Hgb Hct MCV MCH MCHC RDW Plt Count MPV Immature Gran % (Auto) Neut % (Auto) Lymph % (Auto) Mcdonald % (Auto) Eos % (Auto) Baso % (Auto) Lymph # (Auto) Mcdonald # (Auto) Eos # (Auto) Baso # (Auto) Abs Immat Gran (auto) Absolute Neuts (auto) Absolute Nucleated RBC Nucleated RBC % (auto) D-Dimer 919 Sodium 138 Potassium 5.1 Chloride 108 Carbon Dioxide 23 Anion Gap 12 BUN 25 H Creatinine 0.95 Estim Creat Clear Calc 113.0 Estimated GFR > 60 POC Glucose 118 H Random Glucose 130 H D Lactic Acid Calcium 9.0 Magnesium Total Bilirubin Direct Bilirubin AST ALT Alkaline Phosphatase Total Protein Albumin Triglycerides Lipase Procalcitonin Valproic Acid COVID-19 ([facility]) COVID-19 [facility] 09/02/20 09/02/20 07:06 11:07 WBC RBC Hgb Hct MCV MCH MCHC RDW Plt Count MPV Immature Gran % (Auto) Neut % (Auto) Lymph % (Auto) Mcdonald % (Auto) Eos % (Auto) Baso % (Auto) Lymph # (Auto) Mcdonald # (Auto) Eos # (Auto) Baso # (Auto) Abs Immat Gran (auto) Absolute Neuts (auto) Absolute Nucleated RBC Nucleated RBC % (auto) D-Dimer Sodium Potassium Chloride Carbon Dioxide Anion Gap BUN Creatinine Estim Creat Clear Calc Estimated GFR POC Glucose 99 99 Random Glucose Lactic Acid Calcium Magnesium Total Bilirubin Direct Bilirubin AST ALT Alkaline Phosphatase Total Protein Albumin Triglycerides Lipase Procalcitonin Valproic Acid COVID-19 ([facility]) COVID-19 Coubic Com Quality Stroke Does the patient have a stroke diagnosis?: No VTE Prior VTE?: No VTE Risk Level:: Medical - moderate - high VTE Device Contraindication: Patient Refused VTE Drug Contraindication: N/A - Med Ordered Assessment and Plan (1) Vomiting: Status: Resolved Assessment and Plan: 64-year-old male with past medical history of hypertension, hyperlipidemia, diabetes, diabetic foot ulcer, right metatarsal osteomyelitis- on 6 weeks of IV ertapenem via PICC line on the right upper extremity starting 08/19/2020; presented to the hospital today with a chief complaint of nausea vomiting abdominal discomfort/ cough/ hypoxia Nausea/vomiting /abdominal discomfort: CT abdomen showed no acute intra-abdominal process. Likely gastroparesis or gastritis. Supportive care wth antiemtic consider reglan if QTc ok right metatarsal osteomyelitis: Patient was receiving ertapenem via PICC line. Reportedly PICC line was opened and not probably maintained, as concern by ER team; will hold using the PICC line for now. Patient has peripheral IV access. PICC line site has no erythema or tenderness. PICC line re-evaluation by the team in the morning. continue ertapenem via peripheral IV line. Diabetes: Insulin sliding scale Hypoxia and elevated DDimer, CT chest with contrast mild hyperkalemia: Patient received IV fluids. Will repeat potassium levels. for all other chronic conditions, home medications will be continued DVT prophylaxis: Subcu heparin Code status: Full code
--- NOTE | 2020-09-02 14:29 | P.CNID_ITS ---
History of Present Illness Data of Consult Service Date: 09/02/20 Requesting physician: Rainer Rojas Primary Care Provider: Winston Mir MD HPI Reason for consult: osteomyelitis He presents with nausea and vomiting over last day. He has PICC needed to be removed due to not able to access,not taken care of He has right metatarsal osteomyelitis ,not worsening Review of Systems Review of Systems: Yes Unobtainable due to mental condition PMFSH Past Medical History Medical History Anxiety Cardiomyopathy CHF (congestive heart failure) Diabetes History of sigmoidoscopy HTN (hypertension) Hypogonadism Obesity 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 Proteinuria Family History Family History Mother Diabetes Family history: reviewed and not pertinent Surgical History Surgical History History of amputation of foot through metatarsal bone History of cataract surgery History of colectomy History of colonoscopy History of reversal of ileostomy Social History Social History Household Members: Other Housing: Detention Alcohol intake: never Patient Tobacco Use Status: Never used Tobacco Years Smoked: 15 years Second Hand Smoke Exposure: No Use of substances other than those prescribed or required for medical reasons: No Currently Displaying Signs/Symptoms of Drug Intoxication Withdrawal: No Have you been hit, kicked, punched, or otherwise hurt by someone within the past year? If so, by whom?: No Do you feel safe in your current relationship?: No Current Relationship Is there a partner from a previous relationship who is making you feel unsafe now?: No Are you made to feel afraid or neglected: No Advance Directives: Yes Advance Directives on File: Yes Advance Directives Date on File: 09/01/20 Do you have thoughts of harming others: None Do you have a plan to hurt others: No Plan Recently lost weight without trying: Unsure Nutrition Risks: No Nutritional Risk service: Yes Current occupational status: disabled Meds Allergies Allergy/AdvReac Type Severity Reaction Status Date / Time metformin AdvReac Unknown diarrhea Verified 05/04/20 11:11 Active Medications: Current Medications Generic Name Dose Route Start Last Admin Trade Name Freq PRN Reason Stop Dose Admin Acetaminophen 650 mg 09/01/20 21:00 Acetaminophen 325 Mg Tablet PO Q6H PRN Pain, Mild (Pain Scale 1-3) Albuterol/Ipratropium 3 ml 09/01/20 21:00 Albuterol/Iprat 2.5/0.5mg 3 Ml Ampul.Neb INHALE Q4H PRN Shortness of Breath/Wheezing Amlodipine Besylate 5 mg 09/02/20 09:00 09/02/20 08:22 Amlodipine Besylate 5 Mg Tablet PO 5 mg DAILY [facility] Administration Protocol Ascorbic Acid 500 mg 09/02/20 09:00 09/02/20 08:20 Ascorbic Acid 500 Mg Tablet PO 500 mg DAILY [facility] Administration Aspirin 325 mg 09/02/20 09:00 09/02/20 08:22 Aspirin 325 Mg Tablet PO 325 mg DAILY [facility] Administration Benzonatate 100 mg 09/01/20 21:34 09/01/20 23:25 Benzonatate 100 Mg Capsule PO 100 mg TID PRN Administration Cough Bisacodyl 10 mg 09/01/20 21:05 Bisacodyl 10 Mg Supp.Rect MT DAILY PRN Constipation Buspirone HCl 10 mg 09/02/20 09:00 09/02/20 08:18 Buspirone Hcl 10 Mg Tablet PO 10 mg BID [facility] Administration Carvedilol 6.25 mg 09/02/20 09:00 09/02/20 08:20 Carvedilol 6.25 Mg Tablet PO 6.25 mg BID [facility] Administration Protocol Divalproex Sodium 125 mg 09/02/20 20:00 Divalproex Sodium Sprinkles 125 Mg Cap PO DAILY@1999 [facility] Enoxaparin Sodium 40 mg 09/01/20 21:00 09/01/20 21:50 Enoxaparin Sodium 40 Mg/0.4 Ml Syringe SUBCUT Not Given Q24H [facility] Famotidine 20 mg 09/02/20 09:00 09/02/20 08:12 Famotidine/Pf 20 Mg/2 Ml Vial IVPUSH 20 mg BID [facility] Administration Ferrous Sulfate 324 mg 09/02/20 09:00 09/02/20 08:20 Ferrous Sulfate 324 Mg Tablet. PO 324 mg DAILY [facility] Administration Gabapentin 800 mg 09/02/20 09:00 09/02/20 08:19 Gabapentin 400 Mg Capsule PO 800 mg TID [facility] Administration Glipizide 2.5 mg 09/02/20 08:00 09/02/20 08:23 Glipizide Xl 2.5 Mg Tab.Er.24 PO Not Given DAILY@0800 [facility] Guaifenesin 10 ml 09/01/20 21:05 09/01/20 23:25 Guaifenesin 100 Mg/5 Ml Liquid PO 10 ml Q4H PRN Administration Cough Guaifenesin 600 mg 09/02/20 09:00 09/02/20 08:26 Guaifenesin La 600 Mg Tab.Er.12h PO 600 mg BID [facility] Administration Dextrose/Sodium Chloride 1,000 mls @ 100 mls/hr 09/01/20 21:00 09/02/20 08:11 D51/2ns IVCONT 100 mls/hr .Q10H [facility] Administration Ertapenem 1 gm/ Sodium 50 mls @ 100 mls/hr 09/02/20 09:00 09/02/20 10:01 Chloride IV Infused DAILY [facility] Infusion Insulin Human Lispro 0 unit 09/02/20 07:30 09/02/20 11:37 Insulin Lispro 100 Unit/Ml 3 Ml Vial SUBCUT Not Given QIDACHS [facility] Protocol Lorazepam 0.5 mg 09/01/20 21:05 Lorazepam 0.5 Mg Tablet PO TID PRN Anxiety Magnesium Hydroxide 30 ml 09/01/20 21:05 Milk Of Magnesia 30 Ml Oral.Susp PO DAILY PRN Constipation Melatonin 6 mg 09/01/20 21:00 09/01/20 23:26 Melatonin 3 Mg Tablet PO 6 mg BEDTIME PRN Administration Insomnia Melatonin 9 mg 09/02/20 21:00 Melatonin 3 Mg Tablet PO BEDTIME [facility] Ondansetron HCl 4 mg 09/01/20 21:00 Ondansetron Hcl 4 Mg/2 Ml Vial IVPUSH Q8H PRN Nausea and Vomiting Oxycodone HCl 5 mg 09/01/20 21:05 09/01/20 23:26 Oxycodone Hcl Immed Release 5 Mg Tablet PO 5 mg Q6H PRN Administration Pain, Severe (Pain Scale 7-10) Pharmacy Consult 1 each 09/01/20 14:26 Consult Rx Perform Med Rec MISCELLANE ONCE PRN Consult order Pregabalin 100 mg 09/02/20 09:00 07/07/21 08:20 Pregabalin 100 Mg Capsule PO 100 mg TID [facility] Administration Senna 17.2 mg 09/01/20 21:00 Sennosides 8.6 Mg Tablet PO BEDTIME PRN Constipation Senna 8.6 mg 09/02/20 21:00 Sennosides 8.6 Mg Tablet PO BEDTIME [facility] Sertraline HCl 100 mg 09/02/20 09:00 09/02/20 08:20 Sertraline Hcl 100 Mg Tablet PO 100 mg DAILY [facility] Administration Sodium Bicarbonate 650 mg 09/02/20 09:00 09/02/20 08:22 Sodium Bicarbonate 650 Mg Tablet PO 650 mg TID [facility] Administration Sodium Chloride 3 ml 09/02/20 00:00 09/02/20 08:24 0.9 % Sodium Chloride Flush 3 Ml Syringe IVFLUSH 3 ml QSHIFT [facility] Administration Tramadol HCl 50 mg 09/01/20 21:05 Tramadol Hcl 50 Mg Tablet PO Q6H PRN Pain, Moderate (Pain Scale 4-6 Vitamin D 25 mcg 09/02/20 09:00 09/02/20 08:21 Cholecalciferol (Vitamin D3) 25 Mcg Tablet PO 25 mcg DAILY [facility] Administration Home Medications Medication Instructions Recorded Confirmed Last Taken Type aspirin 325 mg PO DAILY 11/29/19 09/01/20 09/01/20 History carvedilol 6.25 mg PO BID 11/29/19 09/01/20 09/01/20 History glipizide 2.5 mg PO DAILY 11/29/19 09/01/20 09/01/20 History sennosides [senna] 8.6 mg PO BEDTIME 11/29/19 09/01/20 08/31/20 History amlodipine 1 tab PO DAILY 08/16/20 09/01/20 09/01/20 History ascorbic acid (vitamin C) [Vitamin 500 mg PO DAILY 08/16/20 09/01/20 09/01/20 History C] bisacodyl 10 mg MT DAILY PRN 08/16/20 09/01/20 Unknown History buspirone 10 mg PO BID 08/16/20 09/01/20 09/01/20 History cholecalciferol (vitamin D3) 25 mcg PO DAILY 08/16/20 09/01/20 09/01/20 History divalproex [Depakote] 125 mg PO DAILY@199908/16/20 09/01/20 08/31/20 History ferrous sulfate 325 mg PO DAILY 08/16/20 09/01/20 09/01/20 History guaifenesin 200 mg PO Q4H PRN 08/16/20 09/01/20 Unknown History loperamide 2 mg BID PRN 08/16/20 09/01/20 Unknown History magnesium hydroxide [Milk of 30 ml PO DAILY PRN 08/16/20 09/01/20 Unknown History Magnesia] melatonin 9 mg BEDTIME 08/16/20 09/01/20 08/31/20 History pregabalin [Lyrica] 100 mg PO TID 08/16/20 09/01/20 09/01/20 History tramadol 50 mg PO Q6H PRN 08/16/20 09/01/20 Unknown History acetaminophen 650 mg PO Q6H PRN 08/17/20 09/01/20 Unknown History gabapentin 800 mg PO TID 08/17/20 09/01/20 09/01/20 History glucagon 1 mg IM NEEDED 08/17/20 09/01/20 Unknown History guaifenesin [Mucinex] 600 mg PO BID 08/17/20 09/01/20 09/01/20 History sertraline 100 mg PO DAILY 08/17/20 09/01/20 09/01/20 History oxycodone 5 mg PO Q6H PRN 09/01/20 09/01/20 Unknown History Physical Exam Vital Signs: Vital Signs: Last Vital Signs Temp 96.9 F 09/02/20 11:12 Pulse 66 09/02/20 11:12 Resp 17 09/02/20 11:12 BP 140/67 H 09/02/20 11:12 Pulse Ox 95 09/02/20 11:12 Body Mass Index 34.2 Const: General: cooperative HENMT: Head: Yes normal to inspection Mouth: Normal oral and palatal mucosa present Resp: Effort & Inspection: normal respiratory effort Cardio: Rate: regular rate Rhythm: regular rhythm GI: Palpation (GI): Soft to palpation and nontender Skin: General skin exam: no rashes or lesions noted Extrem: Other: stable right metatarsal area,some erythema Results Labs CBC & Chem 7: 09/01/20 15:15 09/01/20 22:50 Labs: Short CBC 09/01/20 Range/Units 15:15 WBC 7.1 (4.8-10.8) X10*3/uL Hgb 9.1 L D (14.0-18.0) g/dl Hct 31.3 L D (42-52) % Plt Count 218 (160-400) X10*3/uL BMP 09/01/20 09/01/20 15:17 22:50 Sodium 139 138 Potassium 5.6 H D 5.1 Chloride 109 H 108 Carbon Dioxide 24 23 BUN 29 H 25 H Creatinine 0.93 0.95 Calcium 9.2 D 9.0 Liver Function 09/01/20 Range/Units 15:15 Total Bilirubin 0.4 (0.0-1.0) mg/dL Direct Bilirubin < 0.2 (0.0-0.5) mg/dL AST 17 D (5-37) U/L ALT 15 (0-40) U/L Alkaline Phosphatase 100 D (39-117) U/L Albumin 2.9 L (3.5-5.0) g/dL Assessment and Plan (1) Vomiting: Qualifiers: Nausea presence: with nausea Vomiting Intractability: non-intractable Vomiting type: unspecified Qualified Code(s): R11.2 - Nausea with vomiting, unspecified Status: Acute Probably due to nausea,mild dehydration Does not seem to be allergy to medication Would finish remainder of IV Ertapenem, now week 2 1/2 of 6 Surgery followup if worsens (2) Diabetic foot ulcers: Status: Acute (3) Foot osteomyelitis, right: Qualifiers: Osteomyelitis type: unspecified type Qualified Code(s): M86.9 - Osteomyelitis, unspecified Status: Acute
[2020-09-02] MEDS: iohexoL 350 MG/ML 100 ML INFUS..BTL IV (15:41)
[2020-09-02] MEDS: oxyCODONE HCl Immed Release 5 MG TABLET PO ×2 (16:05→21:39)
--- NOTE | 2020-09-02 16:14 | PC.NURSE ---
Skin/Wound Assessment completed today. Patients has bilateral grade 1 diabetic ulcers on feet. Triad was applied to wounds and covered with foam. To be changed every other day. He has pink buttocks with peeling skin, EPC cream applied to area for protection. No other skin issues found.
[2020-09-02 16:18] LABS: Glucose, Whole Blood 89 mg/dL (60-115)
[2020-09-02 20:22] LABS: Glucose, Whole Blood 96 mg/dL (60-115)
[2020-09-02] MEDS: Sennosides 8.6 MG TABLET PO (21:37)
[2020-09-02] MEDS: Divalproex Sodium Sprinkles 125 MG CAP.DR.SPR PO (21:37)
[2020-09-02] MEDS: Melatonin 3 MG TABLET 9 MG PO (21:38)
[2020-09-02] MEDS: HYDROmorphone HCl 2 MG TABLET 1 MG PO (21:39)
--- NOTE | 2020-09-02 23:53 | PC.NURSE ---
P: Pt experiencing 9/10 left abdominal pain and right leg pain. Pt states the ordered Oxycodone 5mg PO PRN is not helping enough with his pain. Pt observed to be restless and grimacing. I: notified. MD added PRN Dilaudid 1mg PO q6h. Administered at 21:40 along with the immediate release 5mg Oxycodone. E: Pt states good effect from the Dilaudid and Oxycodone. Pain is now 2/10.
[2020-09-03] MEDS: Dextrose 5 % and 0.45 % NaCl 1,000 ML 100 ML IVCONT (02:06)
[2020-09-03] MEDS: HYDROmorphone HCl 2 MG TABLET 1 MG PO ×2 (02:50→15:14)
[2020-09-03] MEDS: oxyCODONE HCl Immed Release 5 MG TABLET PO (02:50)
[2020-09-03 04:00] VITALS: BP 143/70; PULSE 54; RESP 18; TEMP 36.9; O2SAT 98
[2020-09-03 07:10] VITALS: BP 137/65; PULSE 64; RESP 18; TEMP 36.1; O2SAT 97
[2020-09-03 07:32] LABS: Glucose, Whole Blood 129 mg/dL (60-115)
[2020-09-03] MEDS: Ertapenem Sodium 1 GM in 0.9 % Sodium Chloride 50 ML IV (09:50)
[2020-09-03] MEDS: Aspirin 325 MG TABLET PO (09:56)
[2020-09-03] MEDS: Sodium Bicarbonate 650 MG TABLET PO ×2 (09:58→15:14)
[2020-09-03] MEDS: Pregabalin 100 MG CAPSULE PO ×2 (09:58→15:14)
[2020-09-03] MEDS: Gabapentin 400 MG CAPSULE 800 MG PO ×2 (09:58→15:14)
[2020-09-03 09:59] VITALS: BP 137/65; PULSE 64
[2020-09-03] MEDS: glipiZIDE XL 2.5 MG TAB.ER.24 PO (09:59)
[2020-09-03] MEDS: guaiFENesin LA 600 MG TAB.ER.12H PO (09:59)
[2020-09-03] MEDS: Cholecalciferol (Vitamin D3) 25 MCG TABLET PO (09:59)
[2020-09-03] MEDS: amLODIPine Besylate 5 MG TABLET PO (09:59)
[2020-09-03] MEDS: carvediloL 6.25 MG TABLET PO (09:59)
[2020-09-03] MEDS: Ferrous Sulfate 324 MG TABLET.DR PO (09:59)
[2020-09-03] MEDS: busPIRone HCl 10 MG TABLET PO (09:59)
[2020-09-03] MEDS: Famotidine/PF 20 MG/2 ML VIAL IVPUSH (10:00)
[2020-09-03] MEDS: 0.9 % Sodium Chloride Flush 3 ML SYRINGE IVFLUSH (10:00)
[2020-09-03] MEDS: Sertraline HCL 100 MG TABLET PO (10:00)
[2020-09-03] MEDS: Ascorbic Acid 500 MG TABLET PO (10:00)
[2020-09-03 11:30] VITALS: BP 174/72; PULSE 59; RESP 16; TEMP 36.2; O2SAT 100
[2020-09-03 11:33] LABS: Glucose, Whole Blood 95 mg/dL (60-115)
--- NOTE | 2020-09-03 12:07 | MHC.CM.PN ---
PT WILL DISCHARGE BACK TO [facility] TO CONTINUE IV ABX TODAY AT 1600 HOURS [facility]
[2020-09-03 13:22] VITALS: O2SAT 97
--- NOTE | 2020-09-03 14:52 | PM.DS ---
DS: Providers Provider Date of Service: 09/03/20 Date of admission: 09/01/20 21:00 Primary care physician: Winston Mir MD Consults: 09/01/20 21:05 Consult to Infectious Diseases Routine Consulting Provider: Kasie Gupta Reason for consultation: osteomyelitis DS: Diagnosis Discharge Diagnosis (1) Vomiting: Status: Acute (2) Diabetic foot ulcers: Status: Acute (3) Foot osteomyelitis, right: Status: Acute DS: Medications Discharge Medications Home Medications: Home Medications Medication Instructions Recorded Confirmed aspirin 325 mg PO DAILY 11/29/19 09/01/20 carvedilol 6.25 mg PO BID 11/29/19 09/01/20 glipizide 2.5 mg PO DAILY 11/29/19 09/01/20 sennosides [senna] 8.6 mg PO BEDTIME 11/29/19 09/01/20 amlodipine 1 tab PO DAILY 08/16/20 09/01/20 ascorbic acid (vitamin C) [Vitamin 500 mg PO DAILY 08/16/20 09/01/20 C] bisacodyl 10 mg MO DAILY PRN 08/16/20 09/01/20 buspirone 10 mg PO BID 08/16/20 09/01/20 cholecalciferol (vitamin D3) 25 mcg PO DAILY 08/16/20 09/01/20 divalproex [Depakote] 125 mg PO DAILY@199908/16/20 09/01/20 ferrous sulfate 325 mg PO DAILY 08/16/20 09/01/20 guaifenesin 200 mg PO Q4H PRN 08/16/20 09/01/20 loperamide 2 mg BID PRN 08/16/20 09/01/20 magnesium hydroxide [Milk of 30 ml PO DAILY PRN 08/16/20 09/01/20 Magnesia] melatonin 9 mg BEDTIME 08/16/20 09/01/20 pregabalin [Lyrica] 100 mg PO TID 08/16/20 09/01/20 tramadol 50 mg PO Q6H PRN 08/16/20 09/01/20 acetaminophen 650 mg PO Q6H PRN 08/17/20 09/01/20 gabapentin 800 mg PO TID 08/17/20 09/01/20 glucagon 1 mg IM NEEDED 08/17/20 09/01/20 guaifenesin [Mucinex] 600 mg PO BID 08/17/20 09/01/20 sertraline 100 mg PO DAILY 08/17/20 09/01/20 oxycodone 5 mg PO Q6H PRN 09/01/20 09/01/20 Previous Rx's Medication Instructions Recorded lorazepam 0.5 mg PO TID PRN #10 tab 12/21/19 sodium bicarbonate 650 mg PO TID #90 tab 12/21/19 ertapenem [Invanz] 1 g IV DAILY 42 Days ea 08/19/20 DS: Summary Hospital Course Hospital Course: Date of Service: 09/01/20 Chief Complaint: Nausea/Vomiting 64-year-old male with a past medical history of hypertension, hyperlipidemia, diabetes, history of rectal cancer status post colostomy, peripheral vascular disease, cardiomyopathy, history of diabetic foot ulcer /right foot metatarsal osteomyelitis - discharged on 08/19/2020 for 6 weeks of antibiotics via PICC line in the right arm; presented to the hospital with a chief complaint of nausea and vomiting. atient reports that over the past 2 days he has been having cough -try; at the custodial noted to be hypoxic at 86%, subsequently placed on supplemental oxygen and brought him to the hospital for further evaluation at the time of my interview patient denies any chest pain palpitations lightheadedness or dizziness. Patient reports he has been having cough. And nausea vomiting and abdominal discomfort. Denies any aspiration. Denies any diarrhea. Reports that he has been getting ertapenem through the PICC line and last received was the Morning before he came into the hospital. review of all other systems is negative except mentioned above ER course: Per ER team patient was initially noted to the head or hypoxic to 86% on room air, subsequently placed on nasal cannula; noted a mild diffuse abdominal tenderness; arm: Stent back showed brown stool; CT abdomen showed no acute intra-abdominal process; CT chest noncontrast showed no acute process. labs were essentially benign at his baseline except for potassium 5.6. Patient given gentle fluids. Admitted for further management. Also noted a mildly elevated lipase. Hospital course: Nausea/vomiting /abdominal discomfort: CT abdomen showed no acute intra-abdominal process. Likely gastroparesis or gastritis. Treated supportively and has resolved. He is tolerating diet. Right metatarsal osteomyelitis: Patient was receiving ertapenem via PICC line. To continue Ertapenem as previously scheduled Diabetes--Glipizide, sliding scale per facility protocl CT chest showing infiltrate and symptoms of cough---Adding Doxycyline to Ertapenem until September 30, 2020 which will be 6 weeks since last discharge on August 19 ulcerated buttock are from chronic iratation from know rectal leakage that has previously been evaluated by Dr. Carey. Recommend application Time Spent with Patient Time attestation: Total time spent providing and/or coordinating discharge services: Discharge coordination time: Greater than 30 minutes Quality: Stroke Does the patient have a stroke diagnosis?: No Physical Exam Vital Signs: Vital Signs: Last Vital Signs Temp 97.2 F 09/03/20 11:30 Pulse 59 09/03/20 11:30 Resp 16 09/03/20 11:30 BP 174/72 H 09/03/20 11:30 Pulse Ox 97 09/03/20 13:22 Body Mass Index 34.2 Const: General: cooperative HENMT: Head: Yes normal to inspection Mouth: Normal oral and palatal mucosa present Resp: Effort & Inspection: normal respiratory effort Cardio: Rate: regular rate Rhythm: regular rhythm GI: Palpation (GI): Soft to palpation and nontender Skin: Other: Extrem: Other: stable right metatarsal area,some erythema DS: Data Data Completed and Pending Completed studies during hospitalization [Text1]: Procedures Detachment at Left 5th Toe, Complete, Open Approach (12/02/19) Detachment at Right 5th Toe, Complete, Open Approach (12/02/19) Insertion of Infusion Device into Superior Vena Cava, Percutaneous Approach (08/17/20) Labs on day of discharge: Laboratory Results - last 24 hr 09/02/20 09/02/20 09/03/20 16:05 20:03 07:10 POC Glucose 89 96 129 H 09/03/20 11:29 POC Glucose 95 Preliminary micro results at discharge 09/01/20 15:23 Blood Culture - Preliminary Blood - Venous No growth after 24 hours. 09/01/20 15:24 Blood Culture - Preliminary Blood - Venous No growth after 24 hours. Discharge Plan Discharge Anticipated Discharge Date/Time: 09/03/20 15:23 Patient Disposition: Xfer SNF Discharge Diagnosis: Gastritis, osteomylitis, Referrals: [facility] [Outside] - 1 Week Winston Mir MD [Primary Care Provider] - 1 Week Discharge Medications: New doxycycline hyclate 100 mg capsule 100 mg PO BID Qty: 10 RF: 0 Triad Wound Dressing Paste 1 appl topical TID Qty: 852 RF: 0 Continued sodium bicarbonate 650 mg Tablet 650 mg PO TID Qty: 90 RF: 0 lorazepam 0.5 mg Tablet 0.5 mg PO TID PRN (Reason: Anxiety) Qty: 10 RF: 0 tramadol 50 mg Tablet 50 mg PO Q6H PRN (Reason: Pain) RF: 0 loperamide 2 mg Tablet 2 mg BID PRN (Reason: Diarrhea) RF: 0 melatonin 3 mg Tablet 9 mg BEDTIME RF: 0 amlodipine 5 mg tablet 1 tab PO DAILY RF: 0 guaifenesin 100 mg/5 mL Liquid 200 mg PO Q4H PRN (Reason: Cough) RF: 0 magnesium hydroxide [Milk of Magnesia] 400 mg/5 mL Suspension 30 ml PO DAILY PRN (Reason: Constipation) RF: 0 bisacodyl 10 mg Suppository 10 mg MO DAILY PRN (Reason: Constipation) RF: 0 ferrous sulfate 325 mg (65 mg iron) Tablet 325 mg PO DAILY RF: 0 buspirone 10 mg Tablet 10 mg PO BID RF: 0 divalproex [Depakote] 125 mg Tablet,Delayed Release (Dr/Ec) 125 mg PO DAILY@1999 RF: 0 ascorbic acid (vitamin C) [Vitamin C] 500 mg Tablet Extended Release 500 mg PO DAILY RF: 0 cholecalciferol (vitamin D3) 25 mcg (1,000 unit) Capsule 25 mcg PO DAILY RF: 0 pregabalin [Lyrica] 100 mg Capsule 100 mg PO TID RF: 0 sertraline 100 mg Tablet 100 mg PO DAILY RF: 0 guaifenesin [Mucinex] 600 mg Tablet Extended Release 12hr 600 mg PO BID RF: 0 gabapentin 800 mg Tablet 800 mg PO TID RF: 0 glucagon 1 mg/mL Recon Soln 1 mg IM NEEDED RF: 0 acetaminophen 325 mg Tablet 650 mg PO Q6H PRN (Reason: elevated temp or pain) RF: 0 ertapenem [Invanz] 1 gram Recon Soln 1 g IV DAILY 42 Days RF: 0 oxycodone 5 mg tablet 5 mg PO Q6H PRN (Reason: Pain) RF: 0 sennosides [senna] 8.6 mg Tablet 8.6 mg PO BEDTIME RF: 0 carvedilol 6.25 mg Tablet 6.25 mg PO BID RF: 0 aspirin 325 mg Tablet 325 mg PO DAILY RF: 0 glipizide 2.5 mg Tablet Extended Release 24hr 2.5 mg PO DAILY RF: 0 Discharge Orders: Discharge Order (Routine); Ordered 09/03/20 Ordered By: Rainer Rojas Diet: advance to usual diet Activity on Discharge: As tolerated Stand Alone Forms: Patient Portal Discharge page Care Plan Goals: To complete treatment for osteomyltis, Pneumonia Health Concerns: osteomyltis of the foot Plan of Treatment: continue Ertapenem untim complettion, Take Doxycyline for pneumonia, Apply TRIAD to buttock area Assessment: as above
[2020-09-03 15:30] VITALS: BP 124/67; PULSE 63; RESP 18; TEMP 36.9; O2SAT 97
== END 2020-09-03 16:22 | disposition skilled nursing facility (03) | DRG 638 ==
LOC: HO.ED 14:58 → HO.EDOVER 21:26 → HO.IMC 21:37
PROVIDERS: Nurse Practitioner Family; Admitting Provider Hospitalist; Emergency Provider Emergency Medicine; PCP Family Medicine; Visit Provider Internal Medicine
DX: E11.69 Type 2 diabetes mellitus with other specified complication (principal); M86.9 Osteomyelitis, unspecified; E78.5 Hyperlipidemia, unspecified; E86.0 Dehydration; E87.5 Hyperkalemia; L98.419 Non-pressure chronic ulcer of buttock with unspecified severity; Z85.048 Personal history of other malignant neoplasm of rectum, rectosigmoid junction, and anus; Z20.822 Contact with and (suspected) exposure to COVID-19; Z79.82 Long term (current) use of aspirin; Z79.84 Long term (current) use of oral hypoglycemic drugs; Z79.899 Other long term (current) drug therapy
CPT/HCPCS: 36415; 71250; 71275; 74176; 80048; 80076; 80164; 82947; 83605; 83690; 83735; 84145; 84478; 85025; 85379; 87040; 87635; 93005; 99285; J1335; J1650; J2270; J2405; Q9967

== ENCOUNTER → 2020-10-20 14:52 | Outpatient (BNVA) | payer MEDICARE, MEDICAID, SELFPAY | PROVIDERS: PCP Family Medicine; Visit Provider Internal Medicine | DX: M86.9 Osteomyelitis, unspecified (principal); E11.621 Type 2 diabetes mellitus with foot ulcer; L97.509 Non-pressure chronic ulcer of other part of unspecified foot with unspecified severity | CPT/HCPCS: 99212 ==

== ENCOUNTER 2020-11-26 11:15 | Inpatient (IN) | payer MEDICARE, MEDICAID, SELFPAY ==
[2020-11-26] VITALS (9 sets, daily range): BP systolic 114–169; BP diastolic 46–102; PULSE 53–62; RESP 13–18; TEMP 36.4–36.8; O2SAT 74–99; BMI 37.5
--- NOTE | ~2020-11-26 | NM_ITS ---
EXAMINATION: PULMONARY PERFUSION STUDY CLINICAL INFORMATION: Assess for pulmonary embolus. COMPARISON: Concurrent chest x-ray 11/26/2020. CTA of the chest 09/02/2020. TECHNIQUE: Following the intravenous administration of 4.0 mCi Tc-99m MAA, and 8-view perfusion study was performed. FINDINGS: No segmental perfusion defects are present. There is homogeneous distribution of activity bilaterally. There are no focal anatomic appearing perfusion defects present. NM/NM pul perfusion IMPRESSION: Normal radionuclide lung perfusion scan.
--- NOTE | ~2020-11-26 | XR_ITS ---
EXAMINATION: XR CHEST CLINICAL INFORMATION: Fever, hypoxia, vomited. Questionable aspiration. COMPARISON: Chest radiograph dated from 11/26/2020. TECHNIQUE: AP view of the chest was obtained. FINDINGS: Unchanged appearance of the cardiomediastinal silhouette. Atrial loop recorder. There is a new hazy opacity in the right lower lobe. Otherwise, the lungs are clear. No pleural effusions or pneumothorax. No acute osseous findings. XR/XR chest 1V IMPRESSION: New hazy opacity in the right lower lobe concerning for aspiration in the appropriate clinical setting.
--- NOTE | ~2020-11-26 | FL_ITS ---
EXAMINATION: Modified BARIUM SWALLOW CLINICAL INFORMATION: Rule out silent aspiration. COMPARISON: None TECHNIQUE: Modified barium swallow was performed in lateral fluoroscopy projection with patient on a stretcher in presence of speech therapist. FINDINGS: On older administration of various consistencies of thin, thick, semisolid food coated with barium there is normal propagation bolus from the oral cavity through the pharynx and esophagus without any evidence of obstruction, narrowing or stricture. No laryngeal penetration or aspiration seen. FLUOROSCOPY TIME: 14.8 seconds DOSE AREA PRODUCT: 6.24 uGy-m2 (microgray-meter squared) FL/FL barium swallow modified IMPRESSION: Unremarkable modified barium swallow. Correlate with speech therapy results.
--- NOTE | ~2020-11-26 | US_ITS ---
EXAMINATION: US ABDOMEN COMPLETE CLINICAL INFORMATION: Abdominal pain. COMPARISON: CT abdomen pelvis September 01, 2020 CT chest September 02, 2020. Chest x-ray November 27, 2020 TECHNIQUE: Real-time imaging of the abdominal viscera. Possible Doppler exam used. FINDINGS: PANCREAS: Normal. ABDOMINAL AORTA: The proximal, mid, and distal segments are normal in caliber. INFERIOR VENA CAVA: Visualized portions are normal. LIVER: Normal. The liver is normal in size. The liver contour is normal. Parenchymal echogenicity is normal. No focal hepatic lesion. There is no intrahepatic biliary duct dilatation seen. GALLBLADDER: Normal. The gallbladder is physiologically distended without evidence of stones, sludge, polyps, wall thickening or pericholecystic fluid. COMMON BILE DUCT: Normal in caliber measuring 0.4 cm in diameter. RIGHT Kidney: exophytic simple cyst at lower pole left kidney measuring 2.9 cm. Normal. No hydronephrosis. No renal calculi or suspicious focal parenchymal lesions. The kidney measures 13.3 cm in maximum dimension. LEFT KIDNEY: No hydronephrosis. No renal calculi or suspicious focal parenchymal lesions. The kidney measures 11.7 cm in maximum dimension. SPLEEN: Normal. The spleen measures 12.7 cm in maximum dimension. FREE FLUID: No abdominal ascites. Trace dependent bilateral pleural effusions. US/US abdomen complete IMPRESSION: There is no acute abnormality of the abdomen.
--- NOTE | ~2020-11-26 | XR_ITS ---
EXAMINATION: XR CHEST CLINICAL INFORMATION: Pneumonia. COMPARISON: None TECHNIQUE: Frontal view of the chest was obtained. FINDINGS: The lungs are well-expanded and clear acute process. Heart size and pulmonary vascularity is normal. No bony pneumonitis seen. There is a small loop recorder overlying the left lower chest. XR/XR chest 1V IMPRESSION: Unremarkable chest examination.
--- NOTE | 2020-11-26 11:38 | ECG_ITS ---
Test Reason : GENERAL MEDICINE Blood Pressure : / mmHG Vent. Rate : 064 BPM Atrial Rate : 064 BPM P-R Int : 232 ms QRS Dur : 176 ms QT Int : 488 ms P-R-T Axes : 047 -65 084 degrees QTc Int : 503 ms Ventricular-paced rhythm Abnormal ECG When compared with ECG of 01-SEP-2020 17:36, Vent. rate has decreased BY 50 BPM Referred By: Ino Guerrier Electronically Signed By:DAVID ESPINO
--- NOTE | 2020-11-26 11:45 | ED_ITS ---
HPI - General Adult General Chief complaint: Syncope Stated complaint: SYNCOPAL EPISODE, LOW O2SAT 74%RA PER SNF Time Seen by Provider: 11/26/20 12:07 Source: patient Mode of arrival: ambulatory Limitations: no limitations History of Present Illness HPI narrative: 65-year-old male with past medical history of diabetes, hypertension, atrial fibrillation, pacemaker, and anxiety presents to ED for near syncopal episode with hypoxia. Patient had appointment to Cardiology and was removed to a chair when all the sudden his eyes roll back and patient became hypoxic at 74%. Patient then came to himself and was transferred to the ER. Patient himself denies passing out. Patient is alert oriented x3 presently. Patient presently denies any complaints. Sniff called ER recommended CAMEJO to see if patient to any drugs. Presently patient denies any chest pain, shortness of breath, abdominal pain, dizziness, or headache. EMS states heart rate went as low as 45 and then went back up to the 60s. Related Data Home Medications Medication Instructions Recorded Confirmed aspirin 325 mg tablet 325 mg PO DAILY 11/29/19 09/01/20 carvedilol 6.25 mg tablet 6.25 mg PO BID 11/29/19 09/01/20 glipizide 2.5 mg tablet, extended 2.5 mg PO DAILY 11/29/19 09/01/20 release 24 hr sennosides 8.6 mg tablet (senna) 8.6 mg PO BEDTIME 11/29/19 09/01/20 amlodipine 5 mg tablet 1 tab PO DAILY 08/16/20 09/01/20 ascorbic acid (vitamin C) 500 mg 500 mg PO DAILY 08/16/20 09/01/20 tablet,extended release (Vitamin C ER) bisacodyl 10 mg rectal suppository 10 mg HI DAILY PRN 08/16/20 09/01/20 buspirone 10 mg tablet 10 mg PO BID 08/16/20 09/01/20 cholecalciferol (vitamin D3) 25 25 mcg PO DAILY 08/16/20 09/01/20 mcg (1,000 unit) capsule divalproex 125 mg tablet,delayed 125 mg PO DAILY@199908/16/20 09/01/20 release (Depakote) ferrous sulfate 325 mg (65 mg 325 mg PO DAILY 08/16/20 09/01/20 iron) tablet guaifenesin 100 mg/5 mL oral liquid 200 mg PO Q4H PRN 08/16/20 09/01/20 loperamide 2 mg tablet 2 mg BID PRN 08/16/20 09/01/20 magnesium hydroxide 400 mg/5 mL 30 ml PO DAILY PRN 08/16/20 09/01/20 oral suspension (Milk of Magnesia) melatonin 3 mg tablet 9 mg BEDTIME 08/16/20 09/01/20 pregabalin 100 mg capsule (Lyrica) 100 mg PO TID 08/16/20 09/01/20 tramadol 50 mg tablet 50 mg PO Q6H PRN 08/16/20 09/01/20 acetaminophen 325 mg tablet 650 mg PO Q6H PRN 08/17/20 09/01/20 gabapentin 800 mg tablet 800 mg PO TID 08/17/20 09/01/20 glucagon 1 mg/mL solution for 1 mg IM NEEDED 08/17/20 09/01/20 injection guaifenesin 600 mg tablet, 600 mg PO BID 08/17/20 09/01/20 extended release 12 hr (Mucinex) sertraline 100 mg tablet 100 mg PO DAILY 08/17/20 09/01/20 oxycodone 5 mg tablet 5 mg PO Q6H PRN 09/01/20 09/01/20 Previous Rx's Medication Instructions Recorded lorazepam 0.5 mg tablet 0.5 mg PO TID PRN #10 tab 12/21/19 sodium bicarbonate 650 mg tablet 650 mg PO TID #90 tab 12/21/19 ertapenem 1 gram solution for 1 g IV DAILY 42 Days ea 08/19/20 injection (Invanz) doxycycline hyclate 100 mg capsule 100 mg PO BID #10 cap 09/03/20 wound dressings ([facility] Wound 1 appl TOPICAL TID #852 g 09/03/20 Dressing) Allergies Allergy/AdvReac Type Severity Reaction Status Date / Time metformin AdvReac Unknown diarrhea Verified 10/20/20 15:14 Review of Systems Review of Systems: Yes all other systems are reviewed and are negative Constitutional: Constitutional: Reports as per HPI and Reports no additional constitutional complaints Eyes: Eyes: Reports as per HPI and Reports no additional eye complaints ENT: Reports system reviewed and no additional complaints, except as documented and Reports as per HPI Cardiovascular: Cardiovascular: Reports as per HPI and Reports no additional cardiovascular complaints Comments: Near syncopal Respiratory: Respiratory: Reports as per HPI and Reports no additional respiratory complaints Comments: Resolved hypoxia Gastrointestinal: Gastrointestinal: Reports as per HPI and Reports no additional gastrointestinal complaints Genitourinary: Genitourinary: Reports no additional male genitourinary complaints and Reports as per HPI Musculoskeletal: Musculoskeletal: Reports no additional musculoskeletal complaints and Reports as per HPI Neurologic: Reports system reviewed and no additional complaints, except as documented and Reports as per HPI Psychiatric: Psychiatric: Reports no additional psychiatric complaints and Reports as per HPI [facility] Past Medical History Medical History Anxiety Cardiomyopathy CHF (congestive heart failure) Diabetes History of sigmoidoscopy HTN (hypertension) Hypogonadism Obesity 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 Proteinuria Surgical History History of amputation of foot through metatarsal bone History of cataract surgery History of colectomy History of colonoscopy History of reversal of ileostomy Family History Family History Mother Diabetes Social History Social History Household Members: Other Housing: [facility] Alcohol intake: former Patient Tobacco Use Status: Never used Tobacco Years Smoked: 15 years Second Hand Smoke Exposure: No Use of substances other than those prescribed or required for medical reasons: No Advance Directives: Yes Advance Directives on File: Yes Advance Directives Date on File: 09/01/20 service: Yes Current occupational status: disabled Physical Exam Vital Signs: Vital Signs: Last Vital Signs Temp 97.6 F 11/26/20 16:50 Pulse 58 11/26/20 16:50 Resp 18 11/26/20 16:50 BP 152/69 H 11/26/20 16:50 Pulse Ox 98 11/26/20 16:50 Oxygen Flow Rate 2 11/26/20 11:44 Body Mass Index 37.5 Const: General: cooperative, healthy appearing, comfortable, no acute distress, well developed, alert and awake Orientation/consciousness: patient oriented x3 HENMT: Head: Yes normal to inspection, Yes No palpable skull fracture present, Yes normocephalic and No atraumatic Eyes: General: appearance normal, both eyes and all related structures Neck: Neck: Yes normal visual inspection, Yes full ROM, Yes no lymphadenopathy, Yes no meningeal signs, Yes trachea midline, Yes supple and No tender Chest: Chest palpation & inspection: normal inspection of the chest and normal palpation of entire chest wall Resp: Effort & Inspection: normal respiratory effort and able to speak in complete sentences Auscultation: clear to auscultation bilaterally Cardio: Jugular venous distension: no JVD Heart sounds: S1 normal heart luis manuel nd present and S2 normal heart sound present GI: Inspection: Yes normal to inspection and No abdominal wall ecchymosis Palpation (GI): Soft to palpation, not firm, nontender, no guarding and not rigid : General: No CVA tenderness and Yes no CVA tenderness Back/Spine/Pelvis: Back: no CVA tenderness, No CVA tenderness and No back tenderness Skin: General skin exam: no rashes or lesions noted and elasticity normal Neuro: General: patient oriented x3, gait normal, no meningeal signs and CN's II-XI intact bilaterally Cranial nerves: Yes CN's II-XII intact bilaterally Extrem: Other: Lower extremity positive for 1+ pitting edema and swelling. Negative for calf pain General: Yes normal to inspection and Yes full ROM Psych: Appearance: grossly normal, well kempt and not disheveled Course Course Course Narrative: Patient presently on 2 L 93%. Heart rate in the 60s on monitor. Patient alert oriented x3. Patient not any distress. Will do medical evaluation including cardiac focal BNP and EKG. Chest x-ray ordered. COVID swab ordered. EKG negative STEMI Reevaluation(s) Reevaluation #1: Patient's ABG was placed in another patient's record- Larry Enriquez. ABG Reading- PH 7/27, pc02 56, ABG PO2, ABG HOC3 26. Patient is alert oriented x3 and talking. Patient is on 2 L 93%. Patient has a mild FAM. Test and 5 for an 8. Time: 12:44 Reevaluation #2: Patient troponin BNP elevated. Patient is in Fam with CHF and UTI. Patient is not sleepy or any respiratory distress. Although patient's blood pressure soft Dr. Hedrick recommends given Lasix. Case presented to hospitalist for admission. Time: 13:47 Reevaluation #3: Repeat ABG to be done but respiratory therapist to makes sure CO2 is not retaining. On room air patient O2 saturation 89-90%. Time: 15:40 Additional Reevaluation(s): Patient refused repeat ABG. We will do VBG to check for CO2 retention. 16:18. Due to near syncopal episodes with hypoxia as chief complaint per EMS D-dimer was sent. D-dimer over 1999. Patient will be sent for nuclear med. Day Hospitalist recommend BiPAP with negative for PE. 6:30pm Spoke with night hospitalist Dr. Joseph and case was discussed with him. He does not recommend BiPAP. He agrees with plan for nuclear medicine to rule out PE. Patient alert oriented x3 talking and playing on cell phone. Nuclear medicine scan came back negative for PE. Patient to be admitted. Medical Decision Making Lab Data Result diagrams: 11/26/20 12:44 11/26/20 12:24 Labs: Lab Results 11/26/20 11/26/20 11/26/20 Range/Units 12:24 12:24 12:24 WBC (4.8-10.8) X10*3/uL RBC (4.60-5.80) X10*6/uL Hgb (14.0-18.0) g/dl Hct (42-52) % MCV (80-98) fL MCH (27.0-33.0) pg MCHC (31.0-36.0) g/dl RDW (11.0-16.0) % Plt Count (160-400) X10*3/uL MPV (9.4-12.4) fL Immature Gran % (Auto) (0.0-0.4) % Neut % (Auto) (45-73) % Lymph % (Auto) (20-40) % Nicholas % (Auto) (2-11) % Eos % (Auto) (0-4) % Baso % (Auto) (0-2) % Lymph # (Auto) (1.2-4.9) X10*3/uL Nicholas # (Auto) (0.1-1.2) X10*3/uL Eos # (Auto) (0.0-0.4) X10*3/uL Baso # (Auto) (0.0-0.2) X10*3/uL Abs Immat Gran (auto) (0.00-0.03) X10*3/uL Absolute Neuts (auto) (2.0-8.3) X10*3/uL Absolute Nucleated RBC (0.0-0.012) X10*3/uL Nucleated RBC % (auto) (0.0-0.2) /100WBC PT 12.1 (9.9-13.0) SEC INR 1.1 (0.9-1.1) APTT 40.0 H (24.1-38.0) SEC D-Dimer 2086 NG/ML VBG pH (7.32-7.43) VBG pCO2 mmHg VBG pO2 mmHg VBG HCO3 (22-26) mmol/L VBG O2 Saturation % VBG Base Excess mmol/L Sodium (135-145) mmol/L Potassium (3.3-5.1) mmol/L Chloride (96-108) mmol/L Carbon Dioxide (22-29) mmol/L Anion Gap (12-20) BUN (9-16) mg/dL Creatinine (0.5-1.4) mg/dL Estim Creat Clear Calc Estimated GFR Random Glucose (60-115) mg/dL Lactic Acid 0.4 L (0.5-2.0) mmol/L Calcium (8.4-10.2) mg/dL Magnesium (1.6-2.6) mg/dL Total Bilirubin (0.0-1.0) mg/dL AST (5-37) U/L ALT (0-40) U/L Alkaline Phosphatase (39-117) U/L Troponin I High Sens (<3.5-35.0) ng/L B-Natriuretic Peptide (<100) pg/mL Total Protein (6.5-8.0) g/dL Albumin (3.5-5.0) g/dL Urine Color Urine Appearance Urine pH (5.0-8.0) Ur Specific [place] (1.005-1.025) Urine Protein (NEG-TRACE) MG/DL Urine Glucose (UA) (NEG) MG/DL Urine Ketones (NEG) MG/DL Urine Blood (NEG) Urine Nitrite (NEG) Ur Leukocyte Esterase (NEG) Urine RBC (0) /HPF Urine WBC (0-4) /HPF Ur Squamous Epith Cells /LPF Urine Bacteria /LPF Urine Mucus /LPF Urine Opiates Screen (Not Detect) Urine Fentanyl Screen (Not Detect) Ur Barbiturates Screen (Not Detect) Valproic Acid (50.0-100.0) mcg/mL Ur Phencyclidine Scrn (Not Detect) Ur Amphetamines Screen (Not Detect) U Benzodiazepines Scrn (Not Detect) Urine Cocaine Screen (Not Detect) U Marijuana (THC) Screen (Not Detect) Ethyl Alcohol mg/dL Respiratory Panel [place] Adenovirus (Rapid PCR) (Not Detect.) B.pert (TEM-PCR) (Not Detect.) B.parapertussis DNA PCR (Not Detect.) C. pneumoniae DNA (PCR) (Not Detect.) Coronavirus (PCR) NEGATIVE (Negative) Coronavirus OC43 (PCR) (Not Detect.) Coronavirus HKU1 (PCR) (Not Detect.) Coronavirus 229E (PCR) (Not Detect.) Coronavirus NL63 (PCR) (Not Detect.) Human Metapneumovir PCR (Not Detect.) Influenza A (RT-PCR) (Not Detect.) Influenza Type A (PCR) NEGATIVE (Negative) Influenza B (RT-PCR) (Not Detect.) Influenza Type B (PCR) NEGATIVE (Negative) M. pneumoniae (PCR) (Not Detect.) Parainfluenza 1 (PCR) (Not Detect.) Parainfluenza 2 (PCR) (Not Detect.) Parainfluenza 3 (PCR) (Not Detect.) Parainfluenza 4 (PCR) (Not Detect.) RSV (PCR) (Not Detect.) RSV RNA Qual (PCR) NEGATIVE (Negative) Entero/Rhino (PCR) (Not Detect.) SARS-CoV-2 RNA (RT-PCR) (Not Detect.) 11/26/20 11/26/20 11/26/20 Range/Units 12:24 12:24 12:44 WBC 7.7 (4.8-10.8) X10*3/uL RBC 3.62 L (4.60-5.80) X10*6/uL Hgb 8.0 L (14.0-18.0) g/dl Hct 28.1 L (42-52) % MCV 77.6 L (80-98) fL MCH 22.1 L (27.0-33.0) pg MCHC 28.5 L (31.0-36.0) g/dl RDW 18.2 H (11.0-16.0) % Plt Count 201 (160-400) X10*3/uL MPV 10.1 (9.4-12.4) fL Immature Gran % (Auto) 2.1 H (0.0-0.4) % Neut % (Auto) 74.3 H (45-73) % Lymph % (Auto) 13.8 L (20-40) % Nicholas % (Auto) 5.4 (2-11) % Eos % (Auto) 4.1 H (0-4) % Baso % (Auto) 0.3 (0-2) % Lymph # (Auto) 1.1 L (1.2-4.9) X10*3/uL Nicholas # (Auto) 0.4 (0.1-1.2) X10*3/uL Eos # (Auto) 0.3 (0.0-0.4) X10*3/uL Baso # (Auto) 0.0 (0.0-0.2) X10*3/uL Abs Immat Gran (auto) 0.16 H (0.00-0.03) X10*3/uL Absolute Neuts (auto) 5.7 (2.0-8.3) X10*3/uL Absolute Nucleated RBC 0.020 H (0.0-0.012) X10*3/uL Nucleated RBC % (auto) 0.3 H (0.0-0.2) /100WBC PT (9.9-13.0) SEC INR (0.9-1.1) APTT (24.1-38.0) SEC D-Dimer NG/ML VBG pH (7.32-7.43) VBG pCO2 mmHg VBG pO2 mmHg VBG HCO3 (22-26) mmol/L VBG O2 Saturation % VBG Base Excess mmol/L Sodium 139 (135-145) mmol/L Potassium 5.8 H (3.3-5.1) mmol/L Chloride 109 H (96-108) mmol/L Carbon Dioxide 23 (22-29) mmol/L Anion Gap 13 (12-20) BUN 73 H D (9-16) mg/dL Creatinine 1.91 H (0.5-1.4) mg/dL Estim Creat Clear Calc 58.1 Estimated GFR 36 Random Glucose 104 (60-115) mg/dL Lactic Acid (0.5-2.0) mmol/L Calcium 7.8 L D (8.4-10.2) mg/dL Magnesium 2.1 (1.6-2.6) mg/dL Total Bilirubin < 0.2 (0.0-1.0) mg/dL AST 13 (5-37) U/L ALT 14 (0-40) U/L Alkaline Phosphatase 85 (39-117) U/L Troponin I High Sens (<3.5-35.0) ng/L B-Natriuretic Peptide (<100) pg/mL Total Protein 6.3 L (6.5-8.0) g/dL Albumin 2.9 L (3.5-5.0) g/dL Urine Color Urine Appearance Urine pH (5.0-8.0) Ur Specific [place] (1.005-1.025) Urine Protein (NEG-TRACE) MG/DL Urine Glucose (UA) (NEG) MG/DL Urine Ketones (NEG) MG/DL Urine Blood (NEG) Urine Nitrite (NEG) Ur Leukocyte Esterase (NEG) Urine RBC (0) /HPF Urine WBC (0-4) /HPF Ur Squamous Epith Cells /LPF Urine Bacteria /LPF Urine Mucus /LPF Urine Opiates Screen (Not Detect) Urine Fentanyl Screen (Not Detect) Ur Barbiturates Screen (Not Detect) Valproic Acid 7.5 L (50.0-100.0) mcg/mL Ur Phencyclidine Scrn (Not Detect) Ur Amphetamines Screen (Not Detect) U Benzodiazepines Scrn (Not Detect) Urine Cocaine Screen (Not Detect) U Marijuana (THC) Screen (Not Detect) Ethyl Alcohol < 10 mg/dL Respiratory Panel [place] Adenovirus (Rapid PCR) (Not Detect.) B.pert (TEM-PCR) (Not Detect.) B.parapertussis DNA PCR (Not Detect.) C. pneumoniae DNA (PCR) (Not Detect.) Coronavirus (PCR) (Negative) Coronavirus OC43 (PCR) (Not Detect.) Coronavirus HKU1 (PCR) (Not Detect.) Coronavirus 229E (PCR) (Not Detect.) Coronavirus NL63 (PCR) (Not Detect.) Human Metapneumovir PCR (Not Detect.) Influenza A (RT-PCR) (Not Detect.) Influenza Type A (PCR) (Negative) Influenza B (RT-PCR) (Not Detect.) Influenza Type B (PCR) (Negative) M. pneumoniae (PCR) (Not Detect.) Parainfluenza 1 (PCR) (Not Detect.) Parainfluenza 2 (PCR) (Not Detect.) Parainfluenza 3 (PCR) (Not Detect.) Parainfluenza 4 (PCR) (Not Detect.) RSV (PCR) (Not Detect.) RSV RNA Qual (PCR) (Negative) Entero/Rhino (PCR) (Not Detect.) SARS-CoV-2 RNA (RT-PCR) (Not Detect.) 11/26/20 11/26/20 11/26/20 Range/Units 12:44 12:44 12:47 WBC (4.8-10.8) X10*3/uL RBC (4.60-5.80) X10*6/uL Hgb (14.0-18.0) g/dl Hct (42-52) % MCV (80-98) fL MCH (27.0-33.0) pg MCHC (31.0-36.0) g/dl RDW (11.0-16.0) % Plt Count (160-400) X10*3/uL MPV (9.4-12.4) fL Immature Gran % (Auto) (0.0-0.4) % Neut % (Auto) (45-73) % Lymph % (Auto) (20-40) % Nicholas % (Auto) (2-11) % Eos % (Auto) (0-4) % Baso % (Auto) (0-2) % Lymph # (Auto) (1.2-4.9) X10*3/uL Nicholas # (Auto) (0.1-1.2) X10*3/uL Eos # (Auto) (0.0-0.4) X10*3/uL Baso # (Auto) (0.0-0.2) X10*3/uL Abs Immat Gran (auto) (0.00-0.03) X10*3/uL Absolute Neuts (auto) (2.0-8.3) X10*3/uL Absolute Nucleated RBC (0.0-0.012) X10*3/uL Nucleated RBC % (auto) (0.0-0.2) /100WBC PT (9.9-13.0) SEC INR (0.9-1.1) APTT (24.1-38.0) SEC D-Dimer NG/ML VBG pH (7.32-7.43) VBG pCO2 mmHg VBG pO2 mmHg VBG HCO3 (22-26) mmol/L VBG O2 Saturation % VBG Base Excess mmol/L Sodium (135-145) mmol/L Potassium (3.3-5.1) mmol/L Chloride (96-108) mmol/L Carbon Dioxide (22-29) mmol/L Anion Gap (12-20) BUN (9-16) mg/dL Creatinine (0.5-1.4) mg/dL Estim Creat Clear Calc Estimated GFR Random Glucose (60-115) mg/dL Lactic Acid (0.5-2.0) mmol/L Calcium (8.4-10.2) mg/dL Magnesium (1.6-2.6) mg/dL Total Bilirubin (0.0-1.0) mg/dL AST (5-37) U/L ALT (0-40) U/L Alkaline Phosphatase (39-117) U/L Troponin I High Sens 47.8 H* D (<3.5-35.0) ng/L B-Natriuretic Peptide 1403 H (<100) pg/mL Total Protein (6.5-8.0) g/dL Albumin (3.5-5.0) g/dL Urine Color YELLOW Urine Appearance CLOUDY Urine pH 7.5 (5.0-8.0) Ur Specific [place] 1.020 (1.005-1.025) Urine Protein 2+ H (NEG-TRACE) MG/DL Urine Glucose (UA) NEG (NEG) MG/DL Urine Ketones NEG (NEG) MG/DL Urine Blood 2+ H (NEG) Urine Nitrite NEG (NEG) Ur Leukocyte Esterase 2+ H (NEG) Urine RBC 0 (0) /HPF Urine WBC 50-75 H (0-4) /HPF Ur Squamous Epith Cells NONE /LPF Urine Bacteria 4+ /LPF Urine Mucus 3+ /LPF Urine Opiates Screen (Not Detect) Urine Fentanyl Screen (Not Detect) Ur Barbiturates Screen (Not Detect) Valproic Acid (50.0-100.0) mcg/mL Ur Phencyclidine Scrn (Not Detect) Ur Amphetamines Screen (Not Detect) U Benzodiazepines Scrn (Not Detect) Urine Cocaine Screen (Not Detect) U Marijuana (THC) Screen (Not Detect) Ethyl Alcohol mg/dL Respiratory Panel [place] See Note Adenovirus (Rapid PCR) Not Detected (Not Detect.) B.pert (TEM-PCR) Not Detected (Not Detect.) B.parapertussis DNA PCR Not Detected (Not Detect.) C. pneumoniae DNA (PCR) Not Detected (Not Detect.) Coronavirus (PCR) (Negative) Coronavirus OC43 (PCR) Not Detected (Not Detect.) Coronavirus HKU1 (PCR) Not Detected (Not Detect.) Coronavirus 229E (PCR) Not Detected (Not Detect.) Coronavirus NL63 (PCR) Not Detected (Not Detect.) Human Metapneumovir PCR Not Detected (Not Detect.) Influenza A (RT-PCR) Not Detected (Not Detect.) Influenza Type A (PCR) (Negative) Influenza B (RT-PCR) Not Detected (Not Detect.) Influenza Type B (PCR) (Negative) M. pneumoniae (PCR) Not Detected (Not Detect.) Parainfluenza 1 (PCR) Not Detected (Not Detect.) Parainfluenza 2 (PCR) Not Detected (Not Detect.) Parainfluenza 3 (PCR) Not Detected (Not Detect.) Parainfluenza 4 (PCR) Not Detected (Not Detect.) RSV (PCR) Not Detected (Not Detect.) RSV RNA Qual (PCR) (Negative) Entero/Rhino (PCR) Not Detected (Not Detect.) SARS-CoV-2 RNA (RT-PCR) Not Detected (Not Detect.) 11/26/20 11/26/20 11/26/20 Range/Units 16:38 16:38 16:49 WBC (4.8-10.8) X10*3/uL RBC (4.60-5.80) X10*6/uL Hgb (14.0-18.0) g/dl Hct (42-52) % MCV (80-98) fL MCH (27.0-33.0) pg MCHC (31.0-36.0) g/dl RDW (11.0-16.0) % Plt Count (160-400) X10*3/uL MPV (9.4-12.4) fL Immature Gran % (Auto) (0.0-0.4) % Neut % (Auto) (45-73) % Lymph % (Auto) (20-40) % Nicholas % (Auto) (2-11) % Eos % (Auto) (0-4) % Baso % (Auto) (0-2) % Lymph # (Auto) (1.2-4.9) X10*3/uL Nicholas # (Auto) (0.1-1.2) X10*3/uL Eos # (Auto) (0.0-0.4) X10*3/uL Baso # (Auto) (0.0-0.2) X10*3/uL Abs Immat Gran (auto) (0.00-0.03) X10*3/uL Absolute Neuts (auto) (2.0-8.3) X10*3/uL Absolute Nucleated RBC (0.0-0.012) X10*3/uL Nucleated RBC % (auto) (0.0-0.2) /100WBC PT (9.9-13.0) SEC INR (0.9-1.1) APTT (24.1-38.0) SEC D-Dimer NG/ML VBG pH 7.27 L (7.32-7.43) VBG pCO2 62 mmHg VBG pO2 43 mmHg VBG HCO3 29 H (22-26) mmol/L VBG O2 Saturation 64.0 % VBG Base Excess 1.7 mmol/L Sodium (135-145) mmol/L Potassium (3.3-5.1) mmol/L Chloride (96-108) mmol/L Carbon Dioxide (22-29) mmol/L Anion Gap (12-20) BUN (9-16) mg/dL Creatinine (0.5-1.4) mg/dL Estim Creat Clear Calc Estimated GFR Random Glucose (60-115) mg/dL Lactic Acid (0.5-2.0) mmol/L Calcium (8.4-10.2) mg/dL Magnesium (1.6-2.6) mg/dL Total Bilirubin (0.0-1.0) mg/dL AST (5-37) U/L ALT (0-40) U/L Alkaline Phosphatase (39-117) U/L Troponin I High Sens 58.9 H* (<3.5-35.0) ng/L B-Natriuretic Peptide (<100) pg/mL Total Protein (6.5-8.0) g/dL Albumin (3.5-5.0) g/dL Urine Color Urine Appearance Urine pH (5.0-8.0) Ur Specific [place] (1.005-1.025) Urine Protein (NEG-TRACE) MG/DL Urine Glucose (UA) (NEG) MG/DL Urine Ketones (NEG) MG/DL Urine Blood (NEG) Urine Nitrite (NEG) Ur Leukocyte Esterase (NEG) Urine RBC (0) /HPF Urine WBC (0-4) /HPF Ur Squamous Epith Cells /LPF Urine Bacteria /LPF Urine Mucus /LPF Urine Opiates Screen Not Detected (Not Detect) Urine Fentanyl Screen Not Detected (Not Detect) Ur Barbiturates Screen Not Detected (Not Detect) Valproic Acid (50.0-100.0) mcg/mL Ur Phencyclidine Scrn Not Detected (Not Detect) Ur Amphetamines Screen Not Detected (Not Detect) U Benzodiazepines Scrn Not Detected (Not Detect) Urine Cocaine Screen Not Detected (Not Detect) U Marijuana (THC) Screen POSITIVE H (Not Detect) Ethyl Alcohol mg/dL Respiratory Panel [place] Adenovirus (Rapid PCR) (Not Detect.) B.pert (TEM-PCR) (Not Detect.) B.parapertussis DNA PCR (Not Detect.) C. pneumoniae DNA (PCR) (Not Detect.) Coronavirus (PCR) (Negative) Coronavirus OC43 (PCR) (Not Detect.) Coronavirus HKU1 (PCR) (Not Detect.) Coronavirus 229E (PCR) (Not Detect.) Coronavirus NL63 (PCR) (Not Detect.) Human Metapneumovir PCR (Not Detect.) Influenza A (RT-PCR) (Not Detect.) Influenza Type A (PCR) (Negative) Influenza B (RT-PCR) (Not Detect.) Influenza Type B (PCR) (Negative) M. pneumoniae (PCR) (Not Detect.) Parainfluenza 1 (PCR) (Not Detect.) Parainfluenza 2 (PCR) (Not Detect.) Parainfluenza 3 (PCR) (Not Detect.) Parainfluenza 4 (PCR) (Not Detect.) RSV (PCR) (Not Detect.) RSV RNA Qual (PCR) (Negative) Entero/Rhino (PCR) (Not Detect.) SARS-CoV-2 RNA (RT-PCR) (Not Detect.) Critical Care Time Critical Care Time Critical Care Time: Yes Total Critical Care Time: 60 Attestation: Hypoxia. ABG ordered. Lasix given. Patient placed on oxygen. Nuclear scan ordered to rule out PE. Discharge Plan Discharge Clinical Impression: Hypoxia Patient Disposition: Admitted As Inpatient Prescriptions: No Action sodium bicarbonate 650 mg Tablet 650 mg PO TID Qty: 90 RF: 0 lorazepam 0.5 mg Tablet 0.5 mg PO TID PRN (Reason: Anxiety) Qty: 10 RF: 0 tramadol 50 mg Tablet 50 mg PO Q6H PRN (Reason: Pain) RF: 0 loperamide 2 mg Tablet 2 mg BID PRN (Reason: Diarrhea) RF: 0 melatonin 3 mg Tablet 9 mg BEDTIME RF: 0 amlodipine 5 mg tablet 1 tab PO DAILY RF: 0 guaifenesin 100 mg/5 mL Liquid 200 mg PO Q4H PRN (Reason: Cough) RF: 0 magnesium hydroxide [Milk of Magnesia] 400 mg/5 mL Suspension 30 ml PO DAILY PRN (Reason: Constipation) RF: 0 bisacodyl 10 mg Suppository 10 mg HI DAILY PRN (Reason: Constipation) RF: 0 ferrous sulfate 325 mg (65 mg iron) Tablet 325 mg PO DAILY RF: 0 buspirone 10 mg Tablet 10 mg PO BID RF: 0 divalproex [Depakote] 125 mg Tablet,Delayed Release (Dr/Ec) 125 mg PO DAILY@1999 RF: 0 ascorbic acid (vitamin C) [Vitamin C] 500 mg Tablet Extended Release 500 mg PO DAILY RF: 0 cholecalciferol (vitamin D3) 25 mcg (1,000 unit) Capsule 25 mcg PO DAILY RF: 0 pregabalin [Lyrica] 100 mg Capsule 100 mg PO TID RF: 0 sertraline 100 mg Tablet 100 mg PO DAILY RF: 0 guaifenesin [Mucinex] 600 mg Tablet Extended Release 12hr 600 mg PO BID RF: 0 gabapentin 800 mg Tablet 800 mg PO TID RF: 0 glucagon 1 mg/mL Recon Soln 1 mg IM NEEDED RF: 0 acetaminophen 325 mg Tablet 650 mg PO Q6H PRN (Reason: elevated temp or pain) RF: 0 ertapenem [Invanz] 1 gram Recon Soln 1 g IV DAILY 42 Days RF: 0 oxycodone 5 mg tablet 5 mg PO Q6H PRN (Reason: Pain) RF: 0 doxycycline hyclate 100 mg capsule 100 mg PO BID Qty: 10 RF: 0 [employer] Wound Dressing Paste 1 appl topical TID Qty: 852 RF: 0 sennosides [senna] 8.6 mg Tablet 8.6 mg PO BEDTIME RF: 0 carvedilol 6.25 mg Tablet 6.25 mg PO BID RF: 0 aspirin 325 mg Tablet 325 mg PO DAILY RF: 0 glipizide 2.5 mg Tablet Extended Release 24hr 2.5 mg PO DAILY RF: 0
--- NOTE | 2020-11-26 12:28 | PC.NURSE ---
tough stick. no iv. unlabored resp. axox3 HR in 50's
[2020-11-26 12:47] LABS: INTERNATIONAL NORM RATIO 1.1 (0.9-1.1); Prothrombin Time 12.1 SEC (9.9-13.0)
[2020-11-26 12:52] LABS: MANUAL DIFF FLAG NO
[2020-11-26 12:52] LABS: Lactic Acid 0.4 mmol/L (0.5-2.0)
[2020-11-26 12:54] LABS: Ethanol < 10 mg/dL
[2020-11-26 12:59] LABS: Basophils Percent Auto 0.3 % (0-2); Eosinophils Absolute Auto 0.3 X10*3/uL (0.0-0.4); Eosinophils Percent Auto 4.1 % (0-4); Hematocrit 28.1 % (42-52); Imm Gran Abs Auto 0.16 X10*3/uL (0.00-0.03); Imm Gran Pct Auto 2.1 % (0.0-0.4); Lymphocytes Absolute Auto 1.1 X10*3/uL (1.2-4.9); Lymphocytes Percent Auto 13.8 % (20-40); Mean Corpuscular HGB Conc 28.5 g/dl (31.0-36.0); Mean Corpuscular Hemoglobin 22.1 pg (27.0-33.0); Mean Corpuscular Volume 77.6 fL (80-98); Mean Platelet Volume 10.1 fL (9.4-12.4); Monocytes Absolute Auto 0.4 X10*3/uL (0.1-1.2); Monocytes Percent Auto 5.4 % (2-11); NRBC Pct Auto 0.3 /100WBC (0.0-0.2); Neutrophils Absolute Auto 5.7 X10*3/uL (2.0-8.3); Neutrophils Percent Auto 74.3 % (45-73); Platelet Count 201 X10*3/uL (160-400); Red Blood Count 3.62 X10*6/uL (4.60-5.80); Red Cell Distribution Width 18.2 % (11.0-16.0); White Blood Count 7.7 X10*3/uL (4.8-10.8)
[2020-11-26 13:01] LABS: Valproate 7.5 mcg/mL (50.0-100.0)
[2020-11-26 13:02] LABS: Alanine Aminotransferase 14 U/L (0-40); Albumin Level 2.9 g/dL (3.5-5.0); Alkaline Phosphatase 85 U/L (39-117); Anion Gap 13 (12-20); Aspartate Amino Transferase 13 U/L (5-37); Bilirubin Total < 0.2 mg/dL (0.0-1.0); Blood Urea Nitrogen 73 mg/dL (9-16); Calcium 7.8 mg/dL (8.4-10.2); Carbon Dioxide 23 mmol/L (22-29); Chloride 109 mmol/L (96-108); Creatinine Clr Calc Pharmacy 58.1; Estimated Glomerular Filt Rate 36; Glucose Random 104 mg/dL (60-115); Magnesium 2.1 mg/dL (1.6-2.6); Potassium 5.8 mmol/L (3.3-5.1); Sodium 139 mmol/L (135-145); Total Protein 6.3 g/dL (6.5-8.0)
[2020-11-26 13:16] LABS: Adenovirus PCR Not Detected (Not Detect.); Bordetella parapertussis PCR Not Detected (Not Detect.); Bordetella pertussis PCR Not Detected (Not Detect.); Chlamydia pneumoniae PCR Not Detected (Not Detect.); Coronavirus 229E PCR Not Detected (Not Detect.); Coronavirus HKU1 PCR Not Detected (Not Detect.); Coronavirus NL63 PCR Not Detected (Not Detect.); Coronavirus OC43 PCR Not Detected (Not Detect.); Human metapneumovirus PCR Not Detected (Not Detect.); Influenza A PCR Not Detected (Not Detect.); Influenza B PCR Not Detected (Not Detect.); Mycoplasma pneumoniae PCR Not Detected (Not Detect.); Parainfluenza 1 PCR Not Detected (Not Detect.); Parainfluenza 2 PCR Not Detected (Not Detect.); Parainfluenza 3 PCR Not Detected (Not Detect.); Parainfluenza 4 PCR Not Detected (Not Detect.); RSV PCR Not Detected (Not Detect.); Rhino/Enterovirus PCR Not Detected (Not Detect.); SARS-CoV-2 PCR Not Detected (Not Detect.)
[2020-11-26 13:18] LABS: Appearance Urine CLOUDY; Color Urine YELLOW; Glucose Urine UA NEG (NEG); Leukocyte Esterase Urine 2+ (NEG); Nitrite Urine NEG (NEG); PH 7.5 (5.0-8.0); UACC Culture Trigger YES; Urine Blood 2+ (NEG); Urine Ketones NEG (NEG); Urine Protein 2+ MG/DL (NEG-TRACE)
[2020-11-26 13:20] LABS: Bacteria Urine 4+ /LPF; Mucus Urine 3+ /LPF; RBC Urine 0 /HPF (0); WBC Urine 50-75 /HPF (0-4)
[2020-11-26 13:22] LABS: B Type Natriuretic Peptide 1403 pg/mL (<100); Troponin-I High Sensitivity 47.8 ng/L (<3.5-35.0)
[2020-11-26 13:28] LABS: Influenza A PCR NEGATIVE (Negative); Influenza B PCR NEGATIVE (Negative); Resp Syncy Virus RNA Qual PCR NEGATIVE (Negative); SARS COV2 PCR INHOUSE NEGATIVE (Negative)
[2020-11-26] MEDS: Furosemide 20 MG/2 ML VIAL IVPUSH (15:11)
[2020-11-26] MEDS: cefTRIAXone sodium 1 GM in 0.9 % Sodium Chloride 50 ML IV (16:48)
--- NOTE | 2020-11-26 16:49 | PC.NURSE ---
SITTING UPRIGHT. SKIN PWD UNLABORED RESP. PACED ANH RHYTHM ON MONITOR. REPORTS FEELING BETTER.
[2020-11-26 16:53] LABS: Venous Blood Gas Refer to POC result
[2020-11-26 16:53] LABS: VBG Base Excess 1.7 mmol/L; VBG HCO3 29 mmol/L (22-26); VBG pCO2 62 mmHg; VBG pH 7.27 (7.32-7.43); VBG pO2 43 mmHg
[2020-11-26 17:09] LABS: Amphetamine Screen Urine Not Detected (Not Detect); Barbiturates, Urine Not Detected (Not Detect); Benzodiazepines Screen Urine Not Detected (Not Detect); Cannabinoid Screen Urine POSITIVE (Not Detect); Cocaine Screen Urine Not Detected (Not Detect); Fentanyl, urine Not Detected (Not Detect); Opiate Screen Urine Not Detected (Not Detect); Phencyclidine Screen Urine Not Detected (Not Detect)
[2020-11-26 17:33] LABS: Troponin-I High Sensitivity 58.9 ng/L (<3.5-35.0)
[2020-11-26 18:09] LABS: D Dimer 2086 NG/ML
--- NOTE | 2020-11-26 18:35 | PC.NURSE ---
off unit to buck with Mauro PARKER.
--- NOTE | 2020-11-26 21:23 | PHA.MEDREC ---
Pharmacy Consult ? Medication Reconciliation Pharmacy has completed the medication reconciliation. There are no remarkable issues for provider's attention. Patient came from [facility] with a medication list. Lay Johnson, BhargaviD
[2020-11-26] MEDS: 0.9 % Sodium Chloride 1,000 ML 50 ML IVCONT (21:31)
[2020-11-26] MEDS: Sodium Zirconium Cyclosilicate 10 GM POWD.PACK PO (21:31)
--- NOTE | 2020-11-26 21:59 | PC.NURSE ---
vss, colostomy bag emptied. pt given food and po fluids. awaiting bed assignment for admission, aware of plan of care. vss, skin pwd respirations even unlabored.
--- NOTE | 2020-11-26 22:07 | P.HPHOSP_ITS ---
History of Present Illness Date of Service: 11/26/20 Chief Complaint: Hypoxia 65-year-old male with a past medical history of hypertension, hyperlipidemia, diabetes, history of rectal cancer status post colostomy, peripheral vascular disease, CHF with EF of 30-35%, history of diabetic foot ulcer/osteomyelitis, recently finished 6 weeks of antibiotic course; history of AFib, pacemaker; presented to the hospital with a chief complaint of near syncope. Reportedly when the patient was being transition from bed to chair at the [facility] patient became dizzy, eyes rolled out; did not lose consciousness; did not have any fall; and at that time on the vitals patient noted to have oxygen of 70% subsequently EMS was called in and sent him to the hospital for further evaluation. Initially EMS placed on 15 L of oxygen; patient on presentation to the ER patient's oxygen was 88% on room air and subsequently rhett darius on 2 L of oxygen via nasal cannula followed by weaned down and patient oxygen was 97% on room air; patient was noted to be in no acute distress. Breathing comfortably. Patient mentions that he does not feel any lightheadedness dizziness. Denies any cough or shortness of breath. Denies any chest pain or palpitations. Reports that he feels fine. Denies any nausea vomiting or diarrhea. Mentioned that he usually does not walk given his severe neuropathy; usually uses wheelchair; complains of mild vague gain. Review of all other systems is negative except mentioned above ER course: Per ER team patient on presentation noted to be in no acute distress; placed on supplemental oxygen and subsequently been down; V/Q scan was done which showed no evidence of pulmonary embolism; patient noted a elevated proBNP are 214 100 compared to the prior values of 700 and given a dose of Lasix if any CHF component to the hypoxia. Patient chest x-ray showed no acute findings; patient labs noted to have elevated creatinine of 1.9 compared to baseline of 0.9; also noted to have hyperkalemia with potassium of 5.8-EKG showed no acute findings; given Kayexalate. Patient had indeterminate troponins with no significant delta rise; EKG was nonischemic and patient denied any chest pain. Admitted to the hospital for further management. [facility] Medical History Anxiety Cardiomyopathy CHF (congestive heart failure) Diabetes History of sigmoidoscopy HTN (hypertension) Hypogonadism Obesity 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 Proteinuria Family History Mother Diabetes Pertinent family history: as above Surgical History History of amputation of foot through metatarsal bone History of cataract surgery History of colectomy History of colonoscopy History of reversal of ileostomy Social History Household Members: Other Housing: Intermediate Alcohol intake: former Patient Tobacco Use Status: Never used Tobacco Years Smoked: 15 years Second Hand Smoke Exposure: No Use of substances other than those prescribed or required for medical reasons: No Advance Directives: Yes Advance Directives on File: Yes Advance Directives Date on File: 09/01/20 service: Yes Current occupational status: disabled Meds Allergies Allergy/AdvReac Type Severity Reaction Status Date / Time metformin AdvReac Unknown diarrhea Verified 10/20/20 15:14 Active Medications: Current Medications Acetaminophen (Acetaminophen 325 Mg Tablet) 650 mg PO Q6H PRN PRN Reason: Pain, Mild (Pain Scale 1-3) Heparin Sodium (Porcine) (Heparin Sodium,Porcine 5,000 Unit/Ml Vial) 5,000 unit SUBCUT Q8H [facility] Last Admin: 11/26/20 21:34 Dose: Not Given Documented by: Sodium Chloride (Ns) 1,000 mls @ 50 mls/hr IVCONT .Q20H [facility] Last Admin: 11/26/20 21:31 Dose: 50 mls/hr Documented by: Melatonin (Melatonin 3 Mg Tablet) 6 mg PO BEDTIME PRN PRN Reason: Insomnia Senna (Sennosides 8.6 Mg Tablet) 17.2 mg PO BEDTIME PRN PRN Reason: Constipation Sodium Chloride (0.9 % Sodium Chloride Flush 3 Ml Syringe) 3 ml IVFLUSH QSHIFT [facility] Home Medications Medication Instructions Recorded Confirmed Last Taken Type aspirin 325 mg tablet 325 mg PO DAILY 11/29/19 11/26/20 11/26/20 History carvedilol 6.25 mg tablet 6.25 mg PO BID 11/29/19 11/26/20 11/26/20 History glipizide 2.5 mg tablet, extended 2.5 mg PO DAILY 11/29/19 11/26/20 11/26/20 History release 24 hr sennosides 8.6 mg tablet (senna) 8.6 mg PO BEDTIME 11/29/19 11/26/20 11/25/20 History amlodipine 5 mg tablet 1 tab PO DAILY 08/16/20 11/26/20 11/26/20 History ascorbic acid (vitamin C) 500 mg 500 mg PO DAILY 08/16/20 11/26/20 11/26/20 History tablet,extended release (Vitamin C ER) bisacodyl 10 mg rectal suppository 10 mg AL DAILY PRN 08/16/20 11/26/20 Unknown History buspirone 10 mg tablet 10 mg PO BID 08/16/20 11/26/20 11/26/20 History cholecalciferol (vitamin D3) 25 25 mcg PO DAILY 08/16/20 11/26/20 11/26/20 History mcg (1,000 unit) capsule divalproex 125 mg tablet,delayed 125 mg PO DAILY@199908/16/20 11/26/20 08/31/20 History release (Depakote) ferrous sulfate 325 mg (65 mg 325 mg PO DAILY 08/16/20 11/26/20 11/26/20 History iron) tablet guaifenesin 100 mg/5 mL oral liquid 200 mg PO Q4H PRN 08/16/20 11/26/20 Unknown History loperamide 2 mg tablet 2 mg BID PRN 08/16/20 11/26/20 Unknown History magnesium hydroxide 400 mg/5 mL 30 ml PO DAILY PRN 08/16/20 11/26/20 Unknown History oral suspension (Milk of Magnesia) melatonin 3 mg tablet 9 mg BEDTIME 08/16/20 11/26/20 11/25/20 History pregabalin 100 mg capsule (Lyrica) 100 mg PO TID 08/16/20 11/26/20 11/26/20 History tramadol 50 mg tablet 50 mg PO Q6H PRN 08/16/20 11/26/20 Unknown History acetaminophen 325 mg tablet 650 mg PO Q6H PRN 08/17/20 11/26/20 Unknown History gabapentin 800 mg tablet 800 mg PO TID 08/17/20 11/26/20 11/26/20 History glucagon 1 mg/mL solution for 1 mg IM NEEDED 08/17/20 11/26/20 Unknown History injection guaifenesin 600 mg tablet, 600 mg PO BID 08/17/20 11/26/20 11/26/20 History extended release 12 hr (Mucinex) sertraline 100 mg tablet 100 mg PO DAILY 08/17/20 11/26/20 11/26/20 History oxycodone 5 mg tablet 5 mg PO Q6H PRN 09/01/20 11/26/20 Unknown History Lactobacillus acidophilus 1,000 mmu cells PO BID 11/26/20 11/26/20 11/26/20 History sertraline 50 mg tablet 50 mg PO DAILY 11/26/20 11/26/20 11/26/20 History Physical Exam Vital Signs and Narrative: Vital Signs: Last Vital Signs Temp 97.8 F 11/26/20 21:41 Pulse 53 11/26/20 21:41 Resp 16 11/26/20 21:41 BP 169/63 H 11/26/20 21:41 Pulse Ox 97 11/26/20 21:41 Oxygen Flow Rate 2 11/26/20 11:44 Body Mass Index 37.5 Gen: Appears be in no acute distress HEENT: NCAT, Moist mucosa. Pulmonary: Vesicular breath sounds, fair air entry CVS: Normal S1-S2 Abdomen: BS+, Soft, Nontender Extremities: Warm well perfused; 2+ pitting edema noted Neuro: Alert and awake. Grossly nonfocal Patient examined along with the RN at bedside; Patient buttocks noted to have erythematous skin-chronic similar to the prior pictures from last admission. Results Labs CBC and Chem 7: 11/26/20 12:44 11/26/20 12:24 Labs: Laboratory Results - last 24 hr 11/26/20 11/26/20 11/26/20 12:24 12:24 12:24 MCV MCH MCHC RDW Plt Count MPV Immature Gran % (Auto) Neut % (Auto) Lymph % (Auto) Garfield % (Auto) Eos % (Auto) Baso % (Auto) Lymph # (Auto) Garfield # (Auto) Eos # (Auto) Baso # (Auto) Abs Immat Gran (auto) Absolute Neuts (auto) Absolute Nucleated RBC Nucleated RBC % (auto) PT 12.1 INR 1.1 APTT 40.0 H D-Dimer 2086 VBG pH VBG pCO2 VBG pO2 VBG HCO3 VBG O2 Saturation VBG Base Excess Anion Gap Estim Creat Clear Calc Estimated GFR Random Glucose Lactic Acid 0.4 L Calcium Magnesium Total Bilirubin AST ALT Alkaline Phosphatase Troponin I High Sens B-Natriuretic Peptide Total Protein Albumin Urine Color Urine Appearance Urine pH Ur Specific Irving Urine Protein Urine Glucose (UA) Urine Ketones Urine Blood Urine Nitrite Ur Leukocyte Esterase Urine RBC Urine WBC Ur Squamous Epith Cells Urine Bacteria Urine Mucus Urine Opiates Screen Urine Fentanyl Screen Ur Barbiturates Screen Valproic Acid Ur Phencyclidine Scrn Ur Amphetamines Screen U Benzodiazepines Scrn Urine Cocaine Screen U Marijuana (THC) Screen Ethyl Alcohol Respiratory Panel Ortiz Adenovirus (Rapid PCR) B.pert (TEM-PCR) B.parapertussis DNA PCR C. pneumoniae DNA (PCR) Coronavirus (PCR) NEGATIVE Coronavirus OC43 (PCR) Coronavirus HKU1 (PCR) Coronavirus 229E (PCR) Coronavirus NL63 (PCR) Human Metapneumovir PCR Influenza A (RT-PCR) Influenza Type A (PCR) NEGATIVE Influenza B (RT-PCR) Influenza Type B (PCR) NEGATIVE M. pneumoniae (PCR) Parainfluenza 1 (PCR) Parainfluenza 2 (PCR) Parainfluenza 3 (PCR) Parainfluenza 4 (PCR) RSV (PCR) RSV RNA Qual (PCR) NEGATIVE Entero/Rhino (PCR) SARS-CoV-2 RNA (RT-PCR) 11/26/20 11/26/20 11/26/20 12:24 12:24 12:44 MCV 77.6 L MCH 22.1 L MCHC 28.5 L RDW 18.2 H Plt Count 201 MPV 10.1 Immature Gran % (Auto) 2.1 H Neut % (Auto) 74.3 H Lymph % (Auto) 13.8 L Garfield % (Auto) 5.4 Eos % (Auto) 4.1 H Baso % (Auto) 0.3 Lymph # (Auto) 1.1 L Garfield # (Auto) 0.4 Eos # (Auto) 0.3 Baso # (Auto) 0.0 Abs Immat Gran (auto) 0.16 H Absolute Neuts (auto) 5.7 Absolute Nucleated RBC 0.020 H Nucleated RBC % (auto) 0.3 H PT INR APTT D-Dimer VBG pH VBG pCO2 VBG pO2 VBG HCO3 VBG O2 Saturation VBG Base Excess Anion Gap 13 Estim Creat Clear Calc 58.1 Estimated GFR 36 Random Glucose 104 Lactic Acid Calcium 7.8 L D Magnesium 2.1 Total Bilirubin < 0.2 AST 13 ALT 14 Alkaline Phosphatase 85 Troponin I High Sens B-Natriuretic Peptide Total Protein 6.3 L Albumin 2.9 L Urine Color Urine Appearance Urine pH Ur Specific Irving Urine Protein Urine Glucose (UA) Urine Ketones Urine Blood Urine Nitrite Ur Leukocyte Esterase Urine RBC Urine WBC Ur Squamous Epith Cells Urine Bacteria Urine Mucus Urine Opiates Screen Urine Fentanyl Screen Ur Barbiturates Screen Valproic Acid 7.5 L Ur Phencyclidine Scrn Ur Amphetamines Screen U Benzodiazepines Scrn Urine Cocaine Screen U Marijuana (THC) Screen Ethyl Alcohol < 10 Respiratory Panel Ortiz Adenovirus (Rapid PCR) B.pert (TEM-PCR) B.parapertussis DNA PCR C. pneumoniae DNA (PCR) Coronavirus (PCR) Coronavirus OC43 (PCR) Coronavirus HKU1 (PCR) Coronavirus 229E (PCR) Coronavirus NL63 (PCR) Human Metapneumovir PCR Influenza A (RT-PCR) Influenza Type A (PCR) Influenza B (RT-PCR) Influenza Type B (PCR) M. pneumoniae (PCR) Parainfluenza 1 (PCR) Parainfluenza 2 (PCR) Parainfluenza 3 (PCR) Parainfluenza 4 (PCR) RSV (PCR) RSV RNA Qual (PCR) Entero/Rhino (PCR) SARS-CoV-2 RNA (RT-PCR) 11/26/20 11/26/20 11/26/20 12:44 12:44 12:47 MCV MCH MCHC RDW Plt Count MPV Immature Gran % (Auto) Neut % (Auto) Lymph % (Auto) Garfield % (Auto) Eos % (Auto) Baso % (Auto) Lymph # (Auto) Garfield # (Auto) Eos # (Auto) Baso # (Auto) Abs Immat Gran (auto) Absolute Neuts (auto) Absolute Nucleated RBC Nucleated RBC % (auto) PT INR APTT D-Dimer VBG pH VBG pCO2 VBG pO2 VBG HCO3 VBG O2 Saturation VBG Base Excess Anion Gap Estim Creat Clear Calc Estimated GFR Random Glucose Lactic Acid Calcium Magnesium Total Bilirubin AST ALT Alkaline Phosphatase Troponin I High Sens 47.8 H* D B-Natriuretic Peptide 1403 H Total Protein Albumin Urine Color YELLOW Urine Appearance CLOUDY Urine pH 7.5 Ur Specific Irving 1.020 Urine Protein 2+ H Urine Glucose (UA) NEG Urine Ketones NEG Urine Blood 2+ H Urine Nitrite NEG Ur Leukocyte Esterase 2+ H Urine RBC 0 Urine WBC 50-75 H Ur Squamous Epith Cells NONE Urine Bacteria 4+ Urine Mucus 3+ Urine Opiates Screen Urine Fentanyl Screen Ur Barbiturates Screen Valproic Acid Ur Phencyclidine Scrn Ur Amphetamines Screen U Benzodiazepines Scrn Urine Cocaine Screen U Marijuana (THC) Screen Ethyl Alcohol Respiratory Panel Ortiz See Note Adenovirus (Rapid PCR) Not Detected B.pert (TEM-PCR) Not Detected B.parapertussis DNA PCR Not Detected C. pneumoniae DNA (PCR) Not Detected Coronavirus (PCR) Coronavirus OC43 (PCR) Not Detected Coronavirus HKU1 (PCR) Not Detected Coronavirus 229E (PCR) Not Detected Coronavirus NL63 (PCR) Not Detected Human Metapneumovir PCR Not Detected Influenza A (RT-PCR) Not Detected Influenza Type A (PCR) Influenza B (RT-PCR) Not Detected Influenza Type B (PCR) M. pneumoniae (PCR) Not Detected Parainfluenza 1 (PCR) Not Detected Parainfluenza 2 (PCR) Not Detected Parainfluenza 3 (PCR) Not Detected Parainfluenza 4 (PCR) Not Detected RSV (PCR) Not Detected RSV RNA Qual (PCR) Entero/Rhino (PCR) Not Detected SARS-CoV-2 RNA (RT-PCR) Not Detected 11/26/20 11/26/20 11/26/20 16:38 16:38 16:49 MCV MCH MCHC RDW Plt Count MPV Immature Gran % (Auto) Neut % (Auto) Lymph % (Auto) Garfield % (Auto) Eos % (Auto) Baso % (Auto) Lymph # (Auto) Garfield # (Auto) Eos # (Auto) Baso # (Auto) Abs Immat Gran (auto) Absolute Neuts (auto) Absolute Nucleated RBC Nucleated RBC % (auto) PT INR APTT D-Dimer VBG pH 7.27 L VBG pCO2 62 VBG pO2 43 VBG HCO3 29 H VBG O2 Saturation 64.0 VBG Base Excess 1.7 Anion Gap Estim Creat Clear Calc Estimated GFR Random Glucose Lactic Acid Calcium Magnesium Total Bilirubin AST ALT Alkaline Phosphatase Troponin I High Sens 58.9 H* B-Natriuretic Peptide Total Protein Albumin Urine Color Urine Appearance Urine pH Ur Specific Irving Urine Protein Urine Glucose (UA) Urine Ketones Urine Blood Urine Nitrite Ur Leukocyte Esterase Urine RBC Urine WBC Ur Squamous Epith Cells Urine Bacteria Urine Mucus Urine Opiates Screen Not Detected Urine Fentanyl Screen Not Detected Ur Barbiturates Screen Not Detected Valproic Acid Ur Phencyclidine Scrn Not Detected Ur Amphetamines Screen Not Detected U Benzodiazepines Scrn Not Detected Urine Cocaine Screen Not Detected U Marijuana (THC) Screen POSITIVE H Ethyl Alcohol Respiratory Panel Ortiz Adenovirus (Rapid PCR) B.pert (TEM-PCR) B.parapertussis DNA PCR C. pneumoniae DNA (PCR) Coronavirus (PCR) Coronavirus OC43 (PCR) Coronavirus HKU1 (PCR) Coronavirus 229E (PCR) Coronavirus NL63 (PCR) Human Metapneumovir PCR Influenza A (RT-PCR) Influenza Type A (PCR) Influenza B (RT-PCR) Influenza Type B (PCR) M. pneumoniae (PCR) Parainfluenza 1 (PCR) Parainfluenza 2 (PCR) Parainfluenza 3 (PCR) Parainfluenza 4 (PCR) RSV (PCR) RSV RNA Qual (PCR) Entero/Rhino (PCR) SARS-CoV-2 RNA (RT-PCR) Imaging Radiologist's Impressions: Impressions Chest X-Ray 11/26/20 11:41 IMPRESSION: Unremarkable chest examination. Pulmonary Perfusion Imaging 11/26/20 17:22 IMPRESSION: Normal radionuclide lung perfusion scan. Assessment and Plan (1) Hypoxia: Status: Acute (2) Hyperkalemia: Status: Acute (3) FAM (acute kidney injury): Status: Acute (4) Diabetes: Status: Chronic (5) Cardiomyopathy: Status: Chronic 65-year-old male with a past medical history of hypertension, hyperlipidemia, diabetes, history of rectal cancer status post colostomy, peripheral vascular disease, CHF with EF of 55%, history of diabetic foot ulcer/osteomyelitis, recently finished 6 weeks of antibiotic course; history of AFib, pacemaker; presented to the hospital with a chief complaint of near syncope. FAM: Likely prerenal. Avoid nephrotoxins. Monitor renal function. Hyperkalemia: No EKG changes. Monitor on telemetry. Patient received Kayexalate. Follow up BMP. Hypoxia: Patient's chest x-ray showed no evidence of pulmonary congestion. Patient denies ERICKA. Denies any respiratory complaints. Breathing comfortably. Chest x-ray showed no acute findings. V/Q scan negative for pulmonary embolism. Patient currently saturating 98% on room air. Recommended outpatient pulmonary function tests Indeterminate troponins: Patient denies any chest pain. Troponins platelet. EKG V paced. Cardiology consult. Echocardiogram from July 2020-showed EF of 50-55%; no regional wall motion abnormalities; mildly increased left ventricular wall thickness; diastolic function indeterminate History of decubitus ulcer: Noted to have rash on the buttocks. Chronic. Supportive care per RN. History of diabetes: Insulin sliding scale. Hold home glipizide History of CHF: Patient has mild pedal edema. Lungs clear. Patient received Lasix in the ER. Will continue to monitor. For all other chronic conditions, home medications will be continued DVT prophylaxis: Subcu heparin Code status: Full code Quality Stroke Does the patient have a stroke diagnosis?: No VTE Prior VTE?: No VTE Risk Level:: Medical - moderate - high VTE Device Contraindication: Treatment Not Indicated VTE Drug Contraindication: N/A - Med Ordered
[2020-11-26 23:50] LABS: ABG Refer to POC result
[2020-11-27] VITALS (10 sets, daily range): BP systolic 134–164; BP diastolic 64–87; PULSE 51–120; RESP 18–22; TEMP 35.6–37.9; O2SAT 86–95; BMI 36.7
--- NOTE | 2020-11-27 | ECG_ITS ---
Test Reason : Tachycardia Blood Pressure : / mmHG Vent. Rate : 120 BPM Atrial Rate : 144 BPM P-R Int : 000 ms QRS Dur : 156 ms QT Int : 372 ms P-R-T Axes : 000 269 070 degrees QTc Int : 525 ms Ventricular-paced rhythm Abnormal ECG When compared with ECG of 26-NOV-2020 11:46, Vent. rate has increased BY 56 BPM Referred By: Rainer Calvillo Electronically Signed By:DAVID ESPINO
[2020-11-27 00:17] LABS: Anion Gap 12 (12-20); Blood Urea Nitrogen 63 mg/dL (9-16); Calcium 7.8 mg/dL (8.4-10.2); Carbon Dioxide 24 mmol/L (22-29); Chloride 110 mmol/L (96-108); Estimated Glomerular Filt Rate 49; Glucose Random 156 mg/dL (60-115); Potassium 4.2 mmol/L (3.3-5.1); Sodium 142 mmol/L (135-145)
[2020-11-27 07:22] LABS: MANUAL DIFF FLAG NO
[2020-11-27 07:28] LABS: Basophils Percent Auto 0.3 % (0-2); Eosinophils Absolute Auto 0.5 X10*3/uL (0.0-0.4); Eosinophils Percent Auto 7.6 % (0-4); Hematocrit 30.7 % (42-52); Hemoglobin 8.7 g/dl (14.0-18.0); Imm Gran Abs Auto 0.11 X10*3/uL (0.00-0.03); Imm Gran Pct Auto 1.7 % (0.0-0.4); Lymphocytes Absolute Auto 0.9 X10*3/uL (1.2-4.9); Mean Corpuscular HGB Conc 28.3 g/dl (31.0-36.0); Mean Corpuscular Hemoglobin 22.1 pg (27.0-33.0); Mean Corpuscular Volume 77.9 fL (80-98); Mean Platelet Volume 10.6 fL (9.4-12.4); Monocytes Absolute Auto 0.5 X10*3/uL (0.1-1.2); Monocytes Percent Auto 7.5 % (2-11); Neutrophils Absolute Auto 4.4 X10*3/uL (2.0-8.3); Neutrophils Percent Auto 68.9 % (45-73); Platelet Count 224 X10*3/uL (160-400); Red Blood Count 3.94 X10*6/uL (4.60-5.80); Red Cell Distribution Width 18.4 % (11.0-16.0); White Blood Count 6.4 X10*3/uL (4.8-10.8)
[2020-11-27 07:36] LABS: Glucose, Whole Blood 88 mg/dL (60-115)
[2020-11-27 07:55] LABS: Anion Gap 11 (12-20); Blood Urea Nitrogen 59 mg/dL (9-16); Calcium 8.2 mg/dL (8.4-10.2); Carbon Dioxide 27 mmol/L (22-29); Chloride 112 mmol/L (96-108); Creatinine Clr Calc Pharmacy 90.7; Estimated Glomerular Filt Rate > 60; Glucose Random 98 mg/dL (60-115); Potassium 4.8 mmol/L (3.3-5.1); Sodium 145 mmol/L (135-145)
--- NOTE | 2020-11-27 08:04 | P.PNIM_ITS ---
Subjective Subjective Date of Service: 11/27/20 Interval History: Pt denies dyspnea or cough No chest pain No lightheadedness, even at the time of the inciting event Chronic leg neuropathy and edema SCr improved Review of Systems Review of Systems: Yes all other systems are reviewed and are negative Physical Exam Vital Signs: Vital Signs: Last Vital Signs Temp 97.5 F 11/27/20 03:33 Pulse 51 11/27/20 03:33 Resp 18 11/27/20 03:33 BP 148/67 H 11/27/20 03:33 Pulse Ox 91 L 11/27/20 03:33 Oxygen Flow Rate 2 11/26/20 11:44 Body Mass Index 36.7 Gen: in no acute distress HEENT: sclera anicteric, moist mucus membranes Neck: supple Lungs: clear to auscultation bilaterally Heart: regular rate and rhythm, no murmurs Abd: soft, non-tender, non-distende, obese, colostomy draining liquid brown stool Ext: trace bilateral lower extremity edema Skin: warm/well-perfused Neuro: alert and oriented x3, no focal findings Psych: appropriate affect Objective Data Active Medications Acetaminophen (Acetaminophen 325 Mg Tablet) 650 mg PO Q6H PRN PRN Reason: Pain, Mild (Pain Scale 1-3) Acetaminophen (Acetaminophen 325 Mg Tablet) 650 mg PO Q6H PRN PRN Reason: elevated temp or pain Amlodipine Besylate (Amlodipine Besylate 5 Mg Tablet) 5 mg PO DAILY [facility]; Protocol Aspirin (Aspirin 325 Mg Tablet) 325 mg PO DAILY [facility] Bisacodyl (Bisacodyl 10 Mg Supp.Rect) 10 mg ME DAILY PRN PRN Reason: Constipation Buspirone HCl (Buspirone Hcl 10 Mg Tablet) 10 mg PO BID [facility] Carvedilol (Carvedilol 6.25 Mg Tablet) 6.25 mg PO BID [facility]; Protocol Dextrose (Dextrose 50 % 25 Gm/50 Ml Vial) 25 gm IVPUSH Q15M PRN; Protocol PRN Reason: per Hypoglycemia Standing Ord. Divalproex Sodium (Divalproex Sodium Sprinkles 125 Mg Cap.Spr) 125 mg PO DAILY@2000 [facility] Ferrous Sulfate (Ferrous Sulfate 324 Mg Tablet.) 324 mg PO DAILY [facility] Gabapentin (Gabapentin 400 Mg Capsule) 800 mg PO TID [facility] Glucose (Glucose Gel 15 Gm Gel..Gram.) 15 gm PO Q15M PRN; Protocol PRN Reason: per Hypoglycemia Standing Ord. Guaifenesin (Guaifenesin 100 Mg/5 Ml Liquid) 10 ml PO Q4H PRN PRN Reason: Cough Guaifenesin (Guaifenesin La 600 Mg Tab.Er.12h) 600 mg PO BID [facility] Heparin Sodium (Porcine) (Heparin Sodium,Porcine 5,000 Unit/Ml Vial) 5,000 unit SUBCUT Q8H [facility] Last Admin: 11/27/20 05:46 Dose: Not Given Documented by: GARDENIA Non-Admin Reason: Patient Refused Insulin Human Lispro (Insulin Lispro 100 Unit/Ml 3 Ml Vial) 0 unit SUBCUT QIDACHS [facility]; Protocol Last Admin: 11/27/20 07:54 Dose: Not Given Documented by: JENNIFER Non-Admin Reason: No Insulin Coverage Magnesium Hydroxide (Milk Of Magnesia 30 Ml Oral.Susp) 30 ml PO DAILY PRN PRN Reason: Constipation Melatonin (Melatonin 3 Mg Tablet) 6 mg PO BEDTIME PRN PRN Reason: Insomnia Oxycodone HCl (Oxycodone Hcl Immed Release 5 Mg Tablet) 5 mg PO Q6H PRN PRN Reason: Pain Pregabalin (Pregabalin 100 Mg Capsule) 100 mg PO TID [facility] Senna (Sennosides 8.6 Mg Tablet) 17.2 mg PO BEDTIME PRN PRN Reason: Constipation Senna (Sennosides 8.6 Mg Tablet) 8.6 mg PO BEDTIME [facility] Sertraline HCl (Sertraline Hcl 50 Mg Tablet) 50 mg PO DAILY [facility] Sertraline HCl (Sertraline Hcl 100 Mg Tablet) 100 mg PO DAILY [facility] Sodium Bicarbonate (Sodium Bicarbonate 650 Mg Tablet) 650 mg PO TID [facility] Sodium Chloride (0.9 % Sodium Chloride Flush 3 Ml Syringe) 3 ml IVFLUSH QSHIFT [facility] Last Admin: 11/27/20 02:47 Dose: Not Given Documented by: GARDENIA Non-Admin Reason: IV Running Tramadol HCl (Tramadol Hcl 50 Mg Tablet) 50 mg PO Q6H PRN PRN Reason: Pain Vitamin D (Cholecalciferol (Vitamin D3) 25 Mcg Tablet) 25 mcg PO DAILY [facility] Labs CBC & Chem 7: 11/27/20 07:04 11/27/20 07:04 Labs: Laboratory Results - last 24 hr 09/30/21 09/30/21 09/30/21 12:24 12:24 12:24 MCV MCH MCHC RDW Plt Count MPV Immature Gran % (Auto) Neut % (Auto) Lymph % (Auto) [place] % (Auto) Eos % (Auto) Baso % (Auto) Lymph # (Auto) [place] # (Auto) Eos # (Auto) Baso # (Auto) Abs Immat Gran (auto) Absolute Neuts (auto) Absolute Nucleated RBC Nucleated RBC % (auto) PT 12.1 INR 1.1 APTT 40.0 H D-Dimer 2086 VBG pH VBG pCO2 VBG pO2 VBG HCO3 VBG O2 Saturation VBG Base Excess Anion Gap Estim Creat Clear Calc Estimated GFR POC Glucose Random Glucose Lactic Acid 0.4 L Calcium Magnesium Total Bilirubin AST ALT Alkaline Phosphatase Troponin I High Sens B-Natriuretic Peptide Total Protein Albumin Urine Color Urine Appearance Urine pH Ur Specific [place] Urine Protein Urine Glucose (UA) Urine Ketones Urine Blood Urine Nitrite Ur Leukocyte Esterase Urine RBC Urine WBC Ur Squamous Epith Cells Urine Bacteria Urine Mucus Urine Opiates Screen Urine Fentanyl Screen Ur Barbiturates Screen Valproic Acid Ur Phencyclidine Scrn Ur Amphetamines Screen U Benzodiazepines Scrn Urine Cocaine Screen U Marijuana (THC) Screen Ethyl Alcohol Respiratory Panel [place] Adenovirus (Rapid PCR) B.pert (TEM-PCR) B.parapertussis DNA PCR C. pneumoniae DNA (PCR) Coronavirus (PCR) NEGATIVE Coronavirus OC43 (PCR) Coronavirus HKU1 (PCR) Coronavirus 229E (PCR) Coronavirus NL63 (PCR) Human Metapneumovir PCR Influenza A (RT-PCR) Influenza Type A (PCR) NEGATIVE Influenza B (RT-PCR) Influenza Type B (PCR) NEGATIVE M. pneumoniae (PCR) Parainfluenza 1 (PCR) Parainfluenza 2 (PCR) Parainfluenza 3 (PCR) Parainfluenza 4 (PCR) RSV (PCR) RSV RNA Qual (PCR) NEGATIVE Entero/Rhino (PCR) SARS-CoV-2 RNA (RT-PCR) 11/26/20 11/26/20 11/26/20 12:24 12:24 12:44 MCV 77.6 L MCH 22.1 L MCHC 28.5 L RDW 18.2 H Plt Count 201 MPV 10.1 Immature Gran % (Auto) 2.1 H Neut % (Auto) 74.3 H Lymph % (Auto) 13.8 L [place] % (Auto) 5.4 Eos % (Auto) 4.1 H Baso % (Auto) 0.3 Lymph # (Auto) 1.1 L [place] # (Auto) 0.4 Eos # (Auto) 0.3 Baso # (Auto) 0.0 Abs Immat Gran (auto) 0.16 H Absolute Neuts (auto) 5.7 Absolute Nucleated RBC 0.020 H Nucleated RBC % (auto) 0.3 H PT INR APTT D-Dimer VBG pH VBG pCO2 VBG pO2 VBG HCO3 VBG O2 Saturation VBG Base Excess Anion Gap 13 Estim Creat Clear Calc 58.1 Estimated GFR 36 POC Glucose Random Glucose 104 Lactic Acid Calcium 7.8 L D Magnesium 2.1 Total Bilirubin < 0.2 AST 13 ALT 14 Alkaline Phosphatase 85 Troponin I High Sens B-Natriuretic Peptide Total Protein 6.3 L Albumin 2.9 L Urine Color Urine Appearance Urine pH Ur Specific [place] Urine Protein Urine Glucose (UA) Urine Ketones Urine Blood Urine Nitrite Ur Leukocyte Esterase Urine RBC Urine WBC Ur Squamous Epith Cells Urine Bacteria Urine Mucus Urine Opiates Screen Urine Fentanyl Screen Ur Barbiturates Screen Valproic Acid 7.5 L Ur Phencyclidine Scrn Ur Amphetamines Screen U Benzodiazepines Scrn Urine Cocaine Screen U Marijuana (THC) Screen Ethyl Alcohol < 10 Respiratory Panel [place] Adenovirus (Rapid PCR) B.pert (TEM-PCR) B.parapertussis DNA PCR C. pneumoniae DNA (PCR) Coronavirus (PCR) Coronavirus OC43 (PCR) Coronavirus HKU1 (PCR) Coronavirus 229E (PCR) Coronavirus NL63 (PCR) Human Metapneumovir PCR Influenza A (RT-PCR) Influenza Type A (PCR) Influenza B (RT-PCR) Influenza Type B (PCR) M. pneumoniae (PCR) Parainfluenza 1 (PCR) Parainfluenza 2 (PCR) Parainfluenza 3 (PCR) Parainfluenza 4 (PCR) RSV (PCR) RSV RNA Qual (PCR) Entero/Rhino (PCR) SARS-CoV-2 RNA (RT-PCR) 11/26/20 11/26/20 11/26/20 12:44 12:44 12:47 MCV MCH MCHC RDW Plt Count MPV Immature Gran % (Auto) Neut % (Auto) Lymph % (Auto) [place] % (Auto) Eos % (Auto) Baso % (Auto) Lymph # (Auto) [place] # (Auto) Eos # (Auto) Baso # (Auto) Abs Immat Gran (auto) Absolute Neuts (auto) Absolute Nucleated RBC Nucleated RBC % (auto) PT INR APTT D-Dimer VBG pH VBG pCO2 VBG pO2 VBG HCO3 VBG O2 Saturation VBG Base Excess Anion Gap Estim Creat Clear Calc Estimated GFR POC Glucose Random Glucose Lactic Acid Calcium Magnesium Total Bilirubin AST ALT Alkaline Phosphatase Troponin I High Sens 47.8 H* D B-Natriuretic Peptide 1403 H Total Protein Albumin Urine Color YELLOW Urine Appearance CLOUDY Urine pH 7.5 Ur Specific [place] 1.020 Urine Protein 2+ H Urine Glucose (UA) NEG Urine Ketones NEG Urine Blood 2+ H Urine Nitrite NEG Ur Leukocyte Esterase 2+ H Urine RBC 0 Urine WBC 50-75 H Ur Squamous Epith Cells NONE Urine Bacteria 4+ Urine Mucus 3+ Urine Opiates Screen Urine Fentanyl Screen Ur Barbiturates Screen Valproic Acid Ur Phencyclidine Scrn Ur Amphetamines Screen U Benzodiazepines Scrn Urine Cocaine Screen U Marijuana (THC) Screen Ethyl Alcohol Respiratory Panel [place] See Note Adenovirus (Rapid PCR) Not Detected B.pert (TEM-PCR) Not Detected B.parapertussis DNA PCR Not Detected C. pneumoniae DNA (PCR) Not Detected Coronavirus (PCR) Coronavirus OC43 (PCR) Not Detected Coronavirus HKU1 (PCR) Not Detected Coronavirus 229E (PCR) Not Detected Coronavirus NL63 (PCR) Not Detected Human Metapneumovir PCR Not Detected Influenza A (RT-PCR) Not Detected Influenza Type A (PCR) Influenza B (RT-PCR) Not Detected Influenza Type B (PCR) M. pneumoniae (PCR) Not Detected Parainfluenza 1 (PCR) Not Detected Parainfluenza 2 (PCR) Not Detected Parainfluenza 3 (PCR) Not Detected Parainfluenza 4 (PCR) Not Detected RSV (PCR) Not Detected RSV RNA Qual (PCR) Entero/Rhino (PCR) Not Detected SARS-CoV-2 RNA (RT-PCR) Not Detected 11/26/20 11/26/20 11/26/20 16:38 16:38 16:49 MCV MCH MCHC RDW Plt Count MPV Immature Gran % (Auto) Neut % (Auto) Lymph % (Auto) [place] % (Auto) Eos % (Auto) Baso % (Auto) Lymph # (Auto) [place] # (Auto) Eos # (Auto) Baso # (Auto) Abs Immat Gran (auto) Absolute Neuts (auto) Absolute Nucleated RBC Nucleated RBC % (auto) PT INR APTT D-Dimer VBG pH 7.27 L VBG pCO2 62 VBG pO2 43 VBG HCO3 29 H VBG O2 Saturation 64.0 VBG Base Excess 1.7 Anion Gap Estim Creat Clear Calc Estimated GFR POC Glucose Random Glucose Lactic Acid Calcium Magnesium Total Bilirubin AST ALT Alkaline Phosphatase Troponin I High Sens 58.9 H* B-Natriuretic Peptide Total Protein Albumin Urine Color Urine Appearance Urine pH Ur Specific [place] Urine Protein Urine Glucose (UA) Urine Ketones Urine Blood Urine Nitrite Ur Leukocyte Esterase Urine RBC Urine WBC Ur Squamous Epith Cells Urine Bacteria Urine Mucus Urine Opiates Screen Not Detected Urine Fentanyl Screen Not Detected Ur Barbiturates Screen Not Detected Valproic Acid Ur Phencyclidine Scrn Not Detected Ur Amphetamines Screen Not Detected U Benzodiazepines Scrn Not Detected Urine Cocaine Screen Not Detected U Marijuana (THC) Screen POSITIVE H Ethyl Alcohol Respiratory Panel [place] Adenovirus (Rapid PCR) B.pert (TEM-PCR) B.parapertussis DNA PCR C. pneumoniae DNA (PCR) Coronavirus (PCR) Coronavirus OC43 (PCR) Coronavirus HKU1 (PCR) Coronavirus 229E (PCR) Coronavirus NL63 (PCR) Human Metapneumovir PCR Influenza A (RT-PCR) Influenza Type A (PCR) Influenza B (RT-PCR) Influenza Type B (PCR) M. pneumoniae (PCR) Parainfluenza 1 (PCR) Parainfluenza 2 (PCR) Parainfluenza 3 (PCR) Parainfluenza 4 (PCR) RSV (PCR) RSV RNA Qual (PCR) Entero/Rhino (PCR) SARS-CoV-2 RNA (RT-PCR) 11/26/20 11/27/20 11/27/20 23:27 07:04 07:04 MCV 77.9 L MCH 22.1 L MCHC 28.3 L RDW 18.4 H Plt Count 224 MPV 10.6 Immature Gran % (Auto) 1.7 H Neut % (Auto) 68.9 Lymph % (Auto) 14.0 L [place] % (Auto) 7.5 Eos % (Auto) 7.6 H Baso % (Auto) 0.3 Lymph # (Auto) 0.9 L [place] # (Auto) 0.5 Eos # (Auto) 0.5 H Baso # (Auto) 0.0 Abs Immat Gran (auto) 0.11 H Absolute Neuts (auto) 4.4 Absolute Nucleated RBC 0.000 Nucleated RBC % (auto) 0.0 PT INR APTT D-Dimer VBG pH VBG pCO2 VBG pO2 VBG HCO3 VBG O2 Saturation VBG Base Excess Anion Gap 12 11 L Estim Creat Clear Calc 76.0 90.7 Estimated GFR 49 > 60 POC Glucose Random Glucose 156 H D 98 D Lactic Acid Calcium 7.8 L 8.2 L Magnesium Total Bilirubin AST ALT Alkaline Phosphatase Troponin I High Sens B-Natriuretic Peptide Total Protein Albumin Urine Color Urine Appearance Urine pH Ur Specific [place] Urine Protein Urine Glucose (UA) Urine Ketones Urine Blood Urine Nitrite Ur Leukocyte Esterase Urine RBC Urine WBC Ur Squamous Epith Cells Urine Bacteria Urine Mucus Urine Opiates Screen Urine Fentanyl Screen Ur Barbiturates Screen Valproic Acid Ur Phencyclidine Scrn Ur Amphetamines Screen U Benzodiazepines Scrn Urine Cocaine Screen U Marijuana (THC) Screen Ethyl Alcohol Respiratory Panel [place] Adenovirus (Rapid PCR) B.pert (TEM-PCR) B.parapertussis DNA PCR C. pneumoniae DNA (PCR) Coronavirus (PCR) Coronavirus OC43 (PCR) Coronavirus HKU1 (PCR) Coronavirus 229E (PCR) Coronavirus NL63 (PCR) Human Metapneumovir PCR Influenza A (RT-PCR) Influenza Type A (PCR) Influenza B (RT-PCR) Influenza Type B (PCR) M. pneumoniae (PCR) Parainfluenza 1 (PCR) Parainfluenza 2 (PCR) Parainfluenza 3 (PCR) Parainfluenza 4 (PCR) RSV (PCR) RSV RNA Qual (PCR) Entero/Rhino (PCR) SARS-CoV-2 RNA (RT-PCR) 11/27/20 07:27 MCV MCH MCHC RDW Plt Count MPV Immature Gran % (Auto) Neut % (Auto) Lymph % (Auto) [place] % (Auto) Eos % (Auto) Baso % (Auto) Lymph # (Auto) [place] # (Auto) Eos # (Auto) Baso # (Auto) Abs Immat Gran (auto) Absolute Neuts (auto) Absolute Nucleated RBC Nucleated RBC % (auto) PT INR APTT D-Dimer VBG pH VBG pCO2 VBG pO2 VBG HCO3 VBG O2 Saturation VBG Base Excess Anion Gap Estim Creat Clear Calc Estimated GFR POC Glucose 88 Random Glucose Lactic Acid Calcium Magnesium Total Bilirubin AST ALT Alkaline Phosphatase Troponin I High Sens B-Natriuretic Peptide Total Protein Albumin Urine Color Urine Appearance Urine pH Ur Specific [place] Urine Protein Urine Glucose (UA) Urine Ketones Urine Blood Urine Nitrite Ur Leukocyte Esterase Urine RBC Urine WBC Ur Squamous Epith Cells Urine Bacteria Urine Mucus Urine Opiates Screen Urine Fentanyl Screen Ur Barbiturates Screen Valproic Acid Ur Phencyclidine Scrn Ur Amphetamines Screen U Benzodiazepines Scrn Urine Cocaine Screen U Marijuana (THC) Screen Ethyl Alcohol Respiratory Panel [place] Adenovirus (Rapid PCR) B.pert (TEM-PCR) B.parapertussis DNA PCR C. pneumoniae DNA (PCR) Coronavirus (PCR) Coronavirus OC43 (PCR) Coronavirus HKU1 (PCR) Coronavirus 229E (PCR) Coronavirus NL63 (PCR) Human Metapneumovir PCR Influenza A (RT-PCR) Influenza Type A (PCR) Influenza B (RT-PCR) Influenza Type B (PCR) M. pneumoniae (PCR) Parainfluenza 1 (PCR) Parainfluenza 2 (PCR) Parainfluenza 3 (PCR) Parainfluenza 4 (PCR) RSV (PCR) RSV RNA Qual (PCR) Entero/Rhino (PCR) SARS-CoV-2 RNA (RT-PCR) Impressions Chest X-Ray 11/26/20 11:41 IMPRESSION: Unremarkable chest examination. Pulmonary Perfusion Imaging 11/26/20 17:22 IMPRESSION: Normal radionuclide lung perfusion scan. Assessment and Plan (1) FAM (acute kidney injury): Status: Acute Assessment and Plan: hospital d#2 65yo M long-term SNF resident with DM2 complicated by foot infection/osteomyelitis, HTN, AF s/p PPM, HF with recovered EF, PVD, rectal CA s/p [id number] presented after pre-syncopal episode associated with hypoxia, found to have FAM/hyperK # acute hypoxia - V/Q negative for PE. no evidence of PNA. ?mild CHF ?undiagnosed ERICKA- outpt PSG. continue supplemental O2 and wean as tolerated # hyperK - resolved s/p SPS # FAM - resolved s/p fluid hydration. on chronic bicarbonate due to hx of NAGMA from loop ileostomy # HF with recovered EF - got 1 dose of furosmide in ED but then got fluid hydration; appears to be euvolemic - troponin indeterminate, delta <50% - continue carvedilol # microcytic anemia - check iron studies, on iron replacement # HTN - continue amlodipine # sacral decubitus ulcer - present on admission. Wound Care consultation # DM2 - correction-dose lispro; hold glipizide # DM neuropathy - wheelchair-bound; continue gabapentin + pregabalin # mood disorder - continue valproate, sertraline, buspirone # VTE ppx - UFH # dispo - anticipate back to [facility] once off Quality Stroke Does the patient have a stroke diagnosis?: No VTE Prior VTE?: No VTE Risk Level:: Medical - moderate - high VTE Device Contraindication: Treatment Not Indicated VTE Drug Contraindication: N/A - Med Ordered
[2020-11-27 08:36] LABS: Iron 30 mcg/dL (45-160); Percent Iron Saturation 11 % (15-50); Total Iron Binding Capacity 276 mcg/dL (228-428); Unsaturated Iron Binding 246 ug/dL
[2020-11-27 08:56] LABS: Ferritin 102 ng/mL (20-250)
[2020-11-27] MEDS: Aspirin 325 MG TABLET PO (09:17)
[2020-11-27] MEDS: Gabapentin 400 MG CAPSULE 800 MG PO ×3 (09:17→21:36)
[2020-11-27] MEDS: Sertraline HCL 50 MG TABLET PO (09:17)
[2020-11-27] MEDS: Cholecalciferol (Vitamin D3) 25 MCG TABLET PO (09:17)
[2020-11-27] MEDS: guaiFENesin LA 600 MG TAB.ER.12H PO ×2 (09:17→21:36)
[2020-11-27] MEDS: Ferrous Sulfate 324 MG TABLET.DR PO (09:17)
[2020-11-27] MEDS: busPIRone HCl 10 MG TABLET PO ×2 (09:18→21:36)
[2020-11-27] MEDS: carvediloL 6.25 MG TABLET PO ×2 (09:18→21:36)
[2020-11-27] MEDS: amLODIPine Besylate 5 MG TABLET PO (09:18)
[2020-11-27] MEDS: Sodium Bicarbonate 650 MG TABLET PO ×3 (09:18→21:36)
[2020-11-27] MEDS: Pregabalin 100 MG CAPSULE PO ×3 (09:18→21:36)
[2020-11-27] MEDS: Sertraline HCL 100 MG TABLET PO (09:18)
--- NOTE | 2020-11-27 09:46 | P.CONCA_ITS ---
History of Present Illness History of Present Illness Date of Service: 11/27/20 Chief complaint: FAM Narrative: This is a cardiology consultation regarding hypoxia/congestive heart failure/near syncope. Patient states that he was dizzy the detention that led to this hospitalization. However he denies any other complaints like shortness of breath or anginal-type complaints of palpitations or infection of the nails. He states that today he is feeling good. Per H&P, patient was angelina arently transferred from bed to chair and at that point in time became very dizzy and eyes rolled out but did not lose consciousness or have a fall. At that time, noted to have O2 sats in the 70% range and then EMS was called and sent to hospital. In the ER, patient's O2 sat was 88% on room air and subsequently was placed 2 layers of oxygen via nasal cannula. Currently states that he feels good. He has a history of nonischemic cardiomyopathy but does not have any regular follow-up. He also has a permanent pacemaker in place. This seems to be checked to [facility]. Review of Systems Review of Systems: Yes all other systems are reviewed and are negative Cardiovascular: Cardiovascular: Reports as per HPI, Reports no additional cardiovascular complaints, Denies acrocyanosis, Denies cool extremities, Denies painful fingertips, Denies chest pain, Denies chest pain at rest, Denies diaphoresis, Reports syncope, Denies irregular heart rhythm, Denies claudic ation, Denies leg edema, Denies lightheadedness, Denies palpitations and Denies dyspnea Respiratory: Respiratory: Denies dyspnea Neurologic: Reports syncope Endocrine: Endocrine: Denies palpitations PMFSH Past Medical History Medical History Anxiety Cardiomyopathy CHF (congestive heart failure) Diabetes History of sigmoidoscopy HTN (hypertension) Hypogonadism Obesity 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 Proteinuria Family History Family History Mother Diabetes Surgical History Surgical History History of amputation of foot through metatarsal bone History of cataract surgery History of colectomy History of colonoscopy History of reversal of ileostomy Social History Social History Household Members: None Housing: Group Home Housing Other:: [facility] Alcohol intake: former Patient Tobacco Use Status: Never used Tobacco Years Smoked: 15 years Smoked in Last 30 Days: No e-Cigarette/Vaping Use: Never Used Patient Interested in Nicotine Replacement: No Patient Given Instructions on How to Stop Smoking: No Second Hand Smoke Exposure: No Use of substances other than those prescribed or required for medical reasons: No Currently Displaying Signs/Symptoms of Drug Intoxication Withdrawal: No Any prior treatment program specific to substance use: No Have you been hit, kicked, punched, or otherwise hurt by someone within the past year? If so, by whom?: No Do you feel safe in your current relationship?: No Current Relationship Is there a partner from a previous relationship who is making you feel unsafe now?: No Are you made to feel afraid or neglected: No [employer] [facility] Practices: scientology Advance Directives: Yes Advance Directives on File: Yes Advance Directives Date on File: 09/01/20 Do you have thoughts of harming others: None Do you have a plan to hurt others: No Plan Recently lost weight without trying: No Eating poorly because of decreased appetite: No Nutrition Risks: No Nutritional Risk Poor oral hygiene: No service: Yes Current occupational status: disabled Meds Allergies Allergy/AdvReac Type Severity Reaction Status Date / Time metformin AdvReac Unknown diarrhea Verified 10/20/20 15:14 Active Medications: Current Medications Acetaminophen (Acetaminophen 325 Mg Tablet) 650 mg PO Q6H PRN PRN Reason: Pain, Mild (Pain Scale 1-3) Acetaminophen (Acetaminophen 325 Mg Tablet) 650 mg PO Q6H PRN PRN Reason: elevated temp or pain Amlodipine Besylate (Amlodipine Besylate 5 Mg Tablet) 5 mg PO DAILY [facility]; Protocol Last Admin: 11/27/20 09:18 Dose: 5 mg Documented by: Aspirin (Aspirin 325 Mg Tablet) 325 mg PO DAILY [facility] Last Admin: 11/27/20 09:17 Dose: 325 mg Documented by: Bisacodyl (Bisacodyl 10 Mg Supp.Rect) 10 mg GA DAILY PRN PRN Reason: Constipation Buspirone HCl (Buspirone Hcl 10 Mg Tablet) 10 mg PO BID [facility] Last Admin: 11/27/20 09:18 Dose: 10 mg Documented by: Carvedilol (Carvedilol 6.25 Mg Tablet) 6.25 mg PO BID [facility]; Protocol Last Admin: 11/27/20 09:18 Dose: 6.25 mg Documented by: Dextrose (Dextrose 50 % 25 Gm/50 Ml Vial) 25 gm IVPUSH Q15M PRN; Protocol PRN Reason: per Hypoglycemia Standing Ord. Divalproex Sodium (Divalproex Sodium Sprinkles 125 Mg Cap.) 125 mg PO DAILY@2000 [facility] Ferrous Sulfate (Ferrous Sulfate 324 Mg Tablet.) 324 mg PO DAILY [facility] Last Admin: 11/27/20 09:17 Dose: 324 mg Documented by: Gabapentin (Gabapentin 400 Mg Capsule) 800 mg PO TID [facility] Last Admin: 11/27/20 09:17 Dose: 800 mg Documented by: Glucose (Glucose Gel 15 Gm Gel..Gram.) 15 gm PO Q15M PRN; Protocol PRN Reason: per Hypoglycemia Standing Ord. Guaifenesin (Guaifenesin 100 Mg/5 Ml Liquid) 10 ml PO Q4H PRN PRN Reason: Cough Guaifenesin (Guaifenesin La 600 Mg Tab.Er.12h) 600 mg PO BID [facility] Last Admin: 11/27/20 09:17 Dose: 600 mg Documented by: Heparin Sodium (Porcine) (Heparin Sodium,Porcine 5,000 Unit/Ml Vial) 5,000 unit SUBCUT Q8H [facility] Last Admin: 11/27/20 05:46 Dose: Not Given Documented by: Insulin Human Lispro (Insulin Lispro 100 Unit/Ml 3 Ml Vial) 0 unit SUBCUT QIDACHS [facility]; Protocol Last Admin: 11/27/20 07:54 Dose: Not Given Documented by: Magnesium Hydroxide (Milk Of Magnesia 30 Ml Oral.Susp) 30 ml PO DAILY PRN PRN Reason: Constipation Melatonin (Melatonin 3 Mg Tablet) 6 mg PO BEDTIME PRN PRN Reason: Insomnia Oxycodone HCl (Oxycodone Hcl Immed Release 5 Mg Tablet) 5 mg PO Q6H PRN PRN Reason: Pain Pregabalin (Pregabalin 100 Mg Capsule) 100 mg PO TID [facility] Last Admin: 11/27/20 09:18 Dose: 100 mg Documented by: Senna (Sennosides 8.6 Mg Tablet) 17.2 mg PO BEDTIME PRN PRN Reason: Constipation Senna (Sennosides 8.6 Mg Tablet) 8.6 mg PO BEDTIME [facility] Sertraline HCl (Sertraline Hcl 50 Mg Tablet) 50 mg PO DAILY [facility] Last Admin: 11/27/20 09:17 Dose: 50 mg Documented by: Sertraline HCl (Sertraline Hcl 100 Mg Tablet) 100 mg PO DAILY [facility] Last Admin: 11/27/20 09:18 Dose: 100 mg Documented by: Sodium Bicarbonate (Sodium Bicarbonate 650 Mg Tablet) 650 mg PO TID [facility] Last Admin: 11/27/20 09:18 Dose: 650 mg Documented by: Sodium Chloride (0.9 % Sodium Chloride Flush 3 Ml Syringe) 3 ml IVFLUSH QSHIFT [facility] Last Admin: 11/27/20 09:17 Dose: Not Given Documented by: Tramadol HCl (Tramadol Hcl 50 Mg Tablet) 50 mg PO Q6H PRN PRN Reason: Pain Vitamin D (Cholecalciferol (Vitamin D3) 25 Mcg Tablet) 25 mcg PO DAILY [facility] Last Admin: 11/27/20 09:17 Dose: 25 mcg Documented by: Home Medications Medication Instructions Recorded Confirmed Last Taken Type aspirin 325 mg tablet 325 mg PO DAILY 11/29/19 11/26/20 11/26/20 History carvedilol 6.25 mg tablet 6.25 mg PO BID 11/29/19 11/26/20 11/26/20 History glipizide 2.5 mg tablet, extended 2.5 mg PO DAILY 11/29/19 11/26/20 11/26/20 History release 24 hr sennosides 8.6 mg tablet (senna) 8.6 mg PO BEDTIME 11/29/19 11/26/20 11/25/20 History amlodipine 5 mg tablet 1 tab PO DAILY 08/16/20 11/26/20 11/26/20 History ascorbic acid (vitamin C) 500 mg 500 mg PO DAILY 08/16/20 11/26/20 11/26/20 History tablet,extended release (Vitamin C ER) bisacodyl 10 mg rectal suppository 10 mg GA DAILY PRN 08/16/20 11/26/20 Unknown History buspirone 10 mg tablet 10 mg PO BID 08/16/20 11/26/20 11/26/20 History cholecalciferol (vitamin D3) 25 25 mcg PO DAILY 08/16/20 11/26/2011/26/21 History mcg (1,000 unit) capsule divalproex 125 mg tablet,delayed 125 mg PO DAILY@199908/16/20 11/26/20 08/31/20 History release (Depakote) ferrous sulfate 325 mg (65 mg 325 mg PO DAILY 08/16/20 11/26/20 11/26/20 History iron) tablet guaifenesin 100 mg/5 mL oral liquid 200 mg PO Q4H PRN 08/16/20 11/26/20 Unknown History loperamide 2 mg tablet 2 mg BID PRN 08/16/20 11/26/20 Unknown History magnesium hydroxide 400 mg/5 mL 30 ml PO DAILY PRN 08/16/20 11/26/20 Unknown History oral suspension (Milk of Magnesia) melatonin 3 mg tablet 9 mg BEDTIME 08/16/20 11/26/20 11/25/20 History pregabalin 100 mg capsule (Lyrica) 100 mg PO TID 08/16/20 11/26/20 11/26/20 History tramadol 50 mg tablet 50 mg PO Q6H PRN 08/16/20 11/26/20 Unknown History acetaminophen 325 mg tablet 650 mg PO Q6H PRN 08/17/20 11/26/20 Unknown History gabapentin 800 mg tablet 800 mg PO TID 08/17/20 11/26/20 11/26/20 History glucagon 1 mg/mL solution for 1 mg IM NEEDED 08/17/20 11/26/20 Unknown History injection guaifenesin 600 mg tablet, 600 mg PO BID 08/17/20 11/26/20 11/26/20 History extended release 12 hr (Mucinex) sertraline 100 mg tablet 100 mg PO DAILY 08/17/20 11/26/20 11/26/20 History oxycodone 5 mg tablet 5 mg PO Q6H PRN 09/01/20 11/26/20 Unknown History Lactobacillus acidophilus 1,000 mmu cells PO BID 11/26/20 11/26/20 11/26/20 History sertraline 50 mg tablet 50 mg PO DAILY 11/26/20 11/26/20 11/26/20 History Physical Exam Vital Signs: Vital Signs: Last Vital Signs Temp 97.7 F 11/27/20 08:00 Pulse 54 11/27/20 08:00 Resp 18 10/01/21 08:00 BP 138/64 11/27/20 09:18 Pulse Ox 94 11/27/20 08:00 Oxygen Flow Rate 2 11/26/20 11:44 Body Mass Index 36.7 Const: General: cooperative and no acute distress HENMT: Other: Unremarkable Neck: Neck: Yes normal visual inspection Chest: Chest palpation & inspection: normal inspection of the chest Resp: Auscultation: clear to auscultation bilaterally, no crackles and no wheezes Cardio: Jugular venous distension: no JVD Palpation: normal PMI Heart sounds: S1 normal heart sound present, S2 normal heart sound present, no gallops, no murmurs and no rubs GI: Palpation (GI): Soft to palpation Back/Spine/Pelvis: Other: unremarkable Skin: General skin exam: no rashes or lesions noted Neuro: Cranial nerves: Yes Other cranial nerve findings present Extrem: General: Yes pedal edema (1+) Psych: Mental Status: other Results Labs and Meds Result diagrams: 11/27/20 07:04 11/27/20 07:04 Lab results: Laboratory Results - last 24 hr 11/26/20 11/26/20 11/26/20 12:24 12:24 12:24 WBC RBC Hgb Hct MCV MCH MCHC RDW Plt Count MPV Immature Gran % (Auto) Neut % (Auto) Lymph % (Auto) [place] % (Auto) Eos % (Auto) Baso % (Auto) Lymph # (Auto) [place] # (Auto) Eos # (Auto) Baso # (Auto) Abs Immat Gran (auto) Absolute Neuts (auto) Absolute Nucleated RBC Nucleated RBC % (auto) PT 12.1 INR 1.1 APTT 40.0 H D-Dimer 2086 VBG pH VBG pCO2 VBG pO2 VBG HCO3 VBG O2 Saturation VBG Base Excess Sodium Potassium Chloride Carbon Dioxide Anion Gap BUN Creatinine Estim Creat Clear Calc Estimated GFR POC Glucose Random Glucose Lactic Acid 0.4 L Calcium Magnesium Iron TIBC % Saturation Unsat Iron Binding Ferritin Total Bilirubin AST ALT Alkaline Phosphatase Troponin I High Sens B-Natriuretic Peptide Total Protein Albumin Urine Color Urine Appearance Urine pH Ur Specific [place] Urine Protein Urine Glucose (UA) Urine Ketones Urine Blood Urine Nitrite Ur Leukocyte Esterase Urine RBC Urine WBC Ur Squamous Epith Cells Urine Bacteria Urine Mucus Urine Opiates Screen Urine Fentanyl Screen Ur Barbiturates Screen Valproic Acid Ur Phencyclidine Scrn Ur Amphetamines Screen U Benzodiazepines Scrn Urine Cocaine Screen U Marijuana (THC) Screen Ethyl Alcohol Respiratory Panel [place] Adenovirus (Rapid PCR) B.pert (TEM-PCR) B.parapertussis DNA PCR C. pneumoniae DNA (PCR) Coronavirus (PCR) NEGATIVE Coronavirus OC43 (PCR) Coronavirus HKU1 (PCR) Coronavirus 229E (PCR) Coronavirus NL63 (PCR) Human Metapneumovir PCR Influenza A (RT-PCR) Influenza Type A (PCR) NEGATIVE Influenza B (RT-PCR) Influenza Type B (PCR) NEGATIVE M. pneumoniae (PCR) Parainfluenza 1 (PCR) Parainfluenza 2 (PCR) Parainfluenza 3 (PCR) Parainfluenza 4 (PCR) RSV (PCR) RSV RNA Qual (PCR) NEGATIVE Entero/Rhino (PCR) SARS-CoV-2 RNA (RT-PCR) 11/26/20 11/26/20 11/26/20 12:24 12:24 12:44 WBC 7.7 RBC 3.62 L Hgb 8.0 L Hct 28.1 L MCV 77.6 L MCH 22.1 L MCHC 28.5 L RDW 18.2 H Plt Count 201 MPV 10.1 Immature Gran % (Auto) 2.1 H Neut % (Auto) 74.3 H Lymph % (Auto) 13.8 L [place] % (Auto) 5.4 Eos % (Auto) 4.1 H Baso % (Auto) 0.3 Lymph # (Auto) 1.1 L [place] # (Auto) 0.4 Eos # (Auto) 0.3 Baso # (Auto) 0.0 Abs Immat Gran (auto) 0.16 H Absolute Neuts (auto) 5.7 Absolute Nucleated RBC 0.020 H Nucleated RBC % (auto) 0.3 H PT INR APTT D-Dimer VBG pH VBG pCO2 VBG pO2 VBG HCO3 VBG O2 Saturation VBG Base Excess Sodium 139 Potassium 5.8 H Chloride 109 H Carbon Dioxide 23 Anion Gap 13 BUN 73 H D Creatinine 1.91 H Estim Creat Clear Calc 58.1 Estimated GFR 36 POC Glucose Random Glucose 104 Lactic Acid Calcium 7.8 L D Magnesium 2.1 Iron TIBC % Saturation Unsat Iron Binding Ferritin Total Bilirubin < 0.2 AST 13 ALT 14 Alkaline Phosphatase 85 Troponin I High Sens B-Natriuretic Peptide Total Protein 6.3 L Albumin 2.9 L Urine Color Urine Appearance Urine pH Ur Specific [place] Urine Protein Urine Glucose (UA) Urine Ketones Urine Blood Urine Nitrite Ur Leukocyte Esterase Urine RBC Urine WBC Ur Squamous Epith Cells Urine Bacteria Urine Mucus Urine Opiates Screen Urine Fentanyl Screen Ur Barbiturates Screen Valproic Acid 7.5 L Ur Phencyclidine Scrn Ur Amphetamines Screen U Benzodiazepines Scrn Urine Cocaine Screen U Marijuana (THC) Screen Ethyl Alcohol < 10 Respiratory Panel [place] Adenovirus (Rapid PCR) B.pert (TEM-PCR) B.parapertussis DNA PCR C. pneumoniae DNA (PCR) Coronavirus (PCR) Coronavirus OC43 (PCR) Coronavirus HKU1 (PCR) Coronavirus 229E (PCR) Coronavirus NL63 (PCR) Human Metapneumovir PCR Influenza A (RT-PCR) Influenza Type A (PCR) Influenza B (RT-PCR) Influenza Type B (PCR) M. pneumoniae (PCR) Parainfluenza 1 (PCR) Parainfluenza 2 (PCR) Parainfluenza 3 (PCR) Parainfluenza 4 (PCR) RSV (PCR) RSV RNA Qual (PCR) Entero/Rhino (PCR) SARS-CoV-2 RNA (RT-PCR) 11/26/20 11/26/20 11/26/20 12:44 12:44 12:47 WBC RBC Hgb Hct MCV MCH MCHC RDW Plt Count MPV Immature Gran % (Auto) Neut % (Auto) Lymph % (Auto) [place] % (Auto) Eos % (Auto) Baso % (Auto) Lymph # (Auto) [place] # (Auto) Eos # (Auto) Baso # (Auto) Abs Immat Gran (auto) Absolute Neuts (auto) Absolute Nucleated RBC Nucleated RBC % (auto) PT INR APTT D-Dimer VBG pH VBG pCO2 VBG pO2 VBG HCO3 VBG O2 Saturation VBG Base Excess Sodium Potassium Chloride Carbon Dioxide Anion Gap BUN Creatinine Estim Creat Clear Calc Estimated GFR POC Glucose Random Glucose Lactic Acid Calcium Magnesium Iron TIBC % Saturation Unsat Iron Binding Ferritin Total Bilirubin AST ALT Alkaline Phosphatase Troponin I High Sens 47.8 H* D B-Natriuretic Peptide 1403 H Total Protein Albumin Urine Color YELLOW Urine Appearance CLOUDY Urine pH 7.5 Ur Specific [place] 1.020 Urine Protein 2+ H Urine Glucose (UA) NEG Urine Ketones NEG Urine Blood 2+ H Urine Nitrite NEG Ur Leukocyte Esterase 2+ H Urine RBC 0 Urine WBC 50-75 H Ur Squamous Epith Cells NONE Urine Bacteria 4+ Urine Mucus 3+ Urine Opiates Screen Urine Fentanyl Screen Ur Barbiturates Screen Valproic Acid Ur Phencyclidine Scrn Ur Amphetamines Screen U Benzodiazepines Scrn Urine Cocaine Screen U Marijuana (THC) Screen Ethyl Alcohol Respiratory Panel [place] See Note Adenovirus (Rapid PCR) Not Detected B.pert (TEM-PCR) Not Detected B.parapertussis DNA PCR Not Detected C. pneumoniae DNA (PCR) Not Detected Coronavirus (PCR) Coronavirus OC43 (PCR) Not Detected Coronavirus HKU1 (PCR) Not Detected Coronavirus 229E (PCR) Not Detected Coronavirus NL63 (PCR) Not Detected Human Metapneumovir PCR Not Detected Influenza A (RT-PCR) Not Detected Influenza Type A (PCR) Influenza B (RT-PCR) Not Detected Influenza Type B (PCR) M. pneumoniae (PCR) Not Detected Parainfluenza 1 (PCR) Not Detected Parainfluenza 2 (PCR) Not Detected Parainfluenza 3 (PCR) Not Detected Parainfluenza 4 (PCR) Not Detected RSV (PCR) Not Detected RSV RNA Qual (PCR) Entero/Rhino (PCR) Not Detected SARS-CoV-2 RNA (RT-PCR) Not Detected 11/26/20 11/26/20 11/26/20 16:38 16:38 16:49 WBC RBC Hgb Hct MCV MCH MCHC RDW Plt Count MPV Immature Gran % (Auto) Neut % (Auto) Lymph % (Auto) [place] % (Auto) Eos % (Auto) Baso % (Auto) Lymph # (Auto) [place] # (Auto) Eos # (Auto) Baso # (Auto) Abs Immat Gran (auto) Absolute Neuts (auto) Absolute Nucleated RBC Nucleated RBC % (auto) PT INR APTT D-Dimer VBG pH 7.27 L VBG pCO2 62 VBG pO2 43 VBG HCO3 29 H VBG O2 Saturation 64.0 VBG Base Excess 1.7 Sodium Potassium Chloride Carbon Dioxide Anion Gap BUN Creatinine Estim Creat Clear Calc Estimated GFR POC Glucose Random Glucose Lactic Acid Calcium Magnesium Iron TIBC % Saturation Unsat Iron Binding Ferritin Total Bilirubin AST ALT Alkaline Phosphatase Troponin I High Sens 58.9 H* B-Natriuretic Peptide Total Protein Albumin Urine Color Urine Appearance Urine pH Ur Specific [place] Urine Protein Urine Glucose (UA) Urine Ketones Urine Blood Urine Nitrite Ur Leukocyte Esterase Urine RBC Urine WBC Ur Squamous Epith Cells Urine Bacteria Urine Mucus Urine Opiates Screen Not Detected Urine Fentanyl Screen Not Detected Ur Barbiturates Screen Not Detected Valproic Acid Ur Phencyclidine Scrn Not Detected Ur Amphetamines Screen Not Detected U Benzodiazepines Scrn Not Detected Urine Cocaine Screen Not Detected U Marijuana (THC) Screen POSITIVE H Ethyl Alcohol Respiratory Panel [place] Adenovirus (Rapid PCR) B.pert (TEM-PCR) B.parapertussis DNA PCR C. pneumoniae DNA (PCR) Coronavirus (PCR) Coronavirus OC43 (PCR) Coronavirus HKU1 (PCR) Coronavirus 229E (PCR) Coronavirus NL63 (PCR) Human Metapneumovir PCR Influenza A (RT-PCR) Influenza Type A (PCR) Influenza B (RT-PCR) Influenza Type B (PCR) M. pneumoniae (PCR) Parainfluenza 1 (PCR) Parainfluenza 2 (PCR) Parainfluenza 3 (PCR) Parainfluenza 4 (PCR) RSV (PCR) RSV RNA Qual (PCR) Entero/Rhino (PCR) SARS-CoV-2 RNA (RT-PCR) 11/26/20 11/27/20 11/27/20 23:27 07:04 07:04 WBC 6.4 RBC 3.94 L Hgb 8.7 L Hct 30.7 L MCV 77.9 L MCH 22.1 L MCHC 28.3 L RDW 18.4 H Plt Count 224 MPV 10.6 Immature Gran % (Auto) 1.7 H Neut % (Auto) 68.9 Lymph % (Auto) 14.0 L [place] % (Auto) 7.5 Eos % (Auto) 7.6 H Baso % (Auto) 0.3 Lymph # (Auto) 0.9 L [place] # (Auto) 0.5 Eos # (Auto) 0.5 H Baso # (Auto) 0.0 Abs Immat Gran (auto) 0.11 H Absolute Neuts (auto) 4.4 Absolute Nucleated RBC 0.000 Nucleated RBC % (auto) 0.0 PT INR APTT D-Dimer VBG pH VBG pCO2 VBG pO2 VBG HCO3 VBG O2 Saturation VBG Base Excess Sodium 142 145 Potassium 4.2 D 4.8 Chloride 110 H 112 H Carbon Dioxide 24 27 Anion Gap 12 11 L BUN 63 H 59 H Creatinine 1.46 H 1.21 Estim Creat Clear Calc 76.0 90.7 Estimated GFR 49 > 60 POC Glucose Random Glucose 156 H D 98 D Lactic Acid Calcium 7.8 L 8.2 L Magnesium Iron 30 L TIBC 276 % Saturation 11 L Unsat Iron Binding 246 Ferritin 102 Total Bilirubin AST ALT Alkaline Phosphatase Troponin I High Sens B-Natriuretic Peptide Total Protein Albumin Urine Color Urine Appearance Urine pH Ur Specific [place] Urine Protein Urine Glucose (UA) Urine Ketones Urine Blood Urine Nitrite Ur Leukocyte Esterase Urine RBC Urine WBC Ur Squamous Epith Cells Urine Bacteria Urine Mucus Urine Opiates Screen Urine Fentanyl Screen Ur Barbiturates Screen Valproic Acid Ur Phencyclidine Scrn Ur Amphetamines Screen U Benzodiazepines Scrn Urine Cocaine Screen U Marijuana (THC) Screen Ethyl Alcohol Respiratory Panel [place] Adenovirus (Rapid PCR) B.pert (TEM-PCR) B.parapertussis DNA PCR C. pneumoniae DNA (PCR) Coronavirus (PCR) Coronavirus OC43 (PCR) Coronavirus HKU1 (PCR) Coronavirus 229E (PCR) Coronavirus NL63 (PCR) Human Metapneumovir PCR Influenza A (RT-PCR) Influenza Type A (PCR) Influenza B (RT-PCR) Influenza Type B (PCR) M. pneumoniae (PCR) Parainfluenza 1 (PCR) Parainfluenza 2 (PCR) Parainfluenza 3 (PCR) Parainfluenza 4 (PCR) RSV (PCR) RSV RNA Qual (PCR) Entero/Rhino (PCR) SARS-CoV-2 RNA (RT-PCR) 11/27/20 07:27 WBC RBC Hgb Hct MCV MCH MCHC RDW Plt Count MPV Immature Gran % (Auto) Neut % (Auto) Lymph % (Auto) [place] % (Auto) Eos % (Auto) Baso % (Auto) Lymph # (Auto) [place] # (Auto) Eos # (Auto) Baso # (Auto) Abs Immat Gran (auto) Absolute Neuts (auto) Absolute Nucleated RBC Nucleated RBC % (auto) PT INR APTT D-Dimer VBG pH VBG pCO2 VBG pO2 VBG HCO3 VBG O2 Saturation VBG Base Excess Sodium Potassium Chloride Carbon Dioxide Anion Gap BUN Creatinine Estim Creat Clear Calc Estimated GFR POC Glucose 88 Random Glucose Lactic Acid Calcium Magnesium Iron TIBC % Saturation Unsat Iron Binding Ferritin Total Bilirubin AST ALT Alkaline Phosphatase Troponin I High Sens B-Natriuretic Peptide Total Protein Albumin Urine Color Urine Appearance Urine pH Ur Specific [place] Urine Protein Urine Glucose (UA) Urine Ketones Urine Blood Urine Nitrite Ur Leukocyte Esterase Urine RBC Urine WBC Ur Squamous Epith Cells Urine Bacteria Urine Mucus Urine Opiates Screen Urine Fentanyl Screen Ur Barbiturates Screen Valproic Acid Ur Phencyclidine Scrn Ur Amphetamines Screen U Benzodiazepines Scrn Urine Cocaine Screen U Marijuana (THC) Screen Ethyl Alcohol Respiratory Panel [place] Adenovirus (Rapid PCR) B.pert (TEM-PCR) B.parapertussis DNA PCR C. pneumoniae DNA (PCR) Coronavirus (PCR) Coronavirus OC43 (PCR) Coronavirus HKU1 (PCR) Coronavirus 229E (PCR) Coronavirus NL63 (PCR) Human Metapneumovir PCR Influenza A (RT-PCR) Influenza Type A (PCR) Influenza B (RT-PCR) Influenza Type B (PCR) M. pneumoniae (PCR) Parainfluenza 1 (PCR) Parainfluenza 2 (PCR) Parainfluenza 3 (PCR) Parainfluenza 4 (PCR) RSV (PCR) RSV RNA Qual (PCR) Entero/Rhino (PCR) SARS-CoV-2 RNA (RT-PCR) ECG Interpretation: EKG shows atrial sensed, ventricular paced rhythm at 64/Min but atrial activity is not very clear. However with increase in gain, this can be seen. Imaging Radiologist's impression: Impressions Chest X-Ray 11/26/20 11:41 IMPRESSION: Unremarkable chest examination. Pulmonary Perfusion Imaging 11/26/20 17:22 IMPRESSION: Normal radionuclide lung perfusion scan. Assessment and Plan (1) Acute on chronic systolic (congestive) heart failure: Status: Acute (2) Hypoxia: Status: Acute Pertinent studies reviewed. Hemoglobin 8.7. White cells 6.4. Platelets 224. Potassium is 4.8. Creatinine is 1.1. BUN is 59. High sensitive troponins are 47 and 58. Cardiac BNP is 1403. It was 747 in July. Chest x-ray unremarkable. Last echocardiogram from 2019 with LVEF 30-35%; moderate diastolic dysfunction and moderate pulmonary hypertension. Myocardial perfusion imaging study from 2019 with no ischemic findings. Overall, possible mild heart failure causing hypoxia but not definitive. Per fluid balance chart, negative 1270 cc. Not clear if he is on any diuretics at home as not listed but did receive IV Lasix in the ER. Clinically, he does have some leg swelling but otherwise seems compensated. Due to baseline renal insufficiency, need to be cautious with diuretics but okay to take Lasix 20 mg daily (or as needed) due to known cardiomyopathy. Procedures Date of Service Date of Service: 11/27/20
[2020-11-27 11:02] LABS: Glucose, Whole Blood 129 mg/dL (60-115)
--- NOTE | 2020-11-27 12:28 | MHC.CM.PN ---
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 PT REPORTS HE USES A WHEEL CHAIR FOR MOBILITY PT CONFIRMS HIS PCP IS MARY CARVAJAL HCP ON FILE IMM DELIVERED PT WILL RETURN TO [facility] TODAY VIA BLS
[2020-11-27] MEDS: oxyCODONE HCl Immed Release 5 MG TABLET PO ×2 (15:34→21:35)
[2020-11-27] MEDS: 0.9 % Sodium Chloride Flush 3 ML SYRINGE IVFLUSH (15:35)
[2020-11-27 16:39] LABS: Glucose, Whole Blood 83 mg/dL (60-115)
[2020-11-27] MEDS: vancomycin HCL 1,250 MG in 0.9 % Sodium Chloride 250 ML 166.67 MG IV (18:32)
[2020-11-27 21:10] LABS: Glucose, Whole Blood 106 mg/dL (60-115)
[2020-11-27] MEDS: Divalproex Sodium Sprinkles 125 MG CAP.DR.SPR PO (21:35)
[2020-11-27] MEDS: Calcium Carbonate 750 MG TAB.CHEW PO (21:35)
[2020-11-27] MEDS: Sennosides 8.6 MG TABLET PO (21:36)
[2020-11-27] MEDS: ondansetron HCL 4 MG/2 ML VIAL IVPUSH (23:23)
[2020-11-28] VITALS (13 sets, daily range): BP systolic 111–152; BP diastolic 58–77; PULSE 54–103; RESP 16–20; TEMP 35.8–36.6; O2SAT 95–99
--- NOTE | 2020-11-28 00:22 | PM.EVENT ---
Event Note Date of Service: 11/28/20 Event Note: Patient had an episoe of vomiting associated with low grade temp of 100.3, tacycardia, and O2 sat of 87%, Stat CXR shows right base infiltration concerning for aspiration. Add Ceftriaxone Vanco
[2020-11-28] MEDS: Morphine Sulfate 2 MG/ML CARTRIDGE IVPUSH ×4 (00:52→20:44)
[2020-11-28] MEDS: vancomycin HCL 1,250 MG in 0.9 % Sodium Chloride 250 ML 166.67 MG IV (06:05)
[2020-11-28] MEDS: 0.9 % Sodium Chloride Flush 3 ML SYRINGE IVFLUSH ×2 (06:06→20:45)
[2020-11-28 07:27] LABS: Anion Gap 11 (12-20); Blood Urea Nitrogen 46 mg/dL (9-16); Calcium 7.9 mg/dL (8.4-10.2); Carbon Dioxide 26 mmol/L (22-29); Chloride 107 mmol/L (96-108); Creatinine Clr Calc Pharmacy 105.6; Estimated Glomerular Filt Rate > 60; Glucose Random 129 mg/dL (60-115); Potassium 4.5 mmol/L (3.3-5.1); Sodium 139 mmol/L (135-145)
[2020-11-28 07:42] LABS: B Type Natriuretic Peptide 1578 pg/mL (<100)
[2020-11-28] MEDS: amLODIPine Besylate 5 MG TABLET PO (08:36)
[2020-11-28] MEDS: Cholecalciferol (Vitamin D3) 25 MCG TABLET PO (08:36)
[2020-11-28] MEDS: Sertraline HCL 50 MG TABLET PO (08:36)
[2020-11-28] MEDS: Gabapentin 400 MG CAPSULE 800 MG PO ×3 (08:36→20:38)
[2020-11-28] MEDS: Ferrous Sulfate 324 MG TABLET.DR PO (08:36)
[2020-11-28] MEDS: Aspirin 325 MG TABLET PO (08:37)
[2020-11-28] MEDS: ondansetron HCL 4 MG/2 ML VIAL IVPUSH (08:38)
[2020-11-28] MEDS: Sertraline HCL 100 MG TABLET PO (08:38)
[2020-11-28] MEDS: Pregabalin 100 MG CAPSULE PO ×3 (08:38→20:38)
[2020-11-28] MEDS: Sodium Bicarbonate 650 MG TABLET PO ×3 (08:38→20:38)
[2020-11-28] MEDS: carvediloL 6.25 MG TABLET PO (08:38)
[2020-11-28] MEDS: guaiFENesin LA 600 MG TAB.ER.12H PO ×2 (08:38→20:38)
--- NOTE | 2020-11-28 08:50 | HO.PM.IMPN ---
Subjective Subjective Date of Service: 11/28/20 Interval History: 1/2 BCx pos for GPCs from 11/26/20; started on vancomycin yesterday. Overnight vomited, then was febrile to 100.3 with hypoxia and tachycardia. CXR showed possible aspiration in R lung. Pt now on 3L O2 via NC. Notes dull aching epigastric pain. Review of Systems Review of Systems: Yes all other systems are reviewed and are negative Physical Exam Vital Signs: Vital Signs: Last Vital Signs Temp 96.4 F L 11/28/20 03:36 Pulse 61 11/28/20 08:38 Resp 18 11/28/20 06:34 BP 111/68 11/28/20 08:38 Pulse Ox 98 11/28/20 03:36 Oxygen Flow Rate 2 11/26/20 11:44 Body Mass Index 36.7 Gen: in no acute distress HEENT: sclera anicteric, moist mucus membranes Neck: supple Lungs: insp crackles R side Heart: regular rate and rhythm, no murmurs Abd: soft, non-tender, non-distende, obese, colostomy draining liquid brown stool Ext: trace bilateral lower extremity edema Skin: warm/well-perfused Neuro: alert and oriented x3, no focal findings Psych: appropriate affect Objective Data Active Medications Acetaminophen (Acetaminophen 325 Mg Tablet) 650 mg PO Q6H PRN PRN Reason: Pain, Mild (Pain Scale 1-3) Acetaminophen (Acetaminophen 325 Mg Tablet) 650 mg PO Q6H PRN PRN Reason: elevated temp or pain Amlodipine Besylate (Amlodipine Besylate 5 Mg Tablet) 5 mg PO DAILY [facility]; Protocol Last Admin: 11/28/20 08:36 Dose: 5 mg Documented by: DOBROB Aspirin (Aspirin 325 Mg Tablet) 325 mg PO DAILY [facility] Last Admin: 11/28/20 08:37 Dose: 325 mg Documented by: DOBROB Bisacodyl (Bisacodyl 10 Mg Supp.Rect) 10 mg [place] DAILY PRN PRN Reason: Constipation Buspirone HCl (Buspirone Hcl 10 Mg Tablet) 10 mg PO BID [facility] Last Admin: 11/27/20 21:36 Dose: 10 mg Documented by: NAUMOC Calcium Carbonate (Calcium Carbonate 750 Mg Tab.Chew) 750 mg PO Q6H PRN PRN Reason: dyspesia Last Admin: 11/27/20 21:35 Dose: 750 mg Documented by: CHRISTINE Carvedilol (Carvedilol 6.25 Mg Tablet) 6.25 mg PO BID [facility]; Protocol Last Admin: 11/28/20 08:38 Dose: 6.25 mg Documented by: YONAS Dextrose (Dextrose 50 % 25 Gm/50 Ml Vial) 25 gm IVPUSH Q15M PRN; Protocol PRN Reason: per Hypoglycemia Standing Ord. Divalproex Sodium (Divalproex Sodium Sprinkles 125 Mg Cap.) 125 mg PO DAILY@1999 [facility] Last Admin: 11/27/20 21:35 Dose: 125 mg Documented by: CHRISTINE Ferrous Sulfate (Ferrous Sulfate 324 Mg Clem.) 324 mg PO DAILY [facility] Last Admin: 11/28/20 08:36 Dose: 324 mg Documented by: YONAS Gabapentin (Gabapentin 400 Mg Capsule) 800 mg PO TID [facility] Last Admin: 11/28/20 08:36 Dose: 800 mg Documented by: YONAS Glucose (Glucose Gel 15 Gm Gel..Gram.) 15 gm PO Q15M PRN; Protocol PRN Reason: per Hypoglycemia Standing Ord. Guaifenesin (Guaifenesin 100 Mg/5 Ml Liquid) 10 ml PO Q4H PRN PRN Reason: Cough Guaifenesin (Guaifenesin La 600 Mg Tab.Er.12h) 600 mg PO BID [facility] Last Admin: 11/28/20 08:38 Dose: 600 mg Documented by: YONAS Heparin Sodium (Porcine) (Heparin Sodium,Porcine 5,000 Unit/Ml Vial) 5,000 unit SUBCUT Q8H [facility] Last Admin: 11/28/20 06:24 Dose: Not Given Documented by: CHRISTINE Non-Admin Reason: Patient Refused Vancomycin HCl 1,250 mg/ (Sodium Chloride) 250 mls @ 166.667 mls/hr IV Q12H [facility] Last Admin: 11/28/20 06:05 Dose: 166.67 mls/hr Documented by: CHRISTINE Ampicillin Sodium/Sulbactam (Sodium 3 gm/ Sodium Chloride) 100 mls @ 200 mls/hr IV Q6H [facility] Insulin Human Lispro (Insulin Lispro 100 Unit/Ml 3 Ml Vial) 0 unit SUBCUT QIDACHS [facility]; Protocol Last Admin: 11/27/20 21:54 Dose: Not Given Documented by: CHRISTINE Non-Admin Reason: No Insulin Coverage Magnesium Hydroxide (Milk Of Magnesia 30 Ml Oral.Susp) 30 ml PO DAILY PRN PRN Reason: Constipation Melatonin (Melatonin 3 Mg Tablet) 6 mg PO BEDTIME PRN PRN Reason: Insomnia Morphine Sulfate (Morphine Sulfate 2 Mg/Ml Cartridge) 2 mg IVPUSH Q6H PRN; Protocol PRN Reason: Pain, Severe (Pain Scale 7-10) Last Admin: 11/28/20 06:34 Dose: 2 mg Documented by: CHRISTINE Ondansetron HCl (Ondansetron Hcl 4 Mg/2 Ml Vial) 4 mg IVPUSH Q8H PRN PRN Reason: Nausea and Vomiting Last Admin: 11/28/20 08:38 Dose: 4 mg Documented by: YONAS Oxycodone HCl (Oxycodone Hcl Immed Release 5 Mg Tablet) 5 mg PO Q6H PRN PRN Reason: Pain Last Admin: 11/27/20 21:35 Dose: 5 mg Documented by: CHRISTINE Pregabalin (Pregabalin 100 Mg Capsule) 100 mg PO TID [facility] Last Admin: 11/28/20 08:38 Dose: 100 mg Documented by: YONAS Senna (Sennosides 8.6 Mg Tablet) 17.2 mg PO BEDTIME PRN PRN Reason: Constipation Senna (Sennosides 8.6 Mg Tablet) 8.6 mg PO BEDTIME [facility] Last Admin: 11/27/20 21:36 Dose: 8.6 mg Documented by: CHRISTINE Sertraline HCl (Sertraline Hcl 50 Mg Tablet) 50 mg PO DAILY [facility] Last Admin: 11/28/20 08:36 Dose: 50 mg Documented by: YONAS Sertraline HCl (Sertraline Hcl 100 Mg Tablet) 100 mg PO DAILY [facility] Last Admin: 11/28/20 08:38 Dose: 100 mg Documented by: YONAS Sodium Bicarbonate (Sodium Bicarbonate 650 Mg Tablet) 650 mg PO TID [facility] Last Admin: 11/28/20 08:38 Dose: 650 mg Documented by: YONAS Sodium Chloride (0.9 % Sodium Chloride Flush 3 Ml Syringe) 3 ml IVFLUSH QSHIFT [facility] Last Admin: 11/28/20 08:39 Dose: Not Given Documented by: YONAS Non-Admin Reason: IV Running Tramadol HCl (Tramadol Hcl 50 Mg Tablet) 50 mg PO Q6H PRN PRN Reason: Pain Vitamin D (Cholecalciferol (Vitamin D3) 25 Mcg Tablet) 25 mcg PO DAILY [facility] Last Admin: 11/28/20 08:36 Dose: 25 mcg Documented by: YONAS Labs CBC & Chem 7: 11/27/20 07:04 11/28/20 06:12 Labs: Laboratory Results - last 24 hr 11/27/20 11/27/20 11/27/20 07:04 10:53 16:34 Anion Gap Estim Creat Clear Calc Estimated GFR POC Glucose 129 H 83 Random Glucose Calcium Ferritin 102 B-Natriuretic Peptide 11/27/20 11/28/20 11/28/20 20:57 06:12 06:12 Anion Gap 11 L Estim Creat Clear Calc 105.6 Estimated GFR > 60 POC Glucose 106 Random Glucose 129 H Calcium 7.9 L Ferritin B-Natriuretic Peptide 1578 H Microbiology Microbiology Results: Microbiology 11/26/20 12:24 Blood Culture - Preliminary Blood - Venous Prelim: GPC Gram Stain only 11/26/20 12:44 Blood Culture - Preliminary Blood - Venous No growth after 24 hours. 11/26/20 Unknown Urine Culture - Preliminary Urine clean catch - Urine pedersen top Culture in progress. Assessment and Plan (1) FAM (acute kidney injury): Status: Acute Assessment and Plan: hospital d#2 65yo M long-term SNF resident with DM2 complicated by foot infection/osteomyelitis, HTN, AF s/p PPM, HF with recovered EF, PVD, rectal CA s/p [id number] presented after pre-syncopal episode associated with hypoxia, found to have FAM/hyperK # acute hypoxia - V/Q negative for PE. no evidence of PNA. ?mild CHF ?undiagnosed ERICKA- outpt PSG. continue supplemental O2 and wean as tolerated # hyperK - resolved s/p SPS # FAM - resolved s/p fluid hydration. on chronic bicarbonate due to hx of NAGMA from loop ileostomy # HF with recovered EF - got 1 dose of furosmide in ED but then got fluid hydration; appears to be euvolemic - troponin indeterminate, delta <50% - continue carvedilol # microcytic anemia - check iron studies, on iron replacement # HTN - continue amlodipine # sacral decubitus ulcer - present on admission. Wound Care consultation # DM2 - correction-dose lispro; hold glipizide # DM neuropathy - wheelchair-bound; continue gabapentin + pregabalin # mood disorder - continue valproate, sertraline, buspirone # VTE ppx - UFH # dispo - anticipate back to [facility] once off Assessment and Plan: hospital d#3 65yo M long-term SNF resident with DM2 complicated by foot infection/osteomyelitis, HTN, AF s/p PPM, HF with recovered EF, PVD, rectal CA s/p colostomy presented after pre-syncopal episode associated with hypoxia, found to have FAM/hyperK # aspiration PNA - start ampicillin/sulbactam d#1, follow BCx, trend PCT - VP DESIGN evaluation # question of bacteremia - vancomycin d#2, follow BCx, d/c vanco if coag-neg Staph # epigastric pain - suspect GERD/gastritis, will give IV H2RA # acute hypoxia - now due to PNA. suppl O2, wean as tolerated. V/Q neg for PE. question of undiagnosed ERICKA remains and I recommend outpt PSG. - V/Q negative for PE.? no evidence of PNA.? ?mild CHF? ?undiagnosed ERICKA- outpt PSG.? continue supplemental O2 and wean as tolerated # hyperK - resolved s/p SPS # FAM - resolved s/p fluid hydration.? on chronic bicarbonate due to hx of NAGMA from loop ileostomy ? # HF with recovered EF - got 1 dose of furosmide in ED but then got fluid hydration; appears to be euvolemic - troponin indeterminate, delta <50% - continue carvedilol - appreciate Cardiology consultation # HECTOR - continue iron replacement # HTN - continue amlodipine # sacral decubitus ulcer - present on admission.? Wound Care consultation # DM2 - correction-dose lispro; hold glipizide # DM neuropathy - wheelchair-bound; continue gabapentin + pregabalin # mood disorder - continue valproate, sertraline, buspirone # VTE ppx - UFH # dispo - eventual return to LTC @ [facility] once hypoxia resolves Quality Stroke Does the patient have a stroke diagnosis?: No VTE Prior VTE?: No VTE Risk Level:: Medical - moderate - high VTE Device Contraindication: Treatment Not Indicated VTE Drug Contraindication: N/A - Med Ordered
[2020-11-28] MEDS: busPIRone HCl 10 MG TABLET PO ×2 (08:56→20:38)
[2020-11-28 09:01] LABS: Glucose, Whole Blood 105 mg/dL (60-115)
[2020-11-28 09:34] LABS: Procalcitonin 0.88 ng/mL
[2020-11-28] MEDS: Furosemide 20 MG TABLET PO (10:25)
[2020-11-28] MEDS: Famotidine/PF 20 MG/2 ML VIAL IVPUSH ×2 (10:25→20:44)
[2020-11-28] MEDS: Ampicillin Sodium/Sulbactam Na 3 GM in 0.9 % Sodium Chloride 100 ML IV ×3 (10:25→20:58)
--- NOTE | 2020-11-28 10:30 | P.PNCA_ITS ---
Subjective Subjective Date of Service: 11/28/20 Interval history: Suspected aspiration event overnight. However, now new cardiac complaints. Review of Systems Review of Systems Yes all other systems are reviewed and are negative Cardiovascular: Reports as per HPI, Reports no additional cardiovascular complaints, Denies acrocyanosis, Denies cool extremities, Denies painful fingertips, Denies chest pain, Denies chest pain at rest, Denies diaphoresis, Reports syncope, Denies irregular heart rhythm, Denies claudication, Denies leg edema, Denies lightheadedness, Denies palpitations and Denies dyspnea Respiratory: Denies dyspnea Reports syncope Endocrine: Denies palpitations Physical Exam Vital Signs: Last Vital Signs Temp 96.8 F 11/28/20 08:00 Pulse 61 11/28/20 08:38 Resp 16 11/28/20 08:00 BP 111/68 11/28/20 08:38 Pulse Ox 98 11/28/20 08:00 Oxygen Flow Rate 2 11/26/20 11:44 Body Mass Index 36.7 Const General: cooperative and no acute distress [facility] Other: Unremarkable Neck Neck: Yes normal visual inspection Chest Chest palpation & inspection: normal inspection of the chest Resp Auscultation: clear to auscultation bilaterally, no crackles and no wheezes Cardio Jugular venous distension: no JVD Palpation: normal PMI Heart sounds: S1 normal heart sound present, S2 normal heart sound present, no gallops, no murmurs and no rubs GI Palpation (GI): Soft to palpation Back/Spine/Pelvis Other: unremarkable Skin General skin exam: no rashes or lesions noted Neuro Cranial nerves: Yes Other cranial nerve findings present Extrem General: Yes pedal edema (1+) Psych Mental Status: other Results Labs and Meds Result diagrams: 11/27/20 07:04 11/28/20 06:12 Lab results: Laboratory Results - last 24 hr 11/27/20 11/27/20 11/27/20 10:53 16:34 20:57 Sodium Potassium Chloride Carbon Dioxide Anion Gap BUN Creatinine Estim Creat Clear Calc Estimated GFR POC Glucose 129 H 83 106 Random Glucose Calcium B-Natriuretic Peptide Procalcitonin 11/28/20 11/28/20 11/28/20 06:12 06:12 06:12 Sodium 139 Potassium 4.5 Chloride 107 Carbon Dioxide 26 Anion Gap 11 L BUN 46 H Creatinine 1.04 Estim Creat Clear Calc 105.6 Estimated GFR > 60 POC Glucose Random Glucose 129 H Calcium 7.9 L B-Natriuretic Peptide 1578 H Procalcitonin 0.88 11/28/20 08:55 Sodium Potassium Chloride Carbon Dioxide Anion Gap BUN Creatinine Estim Creat Clear Calc Estimated GFR POC Glucose 105 Random Glucose Calcium B-Natriuretic Peptide Procalcitonin Imaging Radiologist's impression: Impressions Chest X-Ray 11/27/20 23:55 IMPRESSION: New hazy opacity in the right lower lobe concerning for aspiration in the appropriate clinical setting. Progress Note: A&P Assessment and plan (1) Acute on chronic systolic (congestive) heart failure: Status: Acute (2) Hypoxia: Status: Acute (3) Aspiration pneumonia: Status: Acute Assessment and Plan: Pertinent studies reviewed. Hemoglobin 8.7. White cells 6.4. Platelets 224. Potassium is 4.5. Creatinine is 1.1. BUN is 46. High sensitive troponins are 47 and 58. Cardiac BNP is 1578. It was 747 in July. Chest x-ray reported to have new hazy opacity in the right lower lobe, concerning for aspiration. Last echocardiogram from 2019 with LVEF 30-35%; moderate diastolic dysfunction and moderate pulmonary hypertension. Myocardial perfusion imaging study from 2019 with no ischemic findings. Initially thought to have had some heart failure leading to hypoxia and hospitalization; new aspiration event noted; from cardiac, may maintained on low-dose diuretics and periodically check renal function. Otherwise, treat aspiration as she would otherwise do. It seems that his pacemaker gets checked at [facility] and last interrogation was in May 2020. May follow this in the future through [facility]. Fall Risk Details Current Medications: Current Medications Acetaminophen (Acetaminophen 325 Mg Tablet) 650 mg PO Q6H PRN PRN Reason: Pain, Mild (Pain Scale 1-3) Acetaminophen (Acetaminophen 325 Mg Tablet) 650 mg PO Q6H PRN PRN Reason: elevated temp or pain Amlodipine Besylate (Amlodipine Besylate 5 Mg Tablet) 5 mg PO DAILY [facility]; Protocol Last Admin: 11/28/20 08:36 Dose: 5 mg Documented by: Aspirin (Aspirin 325 Mg Tablet) 325 mg PO DAILY [facility] Last Admin: 11/28/20 08:37 Dose: 325 mg Documented by: Bisacodyl (Bisacodyl 10 Mg Supp.Rect) 10 mg [place] DAILY PRN PRN Reason: Constipation Buspirone HCl (Buspirone Hcl 10 Mg Tablet) 10 mg PO BID [facility] Last Admin: 11/28/20 08:56 Dose: 10 mg Documented by: Calcium Carbonate (Calcium Carbonate 750 Mg Tab.Chew) 750 mg PO Q6H PRN PRN Reason: dyspesia Last Admin: 11/27/20 21:35 Dose: 750 mg Documented by: Carvedilol (Carvedilol 6.25 Mg Tablet) 6.25 mg PO BID [facility]; Protocol Last Admin: 11/28/20 08:38 Dose: 6.25 mg Documented by: Dextrose (Dextrose 50 % 25 Gm/50 Ml Vial) 25 gm IVPUSH Q15M PRN; Protocol PRN Reason: per Hypoglycemia Standing Ord. Divalproex Sodium (Divalproex Sodium Sprinkles 125 Mg Cap) 125 mg PO DAILY@1999 [facility] Last Admin: 11/27/20 21:35 Dose: 125 mg Documented by: Famotidine (Famotidine/Pf 20 Mg/2 Ml Vial) 20 mg IVPUSH BID [facility] Ferrous Sulfate (Ferrous Sulfate 324 Mg Clem.) 324 mg PO DAILY [facility] Last Admin: 11/28/20 08:36 Dose: 324 mg Documented by: Furosemide (Furosemide 20 Mg Tablet) 20 mg PO DAILY [facility]; Protocol Gabapentin (Gabapentin 400 Mg Capsule) 800 mg PO TID [facility] Last Admin: 11/28/20 08:36 Dose: 800 mg Documented by: Glucose (Glucose Gel 15 Gm Gel..Gram.) 15 gm PO Q15M PRN; Protocol PRN Reason: per Hypoglycemia Standing Ord. Guaifenesin (Guaifenesin 100 Mg/5 Ml Liquid) 10 ml PO Q4H PRN PRN Reason: Cough Guaifenesin (Guaifenesin La 600 Mg Tab.Er.12h) 600 mg PO BID [facility] Last Admin: 11/28/20 08:38 Dose: 600 mg Documented by: Heparin Sodium (Porcine) (Heparin Sodium,Porcine 5,000 Unit/Ml Vial) 5,000 unit SUBCUT Q8H [facility] Last Admin: 11/28/20 06:24 Dose: Not Given Documented by: Vancomycin HCl 1,250 mg/ (Sodium Chloride) 250 mls @ 166.667 mls/hr IV Q12H [facility] Last Infusion: 11/28/20 10:13 Dose: Infused Documented by: Ampicillin Sodium/Sulbactam (Sodium 3 gm/ Sodium Chloride) 100 mls @ 200 mls/hr IV Q6H [facility] Insulin Human Lispro (Insulin Lispro 100 Unit/Ml 3 Ml Vial) 0 unit SUBCUT QIDACHS [facility]; Protocol Last Admin: 11/28/20 08:57 Dose: Not Given Documented by: Magnesium Hydroxide (Milk Of Magnesia 30 Ml Oral.Susp) 30 ml PO DAILY PRN PRN Reason: Constipation Melatonin (Melatonin 3 Mg Tablet) 6 mg PO BEDTIME PRN PRN Reason: Insomnia Morphine Sulfate (Morphine Sulfate 2 Mg/Ml Cartridge) 2 mg IVPUSH Q6H PRN; Protocol PRN Reason: Pain, Severe (Pain Scale 7-10) Last Admin: 11/28/20 06:34 Dose: 2 mg Documented by: Ondansetron HCl (Ondansetron Hcl 4 Mg/2 Ml Vial) 4 mg IVPUSH Q8H PRN PRN Reason: Nausea and Vomiting Last Admin: 11/28/20 08:38 Dose: 4 mg Documented by: Oxycodone HCl (Oxycodone Hcl Immed Release 5 Mg Tablet) 5 mg PO Q6H PRN PRN Reason: Pain Last Admin: 11/27/20 21:35 Dose: 5 mg Documented by: Pregabalin (Pregabalin 100 Mg Capsule) 100 mg PO TID [facility] Last Admin: 11/28/20 08:38 Dose: 100 mg Documented by: Senna (Sennosides 8.6 Mg Tablet) 17.2 mg PO BEDTIME PRN PRN Reason: Constipation Senna (Sennosides 8.6 Mg Tablet) 8.6 mg PO BEDTIME [facility] Last Admin: 11/27/20 21:36 Dose: 8.6 mg Documented by: Sertraline HCl (Sertraline Hcl 50 Mg Tablet) 50 mg PO DAILY [facility] Last Admin: 11/28/20 08:36 Dose: 50 mg Documented by: Sertraline HCl (Sertraline Hcl 100 Mg Tablet) 100 mg PO DAILY [facility] Last Admin: 11/28/20 08:38 Dose: 100 mg Documented by: Sodium Bicarbonate (Sodium Bicarbonate 650 Mg Tablet) 650 mg PO TID [facility] Last Admin: 11/28/20 08:38 Dose: 650 mg Documented by: Sodium Chloride (0.9 % Sodium Chloride Flush 3 Ml Syringe) [facility] Last Admin: 11/28/20 08:39 Dose: Not Given Documented by: Tramadol HCl (Tramadol Hcl 50 Mg Tablet) 50 mg PO Q6H PRN PRN Reason: Pain Vitamin D (Cholecalciferol (Vitamin D3) 25 Mcg Tablet) 25 mcg PO DAILY [facility] Last Admin: 11/28/20 08:36 Dose: 25 mcg Documented by: Time Spent With Patient Time: Total time spent is greater than 50% in coordination of care (as document ed) at patient's floor/unit and/or counseling patient: Time with patient: less than 15 minutes Progress Note: Quality Stroke Does the patient have a stroke diagnosis?: No Procedures Date of Service Date of Service: 11/28/20
[2020-11-28 11:05] LABS: Glucose, Whole Blood 132 mg/dL (60-115)
--- NOTE | 2020-11-28 11:40 | P.PNNP_ITS ---
Subjective Subjective Date of Service: 11/29/20 Interval history: Events noted Sleeping Arousible Physical Exam Vital Signs: Vital Signs: Last Vital Signs Temp 97.5 F 11/28/20 11:14 Pulse 55 11/28/20 11:14 Resp 18 11/28/20 11:14 BP 129/61 11/28/20 11:14 Pulse Ox 99 11/28/20 11:14 Oxygen Flow Rate 2 11/26/20 11:44 Body Mass Index 36.7 Const: General: well developed Neck: Neck: Yes supple Resp: Auscultation: clear to auscultation bilaterally Cardio: Palpation: no palpable S4 Heart sounds: no murmurs GI: Auscultation: normal bowel sounds Objective Data Labs CBC & Chem 7: 11/29/20 06:07 11/29/20 06:07 Labs: Laboratory Results - last 24 hr 11/27/20 11/27/20 11/28/20 16:34 20:57 06:12 Sodium 139 Potassium 4.5 Chloride 107 Carbon Dioxide 26 Anion Gap 11 L BUN 46 H Creatinine 1.04 Estim Creat Clear Calc 105.6 Estimated GFR > 60 POC Glucose 83 106 Random Glucose 129 H Calcium 7.9 L B-Natriuretic Peptide Procalcitonin 11/28/20 11/28/20 11/28/20 06:12 06:12 08:55 Sodium Potassium Chloride Carbon Dioxide Anion Gap BUN Creatinine Estim Creat Clear Calc Estimated GFR POC Glucose 105 Random Glucose Calcium B-Natriuretic Peptide 1578 H Procalcitonin 0.88 11/28/20 10:56 Sodium Potassium Chloride Carbon Dioxide Anion Gap BUN Creatinine Estim Creat Clear Calc Estimated GFR POC Glucose 132 H Random Glucose Calcium B-Natriuretic Peptide Procalcitonin Microbiology Microbiology Results: Microbiology 11/26/20 12:24 Blood - Venous Blood Culture - Preliminary Coag negative Staphylococcus 11/26/20 Unknown Urine clean catch - Urine pedersen top Urine Culture - Final 11/26/20 12:44 Blood - Venous Blood Culture - Preliminary No growth after 24 hours. Procedures Date of Service Date of Service: 11/28/20 Assessment & Plan Assessment and plan (1) FAM (acute kidney injury): Status: Acute Assessment and Plan: 1. HyperK: resolved 2. HypoNa: mild 3. N/V: resolved 4. Anemia 5. NAGMA: d/t ileostomy 6. DM 7. H/O NRProt REC: cont po NaHCO3 - Can decrease to BID avoid AYE/ARB; anemia w/u; recheck UAC Time Spent With Patient Time: Total time spent is greater than 50% in coordination of care (as docum ented) at patient's floor/unit and/or counseling patient: Time with patient: 15 - 24 minutes Progress Note: Quality Stroke Does the patient have a stroke diagnosis?: No
[2020-11-28 16:17] LABS: Glucose, Whole Blood 89 mg/dL (60-115)
[2020-11-28 18:35] LABS: Creatinine Urine 49.42 mg/dL
[2020-11-28 19:02] LABS: Total Protein Urine Random 387 mg/dL (<12)
[2020-11-28] MEDS: Divalproex Sodium Sprinkles 125 MG CAP.DR.SPR PO (20:38)
[2020-11-28 21:36] LABS: Glucose, Whole Blood 147 mg/dL (60-115)
[2020-11-29] VITALS (9 sets, daily range): BP systolic 141–168; BP diastolic 67–75; PULSE 50–64; RESP 18–20; TEMP 36.1–36.6; O2SAT 94–100
[2020-11-29] MEDS: Morphine Sulfate 2 MG/ML CARTRIDGE IVPUSH ×3 (03:26→21:20)
[2020-11-29] MEDS: Ampicillin Sodium/Sulbactam Na 3 GM in 0.9 % Sodium Chloride 100 ML IV ×4 (03:27→21:20)
[2020-11-29 06:37] LABS: Hematocrit 28.9 % (42-52); Hemoglobin 8.4 g/dl (14.0-18.0); Mean Corpuscular HGB Conc 29.1 g/dl (31.0-36.0); Mean Corpuscular Hemoglobin 22.2 pg (27.0-33.0); Mean Corpuscular Volume 76.5 fL (80-98); Mean Platelet Volume 9.8 fL (9.4-12.4); Platelet Count 200 X10*3/uL (160-400); Red Blood Count 3.78 X10*6/uL (4.60-5.80); Red Cell Distribution Width 18.6 % (11.0-16.0)
[2020-11-29 06:54] LABS: Anion Gap 11 (12-20); Blood Urea Nitrogen 40 mg/dL (9-16); Calcium 7.7 mg/dL (8.4-10.2); Carbon Dioxide 27 mmol/L (22-29); Chloride 108 mmol/L (96-108); Creatinine Clr Calc Pharmacy 100.7; Estimated Glomerular Filt Rate > 60; Glucose Random 100 mg/dL (60-115); Potassium 4.1 mmol/L (3.3-5.1); Sodium 142 mmol/L (135-145)
[2020-11-29 07:29] LABS: Glucose, Whole Blood 88 mg/dL (60-115)
[2020-11-29] MEDS: Pregabalin 100 MG CAPSULE PO ×3 (09:59→21:19)
[2020-11-29] MEDS: Cholecalciferol (Vitamin D3) 25 MCG TABLET PO (09:59)
[2020-11-29] MEDS: Gabapentin 400 MG CAPSULE 800 MG PO ×3 (10:00→21:19)
[2020-11-29] MEDS: guaiFENesin LA 600 MG TAB.ER.12H PO ×2 (10:00→21:19)
[2020-11-29] MEDS: busPIRone HCl 10 MG TABLET PO ×2 (10:00→21:19)
[2020-11-29] MEDS: Aspirin 325 MG TABLET PO (10:00)
[2020-11-29] MEDS: Sodium Bicarbonate 650 MG TABLET PO ×3 (10:00→21:19)
[2020-11-29] MEDS: Furosemide 20 MG TABLET PO (10:00)
[2020-11-29] MEDS: carvediloL 6.25 MG TABLET PO ×2 (10:01→21:20)
[2020-11-29] MEDS: Famotidine/PF 20 MG/2 ML VIAL IVPUSH ×2 (10:01→21:20)
[2020-11-29] MEDS: Sertraline HCL 50 MG TABLET PO (10:01)
[2020-11-29] MEDS: Ferrous Sulfate 324 MG TABLET.DR PO (10:01)
[2020-11-29] MEDS: Sertraline HCL 100 MG TABLET PO (10:01)
[2020-11-29] MEDS: amLODIPine Besylate 5 MG TABLET PO (10:01)
[2020-11-29] MEDS: 0.9 % Sodium Chloride Flush 3 ML SYRINGE IVFLUSH ×3 (10:02→21:20)
[2020-11-29 11:25] LABS: Glucose, Whole Blood 131 mg/dL (60-115)
--- NOTE | 2020-11-29 11:37 | PM.PNNEP ---
Subjective Subjective Date of Service: 12/14/20 Interval history: Events noted Sleeping Arousible Physical Exam Vital Signs: Vital Signs: Last Vital Signs Temp 97.7 F 11/29/20 07:38 Pulse 60 11/29/20 10:01 Resp 18 11/29/20 07:38 BP 156/75 H 11/29/20 10:01 Pulse Ox 98 11/29/20 07:38 Oxygen Flow Rate 2 11/26/20 11:44 Body Mass Index 36.7 Const: General: well developed Neck: Neck: Yes supple Resp: Auscultation: clear to auscultation bilaterally Cardio: Palpation: no palpable S4 Heart sounds: no murmurs GI: Auscultation: normal bowel sounds Objective Data Labs CBC & Chem 7: 12/01/20 06:32 12/01/20 06:32 Labs: Laboratory Results - last 24 hr 11/28/20 11/28/20 11/28/20 13:30 16:10 20:58 WBC RBC Hgb Hct MCV MCH MCHC RDW Plt Count MPV Absolute Nucleated RBC Nucleated RBC % (auto) Sodium Potassium Chloride Carbon Dioxide Anion Gap BUN Creatinine Estim Creat Clear Calc Estimated GFR POC Glucose 89 147 H Random Glucose Calcium U Random Total Protein 387 H Urine Creatinine 49.42 Urine Microalbumin 2788.0 Microalb/Creat Ratio 5641.4 11/29/20 11/29/20 11/29/20 06:07 06:07 07:24 WBC 5.0 RBC 3.78 L Hgb 8.4 L Hct 28.9 L MCV 76.5 L MCH 22.2 L MCHC 29.1 L RDW 18.6 H Plt Count 200 MPV 9.8 Absolute Nucleated RBC 0.000 Nucleated RBC % (auto) 0.0 Sodium 142 Potassium 4.1 Chloride 108 Carbon Dioxide 27 Anion Gap 11 L BUN 40 H Creatinine 1.09 Estim Creat Clear Calc 100.7 Estimated GFR > 60 POC Glucose 88 Random Glucose 100 Calcium 7.7 L U Random Total Protein Urine Creatinine Urine Microalbumin Microalb/Creat Ratio 11/29/20 11:10 WBC RBC Hgb Hct MCV MCH MCHC RDW Plt Count MPV Absolute Nucleated RBC Nucleated RBC % (auto) Sodium Potassium Chloride Carbon Dioxide Anion Gap BUN Creatinine Estim Creat Clear Calc Estimated GFR POC Glucose 131 H Random Glucose Calcium U Random Total Protein Urine Creatinine Urine Microalbumin Microalb/Creat Ratio Microbiology Microbiology Results: Microbiology 11/26/20 12:24 Blood - Venous Blood Culture - Final Coag negative Staphylococcus 11/26/20 12:44 Blood - Venous Blood Culture - Preliminary No growth after 48 hours. 11/26/20 Unknown Urine clean catch - Urine pedersen top Urine Culture - Final Procedures Date of Service Date of Service: 11/29/20 Assessment & Plan Assessment and plan (1) FAM (acute kidney injury): Assessment and Plan: 1. HyperK: resolved 2. HypoNa: mild 3. N/V: resolved 4. Anemia 5. NAGMA: d/t ileostomy 6. DM 7. H/O NRProt REC: cont po NaHCO3 - Can decrease to BID avoid AYE/ARB; anemia w/u; recheck UAC Time Spent With Patient Time: Total time spent is greater than 50% in coordination of care (as documented) at patient's floor/unit and/or counseling patient: Progress Note: Quality Stroke Does the patient have a stroke diagnosis?: No
--- NOTE | 2020-11-29 12:00 | HO.PM.IMPN ---
Subjective Subjective Date of Service: 11/29/20 Interval History: Breathing improved Still c/o epigastric pain No chest pain Review of Systems Review of Systems: Yes all other systems are reviewed and are negative Physical Exam Vital Signs: Vital Signs: Last Vital Signs Temp 97.8 F 11/29/20 11:44 Pulse 50 11/29/20 11:44 Resp 20 11/29/20 11:44 BP 158/70 H 11/29/20 11:44 Pulse Ox 95 11/29/20 11:44 Oxygen Flow Rate 2 11/26/20 11:44 Body Mass Index 36.7 Gen: in no acute distress HEENT: sclera anicteric, moist mucus membranes Neck: supple Lungs: insp crackles R side Heart: regular rate and rhythm, no murmurs Abd: soft, epigastric tenderness, obese, colostomy draining liquid brown stool Ext: 1+ bilateral lower extremity edema Skin: warm/well-perfused Neuro: alert and oriented x3, no focal findings Psych: appropriate affect Objective Data Active Medications Acetaminophen (Acetaminophen 325 Mg Tablet) 650 mg PO Q6H PRN PRN Reason: Pain, Mild (Pain Scale 1-3) Acetaminophen (Acetaminophen 325 Mg Tablet) 650 mg PO Q6H PRN PRN Reason: elevated temp or pain Amlodipine Besylate (Amlodipine Besylate 5 Mg Tablet) 5 mg PO DAILY [facility]; Protocol Last Admin: 11/29/20 10:01 Dose: 5 mg Documented by: YONAS Aspirin (Aspirin 325 Mg Tablet) 325 mg PO DAILY [facility] Last Admin: 11/29/20 10:00 Dose: 325 mg Documented by: YONAS Bisacodyl (Bisacodyl 10 Mg Supp.Rect) 10 mg CA DAILY PRN PRN Reason: Constipation Buspirone HCl (Buspirone Hcl 10 Mg Tablet) 10 mg PO BID [facility] Last Admin: 11/29/20 10:00 Dose: 10 mg Documented by: YONAS Calcium Carbonate (Calcium Carbonate 750 Mg Tab.Chew) 750 mg PO Q6H PRN PRN Reason: dyspesia Last Admin: 11/27/20 21:35 Dose: 750 mg Documented by: CHRISTINE Carvedilol (Carvedilol 6.25 Mg Tablet) 6.25 mg PO BID [facility]; Protocol Last Admin: 11/29/20 10:01 Dose: 6.25 mg Documented by: YONAS Dextrose (Dextrose 50 % 25 Gm/50 Ml Vial) 25 gm IVPUSH Q15M PRN; Protocol PRN Reason: per Hypoglycemia Standing Ord. Divalproex Sodium (Divalproex Sodium Sprinkles 125 Mg Cap.) 125 mg PO DAILY@1999 [facility] Last Admin: 11/28/20 20:38 Dose: 125 mg Documented by: RUBEN Famotidine (Famotidine/Pf 20 Mg/2 Ml Vial) 20 mg IVPUSH BID [facility] Last Admin: 11/29/20 10:01 Dose: 20 mg Documented by: YONAS Ferrous Sulfate (Ferrous Sulfate 324 Mg Clem.) 324 mg PO DAILY [facility] Last Admin: 11/29/20 10:01 Dose: 324 mg Documented by: YONAS Furosemide (Furosemide 20 Mg Tablet) 20 mg PO DAILY [facility]; Protocol Last Admin: 11/29/20 10:00 Dose: 20 mg Documented by: YONAS Gabapentin (Gabapentin 400 Mg Capsule) 800 mg PO TID [facility] Last Admin: 11/29/20 10:00 Dose: 800 mg Documented by: YONAS Glucose (Glucose Gel 15 Gm Gel..Gram.) 15 gm PO Q15M PRN; Protocol PRN Reason: per Hypoglycemia Standing Ord. Guaifenesin (Guaifenesin 100 Mg/5 Ml Liquid) 10 ml PO Q4H PRN PRN Reason: Cough Guaifenesin (Guaifenesin La 600 Mg Tab.Er.12h) 600 mg PO BID [facility] Last Admin: 11/29/20 10:00 Dose: 600 mg Documented by: YONAS Heparin Sodium (Porcine) (Heparin Sodium,Porcine 5,000 Unit/Ml Vial) 5,000 unit SUBCUT Q8H [facility] Last Admin: 11/29/20 05:47 Dose: Not Given Documented by: RUBEN Non-Admin Reason: Patient Refused Ampicillin Sodium/Sulbactam (Sodium 3 gm/ Sodium Chloride) 100 mls @ 200 mls/hr IV Q6H [facility] Last Infusion: 11/29/20 10:50 Dose: 0 mls/hr Documented by: YONAS Insulin Human Lispro (Insulin Lispro 100 Unit/Ml 3 Ml Vial) 0 unit SUBCUT QIDACHS [facility]; Protocol Last Admin: 11/29/20 11:41 Dose: Not Given Documented by: YONAS Non-Admin Reason: No Insulin Coverage Magnesium Hydroxide (Milk Of Magnesia 30 Ml Oral.Susp) 30 ml PO DAILY PRN PRN Reason: Constipation Melatonin (Melatonin 3 Mg Tablet) 6 mg PO BEDTIME PRN PRN Reason: Insomnia Morphine Sulfate (Morphine Sulfate 2 Mg/Ml Cartridge) 2 mg IVPUSH Q6H PRN; Protocol PRN Reason: Pain, Severe (Pain Scale 7-10) Last Admin: 11/29/20 10:02 Dose: 2 mg Documented by: YONAS Ondansetron HCl (Ondansetron Hcl 4 Mg/2 Ml Vial) 4 mg IVPUSH Q8H PRN PRN Reason: Nausea and Vomiting Last Admin: 11/28/20 08:38 Dose: 4 mg Documented by: YONAS Oxycodone HCl (Oxycodone Hcl Immed Release 5 Mg Tablet) 5 mg PO Q6H PRN PRN Reason: Pain Last Admin: 11/27/20 21:35 Dose: 5 mg Documented by: CHRISTINE Pregabalin (Pregabalin 100 Mg Capsule) 100 mg PO TID [facility] Last Admin: 11/29/20 09:59 Dose: 100 mg Documented by: YONAS Senna (Sennosides 8.6 Mg Tablet) 17.2 mg PO BEDTIME PRN PRN Reason: Constipation Senna (Sennosides 8.6 Mg Tablet) 8.6 mg PO BEDTIME [facility] Last Admin: 11/28/20 20:45 Dose: Not Given Documented by: RUBEN Non-Admin Reason: Patient Refused Sertraline HCl (Sertraline Hcl 50 Mg Tablet) 50 mg PO DAILY [facility] Last Admin: 11/29/20 10:01 Dose: 50 mg Documented by: YONAS Sertraline HCl (Sertraline Hcl 100 Mg Tablet) 100 mg PO DAILY [facility] Last Admin: 11/29/20 10:01 Dose: 100 mg Documented by: YONAS Sodium Bicarbonate (Sodium Bicarbonate 650 Mg Tablet) 650 mg PO TID [facility] Last Admin: 11/29/20 10:00 Dose: 650 mg Documented by: YONAS Sodium Chloride (0.9 % Sodium Chloride Flush 3 Ml Syringe) 3 ml IVFLUSH QSHIFT [facility] Last Admin: 11/29/20 10:02 Dose: 3 ml Documented by: YONAS Tramadol HCl (Tramadol Hcl 50 Mg Tablet) 50 mg PO Q6H PRN PRN Reason: Pain Vitamin D (Cholecalciferol (Vitamin D3) 25 Mcg Tablet) 25 mcg PO DAILY [facility] Last Admin: 11/29/20 09:59 Dose: 25 mcg Documented by: YONAS Labs CBC & Chem 7: 11/29/20 06:07 11/29/20 06:07 Labs: Laboratory Results - last 24 hr 11/28/20 11/28/20 11/28/20 13:30 16:10 20:58 MCV MCH MCHC RDW Plt Count MPV Absolute Nucleated RBC Nucleated RBC % (auto) Anion Gap Estim Creat Clear Calc Estimated GFR POC Glucose 89 147 H Random Glucose Calcium U Random Total Protein 387 H Urine Creatinine 49.42 Urine Microalbumin 2788.0 Microalb/Creat Ratio 5641.4 11/29/20 11/29/20 11/29/20 06:07 06:07 07:24 MCV 76.5 L MCH 22.2 L MCHC 29.1 L RDW 18.6 H Plt Count 200 MPV 9.8 Absolute Nucleated RBC 0.000 Nucleated RBC % (auto) 0.0 Anion Gap 11 L Estim Creat Clear Calc 100.7 Estimated GFR > 60 POC Glucose 88 Random Glucose 100 Calcium 7.7 L U Random Total Protein Urine Creatinine Urine Microalbumin Microalb/Creat Ratio 11/29/20 11:10 MCV MCH MCHC RDW Plt Count MPV Absolute Nucleated RBC Nucleated RBC % (auto) Anion Gap Estim Creat Clear Calc Estimated GFR POC Glucose 131 H Random Glucose Calcium U Random Total Protein Urine Creatinine Urine Microalbumin Microalb/Creat Ratio Microbiology Microbiology Results: Microbiology 11/26/20 12:24 Blood Culture - Final Blood - Venous Coag negative Staphylococcus 11/26/20 12:44 Blood Culture - Preliminary Blood - Venous No growth after 48 hours. 11/26/20 Unknown Urine Culture - Final Urine clean catch - Urine pedersen top Assessment and Plan (1) FAM (acute kidney injury): Status: Acute Assessment and Plan: hospital d#4 65yo M long-term SNF resident with DM2 complicated by foot infection/osteomyelitis, HTN, AF s/p PPM, HF with recovered EF, PVD, rectal CA s/p colostomy presented after pre-syncopal episode associated with hypoxia, found to have FAM/hyperK # aspiration PNA - start ampicillin/sulbactam d#2, follow BCx, trend PCT - [employer] evaluation pending - not bacteremic- grew coag-neg staph out of BCx 11/26- d/c'ed vancomycin # epigastric pain - IV H2RA, GI consult # acute hypoxia - now due to PNA. suppl O2, wean as tolerated. V/Q neg for PE. question of undiagnosed ERICKA remains and I recommend outpt PSG. - V/Q negative for PE.? no evidence of PNA.? ?mild CHF? ?undiagnosed ERICKA- outpt PSG.? continue supplemental O2 and wean as tolerated # hyperK - resolved s/p SPS # FAM - resolved s/p fluid hydration.? on chronic bicarbonate due to hx of NAGMA from loop ileostomy ? # chronic HF with recovered EF - got 1 dose of furosmide in ED but then got fluid hydration; appears to be euvolemic - troponin indeterminate, delta <50% - continue carvedilol - start on maintenance furosemide - appreciate Cardiology consultation # HECTOR - continue iron replacement # HTN - continue amlodipine # sacral decubitus ulcer - present on admission.? Wound Care consultation # DM2 - correction-dose lispro; hold glipizide # DM neuropathy - wheelchair-bound; continue gabapentin + pregabalin # mood disorder - continue valproate, sertraline, buspirone # VTE ppx - UFH # dispo - eventual return to LTC @ [facility] once hypoxia resolves Quality Stroke Does the patient have a stroke diagnosis?: No VTE Prior VTE?: No VTE Risk Level:: Medical - moderate - high VTE Device Contraindication: Treatment Not Indicated VTE Drug Contraindication: N/A - Med Ordered
--- NOTE | 2020-11-29 16:09 | PM.EVENT ---
Event Note Date of Service: 11/29/20 Event Note: Imp: 65 yo male with multiple medical problems who describes new pain and tenderness in RUQ extending down toward the right of the umbilicus area. He denies any association with meals. Denies any anorexia, increased GERD, dysphagia, N/V, nor problems with the colostomy. He denies any history of PUD. He does not take any NSAIDs but is on ASA 325mg QD. He denies EtOH and tobacco. He has had many CT scans but no Ultrasounds of the abdomen from what I can see in the records. He does have tenderness in the RUQ on exam. Rec: Check Abdominal U/S to inspect for gallstones or signs of acalculous cholecystitis. Check LFT's and pancreatic enzymes in AM. Continue IV H2-roz, although present symptoms and findings don't seem c/w acid-peptic disease such as ulcer nor gastritis. If the U/S is negative for gallstones and the pain/tenderness persist, I would recommend a HIDA scan with CCK to further R/O acalculous cholecystitis. I don't think an upper endoscopy would be helpful at the present time. Will follow. D/W patient and he is comfortable with this plan. Thanks
[2020-11-29 16:12] LABS: Glucose, Whole Blood 135 mg/dL (60-115)
[2020-11-29 19:51] LABS: Glucose, Whole Blood 139 mg/dL (60-115)
--- NOTE | 2020-11-29 20:41 | CONS_ITS ---
DATE OF SERVICE: 11/29/2020 REASON FOR CONSULTATION: Abdominal pain. HISTORY OF PRESENT ILLNESS: The patient is a 65-year-old male, admitted here November 26 for treatment of osteomyelitis. He describes that for about 1 or 2 days before this admission, he began having some abdominal discomfort at the [place] [facility] and this has persisted here. He describes the pain as fairly constant, extending from the right upper quadrant, down toward the right of the umbilicus. During these few days with the pain, he has been able to eat without any worsening discomfort nor relief of the pain. He denies any nausea nor vomiting other than a single episode early in the admission, but without any signs of hematemesis nor coffee-grounds emesis. He denies any heartburn nor any dysphagia. He describes a good appetite. He has not noticed any jaundice. He does have a colostomy and reports that this is working well. He has not noticed any hematochezia nor melena in the colostomy bag. He is on a full-strength aspirin daily, but no NSAIDs. He denies tobacco nor alcohol. He denies any history of ulcer disease. He denies ever having had an upper endoscopy. In review of his record, he has had multiple CAT scans but has never had an abdominal ultrasound in regard to evaluation of the gallbladder. MEDICATIONS: His present medications include acetaminophen p.r.n., amlodipine, aspirin 325 mg daily, Dulcolax p.r.n., BuSpar, Tums p.r.n., carvedilol, vitamin D, divalproex, IV Pepcid b.i.d., iron, Lasix, gabapentin, subcu heparin, melatonin, insulin, morphine p.r.n., milk of magnesia p.r.n., Zofran p.r.n., Lyrica, Senokot p.r.n., sertraline, sodium bicarbonate, and tramadol p.r.n. 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 Cataract surgery. He had a history of rectal cancer, which was treated with preoperative chemotherapy and radiation treatment, and then a subsequent low anterior resection with a loop ileostomy, which was eventually closed. 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 Medical problems include hypertension, diabetes mellitus, diabetic neuropathy, some renal insufficiency, osteomyelitis, cardiomyopathy with CHF, anxiety, and obesity. He does have chronic anemia as well. SOCIAL HISTORY: He lives in a [place] [facility]. He does not smoke nor use any significant amounts of alcohol. He is single. REVIEW OF SYSTEMS: CONSTITUTIONAL: He feels fairly well actually and reports a good appetite. SKIN: No rash. No pruritus. CARDIAC: No chest pain. PULMONARY: No cough. No hemoptysis. GASTROINTESTINAL: As above. URINARY: He denies any dysuria or hematuria. NEUROLOGIC: He denies any headaches or seizures. FAMILY HISTORY: Noncontributory. PHYSICAL EXAMINATION: GENERAL: The patient is a pleasant, alert, comfortable-appearing male. He has been afebrile. HEENT: Anicteric sclerae. Nonjaundiced. SKIN: Warm and dry. NECK: Supple. CHEST: Clear. CARDIAC: Normal S1, S2. ABDOMEN: Soft with a colostomy in the left side and with brown stool in the colostomy bag. He does have tenderness to palpation in the right upper quadrant extending down toward the area of the umbilicus. There is no mass nor rebound. He does have some guarding. Bowel sounds are normal. The abdomen is nondistended. LABORATORY DATA: CBC from today showed a white blood cell count of 5.0, hemoglobin 8.4, platelets 200,000, MCV 77. Normal electrolytes. BUN 40, creatinine 1.1. His most recent PT with INR was 12.1 and 1.1 in November 26. His most recent liver profile was on November 26 and was normal. The most recent imaging of the abdomen was an abdominal and pelvic CT scan on September 01 describing a normal-appearing liver, gallbladder, and biliary tree. Pancreas and spleen were unremarkable. Chronic changes in the pelvic area and GI tract were unchanged. IMPRESSION: Given the patient's clinical history and clinical findings, I would want to exclude gallbladder disease, whether it be stones or possible acalculous cholecystitis given all of his medical problems. His current presentation and findings do not seem to support anything such as ulcer disease nor worsening reflux disease. I do not think this is related to his previous rectal cancer and all of his previous surgeries. The colostomy seems to be working well. At this point, I would recommend an abdominal ultrasound for the morning and check laboratories for a pancreatic enzymes, CBC, and LFTs. I would continue the IV H2 roz, although again this does not sound like acid peptic disease. If the ultrasound is negative for gallstones and the discomfort and tenderness persist, he might need a HIDA scan with CCK to better evaluate for acalculous cholecystitis. I do not think an upper endoscopy would be helpful at the present time given the location of his discomfort and findings. I shall follow the patient along with you in the hospital. Certainly, if he is found to have evidence of gallstones and/or cholecystitis, then he would need surgical consultation for further evaluation as well. This has been discussed with the patient. He is comfortable with the plan. MD FELICITAS Schmid/JOSELITO / [id number] MTDD
[2020-11-29] MEDS: Sennosides 8.6 MG TABLET PO (21:19)
[2020-11-29] MEDS: Divalproex Sodium Sprinkles 125 MG CAP.DR.SPR PO (21:19)
[2020-11-30] VITALS (12 sets, daily range): BP systolic 135–164; BP diastolic 53–90; PULSE 50–63; RESP 16–20; TEMP 36.4–36.8; O2SAT 92–95
[2020-11-30] MEDS: Ampicillin Sodium/Sulbactam Na 3 GM in 0.9 % Sodium Chloride 100 ML IV ×4 (03:21→21:00)
[2020-11-30] MEDS: Morphine Sulfate 2 MG/ML CARTRIDGE IVPUSH ×4 (03:26→23:36)
[2020-11-30 07:42] LABS: Glucose, Whole Blood 117 mg/dL (60-115)
[2020-11-30] MEDS: Cholecalciferol (Vitamin D3) 25 MCG TABLET PO (08:33)
[2020-11-30] MEDS: Sodium Bicarbonate 650 MG TABLET PO ×3 (08:33→21:00)
[2020-11-30] MEDS: Famotidine/PF 20 MG/2 ML VIAL IVPUSH ×2 (08:33→21:02)
[2020-11-30] MEDS: Gabapentin 400 MG CAPSULE 800 MG PO ×3 (08:33→21:00)
[2020-11-30] MEDS: carvediloL 6.25 MG TABLET PO ×2 (08:33→20:59)
[2020-11-30] MEDS: Ferrous Sulfate 324 MG TABLET.DR PO (08:33)
[2020-11-30] MEDS: 0.9 % Sodium Chloride Flush 3 ML SYRINGE IVFLUSH ×3 (08:33→23:36)
[2020-11-30] MEDS: oxyCODONE HCl Immed Release 5 MG TABLET PO ×2 (08:33→20:59)
[2020-11-30] MEDS: Furosemide 20 MG TABLET PO (08:33)
[2020-11-30] MEDS: Pregabalin 100 MG CAPSULE PO ×3 (08:33→20:59)
[2020-11-30] MEDS: guaiFENesin LA 600 MG TAB.ER.12H PO ×2 (08:34→20:59)
[2020-11-30] MEDS: Sertraline HCL 50 MG TABLET PO (08:34)
[2020-11-30] MEDS: busPIRone HCl 10 MG TABLET PO ×2 (08:34→20:59)
[2020-11-30] MEDS: Sertraline HCL 100 MG TABLET PO (08:34)
[2020-11-30] MEDS: amLODIPine Besylate 5 MG TABLET PO (08:34)
[2020-11-30] MEDS: Aspirin 325 MG TABLET PO (08:34)
--- NOTE | 2020-11-30 09:46 | HO.PM.IMPN ---
Subjective Subjective Date of Service: 11/30/20 Interval History: Ongoing epigastric pain Breathing improved Review of Systems Review of Systems: Yes all other systems are reviewed and are negative Physical Exam Vital Signs: Vital Signs: Last Vital Signs Temp 97.5 F 11/30/20 07:31 Pulse 62 11/30/20 08:34 Resp 18 11/30/20 09:28 BP 164/70 H 11/30/20 08:34 Pulse Ox 95 11/30/20 07:31 Oxygen Flow Rate 2 11/26/20 11:44 Body Mass Index 36.7 Gen: in no acute distress HEENT: sclera anicteric, moist mucus membranes Neck: supple Lungs: clear bilaterally Heart: regular rate and rhythm, no murmurs Abd: soft, epigastric tenderness, obese, colostomy draining liquid brown stool Ext: tracebilateral lower extremity edema Skin: warm/well-perfused Neuro: alert and oriented x3, no focal findings Psych: appropriate affect Objective Data Active Medications Acetaminophen (Acetaminophen 325 Mg Tablet) 650 mg PO Q6H PRN PRN Reason: Pain, Mild (Pain Scale 1-3) Acetaminophen (Acetaminophen 325 Mg Tablet) 650 mg PO Q6H PRN PRN Reason: elevated temp or pain Amlodipine Besylate (Amlodipine Besylate 5 Mg Tablet) 5 mg PO DAILY [facility]; Protocol Last Admin: 11/30/20 08:34 Dose: 5 mg Documented by: COTEMA Aspirin (Aspirin 325 Mg Tablet) 325 mg PO DAILY [facility] Last Admin: 11/30/20 08:34 Dose: 325 mg Documented by: COTEMA Bisacodyl (Bisacodyl 10 Mg Supp.Rect) 10 mg FL DAILY PRN PRN Reason: Constipation Buspirone HCl (Buspirone Hcl 10 Mg Tablet) 10 mg PO BID [facility] Last Admin: 11/30/20 08:34 Dose: 10 mg Documented by: COTEMA Calcium Carbonate (Calcium Carbonate 750 Mg Tab.Chew) 750 mg PO Q6H PRN PRN Reason: dyspesia Last Admin: 11/27/20 21:35 Dose: 750 mg Documented by: NAUMOC Carvedilol (Carvedilol 6.25 Mg Tablet) 6.25 mg PO BID [facility]; Protocol Last Admin: 11/30/20 08:33 Dose: 6.25 mg Documented by: COTEMA Dextrose (Dextrose 50 % 25 Gm/50 Ml Vial) 25 gm IVPUSH Q15M PRN; Protocol PRN Reason: per Hypoglycemia Standing Ord. Divalproex Sodium (Divalproex Sodium Sprinkles 125 Mg Cap.) 125 mg PO DAILY@1999 [facility] Last Admin: 11/29/20 21:19 Dose: 125 mg Documented by: ANTOIC Famotidine (Famotidine/Pf 20 Mg/2 Ml Vial) 20 mg IVPUSH BID [facility] Last Admin: 11/30/20 08:33 Dose: 20 mg Documented by: COTEMA Ferrous Sulfate (Ferrous Sulfate 324 Mg Clem.) 324 mg PO DAILY [facility] Last Admin: 11/30/20 08:33 Dose: 324 mg Documented by: COTEMA Furosemide (Furosemide 20 Mg Tablet) 20 mg PO DAILY [facility]; Protocol Last Admin: 11/30/20 08:33 Dose: 20 mg Documented by: COTEMA Gabapentin (Gabapentin 400 Mg Capsule) 800 mg PO TID [facility] Last Admin: 11/30/20 08:33 Dose: 800 mg Documented by: COTEMA Glucose (Glucose Gel 15 Gm Gel..Gram.) 15 gm PO Q15M PRN; Protocol PRN Reason: per Hypoglycemia Standing Ord. Guaifenesin (Guaifenesin 100 Mg/5 Ml Liquid) 10 ml PO Q4H PRN PRN Reason: Cough Guaifenesin (Guaifenesin La 600 Mg Tab.Er.12h) 600 mg PO BID [facility] Last Admin: 11/30/20 08:34 Dose: 600 mg Documented by: ISIDRA Heparin Sodium (Porcine) (Heparin Sodium,Porcine 5,000 Unit/Ml Vial) 5,000 unit SUBCUT Q8H [facility] Last Admin: 11/30/20 03:22 Dose: Not Given Documented by: ANTOIC Non-Admin Reason: Patient Refused Ampicillin Sodium/Sulbactam (Sodium 3 gm/ Sodium Chloride) 100 mls @ 200 mls/hr IV Q6H [facility] Last Infusion: 11/30/20 09:15 Dose: 0 mls/hr Documented by: ISIDRA Insulin Human Lispro (Insulin Lispro 100 Unit/Ml 3 Ml Vial) 0 unit SUBCUT QIDACHS [facility]; Protocol Last Admin: 11/30/20 07:46 Dose: Not Given Documented by: HO.COTEMA Non-Admin Reason: No Insulin Coverage Magnesium Hydroxide (Milk Of Magnesia 30 Ml Oral.Susp) 30 ml PO DAILY PRN PRN Reason: Constipation Melatonin (Melatonin 3 Mg Tablet) 6 mg PO BEDTIME PRN PRN Reason: Insomnia Morphine Sulfate (Morphine Sulfate 2 Mg/Ml Cartridge) 2 mg IVPUSH Q6H PRN; Protocol PRN Reason: Pain, Severe (Pain Scale 7-10) Last Admin: 11/30/20 09:28 Dose: 2 mg Documented by: COTEMA Ondansetron HCl (Ondansetron Hcl 4 Mg/2 Ml Vial) 4 mg IVPUSH Q8H PRN PRN Reason: Nausea and Vomiting Last Admin: 11/28/20 08:38 Dose: 4 mg Documented by: DOBROB Oxycodone HCl (Oxycodone Hcl Immed Release 5 Mg Tablet) 5 mg PO Q6H PRN PRN Reason: Pain Last Admin: 11/30/20 08:33 Dose: 5 mg Documented by: COTEMA Pregabalin (Pregabalin 100 Mg Capsule) 100 mg PO TID [facility] Last Admin: 11/30/20 08:33 Dose: 100 mg Documented by: COTEMA Senna (Sennosides 8.6 Mg Tablet) 17.2 mg PO BEDTIME PRN PRN Reason: Constipation Senna (Sennosides 8.6 Mg Tablet) 8.6 mg PO BEDTIME [facility] Last Admin: 11/29/20 21:19 Dose: 8.6 mg Documented by: ANTOIC Sertraline HCl (Sertraline Hcl 50 Mg Tablet) 50 mg PO DAILY [facility] Last Admin: 11/30/20 08:34 Dose: 50 mg Documented by: COTEMA Sertraline HCl (Sertraline Hcl 100 Mg Tablet) 100 mg PO DAILY [facility] Last Admin: 11/30/20 08:34 Dose: 100 mg Documented by: COTEMA Sodium Bicarbonate (Sodium Bicarbonate 650 Mg Tablet) 650 mg PO TID [facility] Last Admin: 11/30/20 08:33 Dose: 650 mg Documented by: COTEMA Sodium Chloride (0.9 % Sodium Chloride Flush 3 Ml Syringe) [facility] Last Admin: 11/30/20 08:33 Dose: 3 ml Documented by: COTEMA Tramadol HCl (Tramadol Hcl 50 Mg Tablet) 50 mg PO Q6H PRN PRN Reason: Pain Vitamin D (Cholecalciferol (Vitamin D3) 25 Mcg Tablet) 25 mcg PO DAILY [facility] Last Admin: 11/30/20 08:33 Dose: 25 mcg Documented by: ISIDRA Labs CBC & Chem 7: 11/29/20 06:07 11/29/20 06:07 Labs: Laboratory Results - last 24 hr 11/29/20 11/29/20 11/29/20 11:10 16:06 19:47 POC Glucose 131 H 135 H 139 H 11/30/20 07:37 POC Glucose 117 H Microbiology Microbiology Results: Microbiology 11/29/20 05:59 Blood Culture - Preliminary Blood - Venous No growth after 24 hours. 11/29/20 06:07 Blood Culture - Preliminary Blood - Venous No growth after 24 hours. 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 GI consulted, will obtain LFTs/pancreatic enzymes, abd US, to consider HIDA+CCK # acute hypoxia - now due to PNA. suppl O2, wean as tolerated. V/Q neg for PE. question of undiagnosed ERICKA remains and I recommend outpt PSG. - V/Q negative for PE.? no evidence of PNA.? ?mild CHF? ?undiagnosed ERICKA- outpt PSG.? continue supplemental O2 and wean as tolerated # hyperK - resolved s/p SPS # FAM - resolved s/p fluid hydration.? on chronic bicarbonate due to hx of NAGMA from loop ileostomy ? # chronic HF with recovered EF - got 1 dose of furosmide in ED but then got fluid hydration; continue maintenance PO furosemide - troponin indeterminate, delta <50% - continue carvedilol - appreciate Cardiology consultation # HECTOR - continue iron replacement # HTN - continue amlodipine # sacral decubitus ulcer - present on admission.? Wound Care consultation # DM2 - correction-dose lispro; hold glipizide # DM neuropathy - wheelchair-bound; continue gabapentin + pregabalin # mood disorder - continue valproate, sertraline, buspirone # VTE ppx - UFH # dispo - eventual return to LTC @ [facility] once hypoxia + abd pain improve Quality Stroke Does the patient have a stroke diagnosis?: No VTE Prior VTE?: No VTE Risk Level:: Medical - moderate - high VTE Device Contraindication: Treatment Not Indicated VTE Drug Contraindication: N/A - Med Ordered
[2020-11-30 10:44] LABS: MANUAL DIFF FLAG NO
[2020-11-30 10:48] LABS: Basophils Percent Auto 0.3 % (0-2); Eosinophils Absolute Auto 0.5 X10*3/uL (0.0-0.4); Eosinophils Percent Auto 8.4 % (0-4); Hematocrit 28.6 % (42-52); Hemoglobin 8.2 g/dl (14.0-18.0); Imm Gran Abs Auto 0.03 X10*3/uL (0.00-0.03); Imm Gran Pct Auto 0.5 % (0.0-0.4); Lymphocytes Absolute Auto 0.8 X10*3/uL (1.2-4.9); Lymphocytes Percent Auto 13.2 % (20-40); Mean Corpuscular HGB Conc 28.7 g/dl (31.0-36.0); Mean Corpuscular Hemoglobin 22.2 pg (27.0-33.0); Mean Corpuscular Volume 77.3 fL (80-98); Mean Platelet Volume 9.9 fL (9.4-12.4); Monocytes Absolute Auto 0.5 X10*3/uL (0.1-1.2); Monocytes Percent Auto 8.6 % (2-11); Neutrophils Absolute Auto 4.1 X10*3/uL (2.0-8.3); Platelet Count 198 X10*3/uL (160-400); Red Cell Distribution Width 18.8 % (11.0-16.0); White Blood Count 5.9 X10*3/uL (4.8-10.8)
--- NOTE | 2020-11-30 10:56 | MHC.SL.SWA ---
Speech Pathologist Impression: Risk of Aspiration Risk of Aspiration Due to: History of Pneumonia Dysphasia Diet Status: No Change Liquid Consistency and Strategies for Safe Swallow: Liquid Intake Recommendation: Thin Liquid Intake Strategies: Small Sips Solid Food Consistency: Dietary Recommendations: Regular Additional Modifications to Solid Foods: No clinical s/s of aspiration with PO trials at bedside. Recommend continue REGULAR solids/ THIN liquids with pills WHOLE in LIQUID. Patient is able to feed himself. He is recommended aspiration precautions and intermittent supervision to ensure tolerance of unmodified diet. Oral Medication Intake: Whole with Liquid Compensatory Strategies and Precautions to be Taken for Safe Swallow: Sitting Upright (90 deg) Small Bites and Sips Alternate Liquids/Solids Rate of Ingestion Change Supervision While Eating and Drinking for Safe Swallow: Intermittent Supervision Foods to Avoid: Swallowing Recommended Treatments: Compens. Strategy Educat. Recommendation for Speech: Modified Barium Swallow Study - Inpatient Modified Barium Swallow Study - Outpatient Comment: Patient is admitted for FAM. Patient's chest x-ray showed, new hazy opacity int he right lower lobe concerning for aspiration in the appropriate clinical setting. Bedside dysphagia evaluation was ordered by . No overt s/s of aspiration with PO trials at bedside. RN reports that patient has been tolerating unmodified diet- regular solids, thin liquids, pills whole with liquid. Patient denies difficulty swallowing. Unremarkable oral phase. Intact rotary chew. Timely oral preparatory phase. Complete oral recollection. No difficulty drinking thin liquid. No cough, no change in vocal quality. Patient was recommended to resume unmodified diet textures REGULAR solids and THIN liquids, pills WHOLE in LIQUID, with aspiration precautions and intermittent supervision to ensure tolerance. ACCOUNTING POLICY CONSULTANT to follow up 1x time at bedside to ensure tolerance of unmodified diet. No clinical s/s of aspiration at bedside with PO trials. Patient's chest x-ray showed right lower lobe hazy opacity concerning for aspiration. MBSS would rule in/out silent aspiration if deemed appropriate by . [place] message sent to , RN, and RD. Toolroom Keeper Clinican/Clinical Fellow: No Supervisory Statement: I have reviewed and agree with the student/clinical fellow's documentation: N/A Speech Language Pathologist: Sandra Thompson M.A., [facility]-ACCOUNTING POLICY CONSULTANT
[2020-11-30 10:57] LABS: Glucose, Whole Blood 148 mg/dL (60-115)
[2020-11-30 11:00] LABS: Amylase 60 U/L (28-100)
[2020-11-30 11:11] LABS: Alanine Aminotransferase 19 U/L (0-40); Albumin Level 2.6 g/dL (3.5-5.0); Alkaline Phosphatase 71 U/L (39-117); Anion Gap 9 (12-20); Aspartate Amino Transferase 16 U/L (5-37); Bilirubin Direct < 0.2 mg/dL (0.0-0.5); Bilirubin Total < 0.2 mg/dL (0.0-1.0); Blood Urea Nitrogen 34 mg/dL (9-16); Calcium 7.7 mg/dL (8.4-10.2); Carbon Dioxide 28 mmol/L (22-29); Chloride 109 mmol/L (96-108); Creatinine Clr Calc Pharmacy 93.8; Estimated Glomerular Filt Rate > 60; Glucose Random 159 mg/dL (60-115); Lipase 23 U/L (8-78); Potassium 4.5 mmol/L (3.3-5.1); Sodium 141 mmol/L (135-145)
[2020-11-30 11:15] LABS: B Type Natriuretic Peptide 806 pg/mL (<100)
[2020-11-30 11:34] LABS: Procalcitonin 0.65 ng/mL
--- NOTE | 2020-11-30 12:53 | MHC.CM.PN ---
Per ROUNDS discussion, Patient is not yet medically cleared for dc (Hypoxic, needs GI Consult and Abdominal U/S, still weaning O2). Returning to LTC at [facility] is the goal and CM will continue to follow.
--- NOTE | 2020-11-30 14:27 | CONS_ITS ---
DATE OF SERVICE: 11/28/2020 REASON FOR CONSULTATION: I was asked to see the patient to assist in evaluation and management of the patient's acute kidney injury as reflected by creatinine that was 1.91 on November 26 when he was admitted to the hospital and a BUN of 73. Both renal labs have improved. His BUN down to 59 and his creatinine down to 1.2 today. HISTORY OF PRESENT ILLNESS: In summary, the patient is a 65-year-old gentleman with a history of hypertension, hyperlipidemia, diabetes, rectal cancer, peripheral vascular disease, heart failure with an EF of 30% to 35%, and a history of diabetic foot ulcer, who recently completed a 6-week course of antibiotics. He also has a history of atrial fibrillation and had a permanent pacemaker in place. On that backdrop of chronic medical problems, he presents to the hospital with complaints of almost passing out. The details are a little bit sketchy as the patient is a poor historian, but the records indicate that he was transitioned from the bed to the chair at the senior living facility, became dizzy and almost passed out. Records say he did not completely lose consciousness. He was also noted to be hypoxic, so he was brought to the hospital for further evaluation. In the emergency room, he had evaluation including a V/Q scan, which was negative and he was given some Lasix initially. The potassium is high, was given a dose of Kayexalate. Chest x-ray was negative and in fact, then he was given some fluids. Presently, he is comfortable and has no particular complaints. He is on oxygen, tells me he is normally not on oxygen at the snf. He denies any gross hematuria, dysuria, any problem with urinating. PAST MEDICAL HISTORY: As mentioned above and includes, heart failure with reduced EF, diabetes, diabetic foot ulcer with recent 6-week course of antibiotics, hypertension, obesity, neuropathy, hyperlipidemia, peripheral vascular disease, history of rectal cancer, atrial fibrillation, and permanent pacemaker. MEDICATIONS: His medications on admission are listed including aspirin, carvedilol, glipizide, amlodipine, Depakote, pregabalin, Ultram, Neurontin, Zoloft, oxycodone. His current medications are noted in the EHR and now also include vancomycin. ALLERGIES: HE HAS ALLERGIES TO METFORMIN. SOCIAL HISTORY: He is an ex-smoker. No alcohol or illicit drug use. Denies NSAIDs. FAMILY HISTORY: Notable for diabetes. PHYSICAL EXAMINATION: VITAL SIGNS: Blood pressure 160/70 with a heart rate in the 60s. He is afebrile. HEENT: Head is atraumatic, normocephalic. Mucous membranes are moist. LUNGS: Decreased breath sounds at bases. CARDIAC: Regular rate and rhythm. ABDOMEN: Obese, soft, nontender. EXTREMITIES: Shows trace pedal edema. LABORATORY DATA: Sodium of 145; potassium of 4.8, it was as high as 5.8 on admission; bicarb 27; BUN was 73 on admission, down to 59. Reviewing his records, his BUN tend to be on the high side, but range anywhere from 20 to 65 in the past. Creatinine was 1.9 on admission, now down to 1.2. His baseline creatinine ranged in the 0.8 to 1.4 range. His UA showed 2+ protein. He had some red cells and white cells in the urine. On December 20 from last year, there is mention made of a urine protein creatinine ratio of 10 g ratio. We will need to repeat this. There was an albumin of 2.9 on admission and was as low as 2.3 in the past. His BNP level on admission was 1430. Chest x-ray on admission showed haziness in the right lower lobe concerning for possible aspiration. IMPRESSION: A 65-year-old diabetic with multiple chronic medical problems, admitted with a near syncopal episode, noted to have acute kidney injury. 1. Acute kidney injury. Renal function actually has improved overnight after receiving both Lasix and IV fluids. His creatinine is back to his baseline, however, the BUN still remains a bit high. He does have a history of heart failure with reduced EF, which may be part of the problem with renal hypoperfusion from prerenal azotemic state. His hemoglobin is down to 8.7 today and concern for possible upper gastrointestinal bleed causing the high BUN to creatinine ratio. Other possibilities such as acute interstitial nephritis or acute pulmonary nephritis seem very unlikely despite the abnormal UA and the fact that his creatinine improved so quickly goes against that. Likewise, obstructive uropathy seems unlikely given the improved renal function overnight. 2. High BUN to creatinine ratio. As mentioned, possibilities include upper GI bleed versus renal hypoperfusion. 3. Volume status. Actually looks fairly euvolemic at this point in time. We would hold diuretics and monitor him. 4. Anemia. His iron sat is 11% consistent with iron-deficiency anemia playing a role. At some point, if he is not actively infected. Again, this may raise concern for upper GI bleed causing the high BUN to creatinine ratio. 5. Abnormal urinalysis. This needs to be further evaluated. In particular, the degree of proteinuria. We will recheck urine protein-creatinine ratio. May have underlying diabetic nephropathy. SUGGESTIONS: At this time include continue to track urine output and renal function. We will check urine studies including urine protein to creatinine ratio and urine albumin-creatinine ratio. We will check a serum immunofixation given the anemia and renal dysfunction. We will follow the patient closely with the team. MD ALYSHA Tijerina/JOSELITO / [phone]
[2020-11-30 16:17] LABS: Glucose, Whole Blood 108 mg/dL (60-115)
[2020-11-30 19:12] LABS: Kappa Light Chain, Free Serum 123.8 mg/L (3.3-19.4); Kappa/Lambda Lt Ch Free Ratio 2.85 (0.26-1.65); Lambda Light Chain, Free Serum 43.5 mg/L (5.7-26.3)
[2020-11-30 20:23] LABS: Glucose, Whole Blood 146 mg/dL (60-115)
[2020-11-30] MEDS: Divalproex Sodium Sprinkles 125 MG CAP.DR.SPR PO (20:56)
[2020-11-30] MEDS: Sennosides 8.6 MG TABLET PO (20:59)
[2020-12-01] MEDS: Ampicillin Sodium/Sulbactam Na 3 GM in 0.9 % Sodium Chloride 100 ML IV ×2 (02:41→09:21)
[2020-12-01 05:30] VITALS: BP 144/72; PULSE 60; RESP 17; TEMP 36.5; O2SAT 95
[2020-12-01 05:40] VITALS: RESP 17
[2020-12-01] MEDS: Morphine Sulfate 2 MG/ML CARTRIDGE IVPUSH (05:40)
[2020-12-01 07:06] LABS: Hematocrit 27.4 % (42-52); Hemoglobin 8.1 g/dl (14.0-18.0); Mean Corpuscular HGB Conc 29.6 g/dl (31.0-36.0); Mean Corpuscular Hemoglobin 22.7 pg (27.0-33.0); Mean Corpuscular Volume 76.8 fL (80-98); Mean Platelet Volume 10.6 fL (9.4-12.4); Platelet Count 203 X10*3/uL (160-400); Red Blood Count 3.57 X10*6/uL (4.60-5.80); Red Cell Distribution Width 19.1 % (11.0-16.0)
[2020-12-01 07:34] LABS: Alanine Aminotransferase 17 U/L (0-40); Albumin Level 2.6 g/dL (3.5-5.0); Alkaline Phosphatase 69 U/L (39-117); Anion Gap 10 (12-20); Aspartate Amino Transferase 14 U/L (5-37); Bilirubin Total < 0.2 mg/dL (0.0-1.0); Blood Urea Nitrogen 32 mg/dL (9-16); Calcium 7.7 mg/dL (8.4-10.2); Carbon Dioxide 27 mmol/L (22-29); Chloride 111 mmol/L (96-108); Creatinine Clr Calc Pharmacy 90.7; Estimated Glomerular Filt Rate > 60; Glucose Random 107 mg/dL (60-115); Potassium 4.5 mmol/L (3.3-5.1); Sodium 143 mmol/L (135-145); Total Protein 5.9 g/dL (6.5-8.0)
[2020-12-01 07:36] VITALS: BP 178/79; PULSE 54; RESP 18; TEMP 36.8; O2SAT 94
[2020-12-01 07:47] LABS: Glucose, Whole Blood 108 mg/dL (60-115)
[2020-12-01 07:47] LABS: Procalcitonin 0.37 ng/mL
--- NOTE | 2020-12-01 08:39 | HO.WOUNDCONS ---
History of Present Illness Data of Consult Service Date: 12/01/20 Requesting physician: Perlita Kellogg Primary Care Provider: MD JENA Ivory Reason for consult: foot and buttock wounds 65-year-old male comes in from a subacute facility with impaired mobility in the legs and associated weakness with primary etiology of rectal carcinoma and loop ileostomy. Patient states there is involvement of the spine causing weakness. There is no imaging at this facility to support this. He had an episode of near syncope at the facility. He was transferred to the emergency department and admitted. Comorbidities include acute on chronic renal insufficiency, CHF ejection fraction 35%, AFib and pacemaker placement and recent completion of IV ertapenem for metatarsal osteomyelitis which was started in August. He is status post bilateral 5th toe amputation. Purpose of consultation is for sacral decubitus and foot ulcerations. Patient feels well. He is eating. Denies fevers. Review of Systems Review of Systems: Appetite is good. No fever. No pain in the feet. Complains of neuropathy in the feet. Ostomy output normal. Rectal wick being used for moisture absorbing. Yes all other systems are reviewed and are negative PMFSH Medical History Anxiety Cardiomyopathy CHF (congestive heart failure) Diabetes History of sigmoidoscopy HTN (hypertension) Hypogonadism Obesity 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 Proteinuria Family History Mother Diabetes Pertinent family history: diabetes Surgical History History of amputation of foot through metatarsal bone History of cataract surgery History of colectomy History of colonoscopy History of reversal of ileostomy Social History Household Members: None Housing: Skilled Nursing Housing Other:: [facility] Alcohol intake: former Patient Tobacco Use Status: Never used Tobacco Years Smoked: 15 years Smoked in Last 30 Days: No e-Cigarette/Vaping Use: Never Used Patient Interested in Nicotine Replacement: No Patient Given Instructions on How to Stop Smoking: No Second Hand Smoke Exposure: No Use of substances other than those prescribed or required for medical reasons: No Currently Displaying Signs/Symptoms of Drug Intoxication Withdrawal: No Any prior treatment program specific to substance use: No Have you been hit, kicked, punched, or otherwise hurt by someone within the past year? If so, by whom?: No Do you feel safe in your current relationship?: No Current Relationship Is there a partner from a previous relationship who is making you feel unsafe now?: No Are you made to feel afraid or neglected: No [facility] Healthcare Practices: roman catholic Advance Directives: Yes Advance Directives on File: Yes Advance Directives Date on File: 09/01/20 Do you have thoughts of harming others: None Do you have a plan to hurt others: No Plan Recently lost weight without trying: No Eating poorly because of decreased appetite: No Nutrition Risks: No Nutritional Risk Poor oral hygiene: No service: Yes Current occupational status: disabled Meds Allergies Allergy/AdvReac Type Severity Reaction Status Date / Time metformin AdvReac Unknown diarrhea Verified 10/20/20 15:14 Active Medications: Current Medications Acetaminophen (Acetaminophen 325 Mg Tablet) 650 mg PO Q6H PRN PRN Reason: Pain, Mild (Pain Scale 1-3) Acetaminophen (Acetaminophen 325 Mg Tablet) 650 mg PO Q6H PRN PRN Reason: elevated temp or pain Amlodipine Besylate (Amlodipine Besylate 5 Mg Tablet) 5 mg PO DAILY [facility]; Protocol Last Admin: 11/30/20 08:34 Dose: 5 mg Documented by: Aspirin (Aspirin 325 Mg Tablet) 325 mg PO DAILY [facility] Last Admin: 11/30/20 08:34 Dose: 325 mg Documented by: Bisacodyl (Bisacodyl 10 Mg Supp.Rect) 10 mg FL DAILY PRN PRN Reason: Constipation Buspirone HCl (Buspirone Hcl 10 Mg Tablet) 10 mg PO BID [facility] Last Admin: 11/30/20 20:59 Dose: 10 mg Documented by: Calcium Carbonate (Calcium Carbonate 750 Mg Tab.Chew) 750 mg PO Q6H PRN PRN Reason: dyspesia Last Admin: 11/27/20 21:35 Dose: 750 mg Documented by: Carvedilol (Carvedilol 6.25 Mg Tablet) 6.25 mg PO BID [facility]; Protocol Last Admin: 11/30/20 20:59 Dose: 6.25 mg Documented by: Dextrose (Dextrose 50 % 25 Gm/50 Ml Vial) 25 gm IVPUSH Q15M PRN; Protocol PRN Reason: per Hypoglycemia Standing Ord. Divalproex Sodium (Divalproex Sodium Sprinkles 125 Mg ) 125 mg PO DAILY@1999 [facility] Last Admin: 11/30/20 20:56 Dose: 125 mg Documented by: Famotidine (Famotidine/Pf 20 Mg/2 Ml Vial) 20 mg IVPUSH BID [facility] Last Admin: 11/30/20 21:02 Dose: 20 mg Documented by: Ferrous Sulfate (Ferrous Sulfate 324 Mg Tablet.) 324 mg PO DAILY [facility] Last Admin: 11/30/20 08:33 Dose: 324 mg Documented by: Furosemide (Furosemide 20 Mg Tablet) 20 mg PO DAILY [facility]; Protocol Last Admin: 11/30/20 08:33 Dose: 20 mg Documented by: Gabapentin (Gabapentin 400 Mg Capsule) 800 mg PO TID [facility] Last Admin: 11/30/20 21:00 Dose: 800 mg Documented by: Glucose (Glucose Gel 15 Gm Gel..Gram.) 15 gm PO Q15M PRN; Protocol PRN Reason: per Hypoglycemia Standing Ord. Guaifenesin (Guaifenesin 100 Mg/5 Ml Liquid) 10 ml PO Q4H PRN PRN Reason: Cough Guaifenesin (Guaifenesin La 600 Mg Tab.Er.12h) 600 mg PO BID [facility] Last Admin: 11/30/20 20:59 Dose: 600 mg Documented by: Heparin Sodium (Porcine) (Heparin Sodium,Porcine 5,000 Unit/Ml Vial) 5,000 unit SUBCUT Q8H [facility] Last Admin: 12/01/20 05:46 Dose: Not Given Documented by: Ampicillin Sodium/Sulbactam (Sodium 3 gm/ Sodium Chloride) 100 mls @ 200 mls/hr IV Q6H [facility] Last Infusion: 12/01/20 03:17 Dose: Infused Documented by: Insulin Human Lispro (Insulin Lispro 100 Unit/Ml 3 Ml Vial) 0 unit SUBCUT QIDACHS [facility]; Protocol Last Admin: 11/30/20 21:01 Dose: Not Given Documented by: Magnesium Hydroxide (Milk Of Magnesia 30 Ml Oral.Susp) 30 ml PO DAILY PRN PRN Reason: Constipation Melatonin (Melatonin 3 Mg Tablet) 6 mg PO BEDTIME PRN PRN Reason: Insomnia Morphine Sulfate (Morphine Sulfate 2 Mg/Ml Cartridge) 2 mg IVPUSH Q6H PRN; Protocol PRN Reason: Pain, Severe (Pain Scale 7-10) Last Admin: 12/01/20 05:40 Dose: 2 mg Documented by: Ondansetron HCl (Ondansetron Hcl 4 Mg/2 Ml Vial) 4 mg IVPUSH Q8H PRN PRN Reason: Nausea and Vomiting Last Admin: 11/28/20 08:38 Dose: 4 mg Documented by: Oxycodone HCl (Oxycodone Hcl Immed Release 5 Mg Tablet) 5 mg PO Q6H PRN PRN Reason: Pain Last Admin: 11/30/20 20:59 Dose: 5 mg Documented by: Pregabalin (Pregabalin 100 Mg Capsule) 100 mg PO TID [facility] Last Admin: 11/30/20 20:59 Dose: 100 mg Documented by: Senna (Sennosides 8.6 Mg Tablet) 17.2 mg PO BEDTIME PRN PRN Reason: Constipation Senna (Sennosides 8.6 Mg Tablet) 8.6 mg PO BEDTIME [facility] Last Admin: 11/30/20 20:59 Dose: 8.6 mg Documented by: Sertraline HCl (Sertraline Hcl 50 Mg Tablet) 50 mg PO DAILY [facility] Last Admin: 11/30/20 08:34 Dose: 50 mg Documented by: Sertraline HCl (Sertraline Hcl 100 Mg Tablet) 100 mg PO DAILY [facility] Last Admin: 11/30/20 08:34 Dose: 100 mg Documented by: Sodium Bicarbonate (Sodium Bicarbonate 650 Mg Tablet) 650 mg PO TID [facility] Last Admin: 11/30/20 21:00 Dose: 650 mg Documented by: Sodium Chloride (0.9 % Sodium Chloride Flush 3 Ml Syringe) [facility] Admin: 11/30/20 23:36 Dose: 3 ml Documented by: Tramadol HCl (Tramadol Hcl 50 Mg Tablet) 50 mg PO Q6H PRN PRN Reason: Pain Vitamin D (Cholecalciferol (Vitamin D3) 25 Mcg Tablet) 25 mcg PO DAILY [facility] Last Admin: 11/30/20 08:33 Dose: 25 mcg Documented by: Home Medications Medication Instructions Recorded Confirmed Last Taken Type aspirin 325 mg tablet 325 mg PO DAILY 11/29/19 11/26/20 11/26/20 History carvedilol 6.25 mg tablet 6.25 mg PO BID 11/29/19 11/26/2011/26/21 History glipizide 2.5 mg tablet, extended 2.5 mg PO DAILY 11/29/19 11/26/20 11/26/20 History release 24 hr sennosides 8.6 mg tablet (senna) 8.6 mg PO BEDTIME 11/29/19 11/26/20 11/25/20 History amlodipine 5 mg tablet 1 tab PO DAILY 08/16/20 11/26/20 11/26/20 History ascorbic acid (vitamin C) 500 mg 500 mg PO DAILY 08/16/20 11/26/20 11/26/20 History tablet,extended release (Vitamin C ER) bisacodyl 10 mg rectal suppository 10 mg FL DAILY PRN 08/16/20 11/26/20 Unknown History buspirone 10 mg tablet 10 mg PO BID 08/16/20 11/26/20 11/26/20 History cholecalciferol (vitamin D3) 25 25 mcg PO DAILY 08/16/20 11/26/20 11/26/20 History mcg (1,000 unit) capsule divalproex 125 mg tablet,delayed 125 mg PO DAILY@199908/16/20 11/26/20 08/31/20 History release (Depakote) ferrous sulfate 325 mg (65 mg 325 mg PO DAILY 08/16/20 11/26/20 11/26/20 History iron) tablet guaifenesin 100 mg/5 mL oral liquid 200 mg PO Q4H PRN 08/16/20 11/26/20 Unknown History loperamide 2 mg tablet 2 mg BID PRN 08/16/20 11/26/20 Unknown History magnesium hydroxide 400 mg/5 mL 30 ml PO DAILY PRN 08/16/20 11/26/20 Unknown History oral suspension (Milk of Magnesia) melatonin 3 mg tablet 9 mg BEDTIME 08/16/20 11/26/20 11/25/20 History pregabalin 100 mg capsule (Lyrica) 100 mg PO TID 08/16/20 11/26/20 11/26/20 History tramadol 50 mg tablet 50 mg PO Q6H PRN 08/16/20 11/26/20 Unknown History acetaminophen 325 mg tablet 650 mg PO Q6H PRN 08/17/20 11/26/20 Unknown History gabapentin 800 mg tablet 800 mg PO TID 08/17/20 11/26/20 11/26/20 History glucagon 1 mg/mL solution for 1 mg IM NEEDED 08/17/20 11/26/20 Unknown History injection guaifenesin 600 mg tablet, 600 mg PO BID 08/17/20 11/26/20 11/26/20 History extended release 12 hr (Mucinex) sertraline 100 mg tablet 100 mg PO DAILY 08/17/20 11/26/20 11/26/20 History oxycodone 5 mg tablet 5 mg PO Q6H PRN 09/01/20 11/26/20 Unknown History Lactobacillus acidophilus 1,000 mmu cells PO BID 11/26/20 11/26/20 11/26/20 History sertraline 50 mg tablet 50 mg PO DAILY 11/26/20 11/26/20 11/26/20 History Physical Exam Vital Signs and Narrative: Vital Signs: Last Vital Signs Temp 98.2 F 12/01/20 07:36 Pulse 54 12/01/20 07:36 Resp 18 12/01/20 07:36 BP 178/79 H 12/01/20 07:36 Pulse Ox 94 12/01/20 07:36 Oxygen Flow Rate 2 11/26/20 11:44 Body Mass Index 36.7 Bed mobility is excellent. Upper body strength allows the patient to moving bed independently. Examination of the buttocks reveals no evidence of skin breakdown. The purple discoloration of the bilateral medial gluteal soft tissues is fully blanching. There is no evidence of open wound. This is not DTI if it is blanching. Moderate pitting edema in the bilateral lower extremities. Right lateral dorsal foot shows mild discoloration without erythema, streaking or warmth. The 5th toe amputation is healing. There is a partial thickness area about 1 cm adjuxtapose previous amputation incision but not dehiscence. This looks pink and healthy. No open wound at the left 5th toe amputation site. No significant bogginess of the heels or discoloration to suggest pressure injury. He appears well nourished. Results Labs CBC and Chem 7: 12/01/20 06:32 12/01/20 06:32 Labs: Laboratory Results - last 24 hr 11/28/20 11/30/20 11/30/20 06:12 10:24 10:24 MCV MCH MCHC RDW Plt Count MPV Immature Gran % (Auto) Neut % (Auto) Lymph % (Auto) [place] % (Auto) Eos % (Auto) Baso % (Auto) Lymph # (Auto) [place] # (Auto) Eos # (Auto) Baso # (Auto) Abs Immat Gran (auto) Absolute Neuts (auto) Absolute Nucleated RBC Nucleated RBC % (auto) Anion Gap 9 L Estim Creat Clear Calc 93.8 Estimated GFR > 60 POC Glucose Random Glucose 159 H D Calcium 7.7 L Total Bilirubin < 0.2 Direct Bilirubin < 0.2 AST 16 ALT 19 Alkaline Phosphatase 71 B-Natriuretic Peptide 806 H Total Protein 6.0 L Albumin 2.6 L Amylase Lipase 23 Procalcitonin Free [place] LC, Quant 123.8 H Free Lambda LC, Quant 43.5 H Free [place]/Lambda Ratio 2.85 H 11/30/20 11/30/20 11/30/20 10:24 10:24 10:24 MCV 77.3 L MCH 22.2 L MCHC 28.7 L RDW 18.8 H Plt Count 198 MPV 9.9 Immature Gran % (Auto) 0.5 H Neut % (Auto) 69.0 Lymph % (Auto) 13.2 L [place] % (Auto) 8.6 Eos % (Auto) 8.4 H Baso % (Auto) 0.3 Lymph # (Auto) 0.8 L [place] # (Auto) 0.5 Eos # (Auto) 0.5 H Baso # (Auto) 0.0 Abs Immat Gran (auto) 0.03 Absolute Neuts (auto) 4.1 Absolute Nucleated RBC 0.000 Nucleated RBC % (auto) 0.0 Anion Gap Estim Creat Clear Calc Estimated GFR POC Glucose Random Glucose Calcium Total Bilirubin Direct Bilirubin AST ALT Alkaline Phosphatase B-Natriuretic Peptide Total Protein Albumin Amylase 60 Lipase Procalcitonin 0.65 Free [place] LC, Quant Free Lambda LC, Quant Free [place]/Lambda Ratio 11/30/20 11/30/20 11/30/20 10:48 16:13 19:43 MCV MCH MCHC RDW Plt Count MPV Immature Gran % (Auto) Neut % (Auto) Lymph % (Auto) [place] % (Auto) Eos % (Auto) Baso % (Auto) Lymph # (Auto) [place] # (Auto) Eos # (Auto) Baso # (Auto) Abs Immat Gran (auto) Absolute Neuts (auto) Absolute Nucleated RBC Nucleated RBC % (auto) Anion Gap Estim Creat Clear Calc Estimated GFR POC Glucose 148 H 108 146 H Random Glucose Calcium Total Bilirubin Direct Bilirubin AST ALT Alkaline Phosphatase B-Natriuretic Peptide Total Protein Albumin Amylase Lipase Procalcitonin Free [place] LC, Quant Free [place]ambda LC, Quant Free [place]/Lambda Ratio 12/01/20 12/01/20 12/01/20 06:32 06:32 06:32 MCV 76.8 L MCH 22.7 L MCHC 29.6 L RDW 19.1 H Plt Count 203 MPV 10.6 Immature Gran % (Auto) Neut % (Auto) Lymph % (Auto) [place] % (Auto) Eos % (Auto) Baso % (Auto) Lymph # (Auto) [place] # (Auto) Eos # (Auto) Baso # (Auto) Abs Immat Gran (auto) Absolute Neuts (auto) Absolute Nucleated RBC 0.000 Nucleated RBC % (auto) 0.0 Anion Gap 10 L Estim Creat Clear Calc 90.7 Estimated GFR > 60 POC Glucose Random Glucose 107 Calcium 7.7 L Total Bilirubin < 0.2 Direct Bilirubin AST 14 ALT 17 Alkaline Phosphatase 69 B-Natriuretic Peptide Total Protein 5.9 L Albumin 2.6 L Amylase Lipase Procalcitonin 0.37 Free [place] LC, Quant Free [place]ambda LC, Quant Free [place]/Lambda Ratio 12/01/20 07:44 MCV MCH MCHC RDW Plt Count MPV Immature Gran % (Auto) Neut % (Auto) Lymph % (Auto) [place] % (Auto) Eos % (Auto) Baso % (Auto) Lymph # (Auto) [place] # (Auto) Eos # (Auto) Baso # (Auto) Abs Immat Gran (auto) Absolute Neuts (auto) Absolute Nucleated RBC Nucleated RBC % (auto) Anion Gap Estim Creat Clear Calc Estimated GFR POC Glucose 108 Random Glucose Calcium Total Bilirubin Direct Bilirubin AST ALT Alkaline Phosphatase B-Natriuretic Peptide Total Protein Albumin Amylase Lipase Procalcitonin Free [place] LC, Quant Free [place]ambda LC, Quant Free [place]/Lambda Ratio Imaging Radiologist's Impressions: Impressions Abdomen Ultrasound 11/30/20 07:00 IMPRESSION: There is no acute abnormality of the abdomen. Assessment and Plan (1) Foot osteomyelitis, right: Qualifiers: Osteomyelitis type: unspecified type Qualified Code(s): M86.9 - Osteomyelitis, unspecified Status: Acute 65-year-old male with near syncopal episode, history of AFib and pace are being treated for acute renal insufficiency in the setting of rectal carcinoma and impaired mobility coming from a subacute facility. Upper body strength allows for independent bed mobility. I do not see any evidence of skin breakdown on the buttocks. Patient is encouraged to continue with mobility. No definitive skin breakdown in the lower extremities or feet. Remote history of right foot osteomyelitis s/p IV antibiotics is addressed. This open area next to the previous amputation does not appear to be purulent inflammed or infected. Recommend supportive care with zinc oxide, encourage in bed and out of bed mobility, and nutritional support. Wound care followup is at the discretion of the subacute facility upon discharge from the hospital. No further recommendations. Thank you for allowing us to participate in your patient's care.
[2020-12-01] MEDS: Ferrous Sulfate 324 MG TABLET.DR PO (09:16)
[2020-12-01] MEDS: guaiFENesin LA 600 MG TAB.ER.12H PO (09:16)
[2020-12-01] MEDS: busPIRone HCl 10 MG TABLET PO (09:17)
[2020-12-01] MEDS: Gabapentin 400 MG CAPSULE 800 MG PO (09:17)
[2020-12-01] MEDS: Aspirin 325 MG TABLET PO (09:17)
[2020-12-01 09:18] VITALS: BP 178/79; PULSE 54
[2020-12-01] MEDS: Sodium Bicarbonate 650 MG TABLET PO (09:18)
[2020-12-01] MEDS: amLODIPine Besylate 5 MG TABLET PO (09:18)
[2020-12-01] MEDS: Furosemide 20 MG TABLET PO (09:18)
[2020-12-01 09:19] VITALS: BP 178/79; PULSE 54
[2020-12-01] MEDS: Sertraline HCL 50 MG TABLET PO (09:19)
[2020-12-01] MEDS: Pregabalin 100 MG CAPSULE PO (09:19)
[2020-12-01] MEDS: carvediloL 6.25 MG TABLET PO (09:19)
[2020-12-01] MEDS: Sertraline HCL 100 MG TABLET PO (09:19)
[2020-12-01] MEDS: Cholecalciferol (Vitamin D3) 25 MCG TABLET PO (09:20)
[2020-12-01] MEDS: 0.9 % Sodium Chloride Flush 3 ML SYRINGE IVFLUSH (09:21)
--- NOTE | 2020-12-01 10:23 | MHC.CM.PN ---
PT TO BE DCD TODAY AT 3 TO [facility] BY AMB
[2020-12-01 11:15] LABS: Glucose, Whole Blood 164 mg/dL (60-115)
[2020-12-01 12:00] VITALS: BP 169/81; PULSE 59; RESP 16; TEMP 36.5; O2SAT 93
[2020-12-01] MEDS: Insulin Lispro 100 UNIT/ML 3 ML VIAL SUBCUT (12:04)
[2020-12-01 12:06] LABS: IgA 351 mg/dL (70-320); IgG 1441 mg/dL (600-1540); IgM 177 mg/dL (50-300)
[2020-12-01 14:11] LABS: COVID-19 Test Negative (Negative)
--- NOTE | 2020-12-01 14:15 | MHC.SL.MBSTD ---
Referring provider: Dr. Kellogg Reason for Referral: Right side PNA concerning for aspiration Type of Treatment: 67014 Modified Barium Swallow Study Date of Plan of Treatment: 12/01/20 Onset of Symptoms/Illness: 11/30/20 Date Treatment Started: 12/01/20 Medical Diagnosis: FAM Speech & Language Primary Diagnosis:R13.12 Oropharyngeal Phase Dysphagia Speech & Language Secondary Diagnosis: Comments: Patient is a 65 year old male who has DM2 complicated by foot infection/ osteomyelitis, hypertension, AF s/p PPM, HF with recovered EF, PVD, rectal CA s/p colostomy. 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 He presented in ED with pre-syncopal episode associated with hypoxia, and was found to have FAM/hyperk. Patient's chest x-ray showed, new hazy opacity in the right lower lobe concerning for aspiration in the appropriate clinical setting. Patient displayed no overt s/s of aspiration at bedside when given solid and liquid PO trials. Patient was ordered a modified barium swallow study to rule in/out silent aspiration due to presence of right lower lobe opacity. Modified Barium Swallow Study: Oral Phase: Impaired Liquid Via Spoon ? Labial Seal: Did Not Test ? A/P Transit: Impaired ? Lingual Movement: Impaired ? Rotary Mastication: Impaired ? Premature Spillage: Impaired ? Oral Residue: Impaired Thin Liquid via Cup ? Labial Seal: ? A/P Transit: ? Lingual Movement: ? Rotary Mastication: ? Premature Spillage: ? Oral Residue: Thin Liquid via Straw ? Labial Seal: ? A/P Transit: ? Lingual Movement: ? Rotary Mastication: ? Premature Spillage: ? Oral Residue: [place] via Spoon ? Labial Seal: ? A/P Transit: ? Lingual Movement: ? Rotary Mastication: ? Premature Spillage: ? Oral Residue: [place] via Cup ? Labial Seal: ? A/P Transit: ? Lingual Movement: ? Rotary Mastication: ? Premature Spillage: ? Oral Residue: [place] via Straw ? Labial Seal: ? A/P Transit: ? Lingual Movement: ? Rotary Mastication: ? Premature Spillage: ? Oral Residue: Honey via Spoon ? Labial Seal: ? A/P Transit: ? Lingual Movement: ? Rotary Mastication: ? Premature Spillage: ? Oral Residue: Honey via Cup ? Labial Seal: ? A/P Transit: ? Lingual Movement: ? Rotary Mastication: ? Premature Spillage: ? Oral Residue: Honey via Spoon ? Labial Seal: ? A/P Transit: ? Lingual Movement: ? Rotary Mastication: ? Premature Spillage: ? Oral Residue: Pudding Thick via Straw ? Labial Seal: ? A/P Transit: ? Lingual Movement: ? Rotary Mastication: ? Premature Spillage: ? Oral Residue: Pudding Thick via Cup ? Labial Seal: ? A/P Transit: ? Lingual Movement: ? Rotary Mastication: ? Premature Spillage: ? Oral Residue: Pudding Thick via Spoon ? Labial Seal: ? A/P Transit: ? Lingual Movement: ? Rotary Mastication: ? Premature Spillage: ? Oral Residue: Pureed Food ? Labial Seal: ? A/P Transit: ? Lingual Movement: ? Rotary Mastication: ? Premature Spillage: ? Oral Residue: Ground Food ? Labial Seal: ? A/P Transit: ? Lingual Movement: ? Rotary Mastication: ? Premature Spillage: ? Oral Residue: Chopped/Advanced ? Labial Seal: ? A/P Transit: ? Lingual Movement: ? Rotary Mastication: ? Premature Spillage: ? Oral Residue: Regular/Unaltered ? Labial Seal: ? A/P Transit: ? Lingual Movement: ? Rotary Mastication: ? Premature Spillage: ? Oral Residue: Barium Tablet ? Labial Seal: ? A/P Transit: ? Lingual Movement: ? Rotary Mastication: ? Premature Spillage: ? Oral Residue: Pharyngeal Phase: Impaired Thin Liquid via Spoon ? Velopharyngeal Closure: Did Not Test ? Tongue Base Retraction: Impaired ? Laryngeal Excursion: Impaired ? Epiglottal Deflection: Intact ? Pharyngeal Peristalsis: Did Not Test ? Valleculae Clearing: Impaired ? Pyriform Clearing: Impaired ? UES Opening: Intact ? Penetration: Intact ? Aspiration: Intact Thin Liquid via Cup ? Velopharyngeal Closure: ? Tongue Base Retraction: ? Laryngeal Excursion: ? Epiglottal Deflection: ? Pharyngeal Peristalsis: ? Valleculae Clearing: ? Pyriform Clearing: ? UES Opening: ? Penetration: ? Aspiration: Thin Liquid va Straw ? Velopharyngeal Closure: ? Tongue Base Retraction: ? Laryngeal Excursion: ? Epiglottal Deflection: ? Pharyngeal Peristalsis: ? Valleculae Clearing: ? Pyriform Clearing: ? UES Opening: ? Penetration: ? Aspiration: [place] Thick via Spoon ? Velopharyngeal Closure: ? Tongue Base Retraction: ? Laryngeal Excursion: ? Epiglottal Deflection: ? Pharyngeal Peristalsis: ? Valleculae Clearing: ? Pyriform Clearing: ? UES Opening: ? Penetration: ? Aspiration: [place] Thick via Cup ? Velopharyngeal Closure: ? Tongue Base Retraction: ? Laryngeal Excursion: ? Epiglottal Deflection: ? Pharyngeal Peristalsis: ? Valleculae Clearing: ? Pyriform Clearing: ? UES Opening: ? Penetration: ? Aspiration: [place] Thick via Straw ? Velopharyngeal Closure: ? Tongue Base Retraction: ? Laryngeal Excursion: ? Epiglottal Deflection: ? Pharyngeal Peristalsis: ? Valleculae Clearing: ? Pyriform Clearing: ? UES Opening: ? Penetration: ? Aspiration: Honey Thick via Spoon ? Velopharyngeal Closure: ? Tongue Base Retraction: ? Laryngeal Excursion: ? Epiglottal Deflection: ? Pharyngeal Peristalsis: ? Valleculae Clearing: ? Pyriform Clearing: ? UES Opening: ? Penetration: ? Aspiration: Honey Thick via Cup ? Velopharyngeal Closure: ? Tongue Base Retraction: ? Laryngeal Excursion: ? Epiglottal Deflection: ? Pharyngeal Peristalsis: ? Valleculae Clearing: ? Pyriform Clearing: ? UES Opening: ? Penetration: ? Aspiration: Honey Thick via Straw ? Velopharyngeal Closure: ? Tongue Base Retraction: ? Laryngeal Excursion: ? Epiglottal Deflection: ? Pharyngeal Peristalsis: ? Valleculae Clearing: ? Pyriform Clearing: ? UES Opening: ? Penetration: ? Aspiration: Pudding Thick via Spoon ? Velopharyngeal Closure: ? Tongue Base Retraction: ? Laryngeal Excursion: ? Epiglottal Deflection: ? Pharyngeal Peristalsis: ? Valleculae Clearing: ? Pyriform Clearing: ? UES Opening: ? Penetration: ? Aspiration: Pudding Thick via Cup ? Velopharyngeal Closure: ? Tongue Base Retraction: ? Laryngeal Excursion: ? Epiglottal Deflection: ? Pharyngeal Peristalsis: ? Valleculae Clearing: ? Pyriform Clearing: ? UES Opening: ? Penetration: ? Aspiration: Pureed Food ? Velopharyngeal Closure: ? Tongue Base Retraction: ? Laryngeal Excursion: ? Epiglottal Deflection: ? Pharyngeal Peristalsis: ? Valleculae Clearing: ? Pyriform Clearing: ? UES Opening: ? Penetration: ? Aspiration: Ground Food ? Velopharyngeal Closure: ? Tongue Base Retraction: ? Laryngeal Excursion: ? Epiglottal Deflection: ? Pharyngeal Peristalsis: ? Valleculae Clearing: ? Pyriform Clearing: ? UES Opening: ? Penetration: ? Aspiration: Chopped/Advanced Food ? Velopharyngeal Closure: ? Tongue Base Retraction: ? Laryngeal Excursion: ? Epiglottal Deflection: ? Pharyngeal Peristalsis: ? Valleculae Clearing: ? Pyriform Clearing: ? UES Opening: ? Penetration: ? Aspiration: Regular ? Velopharyngeal Closure: ? Tongue Base Retraction: ? Laryngeal Excursion: ? Epiglottal Deflection: ? Pharyngeal Peristalsis: ? Valleculae Clearing: ? Pyriform Clearing: ? UES Opening: ? Penetration: ? Aspiration: Barium Tablet ? Velopharyngeal Closure: ? Tongue Base Retraction: ? Laryngeal Excursion: ? Epiglottal Deflection: ? Pharyngeal Peristalsis: ? Valleculae Clearing: ? Pyriform Clearing: ? UES Opening: ? Penetration: ? Aspiration: Impressions and Recommendations Summary: This exam was conducted by a multidisciplinary team, which included a radiologist, radiology technicians, and speech-language pathologist. A speech-language pathology student finance advisor clinician was also present for this exam as authorized by the patient. Patient was seated upright in 90 degree position in bed for lateral view only. Imaging was done with a C-arm machine. Patient was able to feed himself without difficulty. He trialed the following liquid and solid consistencies: -5 mL thin liquid barium -individual cup sip thin liquid barium -consecutive cup sip thin liquid barium -pureed solid (mixture applesauce with barium paste) -ground solid (mixture chicken salad with barium paste) -regular solid (Anali Doone cookie coated in barium paste) No evidence of aspiration or penetration during this exam. Noted escape of bolus to floor of mouth, premature posterior escape of less than half bolus with both solid and liquid consistencies. Slowed, prolonged mastication. Slowed posterior tongue movement. Patient displayed mild oral residue when eating ground and regular hard solids, which was reduced with subsequent dry swallow. Delayed pharyngeal swallow trigger, which initiated when bolus head reached pyriform sinuses. Partial superior movement of thyroid cartilage/partial approximation of arytenoids to epiglottic petiole with partial anterior hyoid movement. Complete epiglottic inversion. Reduced tongue base retraction. Mild to moderate pharyngeal residue observed in valleculae, in pyriform sinuses, on tongue base, and on posterior pharyngeal wall. Significant reduction in pharyngeal residue with subsequent dry swallow, through a trace amount remained. Impact on Daily Function/Activity Limitations: Daily Activities: None Interpersonal Interactions: None Education: Employment: Community: None Prognosis for Improvement: Excellent Recommendation for Speech Therapy: Inpatient Speech Therapy Text Comment: BLADDER CLEANER to return 1x time to review compensatory strategies for pharyngeal clearance. MBSS completed on 12/01/20. No evidence of aspiration or penetration. Recommend continue REGULAR solids and THIN liquids with pills WHOLE in LIQUIDS. Recommend continue aspiration precautions. BLADDER CLEANER to return 1x time to review compensatory strategies for improved oral/pharyngeal clearance: -small bites of food -chew food well -moisten food with sauce/gravy as needed -alternate bite of food with sip of liquid -double swallow Patient Education Completed: Yes Patient/Caregiver Education: Described Results of Evaluation Rolling Attendant Clinican/Clinical Fellow: No Supervisory Statement: N/A Speech Language Pathologist: Sandra Thompson M.A., [facility]-BLADDER CLEANER
--- NOTE | 2020-12-01 14:23 | PM.DS ---
DS: Providers Provider Date of Service: 12/01/20 Date of admission: 11/26/20 20:13 Primary care physician: Winston Mir MD Consults: 11/26/20 20:13 Consult to Cardiology Routine Consulting Provider: Tee Arroyo Reason for consultation: near syncope; indeterminate troponins Consult to Nephrology Routine Consulting Provider: Fernie Saenz Reason for consultation: FAM/hyperkalemia 11/29/20 09:21 Consult to Gastroenterology Routine Consulting Provider: [facility] Reason for consultation: persistent epigastric pain 11/30/20 13:59 Consult to Wound Care Routine Consulting Provider: Gina Aguilar Reason for consultation: Wounds to feet bilat and buttock DS: Diagnosis Discharge Diagnosis (1) Hypoxia: Status: Acute (2) Aspiration pneumonia: Status: Acute (3) FAM (acute kidney injury): Status: Acute (4) Chronic heart failure with preserved ejection fraction (HFpEF): Status: Acute (5) Abdominal pain: Status: Acute (6) Hyperkalemia: Status: Acute DS: Summary Hospital Course Hospital Course: from admission H+P by hospitalist Mor Joseph, 11/26/20: 65-year-old male with a past medical history of hypertension, hyperlipidemia, diabetes, history of rectal cancer status post colostomy, peripheral vascular disease, CHF with EF of 30-35%, history of diabetic foot ulcer/osteomyelitis, recently finished 6 weeks of antibiotic course; history of AFib, pacemaker; presented to the hospital with a chief complaint of near syncope. Reportedly when the patient was being transition from bed to chair at the long-term patient became dizzy, eyes rolled out; did not lose consciousness; did not have any fall; and at that time on the vitals patient noted to have oxygen of 70% subsequently EMS was called in and sent him to the hospital for further evaluation. Initially EMS placed on 15 L of oxygen; patient on presentation to the ER patient's oxygen was 88% on room air and subsequently placed on 2 L of oxygen via nasal cannula followed by weaned down and patient oxygen was 97% on room air; patient was noted to be in no acute distress. Breathing comfortably. Patient mentions that he does not feel any lightheadedness dizziness. Denies any cough or shortness of breath. Denies any chest pain or palpitations. Reports that he feels fine. Denies any nausea vomiting or diarrhea. Mentioned that he usually does not walk given his severe neuropathy; usually uses wheelchair; complains of mild vague gain. Review of all other systems is negative except mentioned above ER course: Per ER team patient on presentation noted to be in no acute distress; placed on supplemental oxygen and subsequently been down; V/Q scan was done which showed no evidence of pulmonary embolism; patient noted a elevated proBNP are 214 100 compared to the prior values of 700 and given a dose of Lasix if any CHF component to the hypoxia. Patient chest x-ray showed no acute findings; patient labs noted to have elevated creatinine of 1.9 compared to baseline of 0.9; also noted to have hyperkalemia with potassium of 5.8-EKG showed no acute findings; given Kayexalate. Patient had indeterminate troponins with no significant delta rise; EKG was nonischemic and patient denied any chest pain. Admitted to the hospital for further management. This 65 year-old male long-term SNF resident with DM2 complicated by foot infection/osteomyelitis, HTN, AF s/p PPM, HF with recovered EF, PVD, and rectal CA s/p colostomy presented after pre-syncopal episode associated with hypoxia, and found to have FAM/hyperK. Hospital course by problem: 1. aspiration PNA 2. acute hypoxic respiratory failure He developed hypoxia and was found to have pneumonia suspicious for aspiration. He was treated with ampicillin/sulbactam. Blood cultures were negative and PCT was low. He was evaluated by [employer] [employer] and MBSS was negative for aspiration. He was weaned off oxygen and discharged on amoxicillin/clavulanate. V/Q was negative for PE. There remains question of undiagnosed ERICKA and I recommend an outpatient PSG. 3. abdominal pain This was non-specific. He was treated with famotidine. Abdominal US was negative. Pain resolved without further intervention. 4. hyperkalemia 5. acute kidey injury Resolved after fluid hydration and SPS. 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 6. chronic HF with recovered EF He was seen by Cardiology and started on maintenance PO furosemide. The patient was discharged back to [facility], where he is a long-term resident. Time Spent with Patient Time attestation: Total time spent providing and/or coordinating discharge services: Discharge coordination time: Greater than 30 minutes Quality: Stroke Does the patient have a stroke diagnosis?: No Physical Exam Vital Signs: Vital Signs: Last Vital Signs Temp 97.7 F 12/01/20 12:00 Pulse 59 12/01/20 12:00 Resp 16 12/01/20 12:00 BP 169/81 H 12/01/20 12:00 Pulse Ox 93 12/01/20 12:00 Body Mass Index 36.7 Gen: in no acute distress HEENT: sclera anicteric, moist mucus membranes Neck: supple Lungs: clear bilaterally Heart: regular rate and rhythm, no murmurs Abd: soft, epigastric tenderness, obese, colostomy draining liquid brown stool Ext: no lower extremity edema Skin: warm/well-perfused Neuro: alert and oriented x3, no focal findings Psych: appropriate affect DS: Data Data Completed and Pending Completed studies during hospitalization [Text1]: Laboratory Results WBC 6.0 X10*3/uL (4.8-10.8) 12/01/20 06:32 RBC 3.57 X10*6/uL (4.60-5.80) L 12/01/20 06:32 Hgb 8.1 g/dl (14.0-18.0) L 12/01/20 06:32 Hct 27.4 % (42-52) L 12/01/20 06:32 MCV 76.8 fL (80-98) L 12/01/20 06:32 MCH 22.7 pg (27.0-33.0) L 12/01/20 06:32 MCHC 29.6 g/dl (31.0-36.0) L 12/01/20 06:32 RDW 19.1 % (11.0-16.0) H 12/01/20 06:32 Plt Count 203 X10*3/uL (160-400) 12/01/20 06:32 MPV 10.6 fL (9.4-12.4) 12/01/20 06:32 Immature Gran % (Auto) 0.5 % (0.0-0.4) H 11/30/20 10:24 Neut % (Auto) 69.0 % (45-73) 11/30/20 10:24 Lymph % (Auto) 13.2 % (20-40) L 11/30/20 10:24 [place] % (Auto) 8.6 % (2-11) 11/30/20 10:24 Eos % (Auto) 8.4 % (0-4) H 11/30/20 10:24 Baso % (Auto) 0.3 % (0-2) 11/30/20 10:24 Lymph # (Auto) 0.8 X10*3/uL (1.2-4.9) L 11/30/20 10:24 [place] # (Auto) 0.5 X10*3/uL (0.1-1.2) 11/30/20 10:24 Eos # (Auto) 0.5 X10*3/uL (0.0-0.4) H 11/30/20 10:24 Baso # (Auto) 0.0 X10*3/uL (0.0-0.2) 11/30/20 10:24 Abs Immat Gran (auto) 0.03 X10*3/uL (0.00-0.03) 11/30/20 10:24 Absolute Neuts (auto) 4.1 X10*3/uL (2.0-8.3) 11/30/20 10:24 Absolute Nucleated RBC 0.000 X10*3/uL (0.0-0.012) 12/01/20 06:32 Nucleated RBC % (auto) 0.0 /100WBC (0.0-0.2) 12/01/20 06:32 PT 12.1 SEC (9.9-13.0) 11/26/20 12:24 INR 1.1 (0.9-1.1) 11/26/20 12:24 APTT 40.0 SEC (24.1-38.0) H 11/26/20 12:24 D-Dimer 2086 NG/ML 11/26/20 12:24 VBG pH 7.27 (7.32-7.43) L 11/26/20 16:49 VBG pCO2 62 mmHg 11/26/20 16:49 VBG pO2 43 mmHg 11/26/20 16:49 VBG HCO3 29 mmol/L (22-26) H 11/26/20 16:49 VBG O2 Saturation 64.0 % 11/26/20 16:49 VBG Base Excess 1.7 mmol/L 11/26/20 16:49 Sodium 143 mmol/L (135-145) 12/01/20 06:32 Potassium 4.5 mmol/L (3.3-5.1) 12/01/20 06:32 Chloride 111 mmol/L (96-108) H 12/01/20 06:32 Carbon Dioxide 27 mmol/L (22-29) 12/01/20 06:32 Anion Gap 10 (12-20) L 12/01/20 06:32 BUN 32 mg/dL (9-16) H 12/01/20 06:32 Creatinine 1.21 mg/dL (0.5-1.4) 12/01/20 06:32 Estim Creat Clear Calc 90.7 12/01/20 06:32 Estimated GFR > 60 12/01/20 06:32 POC Glucose 164 mg/dL (60-115) H 12/01/20 10:58 Random Glucose 107 mg/dL (60-115) 12/01/20 06:32 Lactic Acid 0.4 mmol/L (0.5-2.0) L 11/26/20 12:24 Calcium 7.7 mg/dL (8.4-10.2) L 12/01/20 06:32 Magnesium 2.1 mg/dL (1.6-2.6) 11/26/20 12:24 Iron 30 mcg/dL (45-160) L 11/27/20 07:04 TIBC 276 mcg/dL (228-428) 11/27/20 07:04 % Saturation 11 % (15-50) L 11/27/20 07:04 Unsat Iron Binding 246 ug/dL 11/27/20 07:04 Ferritin 102 ng/mL (20-250) 11/27/20 07:04 Total Bilirubin < 0.2 mg/dL (0.0-1.0) 12/01/20 06:32 Direct Bilirubin < 0.2 mg/dL (0.0-0.5) 11/30/20 10:24 AST 14 U/L (5-37) 12/01/20 06:32 ALT 17 U/L (0-40) 12/01/20 06:32 Alkaline Phosphatase 69 U/L (39-117) 12/01/20 06:32 Troponin I High Sens 58.9 ng/L (<3.5-35.0) H* 11/26/20 16:38 B-Natriuretic Peptide 806 pg/mL (<100) H 11/30/20 10:24 Total Protein 5.9 g/dL (6.5-8.0) L 12/01/20 06:32 Albumin 2.6 g/dL (3.5-5.0) L 12/01/20 06:32 Amylase 60 U/L (28-100) 11/30/20 10:24 Lipase 23 U/L (8-78) 11/30/20 10:24 Procalcitonin 0.37 ng/mL 12/01/20 06:32 Urine Color YELLOW 11/26/20 12:44 Urine Appearance CLOUDY 11/26/20 12:44 Urine pH 7.5 (5.0-8.0) 11/26/20 12:44 Ur Specific [place] 1.020 (1.005-1.025) 11/26/20 12:44 Urine Protein 2+ MG/DL (NEG-TRACE) H 11/26/20 12:44 Urine Glucose (UA) NEG MG/DL (NEG) 11/26/20 12:44 Urine Ketones NEG MG/DL (NEG) 11/26/20 12:44 Urine Blood 2+ (NEG) H 11/26/20 12:44 Urine Nitrite NEG (NEG) 11/26/20 12:44 Ur Leukocyte Esterase 2+ (NEG) H 11/26/20 12:44 Urine RBC 0 /HPF (0) 11/26/20 12:44 Urine WBC 50-75 /HPF (0-4) H 11/26/20 12:44 Ur Squamous Epith Cells NONE /LPF 11/26/20 12:44 Urine Bacteria 4+ /LPF 11/26/20 12:44 Urine Mucus 3+ /LPF 11/26/20 12:44 U Random Total Protein 387 mg/dL (<12) H 11/28/20 13:30 Urine Creatinine 49.42 mg/dL 11/28/20 13:30 Urine Microalbumin 2788.0 mg/L 11/28/20 13:30 Microalb/Creat Ratio 5641.4 ug/mg cr 11/28/20 13:30 Urine Opiates Screen Not Detected (Not Detect) 11/26/20 16:38 Urine Fentanyl Screen Not Detected (Not Detect) 11/26/20 16:38 Ur Barbiturates Screen Not Detected (Not Detect) 11/26/20 16:38 Valproic Acid 7.5 mcg/mL (50.0-100.0) L 11/26/20 12:24 Ur Phencyclidine Scrn Not Detected (Not Detect) 11/26/20 16:38 Ur Amphetamines Screen Not Detected (Not Detect) 11/26/20 16:38 U Benzodiazepines Scrn Not Detected (Not Detect) 11/26/20 16:38 Urine Cocaine Screen Not Detected (Not Detect) 11/26/20 16:38 U Marijuana (THC) Screen POSITIVE (Not Detect) H 11/26/20 16:38 Ethyl Alcohol < 10 mg/dL 11/26/20 12:24 IgG Total 1441 mg/dL (600-1540) 11/28/20 06:12 IgA Total 351 mg/dL (70-320) H 11/28/20 06:12 IgM 177 mg/dL (50-300) 11/28/20 06:12 ZACK Interpretation SEE NOTE 11/28/20 06:12 Free [place] LC, Quant 123.8 mg/L (3.3-19.4) H 11/28/20 06:12 Free [place] LC, Quant 43.5 mg/L (5.7-26.3) H 11/28/20 06:12 Free [place]/Lambda Ratio 2.85 (0.26-1.65) H 11/28/20 06:12 Respiratory Panel Ortiz See Note 11/26/20 12:47 Adenovirus (Rapid PCR) Not Detected (Not Detect.) 11/26/20 12:47 B.pert (TEM-PCR) Not Detected (Not Detect.) 11/26/20 12:47 B.parapertussis DNA PCR Not Detected (Not Detect.) 11/26/20 12:47 C. pneumoniae DNA (PCR) Not Detected (Not Detect.) 11/26/20 12:47 Coronavirus (PCR) NEGATIVE (Negative) 11/26/20 12:24 Coronavirus OC43 (PCR) Not Detected (Not Detect.) 11/26/20 12:47 Coronavirus HKU1 (PCR) Not Detected (Not Detect.) 11/26/20 12:47 Coronavirus 229E (PCR) Not Detected (Not Detect.) 11/26/20 12:47 COVID-19 (KOREY) Negative (Negative) 12/01/20 13:43 COVID-19 Clin Com See Note 12/01/20 13:43 Coronavirus NL63 (PCR) Not Detected (Not Detect.) 11/26/20 12:47 Human Metapneumovir PCR Not Detected (Not Detect.) 11/26/20 12:47 Influenza A (RT-PCR) Not Detected (Not Detect.) 11/26/20 12:47 Influenza Type A (PCR) NEGATIVE (Negative) 11/26/20 12:24 Influenza B (RT-PCR) Not Detected (Not Detect.) 11/26/20 12:47 Influenza Type B (PCR) NEGATIVE (Negative) 11/26/20 12:24 M. pneumoniae (PCR) Not Detected (Not Detect.) 11/26/20 12:47 Parainfluenza 1 (PCR) Not Detected (Not Detect.) 11/26/20 12:47 Parainfluenza 2 (PCR) Not Detected (Not Detect.) 11/26/20 12:47 Parainfluenza 3 (PCR) Not Detected (Not Detect.) 11/26/20 12:47 Parainfluenza 4 (PCR) Not Detected (Not Detect.) 11/26/20 12:47 RSV (PCR) Not Detected (Not Detect.) 11/26/20 12:47 RSV RNA Qual (PCR) NEGATIVE (Negative) 11/26/20 12:24 Entero/Rhino (PCR) Not Detected (Not Detect.) 11/26/20 12:47 SARS-CoV-2 RNA (RT-PCR) Not Detected (Not Detect.) 11/26/20 12:47 Impressions Pulmonary Perfusion Imaging 11/26/20 17:22 IMPRESSION: Normal radionuclide lung perfusion scan. Chest X-Ray 11/27/20 23:55 IMPRESSION: New hazy opacity in the right lower lobe concerning for aspiration in the appropriate clinical setting. Abdomen Ultrasound 11/30/20 07:00 IMPRESSION: There is no acute abnormality of the abdomen. Discharge Plan Discharge Patient Disposition: [facility] Discharge Diagnosis: acute hypoxic respiratory failure, aspiration pneumonia, acute kidney injury, chronic heart failure with preserved ejection fraction Referrals: Autumn Daniels [Outside] - 1 Week Adeola,Winston, MD [Primary Care Provider] - 1 Week Discharge Medications: New furosemide 20 mg Tablet 20 mg PO DAILY Qty: 30 RF: 0 amoxicillin-pot clavulanate 875-125 mg Tablet 875 mg PO Q12H Qty: 6 RF: 0 Continued sodium bicarbonate 650 mg Tablet 650 mg PO TID Qty: 90 RF: 0 tramadol 50 mg Tablet 50 mg PO Q6H PRN (Reason: Pain) RF: 0 loperamide 2 mg Tablet 2 mg BID PRN (Reason: Diarrhea) RF: 0 melatonin 3 mg Tablet 9 mg BEDTIME RF: 0 amlodipine 5 mg tablet 1 tab PO DAILY RF: 0 guaifenesin 100 mg/5 mL Liquid 200 mg PO Q4H PRN (Reason: Cough) RF: 0 magnesium hydroxide [Milk of Magnesia] 400 mg/5 mL Suspension 30 ml PO DAILY PRN (Reason: Constipation) RF: 0 bisacodyl 10 mg Suppository 10 mg KS DAILY PRN (Reason: Constipation) RF: 0 ferrous sulfate 325 mg (65 mg iron) Tablet 325 mg PO DAILY RF: 0 buspirone 10 mg Tablet 10 mg PO BID RF: 0 divalproex [Depakote] 125 mg Tablet,Delayed Release (Dr/Ec) 125 mg PO DAILY@1999 RF: 0 ascorbic acid (vitamin C) [Vitamin C] 500 mg Tablet Extended Release 500 mg PO DAILY RF: 0 cholecalciferol (vitamin D3) 25 mcg (1,000 unit) Capsule 25 mcg PO DAILY RF: 0 pregabalin [Lyrica] 100 mg Capsule 100 mg PO TID RF: 0 sertraline 100 mg Tablet 100 mg PO DAILY RF: 0 guaifenesin [Mucinex] 600 mg Tablet Extended Release 12hr 600 mg PO BID RF: 0 gabapentin 800 mg Tablet 800 mg PO TID RF: 0 glucagon 1 mg/mL Recon Soln 1 mg IM NEEDED RF: 0 acetaminophen 325 mg Tablet 650 mg PO Q6H PRN (Reason: elevated temp or pain) RF: 0 oxycodone 5 mg tablet 5 mg PO Q6H PRN (Reason: Pain) RF: 0 sennosides [senna] 8.6 mg Tablet 8.6 mg PO BEDTIME RF: 0 carvedilol 6.25 mg Tablet 6.25 mg PO BID RF: 0 aspirin 325 mg Tablet 325 mg PO DAILY RF: 0 glipizide 2.5 mg Tablet Extended Release 24hr 2.5 mg PO DAILY RF: 0 sertraline 50 mg tablet 50 mg PO DAILY RF: 0 Lactobacillus acidophilus Tablet 1,000 mmu cells PO BID RF: 0 Discharge Orders: Discharge Order (Routine); Ordered 12/01/20 Ordered By: Perlita Kellogg Diet: advance to usual diet Activity on Discharge: As tolerated Stand Alone Forms: Patient Portal Discharge page Other Ambulatory Orders: RT home sleep study (Routine) Location: None Selected Ordered By: Perlita Kellogg Care Plan Goals: treatment of pneumonia healthy kidney function avoid CHF exacerbation Health Concerns: pneumonia hypoxia acute kidney injury CHF/HFpEF Plan of Treatment: amoxicillin/clavulanate 875/125 mg twice daily x 3 days no oxygen needed normal renal function take furosemide 20 mg daily; low-sodium diet Assessment: See discharge summary Patient Instructions: Pneumonia (DC)
--- NOTE | 2020-12-01 14:49 | PM.PNNEP ---
Subjective Subjective Date of Service: 12/01/20 Interval history: seen and examined complains of abdominal discomfort denies chest pain, SOB Physical Exam Vital Signs: Vital Signs: Last Vital Signs Temp 97.7 F 12/01/20 12:00 Pulse 59 12/01/20 12:00 Resp 16 12/01/20 12:00 BP 169/81 H 12/01/20 12:00 Pulse Ox 93 12/01/20 12:00 Oxygen Flow Rate 2 11/26/20 11:44 Body Mass Index 36.7 Const: General: no acute distress HENMT: Head: Yes normocephalic and Yes atraumatic Neck: Neck: Yes supple Resp: Auscultation: diminished lung sounds Cardio: Heart sounds: S1 normal heart sound present and S2 normal heart sound present GI: Palpation (GI): Soft to palpation and no guarding Extrem: General: No edema Objective Data Labs CBC & Chem 7: 12/01/20 06:32 12/01/20 06:32 Labs: Laboratory Results - last 24 hr 11/28/20 11/28/20 11/30/20 06:12 06:12 16:13 WBC RBC Hgb Hct MCV MCH MCHC RDW Plt Count MPV Absolute Nucleated RBC Nucleated RBC % (auto) Sodium Potassium Chloride Carbon Dioxide Anion Gap BUN Creatinine Estim Creat Clear Calc Estimated GFR POC Glucose 108 Random Glucose Calcium Total Bilirubin AST ALT Alkaline Phosphatase Total Protein Albumin Procalcitonin IgG Total 1441 IgA Total 351 H IgM 177 ZACK Interpretation SEE NOTE Free [place] LC, Quant 123.8 H Free [place]ambda LC, Quant 43.5 H Free [place]/Lambda Ratio 2.85 H COVID-19 (KOREY) COVID-19 Clin Com 11/30/20 12/01/20 12/01/20 19:43 06:32 06:32 WBC 6.0 RBC 3.57 L Hgb 8.1 L Hct 27.4 L MCV 76.8 L MCH 22.7 L MCHC 29.6 L RDW 19.1 H Plt Count 203 MPV 10.6 Absolute Nucleated RBC 0.000 Nucleated RBC % (auto) 0.0 Sodium 143 Potassium 4.5 Chloride 111 H Carbon Dioxide 27 Anion Gap 10 L BUN 32 H Creatinine 1.21 Estim Creat Clear Calc 90.7 Estimated GFR > 60 POC Glucose 146 H Random Glucose 107 Calcium 7.7 L Total Bilirubin < 0.2 AST 14 ALT 17 Alkaline Phosphatase 69 Total Protein 5.9 L Albumin 2.6 L Procalcitonin IgG Total IgA Total IgM ZACK Interpretation Free [place] LC, Quant Free [place]ambda LC, Quant Free [place]/Lambda Ratio COVID-19 (KOREY) COVID-19 Clin Com 12/01/20 12/01/20 12/01/20 06:32 07:44 10:58 WBC RBC Hgb Hct MCV MCH MCHC RDW Plt Count MPV Absolute Nucleated RBC Nucleated RBC % (auto) Sodium Potassium Chloride Carbon Dioxide Anion Gap BUN Creatinine Estim Creat Clear Calc Estimated GFR POC Glucose 108 164 H Random Glucose Calcium Total Bilirubin AST ALT Alkaline Phosphatase Total Protein Albumin Procalcitonin 0.37 IgG Total IgA Total IgM ZACK Interpretation Free [place] LC, Quant Free [place]ambda LC, Quant Free [place]/Lambda Ratio COVID-19 (KOREY) COVID-19 Clin Com 12/01/20 13:43 WBC RBC Hgb Hct MCV MCH MCHC RDW Plt Count MPV Absolute Nucleated RBC Nucleated RBC % (auto) Sodium Potassium Chloride Carbon Dioxide Anion Gap BUN Creatinine Estim Creat Clear Calc Estimated GFR POC Glucose Random Glucose Calcium Total Bilirubin AST ALT Alkaline Phosphatase Total Protein Albumin Procalcitonin IgG Total IgA Total IgM ZACK Interpretation Free [place] LC, Quant Free [place]ambda LC, Quant Free [place]/Lambda Ratio COVID-19 (KOREY) Negative COVID-19 Clin Com See Note Microbiology Microbiology Results: Microbiology 11/29/20 06:07 Blood - Venous Blood Culture - Preliminary No growth after 48 hours. 11/29/20 05:59 Blood - Venous Blood Culture - Preliminary No growth after 48 hours. 11/26/20 12:24 Blood - Venous Blood Culture - Final Coag negative Staphylococcus 11/26/20 12:44 Blood - Venous Blood Culture - Preliminary No growth after 48 hours. 11/26/20 Unknown Urine clean catch - Urine pedersen top Urine Culture - Final Procedures Date of Service Date of Service: 12/01/20 Assessment & Plan Assessment and plan (1) FAM (acute kidney injury): Status: Acute (2) Proteinuria: Status: Acute Assessment and Plan: kidney function better FAM due to compromised kidney perfusion and tubular stress heavy proteinuria, will need to reassess to comfirm REC urine microalbumin to creatinine ratio follow kidney function and electrolytes Time Spent With Patient Time: Total time spent is greater than 50% in coordination of care (as documented) at patient's floor/unit and/or counseling patient: Progress Note: Quality Stroke Does the patient have a stroke diagnosis?: No
== END 2020-12-01 15:26 | disposition skilled nursing facility (03) | DRG 177 ==
LOC: HO.ED 20:19 → HO.EDOVER 20:32 → HO.IMC 11-27
PROVIDERS: Internal Medicine; Internal Medicine Nephrology; Physician Assistant; Admitting Provider Hospitalist; Emergency Provider Emergency Medicine Emergency Medical Services; PCP Family Medicine; Visit Provider Family Medicine
DX: J69.0 Pneumonitis due to inhalation of food and vomit (principal); I50.23 Acute on chronic systolic (congestive) heart failure; J96.01 Acute respiratory failure with hypoxia; N17.9 Acute kidney failure, unspecified; E87.1 Hypo-osmolality and hyponatremia; M86.9 Osteomyelitis, unspecified; F41.9 Anxiety disorder, unspecified; I11.0 Hypertensive heart disease with heart failure; E11.42 Type 2 diabetes mellitus with diabetic polyneuropathy; F39 Unspecified mood [affective] disorder; K21.9 Gastro-esophageal reflux disease without esophagitis; D50.9 Iron deficiency anemia, unspecified; E78.5 Hyperlipidemia, unspecified; Z95.0 Presence of cardiac pacemaker; E87.5 Hyperkalemia; R80.9 Proteinuria, unspecified; E11.69 Type 2 diabetes mellitus with other specified complication; L89.159 Pressure ulcer of sacral region, unspecified stage; Z93.3 Colostomy status; Z20.822 Contact with and (suspected) exposure to COVID-19; Z79.82 Long term (current) use of aspirin; Z79.891 Long term (current) use of opiate analgesic; Z79.899 Other long term (current) drug therapy
CPT/HCPCS: 0241U; 36415; 71045; 74230; 76700; 78580; 80048; 80053; 80076; 80164; 80307; 81001; 81003; 82043; 82077; 82150; 82728; 82784; 82803; 82947; 83520; 83540; 83605; 83690; 83735; 83880; 84145; 84156; 84484; 85025; 85027; 85379; 85610; 85730; 86334; 87040; 87086; 87147; 87205; 87633; 87635; 92610; 92611; 93005; 96365; 96375; 99222; 99285; 99291; A9540; J0295; J0696; J1940; J2270; J2405; J3370

== ENCOUNTER → 2021-04-06 13:09 | Outpatient (BNVA) | payer MEDICARE, MEDICAID, SELFPAY | PROVIDERS: PCP Family Medicine; Visit Provider Surgery Vascular Surgery | DX: T81.89XA Other complications of procedures, not elsewhere classified, initial encounter (principal); I73.9 Peripheral vascular disease, unspecified | CPT/HCPCS: 99212 ==

== ENCOUNTER 2021-04-20 13:09 | Inpatient (IN) | payer MEDICARE, MEDICAID, SELFPAY ==
[2021-04-20] VITALS (14 sets, daily range): BP systolic 110–143; BP diastolic 46–70; PULSE 50–63; RESP 7–24; TEMP 33–36; O2SAT 97–100; BMI 50.8
--- NOTE | ~2021-04-20 | CT_ITS ---
EXAMINATION: CT CHEST WITHOUT CONTRAST CLINICAL INFORMATION: Cardiac arrest COMPARISON: Previous chest CTA August 2020 and chest x-ray November 2020 TECHNIQUE: Multidetector volumetric CT imaging of the chest was done. Axial MIP volume rendering provided. Sagittal and coronal reformatted images were obtained. This CT examination was performed using dose optimization techniques as appropriate, variously including the following: *Automated exposure control *Adjustment of mA and/or kV according to patient size (this includes techniques or standardized protocols for targeted exams where dose is matched to indication/reason for exam; i.e. extremities or head) *Use of iterative reconstruction technique DLP: 891 mGy-cm FINDINGS: LUNGS: There is mixed groundglass attenuation and denser airspace disease with air bronchograms seen in both upper lobes and left lower lobe. There is groundglass attenuation seen in the right middle lobe. There is denser consolidation with air bronchograms in the right lower lobe. Differential would include pneumonia and pulmonary edema. MEDIASTINUM: There is a left subclavian line with tip projecting over the SVC. There is an endotracheal tube with tip 3.6 cm above the tiana. There is a cardiac device seen near the interventricular septum that appears unchanged from previous exams. The heart is enlarged. There is no pericardial effusion. There is coronary artery and aortic valve calcification. The thoracic aorta is normal in caliber. There are small mediastinal lymph nodes. PLEURA: There is a moderate to large right and small left pleural effusion. There is no pneumothorax. AXILLA: No lymphadenopathy. UPPER ABDOMEN: See abdominal and pelvic CT report done the same day OSSEOUS STRUCTURES: There are degenerative changes of the spine. No fracture is seen. CT/CT chest wo con IMPRESSION: Satisfactory position of endotracheal tube and left subclavian line. Enlarged heart. Bilateral mixed groundglass attenuation and denser airspace disease with air bronchograms. Differential would include pulmonary edema and pneumonia. Bilateral pleural effusions, right greater than left. No pneumothorax. No fracture. Fleischner guidelines were followed.
--- NOTE | ~2021-04-20 | CT_ITS ---
EXAMINATION: CT HEAD WITHOUT CONTRAST CLINICAL INFORMATION: Unresponsive. Cardiac arrest. COMPARISON: Previous head CT May 2017 TECHNIQUE: Contiguous axial imaging was performed from the skull base to vertex without intravenous administration of contrast. This CT examination was performed using dose optimization techniques as appropriate, variously including the following: *Automated exposure control *Adjustment of mA and/or kV according to patient size (this includes techniques or standardized protocols for targeted exams where dose is matched to indication/reason for exam; i.e. extremities or head) *Use of iterative reconstruction technique DLP: 891 mGy-cm FINDINGS: There is no evidence of an extra-axial collection. There is no evidence of intra-axial or extra-axial hemorrhage. Ventricles and extra-axial CSF spaces are appropriate. [place]-white matter differentiation is normal. No mass, mass effect or infarct is seen. Review of bone windows is normal. No skull fracture is seen. There is probable sinonasal polyposis. This appears increased from May 2017 exam. There is increased soft tissue ossification of the bilateral mastoid air cells, right greater than left. This is increased from [address]/CT head/brain wo con IMPRESSION: No acute intracranial findings. Sinonasal polyposis and bilateral mastoid soft tissue opacification increased from May 2017 exam..
--- NOTE | ~2021-04-20 | CT_ITS ---
EXAMINATION: CT ABDOMEN AND PELVIS WITHOUT CONTRAST CLINICAL INFORMATION: Cardiac arrest. COMPARISON: Previous CT of the abdomen and pelvis August 2020 and abdominal ultrasound November 2020 TECHNIQUE: Multidetector volumetric imaging was performed from the superior aspect of the liver through the pubic symphysis. Sagittal and coronal reformatted images were obtained on the technologist's workstation. This CT examination was performed using dose optimization techniques as appropriate, variously including the following: *Automated exposure control *Adjustment of mA and/or kV according to patient size (this includes techniques or standardized protocols for targeted exams where dose is matched to indication/reason for exam; i.e. extremities or head) *Use of iterative reconstruction technique DLP: 777 mGy-cm FINDINGS: LUNG BASES: See chest CT report from the same day. LIVER, GALLBLADDER, AND BILIARY TREE: The liver is normal in size, shape, and attenuation. No focal hepatic lesion or biliary ductal dilatation is present. The gallbladder is normal in size. No gallstones are seen. There is a small amount of fluid surrounding the liver and gallbladder. PANCREAS: There is some stranding of the peripancreatic fat. The pancreas is otherwise normal. SPLEEN: Unremarkable. ADRENAL GLANDS: Unremarkable. KIDNEYS AND URETERS: The kidneys are normal in size, shape, and attenuation. No hydronephrosis, hydroureter, or calculi seen. There are small bilateral renal cysts. BLADDER: Unremarkable. GASTROINTESTINAL TRACT: There are postsurgical changes to the small bowel and sigmoid colon. There are fluid-filled loops of small and large bowel probably representing an ileus. No dilated loops of bowel to suggest obstruction are seen. There is no free air. There is trace ascites. There is increased soft tissue seen in the presacral space. The appendix is normal. The stomach is normal. ABDOMINAL WALL: There is diffuse anasarca. LYMPH NODES: Normal. VASCULAR: There is evidence of atherosclerotic disease. No aneurysm is seen. No retroperitoneal hematoma is seen. PELVIC VISCERA: Unremarkable. OSSEOUS STRUCTURES: There are degenerative changes of the spine. CT/CT abdomen pelvis wo con IMPRESSION: Fluid-filled bowel suggestive of an ileus. Small amount of generalized ascites. There is a small amount of fluid seen surrounding the liver, gallbladder and the pancreas. These organs are otherwise normal. Correlation with liver function tests and amylase level recommended to exclude possible acute liver, gallbladder or pancreatic process. Atherosclerotic disease. Normal caliber abdominal aorta. No evidence of aneurysm or retroperitoneal hemorrhage. Postsurgical change to the small bowel and sigmoid colon. Small amount of fluid or soft tissue thickening in the presacral space of uncertain etiology. Small renal cysts. Fleischner guidelines were followed.
--- NOTE | 2021-04-20 13:22 | ECG_ITS ---
Test Reason : CARDIAC ARREST Blood Pressure : / mmHG Vent. Rate : 051 BPM Atrial Rate : 051 BPM P-R Int : 114 ms QRS Dur : 080 ms QT Int : 404 ms P-R-T Axes : 057 -30 050 degrees QTc Int : 372 ms Ventricular-paced rhythm Left axis deviation Inferior infarct , age undetermined Abnormal ECG When compared with ECG of 27-NOV-2020 23:04, Vent. rate has decreased BY 69 BPM Referred By: Aniyah Griffiths Electronically Signed By:EDWARD HINES
--- NOTE | 2021-04-20 13:26 | ED_ITS ---
HPI - CPR General Chief Complaint: Cardiac Arrest/CPR Stated Complaint: CARDIAC ARREST Time Seen by Provider: 04/20/21 13:21 Source: EMS Mode of arrival: EMS Limitations: other (unresponsive CPR) History of Present Illness MD complaint: found unresponsive (EMS notes call was at 1216pm for cardiac arrest) Onset (ago): hour(s) (1216pm) Timing confirmed by: caregiver Place: NH/SNF Bystander CPR performed: Yes AED applied by bystander/client manager: No Shock advised: No Initial findings in the field: unresponsive, no pulse and PEA ROSC in the field: Yes (reportedly for 5 minuts sinus gael) Associated injuries: No Associated symptoms: other (found in bed unresponsive) Known history of: pacemaker Treatments prior to arrival: intubation (7.5), BMV, chest compressions, epinephrine mgs # (6), atropine mgs # (1) and glucose (>100) Related Data Home Medications Medication Instructions Recorded Confirmed aspirin 325 mg tablet 325 mg PO DAILY 11/29/19 04/20/21 carvedilol 6.25 mg tablet 6.25 mg PO BID 11/29/19 04/20/21 glipizide 2.5 mg tablet, extended 2.5 mg PO DAILY 11/29/19 04/20/21 release 24 hr sennosides 8.6 mg tablet (senna) 8.6 mg PO BEDTIME 11/29/19 04/20/21 amlodipine 5 mg tablet 1 tab PO DAILY 08/16/20 04/20/21 ascorbic acid (vitamin C) 500 mg 500 mg PO DAILY 08/16/20 04/20/21 tablet,extended release (Vitamin C ER) bisacodyl 10 mg rectal suppository 10 mg MI DAILY PRN 08/16/20 04/20/21 buspirone 10 mg tablet 10 mg PO BID 08/16/20 04/20/21 cholecalciferol (vitamin D3) 25 25 mcg PO DAILY 08/16/20 04/20/21 mcg (1,000 unit) capsule divalproex 125 mg tablet,delayed 125 mg PO DAILY@199908/16/20 04/20/21 release (Depakote) ferrous sulfate 325 mg (65 mg 325 mg PO DAILY 08/16/20 04/20/21 iron) tablet magnesium hydroxide 400 mg/5 mL 30 ml PO DAILY PRN 08/16/20 04/20/21 oral suspension (Milk of Magnesia) melatonin 3 mg tablet 9 mg BEDTIME 08/16/20 04/20/21 pregabalin 100 mg capsule (Lyrica) 100 mg PO TID 08/16/20 04/20/21 tramadol 50 mg tablet 50 mg PO Q6H PRN 08/16/20 04/20/21 acetaminophen 325 mg tablet 650 mg PO Q6H PRN 08/17/20 04/20/21 gabapentin 800 mg tablet 800 mg PO TID 08/17/20 04/20/21 glucagon 1 mg/mL solution for 1 mg IM NEEDED 08/17/20 04/20/21 injection guaifenesin 600 mg tablet, 600 mg PO BID 08/17/20 04/20/21 extended release 12 hr (Mucinex) sertraline 100 mg tablet 100 mg PO DAILY 08/17/20 04/20/21 oxycodone 5 mg tablet 5 mg PO Q12H PRN 09/01/20 04/20/21 Lactobacillus acidophilus 1,000 mmu cells PO BID 11/26/20 04/20/21 sertraline 50 mg tablet 50 mg PO DAILY 11/26/20 04/20/21 losartan 50 mg tablet 50 mg PO DAILY 04/06/21 04/20/21 furosemide 40 mg tablet 40 mg PO DAILY 04/20/21 04/20/21 lorazepam 0.5 mg tablet 1 tab PO TID PRN 04/20/21 04/20/21 ondansetron HCl 4 mg tablet 4 mg PO Q6H PRN 04/20/21 04/20/21 Previous Rx's Medication Instructions Recorded sodium bicarbonate 650 mg tablet 650 mg PO TID #90 tab 12/21/19 Allergies Allergy/AdvReac Type Severity Reaction Status Date / Time metformin AdvReac Unknown diarrhea Verified 04/06/21 13:15 Review of Systems Review of Systems: ROS unable to be obtained due to ongoing [facility] Past Medical History Source: old records reviewed Medical History (Updated 04/20/21 @ 15:54 by Stanley Gardner MD) Acute on chronic systolic (congestive) heart failure FAM (acute kidney injury) Anxiety Aspiration pneumonia Cardiomyopathy CHF (congestive heart failure) Congestive heart failure with cardiomyopathy Diabetes Foot osteomyelitis, right History of sigmoidoscopy HTN (hypertension) Hyperkalemia Hypogonadism Hypoxia Obesity 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 Proteinuria Type 2 diabetes mellitus Surgical History History of amputation of foot through metatarsal bone History of cataract surgery History of colectomy History of colonoscopy History of reversal of ileostomy Family History Family History Mother Diabetes Social History Social History Household Members: None Housing: [facility] Housing Other:: [facility] Do you presently have visiting nurse or other home services: No Unable to assess alcohol history related to: Unable to respond Alcohol intake: former Patient Tobacco Use Status: Never used Tobacco Years Smoked: 15 years e-Cigarette/Vaping Use: Never Used Second Hand Smoke Exposure: No Advance Directives Date on File: 09/01/20 service: Yes Current occupational status: disabled Physical Exam Vital Signs: Vital Signs: Last Vital Signs Temp 95.4 F L 04/20/21 19:00 Pulse 51 04/20/21 19:00 Resp 24 H 04/20/21 19:00 BP 134/61 04/20/21 19:00 Pulse Ox 100 04/20/21 19:00 BMI result Body Mass Index 50.8 Appearance: ongoing CPR Eyes: fixed and dilated ENT: Pharynx clear Neck: wide short neck CVS: initial ongoing CPR , good femoral pulse felt with compressions, no spontaneous pulse felt Respiratory: intubated, no spontaneous respirations Abdomen: Soft and obese Skin: Skin warm and dry. Normal skin color. Normal skin turgor. Extremities: pitting lower ext edema 1 to 2+ Neuro: no response to painful stimuli Course Course Course Narrative: emergency contact listed at Cherelle Gregg (mother) [phone] no answer and voicemail is not set up will start on peripheral levophed until line can be placed going to CT scan emergently has large 18G in L AC Dr. Gardner aware 155pm lactic acidosis and hypotension due to prolonged downtime from cardiac arrest / cardiogenic shock and not infection or severe sepsis maintaining BP with levophed Silva cousin is HCP - she is going to come see patient. mother just Cherelle per HCP Silva (cousin) no central line until she talks to family, no CPR if he becomes unstable but she needs time to talk to the family. Let him go if he codes. DNR after family discussion with brother no central line, continue care as is now an d patient is DNR family okay if we access his port MDM - Cardiac Arrest/CPR MDM Narrative Medical decision making narrative: 65 yo male with hx of PVD, chronic DM ulcers, hyperkalemia, rectal cancer with colostomy complicated with fistula, ESBL + UTI, anxiety, UTI, from local SNF was found down at 1216pm bystander CPR, EMS prolonged CPR intubated had about 5 minutes of ROSC reported sinus bradycardia on arrival to ED back in PEA arrest after 4 cycles of CPR ROSC again in paced rhythm. Patient is a full code. I cannot reach his family members. Treated for possible hyperkalemia. I have obtained labs, EKG, CT head/chest/abdomen for infection. Planned admit pending he remains stable. Lab Data Result diagrams: 04/20/21 13:28 04/20/21 13:28 Labs: Lab Results 04/20/21 04/20/21 04/20/21 Range/Units 13:15 13:22 13:28 WBC 8.8 (4.8-10.8) X10*3/uL RBC 3.56 L (4.60-5.80) X10*6/uL Hgb 7.5 L (14.0-18.0) g/dl Hct 29.8 L (42.0-52.0) % MCV 83.7 (80.0-98.0) fL MCH 21.1 L (27.0-33.0) pg MCHC 25.2 L (31.0-36.0) g/dl RDW 20.3 H (11.0-16.0) % Plt Count 215 (160-400) X10*3/uL MPV 11.3 (9.4-12.4) fL Immature Gran % (Auto) Cancelled Neut % (Auto) Cancelled Lymph % (Auto) Cancelled Wise % (Auto) Cancelled Eos % (Auto) Cancelled Baso % (Auto) Cancelled Lymph # (Auto) Cancelled Wise # (Auto) Cancelled Eos # (Auto) Cancelled Baso # (Auto) Cancelled Abs Immat Gran (auto) Cancelled Absolute Neuts (auto) Cancelled Absolute Nucleated RBC 0.260 H (0.0-0.012) X10*3/uL Nucleated RBC % (auto) 3.0 H (0.0-0.2) /100WBC Neutrophils % (Manual) 61 (45-73) % Band Neutrophils % 10 H (3-5) % Lymphocytes % (Manual) 16 L (20-40) % Monocytes % (Manual) 2 (2-11) % Eosinophils % (Manual) 3 (0-4) % Metamyelocytes % 2 % Myelocytes % 5 % Promyelocytes % 1 % Abs Neuts (Manual) 6.2 (2.0-8.3) X10*3/uL Lymphocytes # (Manual) 1.4 (1.2-4.9) X10*3/uL Monocytes # (Manual) 0.2 (0.1-1.2) X10*3/uL Eosinophils # (Manual) 0.3 (0.0-0.4) X10*3/uL Metamyelocytes # 0.2 X10*3/uL Myelocytes # 0.4 X10*/uL Promyelocytes # 0.1 X10*3/uL Nucleated RBCs 11 H (0-0) /100WBC Platelet Estimate NORMAL (NORMAL) Plt Morphology Comment NORMAL RBC Morphology NOTED Polychromasia 1+ (0-2) /OIF Hypochromasia 1+ (5-14) /OIF Microcytosis 1+ (5-14) /OIF Spherocytes 1+ (0-2) /OIF Tear Drop Cells 1+ (0-2) /OIF Ovalocytes 1+ (5-14) /OIF [place] Cells 2+ (3-5) /OIF Schistocytes 1+ (0-2) /OIF PT (9.9-13.0) SEC INR (0.9-1.1) APTT (24.1-38.0) SEC VBG pH (7.32-7.43) VBG pCO2 mmHg VBG pO2 mmHg VBG HCO3 (22-26) mmol/L VBG O2 Saturation % VBG Base Excess mmol/L Sodium (135-145) mmol/L Potassium (3.3-5.1) mmol/L Chloride (96-108) mmol/L Carbon Dioxide (22-29) mmol/L Anion Gap (12-20) BUN (9-16) mg/dL Creatinine (0.5-1.4) mg/dL Estim Creat Clear Calc Estimated GFR POC Glucose 37 L* 104 (60-115) mg/dL Random Glucose (60-115) mg/dL Lactic Acid (0.5-2.0) mmol/L Calcium (8.4-10.2) mg/dL Magnesium (1.6-2.6) mg/dL Total Bilirubin (0.0-1.0) mg/dL Direct Bilirubin (0.0-0.5) mg/dL AST (5-37) U/L ALT (0-40) U/L Alkaline Phosphatase (39-117) U/L Troponin I High Sens (<3.5-35.0) ng/L Total Protein (6.5-8.0) g/dL Albumin (3.5-5.0) g/dL Lipase (8-78) U/L Procalcitonin ng/mL Urine Color Urine Appearance Urine pH (5.0-8.0) Ur Specific [place] (1.005-1.025) Urine Protein (NEG-TRACE) MG/DL Urine Glucose (UA) (NEG) MG/DL Urine Ketones (NEG) MG/DL Urine Blood (NEG) Urine Nitrite (NEG) Ur Leukocyte Esterase (NEG) Urine RBC (0) /HPF Urine WBC (0-4) /HPF Ur Squamous Epith Cells /LPF Urine Bacteria /LPF COVID-19 ([facility]) (Negative) COVID-19 Clin Com 04/20/21 04/20/21 04/20/21 Range/Units 13:28 13:28 13:28 WBC (4.8-10.8) X10*3/uL RBC (4.60-5.80) X10*6/uL Hgb (14.0-18.0) g/dl Hct (42.0-52.0) % MCV (80.0-98.0) fL MCH (27.0-33.0) pg MCHC (31.0-36.0) g/dl RDW (11.0-16.0) % Plt Count (160-400) X10*3/uL MPV (9.4-12.4) fL Immature Gran % (Auto) Neut % (Auto) Lymph % (Auto) Wise % (Auto) Eos % (Auto) Baso % (Auto) Lymph # (Auto) Wise # (Auto) Eos # (Auto) Baso # (Auto) Abs Immat Gran (auto) Absolute Neuts (auto) Absolute Nucleated RBC (0.0-0.012) X10*3/uL Nucleated RBC % (auto) (0.0-0.2) /100WBC Neutrophils % (Manual) (45-73) % Band Neutrophils % (3-5) % Lymphocytes % (Manual) (20-40) % Monocytes % (Manual) (2-11) % Eosinophils % (Manual) (0-4) % Metamyelocytes % % Myelocytes % % Promyelocytes % % Abs Neuts (Manual) (2.0-8.3) X10*3/uL Lymphocytes # (Manual) (1.2-4.9) X10*3/uL Monocytes # (Manual) (0.1-1.2) X10*3/uL Eosinophils # (Manual) (0.0-0.4) X10*3/uL Metamyelocytes # X10*3/uL Myelocytes # X10*/uL Promyelocytes # X10*3/uL Nucleated RBCs (0-0) /100WBC Platelet Estimate (NORMAL) Plt Morphology Comment RBC Morphology Polychromasia /OIF Hypochromasia /OIF Microcytosis /OIF Spherocytes /OIF Tear Drop Cells /OIF Ovalocytes /OIF [place] Cells /OIF Schistocytes /OIF PT 16.5 H (9.9-13.0) SEC INR 1.4 H (0.9-1.1) APTT 52.6 H (24.1-38.0) SEC VBG pH (7.32-7.43) VBG pCO2 mmHg VBG pO2 mmHg VBG HCO3 (22-26) mmol/L VBG O2 Saturation % VBG Base Excess mmol/L Sodium 138 (135-145) mmol/L Potassium 5.5 H D (3.3-5.1) mmol/L Chloride 110 H (96-108) mmol/L Carbon Dioxide 16 L (22-29) mmol/L Anion Gap 18 (12-20) BUN 44 H (9-16) mg/dL Creatinine 1.61 H (0.5-1.4) mg/dL Estim Creat Clear Calc 75.1 Estimated GFR 43 POC Glucose (60-115) mg/dL Random Glucose 117 H (60-115) mg/dL Lactic Acid (0.5-2.0) mmol/L Calcium 7.8 L (8.4-10.2) mg/dL Magnesium 1.9 (1.6-2.6) mg/dL Total Bilirubin 0.4 (0.0-1.0) mg/dL Direct Bilirubin 0.2 (0.0-0.5) mg/dL AST 139 H (5-37) U/L ALT 84 H (0-40) U/L Alkaline Phosphatase 91 D (39-117) U/L Troponin I High Sens (<3.5-35.0) ng/L Total Protein 5.2 L (6.5-8.0) g/dL Albumin 2.0 L D (3.5-5.0) g/dL Lipase 63 (8-78) U/L Procalcitonin ng/mL Urine Color Urine Appearance Urine pH (5.0-8.0) Ur Specific [place] (1.005-1.025) Urine Protein (NEG-TRACE) MG/DL Urine Glucose (UA) (NEG) MG/DL Urine Ketones (NEG) MG/DL Urine Blood (NEG) Urine Nitrite (NEG) Ur Leukocyte Esterase (NEG) Urine RBC (0) /HPF Urine WBC (0-4) /HPF Ur Squamous Epith Cells /LPF Urine Bacteria /LPF COVID-19 ([facility]) Negative (Negative) COVID-19 Clin Com See Note 04/20/21 04/20/21 04/20/21 Range/Units 13:28 13:28 13:28 WBC (4.8-10.8) X10*3/uL RBC (4.60-5.80) X10*6/uL Hgb (14.0-18.0) g/dl Hct (42.0-52.0) % MCV (80.0-98.0) fL MCH (27.0-33.0) pg MCHC (31.0-36.0) g/dl RDW (11.0-16.0) % Plt Count (160-400) X10*3/uL MPV (9.4-12.4) fL Immature Gran % (Auto) Neut % (Auto) Lymph % (Auto) Wise % (Auto) Eos % (Auto) Baso % (Auto) Lymph # (Auto) Wise # (Auto) Eos # (Auto) Baso # (Auto) Abs Immat Gran (auto) Absolute Neuts (auto) Absolute Nucleated RBC (0.0-0.012) X10*3/uL Nucleated RBC % (auto) (0.0-0.2) /100WBC Neutrophils % (Manual) (45-73) % Band Neutrophils % (3-5) % Lymphocytes % (Manual) (20-40) % Monocytes % (Manual) (2-11) % Eosinophils % (Manual) (0-4) % Metamyelocytes % % Myelocytes % % Promyelocytes % % Abs Neuts (Manual) (2.0-8.3) X10*3/uL Lymphocytes # (Manual) (1.2-4.9) X10*3/uL Monocytes # (Manual) (0.1-1.2) X10*3/uL Eosinophils # (Manual) (0.0-0.4) X10*3/uL Metamyelocytes # X10*3/uL Myelocytes # X10*/uL Promyelocytes # X10*3/uL Nucleated RBCs (0-0) /100WBC Platelet Estimate (NORMAL) Plt Morphology Comment RBC Morphology Polychromasia /OIF Hypochromasia /OIF Microcytosis /OIF Spherocytes /OIF Tear Drop Cells /OIF Ovalocytes /OIF [place] Cells /OIF Schistocytes /OIF PT (9.9-13.0) SEC INR (0.9-1.1) APTT (24.1-38.0) SEC VBG pH (7.32-7.43) VBG pCO2 mmHg VBG pO2 mmHg VBG HCO3 (22-26) mmol/L VBG O2 Saturation % VBG Base Excess mmol/L Sodium (135-145) mmol/L Potassium (3.3-5.1) mmol/L Chloride (96-108) mmol/L Carbon Dioxide (22-29) mmol/L Anion Gap (12-20) BUN (9-16) mg/dL Creatinine (0.5-1.4) mg/dL Estim Creat Clear Calc Estimated GFR POC Glucose (60-115) mg/dL Random Glucose (60-115) mg/dL Lactic Acid 7.2 H* (0.5-2.0) mmol/L Calcium (8.4-10.2) mg/dL Magnesium (1.6-2.6) mg/dL Total Bilirubin (0.0-1.0) mg/dL Direct Bilirubin (0.0-0.5) mg/dL AST (5-37) U/L ALT (0-40) U/L Alkaline Phosphatase (39-117) U/L Troponin I High Sens 40.4 H (<3.5-35.0) ng/L Total Protein (6.5-8.0) g/dL Albumin (3.5-5.0) g/dL Lipase (8-78) U/L Procalcitonin 0.14 ng/mL Urine Color Urine Appearance Urine pH (5.0-8.0) Ur Specific [place] (1.005-1.025) Urine Protein (NEG-TRACE) MG/DL Urine Glucose (UA) (NEG) MG/DL Urine Ketones (NEG) MG/DL Urine Blood (NEG) Urine Nitrite (NEG) Ur Leukocyte Esterase (NEG) Urine RBC (0) /HPF Urine WBC (0-4) /HPF Ur Squamous Epith Cells /LPF Urine Bacteria /LPF COVID-19 ([facility]) (Negative) COVID-19 Clin Com 04/20/21 04/20/21 04/20/21 Range/Units 13:41 14:48 15:24 WBC (4.8-10.8) X10*3/uL RBC (4.60-5.80) X10*6/uL Hgb (14.0-18.0) g/dl Hct (42.0-52.0) % MCV (80.0-98.0) fL MCH (27.0-33.0) pg MCHC (31.0-36.0) g/dl RDW (11.0-16.0) % Plt Count (160-400) X10*3/uL MPV (9.4-12.4) fL Immature Gran % (Auto) Neut % (Auto) Lymph % (Auto) Wise % (Auto) Eos % (Auto) Baso % (Auto) Lymph # (Auto) Wise # (Auto) Eos # (Auto) Baso # (Auto) Abs Immat Gran (auto) Absolute Neuts (auto) Absolute Nucleated RBC (0.0-0.012) X10*3/uL Nucleated RBC % (auto) (0.0-0.2) /100WBC Neutrophils % (Manual) (45-73) % Band Neutrophils % (3-5) % Lymphocytes % (Manual) (20-40) % Monocytes % (Manual) (2-11) % Eosinophils % (Manual) (0-4) % Metamyelocytes % % Myelocytes % % Promyelocytes % % Abs Neuts (Manual) (2.0-8.3) X10*3/uL Lymphocytes # (Manual) (1.2-4.9) X10*3/uL Monocytes # (Manual) (0.1-1.2) X10*3/uL Eosinophils # (Manual) (0.0-0.4) X10*3/uL Metamyelocytes # X10*3/uL Myelocytes # X10*/uL Promyelocytes # X10*3/uL Nucleated RBCs (0-0) /100WBC Platelet Estimate (NORMAL) Plt Morphology Comment RBC Morphology Polychromasia /OIF Hypochromasia /OIF Microcytosis /OIF Spherocytes /OIF Tear Drop Cells /OIF Ovalocytes /OIF [place] Cells /OIF Schistocytes /OIF PT (9.9-13.0) SEC INR (0.9-1.1) APTT (24.1-38.0) SEC VBG pH 7.10 L* (7.32-7.43) VBG pCO2 58 mmHg VBG pO2 85 mmHg VBG HCO3 18 L (22-26) mmol/L VBG O2 Saturation 92.0 % VBG Base Excess -10.6 mmol/L Sodium (135-145) mmol/L Potassium (3.3-5.1) mmol/L Chloride (96-108) mmol/L Carbon Dioxide (22-29) mmol/L Anion Gap (12-20) BUN (9-16) mg/dL Creatinine (0.5-1.4) mg/dL Estim Creat Clear Calc Estimated GFR POC Glucose 61 (60-115) mg/dL Random Glucose (60-115) mg/dL Lactic Acid (0.5-2.0) mmol/L Calcium (8.4-10.2) mg/dL Magnesium (1.6-2.6) mg/dL Total Bilirubin (0.0-1.0) mg/dL Direct Bilirubin (0.0-0.5) mg/dL AST (5-37) U/L ALT (0-40) U/L Alkaline Phosphatase (39-117) U/L Troponin I High Sens (<3.5-35.0) ng/L Total Protein (6.5-8.0) g/dL Albumin (3.5-5.0) g/dL Lipase (8-78) U/L Procalcitonin ng/mL Urine Color YELLOW Urine Appearance CLOUDY Urine pH 7.5 (5.0-8.0) Ur Specific [place] 1.020 (1.005-1.025) Urine Protein 3+ H (NEG-TRACE) MG/DL Urine Glucose (UA) NEG (NEG) MG/DL Urine Ketones NEG (NEG) MG/DL Urine Blood 2+ H (NEG) Urine Nitrite NEG (NEG) Ur Leukocyte Esterase 2+ H (NEG) Urine RBC 15-29 H (0) /HPF Urine WBC TNTC H (0-4) /HPF Ur Squamous Epith Cells 1+ /LPF Urine Bacteria 4+ /LPF COVID-19 ([facility]) (Negative) COVID-19 Clin Com ECG Data Attestation: I personally reviewed and interpreted this ECG as follows: ECG interpretation date: 04/20/21 ECG interpretation time: 13:35 Interpretation: Rate: 51 Rhythm: ventricular paced rhythm [place]: left wide QRS complex. ST T wave : nonspecific qTC: normal prior studies: HR decreased but noted paced on prior EKGs The study has been interpreted contemporaneously by me. . Critical Care Time Critical Care Time Critical Care Time: Yes Total Critical Care Time: 65 Attestation: review of records, medical consult, attempts to reach family I attest to this time spent taking care of the patient Discharge Plan Discharge Clinical Impression: Cardiac arrest, Hypoglycemia, Acidosis, lactic Patient Disposition: Admitted As Inpatient Interventions: Admission Worksheet (ED) Last Done: 04/20/21 16:55 Discharge Date/Time: 04/20/21 16:55
[2021-04-20] MEDS: Calcium Gluconate/NaCl,Iso-Osm 2 GM/100 ML PLAST..BAG IV (13:30)
[2021-04-20 13:47] LABS: Hematocrit 29.8 % (42.0-52.0); Hemoglobin 7.5 g/dl (14.0-18.0); Mean Corpuscular HGB Conc 25.2 g/dl (31.0-36.0); Mean Corpuscular Hemoglobin 21.1 pg (27.0-33.0); Mean Corpuscular Volume 83.7 fL (80.0-98.0); Mean Platelet Volume 11.3 fL (9.4-12.4); Platelet Count 215 X10*3/uL (160-400); Red Blood Count 3.56 X10*6/uL (4.60-5.80); Red Cell Distribution Width 20.3 % (11.0-16.0); White Blood Count 8.8 X10*3/uL (4.8-10.8)
[2021-04-20 13:51] LABS: VBG Base Excess -10.6 mmol/L; VBG HCO3 18 mmol/L (22-26); VBG pCO2 58 mmHg; VBG pO2 85 mmHg
[2021-04-20 13:51] LABS: INTERNATIONAL NORM RATIO 1.4 (0.9-1.1); Prothrombin Time 16.5 SEC (9.9-13.0); Venous Blood Gas Refer to POC result
[2021-04-20 13:53] LABS: Partial Thromboplastin Time 52.6 SEC (24.1-38.0)
--- NOTE | 2021-04-20 13:58 | PC.NURSE ---
patient noted to be hypotensive at this time, 76/45. patient started on norepinephrine drip at this time. initiated at 0.05 mcg/kg/min and titrated from there for effect. 0.75 mcg/kg/min maintaining MAP of 80's
[2021-04-20 14:01] LABS: Lactic Acid 7.2 mmol/L (0.5-2.0)
[2021-04-20 14:03] LABS: Alanine Aminotransferase 84 U/L (0-40); Alkaline Phosphatase 91 U/L (39-117); Anion Gap 18 (12-20); Aspartate Amino Transferase 139 U/L (5-37); Bilirubin Direct 0.2 mg/dL (0.0-0.5); Bilirubin Total 0.4 mg/dL (0.0-1.0); Blood Urea Nitrogen 44 mg/dL (9-16); COVID-19 Test Negative (Negative); Calcium 7.8 mg/dL (8.4-10.2); Carbon Dioxide 16 mmol/L (22-29); Chloride 110 mmol/L (96-108); Creatinine Clr Calc Pharmacy 75.1; Estimated Glomerular Filt Rate 43; Glucose Random 117 mg/dL (60-115); Lipase 63 U/L (8-78); Magnesium 1.9 mg/dL (1.6-2.6); Potassium 5.5 mmol/L (3.3-5.1); Sodium 138 mmol/L (135-145); Total Protein 5.2 g/dL (6.5-8.0)
[2021-04-20 14:07] LABS: Troponin-I High Sensitivity 40.4 ng/L (<3.5-35.0)
[2021-04-20 14:23] LABS: Procalcitonin 0.14 ng/mL
[2021-04-20 14:25] LABS: Band Neutrophils Percent 10 % (3-5); Eosinophils Absolute Manual 0.3 X10*3/uL (0.0-0.4); Eosinophils Percent Manual 3 % (0-4); Lymphocytes Absolute Manual 1.4 X10*3/uL (1.2-4.9); Lymphocytes Percent Manual 16 % (20-40); Metamyelocytes Absolute 0.2 X10*3/uL; Metamyelocytes Percent 2 %; Monocytes Absolute Manual 0.2 X10*3/uL (0.1-1.2); Monocytes Percent Manual 2 % (2-11); Myelocytes Absolute 0.4 X10*/uL; Myelocytes Percent 5 %; Neutrophils Absolute Manual 6.2 X10*3/uL (2.0-8.3); Neutrophils Percent Manual 61 % (45-73); Promyelocytes Absolute 0.1 X10*3/uL; Promyelocytes Percent 1 %; RBC Morphology NOTED
[2021-04-20 14:26] LABS: Burr Cells 2+ (3-5) /OIF; Microcytosis 1+ (5-14) /OIF; Ovalocytes 1+ (5-14) /OIF; Schistocytes 1+ (0-2) /OIF; Spherocytes 1+ (0-2) /OIF; Tear Drop Cells 1+ (0-2) /OIF
[2021-04-20 14:27] LABS: Platelet Estimate NORMAL (NORMAL); Platelet Morphology Comment NORMAL; Polychromasia 1+ (0-2) /OIF
[2021-04-20 14:36] LABS: Hypochromasia 1+ (5-14) /OIF; Nucleated Red Blood Cells 11 /100WBC (0-0)
[2021-04-20 15:06] LABS: Appearance Urine CLOUDY; Color Urine YELLOW; Glucose Urine UA NEG (NEG); Leukocyte Esterase Urine 2+ (NEG); Nitrite Urine NEG (NEG); PH 7.5 (5.0-8.0); UACC Culture Trigger YES; Urine Blood 2+ (NEG); Urine Ketones NEG (NEG); Urine Protein 3+ MG/DL (NEG-TRACE)
--- NOTE | 2021-04-20 15:11 | PC.NURSE ---
family at bedside at this time. updated on plan of care. patient vitals remain stable at this time
[2021-04-20 15:29] LABS: Glucose, Whole Blood 104 mg/dL (60-115)
[2021-04-20 15:29] LABS: Glucose, Whole Blood 61 mg/dL (60-115)
[2021-04-20 15:29] LABS: Glucose, Whole Blood 37 mg/dL (60-115)
[2021-04-20] MEDS: Dextrose 50 % 25 GM/50 ML SYRINGE IVPUSH ×2 (15:29→21:25)
[2021-04-20 15:30] LABS: WBC Urine TNTC /HPF (0-4)
[2021-04-20 15:31] LABS: Bacteria Urine 4+ /LPF; Squamous Epithelial Cell Urine 1+ /LPF
[2021-04-20 15:42] LABS: Reflex Lactate? Lactic Acid Added
--- NOTE | 2021-04-20 15:43 | P.HPCC_ITS ---
History of Present Illness Date of Service: 04/20/21 Attending physician on admission: Stanley Gardner Chief Complaint: cardiac arrest 65-year-old massively obese individual history of rectal carcinoma and diverting colostomy in place underlying type 2 diabetic with peripheral vascular complications namely ischemic issues with secondary osteomyelitis which she required 6 weeks of antibiotic therapy and apparently a E and obesity hypoventilation syndrome which has really never been definitively treated known to have a cardiomyopathy with reduced ejection fraction 30-35% and a single- chamber wireless pacemaker in the right ventricular apex and EMS was called at 12:15 and that he wound up being resuscitated after 3 rounds of epinephrine here and altogether maybe 10 additional minutes but superimposed on 1 hour of what appears to be down time before spontaneous circulation was restored so this does not kourtney well neurologically but is head CT scan in to my eye looks negative no acute issue apparently diagnosed in February with COVID and his chest CT scan does show evidence of bilateral pleural effusions that are moderate in size at best and possible pulmonary edema and bilateral either consolidations versus atelectasis and I probably would hang my hat on atelectasis no significant white count or left shift and no apparent fever but my bedside echo did demonstrate now at 20-25% severely diffusely hypokinetic left ventricle which is concentrically hypertrophied along with borderline right ventricular dilatation no primary valve or pericardial disease but certainly evidence of more severe myopathic behavior and he has 100% ventricularly paced and at the preset the the basic pacemaker rate and has not as significant lactic acidosis a positive anion gap metabolic acidosis which I believe is due to cardiogenic shock and of course see no need of prolonged circulatory down time that he had prior to entry to the hospital I do not believe that this is a septic issue I think this is primarily a cardiac issue patient is completely unable to received 30 cc/kilos of IV fluid 1 way or the other but I do not believe that this is a septic problem he is already dramat ically fluid overloaded with the virtually diffuse anasarca from profound right heart failure with a severely distended inferior vena cava both on CT scan of the abdomen with some degree of SA Sittig fluid as well and 4+ bilateral per in of pretibial edema Review of Systems Review of Systems: Yes Unobtainable due to mental status PMFSH Past Medical History Medical History (Updated 04/20/21 @ 15:54 by Stanley Gardner MD) Acute on chronic systolic (congestive) heart failure FAM (acute kidney injury) Anxiety Aspiration pneumonia Cardiomyopathy CHF (congestive heart failure) Congestive heart failure with cardiomyopathy Diabetes Foot osteomyelitis, right History of sigmoidoscopy HTN (hypertension) Hyperkalemia Hypogonadism Hypoxia Obesity 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 Proteinuria Type 2 diabetes mellitus Family History Family History Mother Diabetes Surgical History Surgical History History of amputation of foot through metatarsal bone History of cataract surgery History of colectomy History of colonoscopy History of reversal of ileostomy Social History Social History Household Members: None Housing: Longterm Housing Other:: [facility] Alcohol intake: former Patient Tobacco Use Status: Never used Tobacco Years Smoked: 15 years e-Cigarette/Vaping Use: Never Used Second Hand Smoke Exposure: No Advance Directives: Yes Advance Directives on File: Yes Advance Directives Date on File: 09/01/20 service: Yes Current occupational status: disabled Meds Allergies Allergy/AdvReac Type Severity Reaction Status Date / Time metformin AdvReac Unknown diarrhea Verified 04/06/21 13:15 Active Medications: Current Medications Chlorhexidine Gluconate (Chlorhexidine Gluc Oral Rinse 15 Ml Mouthwash) 15 ml BUCCAL Q8H [facility] Dextrose (Dextrose 50 % 25 Gm/50 Ml Syringe) 25 gm IVPUSH Q30M PRN PRN Reason: Nursing Actions in Insulin Infusion Protocol Norepinephrine Bitartrate (Levophed) 8 mg in 250 mls @ 0 mls/hr IVCONT .Q0M [facility]; Protocol Last Admin: 04/20/21 14:59 Dose: 0.075 mcg/kg/min, 23.91 mls/hr Documented by: Insulin Human Regular (Myxredlin) 100 unit in 100 mls @ 0 mls/hr IVCONT .Q0M [facility]; Protocol Pantoprazole Sodium 40 mg/ (Sodium Chloride) 110 mls @ 400 mls/hr IV DAILY@0630 [facility] Piperacillin Sod/Tazobactam (Sod 2.25 gm/ Sodium Chloride) 50 mls @ 100 mls/hr IV Q6H [facility] Norepinephrine Bitartrate (Levophed) 8 mg in 250 mls @ 0 mls/hr IVCONT .Q0M [facility]; Protocol Pharmacy Consult (Consult Rx Perform Med Rec) 1 each MISCELLANE ONCE PRN PRN Reason: Consult order Home Medications Medication Instructions Recorded Confirmed Last Taken Type aspirin 325 mg tablet 325 mg PO DAILY 11/29/19 11/26/20 11/26/20 History carvedilol 6.25 mg tablet 6.25 mg PO BID 11/29/19 11/26/20 11/26/20 History glipizide 2.5 mg tablet, extended 2.5 mg PO DAILY 11/29/19 11/26/20 11/26/20 History release 24 hr sennosides 8.6 mg tablet (senna) 8.6 mg PO BEDTIME 11/29/19 11/26/20 11/25/20 History amlodipine 5 mg tablet 1 tab PO DAILY 08/16/20 11/26/20 11/26/20 History ascorbic acid (vitamin C) 500 mg 500 mg PO DAILY 08/16/20 11/26/20 11/26/20 History tablet,extended release (Vitamin C ER) bisacodyl 10 mg rectal suppository 10 mg AL DAILY PRN 08/16/20 11/26/20 Unknown History buspirone 10 mg tablet 10 mg PO BID 08/16/20 11/26/20 11/26/20 History cholecalciferol (vitamin D3) 25 25 mcg PO DAILY 08/16/20 11/26/20 11/26/20 History mcg (1,000 unit) capsule divalproex 125 mg tablet,delayed 125 mg PO DAILY@199908/16/20 11/26/20 08/31/20 History release (Depakote) ferrous sulfate 325 mg (65 mg 325 mg PO DAILY 08/16/20 11/26/20 11/26/20 History iron) tablet guaifenesin 100 mg/5 mL oral liquid 200 mg PO Q4H PRN 08/16/20 11/26/20 Unknown History loperamide 2 mg tablet 2 mg BID PRN 08/16/20 11/26/20 Unknown History magnesium hydroxide 400 mg/5 mL 30 ml PO DAILY PRN 08/16/20 11/26/20 Unknown History oral suspension (Milk of Magnesia) melatonin 3 mg tablet 9 mg BEDTIME 08/16/20 11/26/20 11/25/20 History pregabalin 100 mg capsule (Lyrica) 100 mg PO TID 08/16/20 11/26/20 11/26/20 History tramadol 50 mg tablet 50 mg PO Q6H PRN 08/16/20 11/26/20 Unknown History acetaminophen 325 mg tablet 650 mg PO Q6H PRN 08/17/20 11/26/20 Unknown History gabapentin 800 mg tablet 800 mg PO TID 08/17/20 11/26/20 11/26/20 History glucagon 1 mg/mL solution for 1 mg IM NEEDED 08/17/20 11/26/20 Unknown History injection guaifenesin 600 mg tablet, 600 mg PO BID 08/17/20 11/26/20 11/26/20 History extended release 12 hr (Mucinex) sertraline 100 mg tablet 100 mg PO DAILY 08/17/20 11/26/20 11/26/20 History oxycodone 5 mg tablet 5 mg PO Q6H PRN 09/01/20 11/26/20 Unknown History Lactobacillus acidophilus 1,000 mmu cells PO BID 11/26/20 11/26/20 11/26/20 History sertraline 50 mg tablet 50 mg PO DAILY 11/26/20 11/26/20 11/26/20 History losartan 50 mg tablet 50 mg PO DAILY 04/06/21 Unknown History Physical Exam Vital Signs: Vital Signs: Last Vital Signs Temp 96.8 F 04/20/21 15:27 Pulse 62 04/20/21 15:27 Resp 24 H 04/20/21 15:27 BP 136/67 04/20/21 15:27 Pulse Ox 100 04/20/21 15:27 BMI result Body Mass Index 50.8 currently unresponsive bilateral pupillary dilatation with lack of like response all 4 extremities flaccid chest findings as described before and otherwise breath sounds in audible o n the ventilator bedside echo describes his cardiac status biventricular dysfunction 20-25% left heart ejection fraction definitely reduced right ventricular systolic performance with marked dilatation of the inferior vena cava abdomen is soft with no organomegaly nothing apparent to me on on CT scan of the abdomen 4+ bilateral pretibial edema Results Labs CBC and Chem 7: 04/20/21 13:28 04/20/21 13:28 Labs: Laboratory Results - last 24 hr 04/20/21 04/20/21 04/20/21 13:15 13:22 13:28 MCV 83.7 MCH 21.1 L MCHC 25.2 L RDW 20.3 H Plt Count 215 MPV 11.3 Immature Gran % (Auto) Cancelled Neut % (Auto) Cancelled Lymph % (Auto) Cancelled [place] % (Auto) Cancelled Eos % (Auto) Cancelled Baso % (Auto) Cancelled Lymph # (Auto) Cancelled [place] # (Auto) Cancelled Eos # (Auto) Cancelled Baso # (Auto) Cancelled Abs Immat Gran (auto) Cancelled Absolute Neuts (auto) Cancelled Absolute Nucleated RBC 0.260 H Nucleated RBC % (auto) 3.0 H Neutrophils % (Manual) 61 Band Neutrophils % 10 H Lymphocytes % (Manual) 16 L Monocytes % (Manual) 2 Eosinophils % (Manual) 3 Metamyelocytes % 2 Myelocytes % 5 Promyelocytes % 1 Abs Neuts (Manual) 6.2 Lymphocytes # (Manual) 1.4 Monocytes # (Manual) 0.2 Eosinophils # (Manual) 0.3 Metamyelocytes # 0.2 Myelocytes # 0.4 Promyelocytes # 0.1 Nucleated RBCs 11 H Platelet Estimate NORMAL Plt Morphology Comment NORMAL RBC Morphology NOTED Polychromasia 1+ (0-2) Hypochromasia 1+ (5-14) Microcytosis 1+ (5-14) Spherocytes 1+ (0-2) Tear Drop Cells 1+ (0-2) Ovalocytes 1+ (5-14) [place] Cells 2+ (3-5) Schistocytes 1+ (0-2) PT INR APTT VBG pH VBG pCO2 VBG pO2 VBG HCO3 VBG O2 Saturation VBG Base Excess Anion Gap Estim Creat Clear Calc Estimated GFR POC Glucose 37 L* 104 Random Glucose Lactic Acid Calcium Magnesium Total Bilirubin Direct Bilirubin AST ALT Alkaline Phosphatase Total Protein Albumin Lipase Procalcitonin Urine Color Urine Appearance Urine pH Ur Specific [place] Urine Protein Urine Glucose (UA) Urine Ketones Urine Blood Urine Nitrite Ur Leukocyte Esterase Urine RBC Urine WBC Ur Squamous Epith Cells Urine Bacteria COVID-19 (KOREY) COVID-19 Clin Com 04/20/21 04/20/21 04/20/21 13:28 13:28 13:28 MCV MCH MCHC RDW Plt Count MPV Immature Gran % (Auto) Neut % (Auto) Lymph % (Auto) [place] % (Auto) Eos % (Auto) Baso % (Auto) Lymph # (Auto) [place] # (Auto) Eos # (Auto) Baso # (Auto) Abs Immat Gran (auto) Absolute Neuts (auto) Absolute Nucleated RBC Nucleated RBC % (auto) Neutrophils % (Manual) Band Neutrophils % Lymphocytes % (Manual) Monocytes % (Manual) Eosinophils % (Manual) Metamyelocytes % Myelocytes % Promyelocytes % Abs Neuts (Manual) Lymphocytes # (Manual) Monocytes # (Manual) Eosinophils # (Manual) Metamyelocytes # Myelocytes # Promyelocytes # Nucleated RBCs Platelet Estimate Plt Morphology Comment RBC Morphology Polychromasia Hypochromasia Microcytosis Spherocytes Tear Drop Cells Ovalocytes [place] Cells Schistocytes PT 16.5 H INR 1.4 H APTT 52.6 H VBG pH VBG pCO2 VBG pO2 VBG HCO3 VBG O2 Saturation VBG Base Excess Anion Gap 18 Estim Creat Clear Calc 75.1 Estimated GFR 43 POC Glucose Random Glucose 117 H Lactic Acid Calcium 7.8 L Magnesium 1.9 Total Bilirubin 0.4 Direct Bilirubin 0.2 AST 139 H ALT 84 H Alkaline Phosphatase 91 D Total Protein 5.2 L Albumin 2.0 L D Lipase 63 Procalcitonin Urine Color Urine Appearance Urine pH Ur Specific [place] Urine Protein Urine Glucose (UA) Urine Ketones Urine Blood Urine Nitrite Ur Leukocyte Esterase Urine RBC Urine WBC Ur Squamous Epith Cells Urine Bacteria COVID-19 (KOREY) Negative COVID-19 Clin Com See Note 04/20/21 04/20/21 04/20/21 13:28 13:28 13:41 MCV MCH MCHC RDW Plt Count MPV Immature Gran % (Auto) Neut % (Auto) Lymph % (Auto) [place] % (Auto) Eos % (Auto) Baso % (Auto) Lymph # (Auto) [place] # (Auto) Eos # (Auto) Baso # (Auto) Abs Immat Gran (auto) Absolute Neuts (auto) Absolute Nucleated RBC Nucleated RBC % (auto) Neutrophils % (Manual) Band Neutrophils % Lymphocytes % (Manual) Monocytes % (Manual) Eosinophils % (Manual) Metamyelocytes % Myelocytes % Promyelocytes % Abs Neuts (Manual) Lymphocytes # (Manual) Monocytes # (Manual) Eosinophils # (Manual) Metamyelocytes # Myelocytes # Promyelocytes # Nucleated RBCs Platelet Estimate Plt Morphology Comment RBC Morphology Polychromasia Hypochromasia Microcytosis Spherocytes Tear Drop Cells Ovalocytes [place] Cells Schistocytes PT INR APTT VBG pH 7.10 L* VBG pCO2 58 VBG pO2 85 VBG HCO3 18 L VBG O2 Saturation 92.0 VBG Base Excess -10.6 Anion Gap Estim Creat Clear Calc Estimated GFR POC Glucose Random Glucose Lactic Acid 7.2 H* Calcium Magnesium Total Bilirubin Direct Bilirubin AST ALT Alkaline Phosphatase Total Protein Albumin Lipase Procalcitonin 0.14 Urine Color Urine Appearance Urine pH Ur Specific [place] Urine Protein Urine Glucose (UA) Urine Ketones Urine Blood Urine Nitrite Ur Leukocyte Esterase Urine RBC Urine WBC Ur Squamous Epith Cells Urine Bacteria COVID-19 (KOREY) COVID-19 Clin Com 04/20/21 04/20/21 14:48 15:24 MCV MCH MCHC RDW Plt Count MPV Immature Gran % (Auto) Neut % (Auto) Lymph % (Auto) [place] % (Auto) Eos % (Auto) Baso % (Auto) Lymph # (Auto) [place] # (Auto) Eos # (Auto) Baso # (Auto) Abs Immat Gran (auto) Absolute Neuts (auto) Absolute Nucleated RBC Nucleated RBC % (auto) Neutrophils % (Manual) Band Neutrophils % Lymphocytes % (Manual) Monocytes % (Manual) Eosinophils % (Manual) Metamyelocytes % Myelocytes % Promyelocytes % Abs Neuts (Manual) Lymphocytes # (Manual) Monocytes # (Manual) Eosinophils # (Manual) Metamyelocytes # Myelocytes # Promyelocytes # Nucleated RBCs Platelet Estimate Plt Morphology Comment RBC Morphology Polychromasia Hypochromasia Microcytosis Spherocytes Tear Drop Cells Ovalocytes [place] Cells Schistocytes PT INR APTT VBG pH VBG pCO2 VBG pO2 VBG HCO3 VBG O2 Saturation VBG Base Excess Anion Gap Estim Creat Clear Calc Estimated GFR POC Glucose 61 Random Glucose Lactic Acid Calcium Magnesium Total Bilirubin Direct Bilirubin AST ALT Alkaline Phosphatase Total Protein Albumin Lipase Procalcitonin Urine Color YELLOW Urine Appearance CLOUDY Urine pH 7.5 Ur Specific [place] 1.020 Urine Protein 3+ H Urine Glucose (UA) NEG Urine Ketones NEG Urine Blood 2+ H Urine Nitrite NEG Ur Leukocyte Esterase 2+ H Urine RBC 15-29 H Urine WBC TNTC H Ur Squamous Epith Cells 1+ Urine Bacteria 4+ COVID-19 (KOREY) COVID-19 Clin Com Imaging Radiologist's Impressions: Impressions Abdomen/Pelvis CT 04/20/21 14:55 IMPRESSION: Fluid-filled bowel suggestive of an ileus. Small amount of generalized ascites. There is a small amount of fluid seen surrounding the liver, gallbladder and the pancreas. These organs are otherwise normal. Correlation with liver function tests and amylase level recommended to exclude possible acute liver, gallbladder or pancreatic process. Atherosclerotic disease. Normal caliber abdominal aorta. No evidence of aneurysm or retroperitoneal hemorrhage. Postsurgical change to the small bowel and sigmoid colon. Small amount of fluid or soft tissue thickening in the presacral space of uncertain etiology. Small renal cysts. Fleischner guidelines were followed. Chest CT 04/20/21 14:55 IMPRESSION: Satisfactory position of endotracheal tube and left subclavian line. Enlarged heart. Bilateral mixed groundglass attenuation and denser airspace disease with air bronchograms. Differential would include pulmonary edema and pneumonia. Bilateral pleural effusions, right greater than left. No pneumothorax. No fracture. Fleischner guidelines were followed. Head CT 04/20/21 14:55 IMPRESSION: No acute intracranial findings. Sinonasal polyposis and bilateral mastoid soft tissue opacification increased from May 2017 exam.. Assessment and Plan (1) Cardiac arrest: Status: Acute (2) Hypoglycemia: Status: Acute (3) Acidosis, lactic: Status: Acute (4) Proteinuria: Status: Acute (5) Hyperkalemia: Status: Acute (6) Diabetic foot ulcers: Status: Acute (7) Nonhealing surgical wound: Status: Acute (8) PVD (peripheral vascular disease): Status: Acute (9) Colostomy complication: Status: Acute (10) Rectal cancer: Status: Acute (11) Amputation toe: Qualifiers: Laterality: unspecified laterality Qualified Code(s): S98.139A - Complete traumatic amputation of one unspecified lesser toe, initial encounter Status: Acute (12) HTN (hypertension): Status: Chronic (13) Anxiety: Status: Chronic (14) Congestive heart failure with cardiomyopathy: Status: Acute (15) Type 2 diabetes mellitus: Status: Acute (16) Biventricular heart failure with reduced left ventricular function: Status: Acute (17) Cardiogenic shock: Status: Acute (18) Chronic hypercapnic respiratory failure: Status: Acute Plan so at this point family has refused a central line he he is being maintained on inotropics support with Levophed through peripheral line which they understand and also ventilator support as well to treat his cardiogenic shock and of course given his history and his peripheral vascular disease I think it is a significant risk that this is an ischemic issue but it is also apparent that he has an acute on chronic hypercarbic respiratory failure which also could been adeno a source for this cardiac arrest because it is apparent that he has got severe chronic cor pulmonale with a diffuse anasarca so [address] the other the ventilator support in the empiric blood pressure in inotropics support from the Levophed all makes sense but no fluid in that he is dramatically fluid overloaded
--- NOTE | 2021-04-20 17:20 | PHA.MEDREC ---
Pharmacy Consult ? Medication Reconciliation Pharmacy has completed the medication reconciliation.
[2021-04-20 17:39] LABS: Glucose, Whole Blood 105 mg/dL (60-115)
[2021-04-20 18:23] LABS: Acetaminophen LAB < 1 mcg/mL (<30); Salicylate < 5.0 mg/dL (15-30)
[2021-04-20 18:27] LABS: Amphetamine Screen Urine Not Detected (Not Detect); Barbiturates, Urine Not Detected (Not Detect); Benzodiazepines Screen Urine Not Detected (Not Detect); Cannabinoid Screen Urine Not Detected (Not Detect); Cocaine Screen Urine Not Detected (Not Detect); Fentanyl, urine Not Detected (Not Detect); Opiate Screen Urine Not Detected (Not Detect); Phencyclidine Screen Urine Not Detected (Not Detect)
[2021-04-20 18:32] LABS: Valproate 8.6 mcg/mL (50.0-100.0)
[2021-04-20] MEDS: Piperacillin Sodium/Tazobactam 2.25 GM in 0.9 % Sodium Chloride 50 ML IV (19:56)
[2021-04-20 20:02] LABS: Reflex Lactate? 2 Y
[2021-04-20 20:40] LABS: ~Lactic Acid-LAB USE ONLY 5.8 mmol/L (0.5-2.0)
[2021-04-20 21:02] LABS: Venous Blood Gas Refer to POC result
[2021-04-20 21:04] LABS: VBG Base Excess -1.3 mmol/L; VBG HCO3 21 mmol/L (22-26); VBG pCO2 29 mmHg; VBG pH 7.46 (7.32-7.43); VBG pO2 42 mmHg
[2021-04-20 21:06] LABS: Anion Gap 19 (12-20); Blood Urea Nitrogen 54 mg/dL (9-16); Carbon Dioxide 23 mmol/L (22-29); Chloride 105 mmol/L (96-108); Creatinine Clr Calc Pharmacy 59.5; Estimated Glomerular Filt Rate 33; Glucose Random 122 mg/dL (60-115); Potassium 6.1 mmol/L (3.3-5.1); Sodium 141 mmol/L (135-145)
[2021-04-20] MEDS: Calcium Gluconate/NaCl,Iso-Osm 1 GM/50 ML PLAST..BAG IV (21:25)
[2021-04-20] MEDS: Insulin Regular, Human 100 UNIT/ML 3 ML VIAL IVPUSH (21:25)
[2021-04-20] MEDS: Albuterol Sulfate (0.083%) 2.5 MG/3 ML VIAL.NEB 5 MG INHALE (21:33)
--- NOTE | 2021-04-20 22:40 | PC.NURSE ---
pt transferred to ICU at 1635. Levophed turned off per emar. Pt tolerating vent without sedation, pupils reactive, +cough, no response to pain. ETT 7.5, 27 @ the lip, PC settings-rate 18, ip 35, peep 7.5, fio2 60%. +2 generalized edema, SB on tele with 1st degree and BBB. Kumar with minimal output- PA aware. Per MD no OG tube to be placed. Ostomy to left upper quadrant, Diabetic ulcers to bilateral lateral foot, and blanchable redness to buttocks- wound nurse aware Family at bedside and updated by this RN and PA
[2021-04-20 23:53] LABS: Glucose, Whole Blood 176 mg/dL (60-115)
[2021-04-21] VITALS (31 sets, daily range): BP systolic 144–200; BP diastolic 13–72; PULSE 51–107; RESP 16–18; TEMP 33–38; O2SAT 95–100; BMI 47.9
[2021-04-21] MEDS: Chlorhexidine Gluc Oral Rinse 15 ML MOUTHWASH BUCCAL ×2 (00:34→06:19)
[2021-04-21] MEDS: Piperacillin Sodium/Tazobactam 2.25 GM in 0.9 % Sodium Chloride 50 ML IV ×4 (00:35→19:34)
[2021-04-21 05:30] LABS: VBG HCO3 23 mmol/L (22-26); VBG pCO2 24 mmHg; VBG pH 7.58 (7.32-7.43); VBG pO2 41 mmHg
[2021-04-21 05:39] LABS: Hematocrit 22.6 % (42.0-52.0); Mean Corpuscular HGB Conc 28.8 g/dl (31.0-36.0); Mean Corpuscular Hemoglobin 21.2 pg (27.0-33.0); Mean Corpuscular Volume 73.6 fL (80.0-98.0); Mean Platelet Volume 10.3 fL (9.4-12.4); NRBC Pct Auto 0.2 /100WBC (0.0-0.2); Platelet Count 252 X10*3/uL (160-400); Red Blood Count 3.07 X10*6/uL (4.60-5.80); Red Cell Distribution Width 21.2 % (11.0-16.0)
[2021-04-21 06:00] LABS: Anion Gap 19 (12-20); Blood Urea Nitrogen 58 mg/dL (9-16); Calcium 7.9 mg/dL (8.4-10.2); Carbon Dioxide 21 mmol/L (22-29); Chloride 105 mmol/L (96-108); Creatinine Clr Calc Pharmacy 49.5; Estimated Glomerular Filt Rate 27; Glucose Random 183 mg/dL (60-115); Magnesium 1.8 mg/dL (1.6-2.6); Phosphorus 3.8 mg/dL (2.7-4.5); Potassium 5.4 mmol/L (3.3-5.1); Sodium 140 mmol/L (135-145)
[2021-04-21 06:05] LABS: Hemoglobin 6.5 g/dl (14.0-18.0)
[2021-04-21 06:10] LABS: Glucose, Whole Blood 177 mg/dL (60-115)
[2021-04-21] MEDS: Pantoprazole Sodium 40 MG/10 ML VIAL IVPUSH (06:18)
[2021-04-21 06:21] LABS: Venous Blood Gas Refer to POC result
[2021-04-21 07:49] LABS: Band Neutrophils Percent 22 % (3-5); Lymphocytes Absolute Manual 0.3 X10*3/uL (1.2-4.9); Lymphocytes Percent Manual 2 % (20-40); Monocytes Absolute Manual 0.4 X10*3/uL (0.1-1.2); Monocytes Percent Manual 3 % (2-11); Neutrophils Absolute Manual 12.4 X10*3/uL (2.0-8.3); Neutrophils Percent Manual 73 % (45-73)
[2021-04-21 07:51] LABS: Hypochromasia 2+ (15-30) /OIF; Microcytosis 1+ (5-14) /OIF; RBC Morphology NOTED
[2021-04-21 07:52] LABS: Tear Drop Cells 1+ (0-2) /OIF
[2021-04-21 07:53] LABS: Polychromasia 2+ (3-5) /OIF
--- NOTE | 2021-04-21 07:53 | P.CDIC_ITS ---
CDI Concurrent Query Documentation Clarification: PHYSICIAN'S DOCUMENTATION REQUEST Date of Query: 04/21/21 0754 Patient Name: Aries Phelan Admit Date: 04/20/21 Dear Doctor, A review of the medical record indicates additional documentation may be needed. Please review below and update the documentation accordingly. Clinical Indicators: The following information is noted in the medical record: Risk Factors/Clinical Indicators/Treatments found in bed unresponsive at SNF, Cardiac arrest ER: eyes fixed and dilated, no response to painful stimuli H&P: unresponsive bilateral pupillary dilatation with lack of like response, all 4 extremities flaccid Based on the above, could you clarify in the Progress Notes which, if any of the following, best reflects the patient's level of consciousness? * Unconscious * Comatose * Persistent vegetative state * Other (please specify) * Unable to determine Use of terms such as suspected, likely, concern for, or probable (associated with a specific diagnosis that is being evaluated, monitored, or treated as if it exists) are acceptable and can be coded in the inpatient setting, when documented at the time of discharge. Thank you, Casandra Gonzalez RN Extension: [phone] Please use your independent medical judgment in providing your response. THIS QUERY IS PART OF THE PERMANENT MEDICAL RECORD Provider Response: Other Other Diagnosis: Cardiac arrest and status post CPR with persistent coma
[2021-04-21 07:54] LABS: Platelet Estimate NORMAL (NORMAL); Platelet Morphology Comment NORMAL
--- NOTE | 2021-04-21 08:00 | P.CDIC_ITS ---
CDI Concurrent Query Documentation Clarification: PHYSICIAN'S DOCUMENTATION REQUEST Date of Query: 04/21/21 0800 Patient Name: Aries Phelan Admit Date: 04/20/21 Dear Doctor, A review of the medical record indicates additional documentation may be needed. Please review below and update the documentation accordingly. Clinical Indicators: The following clinical information was noted in the record: Risk Factors/Clinical Indicators/Treatments BUN 44 Creatinine 1.61 Est. GFR 43 Urinary output 0 per nursing flow sheet 04/21/21 Please clarify which of the following accurately represents the patient's renal status: * Acute renal failure - see criteria * Acute renal failure with suspected ATN * Acute renal failure with other pathology (medullary, papillary, or cortical necrosis) * Acute renal failure (with type, appropriate) on Chronic Kidney Disease (CKD) - see criteria * Acute kidney injury (non-traumatic) - see criteria * CKD, please provide stage - see criteria * Other (please specify) * Unable to determine Criteria for FAM* Stages of Chronic Kidney Disease* 1. Increase in serum creatinine by ? 0.3 mg/dL Level Description GFR (?26.5 micromol/L) within 48 hours, or G1 Normal or High > 90 2. Increase in serum creatinine to ?1.5 times baseline, G2 Mildly decreased 60 ? 89 which is known or presumed to have occurred within 7 days, or G3a Mildly to moderately decreased 45 ? 59 3. Urine volume <0.5 mL/kg/hour for six hours G3b Moderately to severely decreased 30 - 44 G4 Severely decreased 15 ? 29 G5 Kidney failure < 15 *Source: Kidney Disease: Improving Global Outcomes (KDIGO) 2012 Use of terms such as suspected, likely, concern for, or probable (associated with a specific diagnosis that is being evaluated, monitored, or treated as if it exists) are acceptable and can be coded in the inpatient setting, when documented at the time of discharge. Thank you, Casandra Gonzalez RN Extension: [phone] Please use your independent medical judgment in providing your response. THIS QUERY IS PART OF THE PERMANENT MEDICAL RECORD Provider Response: Acute Kidney Failure Other Diagnosis: Acute renal failure due to ATN superimposed on chronic stage II renal failure background and currently an uric
--- NOTE | 2021-04-21 08:13 | P.CDIC_ITS ---
CDI Concurrent Query Documentation Clarification: PHYSICIAN'S DOCUMENTATION REQUEST Date of Query: 04/21/21 0814 Patient Name: Aries Phelan Admit Date: 04/20/21 Dear Doctor, A review of the medical record indicates additional documentation may be needed. Please review below and update the documentation accordingly. Clinical Indicators: Risk Factors/Clinical Indicators/Treatments Per H&P: right heart failure, 4+ bilateral pretibial edema CHF with cardiomyopathy Biventricular heart failure with reduced left ventricular function Please provide further specificity regarding the most likely type and acuity of CHF you are evaluating, treating, or monitoring. Examples include: Acuity: * Acute * Chronic * Acute on chronic * Unable to determine Use of terms such as suspected, likely, concern for, or probable (associated with a specific diagnosis that is being evaluated, monitored, or treated as if it exists) are acceptable and can be coded in the inpatient setting, when documented at the time of discharge. Thank you, Casandra Gonzalez RN Extension: [phone] Please use your independent medical judgment in providing your response. THIS QUERY IS PART OF THE PERMANENT MEDICAL RECORD Provider Response: Other Other Diagnosis: Congestive cardiomyopathy with chronic biventricular CHF but predominant right heart failure with profound anasarca develops acute on chronic biventricular systolic/diastolic CHF with cardiogenic shock requiring both ventilator as well as on inotropics support with grave prognosis
--- NOTE | 2021-04-21 09:56 | MHC.CLN ---
RE: CONSULT PT IS INTUBATED AND CURRENTLY NPO NOTED NO OG TUBE AT THIS TIME IF TF NEEDED; RECOMMEND NEPRO AT MAX GOAL RATE 40ML/HR PT WITH FRAGILE SKIN WHICH INCREASES NUTRITION NEEDS WILL FOLLOW WITH TEAM SEE ALSO FULL CLINICAL NUTRITION ASSESSMENT
[2021-04-21 11:49] LABS: Glucose, Whole Blood 169 mg/dL (60-115)
--- NOTE | 2021-04-21 14:27 | MHC.CM.PN ---
Pt presents to ICU from [facility] following cardiac arrest. Pt is intubated and has very poor prognosis. Family has opted for SEASONER and will withdrawal supportive care on 04/22 once family has visited. CM to update [facility] on pt's status.
--- NOTE | 2021-04-21 15:06 | PM.CCPN ---
Subjective Subjective Date of Service: 04/21/21 Interval History: 65-year-old male morbidly obese at nearly 400 lb with who is a type 2 diabetic with peripheral vascular issues and nephropathy at least chronic stage II renal disease probable ischemic cardiomyopathy previously 30-35% ejection fraction but status post arrest yesterday severe diffuse hypokinesis with 20% ejection fraction who was found down pulseless and apparently and did not regain spontaneous circulation on the outside came in being resuscitated and reportedly almost an hour of total down time by the time spontaneous circulation was restored over 24 hours on multiple exams he does not even have brainstem reflexes he has no doll's eyes no corneal reflex he has developed acute on on chronic renal failure and is currently an uric with evidence of profound neurologic dysfunction and evidence of intermittent myoclonus a no apparent seizure activity ventilator dependent and has no evidence of spontaneous respiration we tested by reducing the vent rate to 5 and watching him for several minutes and he may and there was no respiratory effort multiple other complications related to peripheral ischemia included deep tissue soft tissue ulcers with underlying osteomyelitis prolonged antibiotic therapies Critical Care Time (minutes): 45 Physical Exam Vital Signs: Vital Signs: Last Vital Signs Temp 100.0 F 04/21/21 15:00 Pulse 57 04/21/21 15:00 Resp 18 04/21/21 15:00 BP 188/32 H 04/21/21 15:00 Pulse Ox 99 04/21/21 15:00 BMI result Body Mass Index 47.9 no brainstem reflexes noted and no dull size and completely flaccid and no spontaneous respiration cardiac exam by echo 20% ejection fraction poor biventricular function abdomen soft with no organomeg elizabeth absent bilateral breath so unds severe anasarca Objective Data Labs CBC & Chem 7: 04/21/21 05:20 04/21/21 05:20 Labs: Laboratory Results - last 24 hr 04/20/21 04/20/21 04/20/21 13:15 13:22 13:28 WBC RBC Hgb Hct MCV MCH MCHC RDW Plt Count MPV Immature Gran % (Auto) Neut % (Auto) Lymph % (Auto) [place] % (Auto) Eos % (Auto) Baso % (Auto) Lymph # (Auto) [place] # (Auto) Eos # (Auto) Baso # (Auto) Abs Immat Gran (auto) Absolute Neuts (auto) Absolute Nucleated RBC Nucleated RBC % (auto) Neutrophils % (Manual) Band Neutrophils % Lymphocytes % (Manual) Monocytes % (Manual) Abs Neuts (Manual) Lymphocytes # (Manual) Monocytes # (Manual) Platelet Estimate Plt Morphology Comment RBC Morphology Polychromasia Hypochromasia Microcytosis Tear Drop Cells Smear Path Review SEE NOTE VBG pH VBG pCO2 VBG pO2 VBG HCO3 VBG O2 Saturation VBG Base Excess Sodium Potassium Chloride Carbon Dioxide Anion Gap BUN Creatinine Estim Creat Clear Calc Estimated GFR POC Glucose 37 L* 104 Random Glucose Lactic Acid F/U @ 2Hr Lactic Acid F/U @ 4Hr Calcium Phosphorus Magnesium Urine Color Urine Appearance Urine pH Ur Specific [place] Urine Protein Urine Glucose (UA) Urine Ketones Urine Blood Urine Nitrite Ur Leukocyte Esterase Urine RBC Urine WBC Ur Squamous Epith Cells Urine Bacteria Salicylates Urine Opiates Screen Urine Fentanyl Screen Acetaminophen Ur Barbiturates Screen Valproic Acid Ur Phencyclidine Scrn Ur Amphetamines Screen U Benzodiazepines Scrn Urine Cocaine Screen U Marijuana (THC) Screen 04/20/21 04/20/21 04/20/21 14:48 15:24 17:36 WBC RBC Hgb Hct MCV MCH MCHC RDW Plt Count MPV Immature Gran % (Auto) Neut % (Auto) Lymph % (Auto) [place] % (Auto) Eos % (Auto) Baso % (Auto) Lymph # (Auto) [place] # (Auto) Eos # (Auto) Baso # (Auto) Abs Immat Gran (auto) Absolute Neuts (auto) Absolute Nucleated RBC Nucleated RBC % (auto) Neutrophils % (Manual) Band Neutrophils % Lymphocytes % (Manual) Monocytes % (Manual) Abs Neuts (Manual) Lymphocytes # (Manual) Monocytes # (Manual) Platelet Estimate Plt Morphology Comment RBC Morphology Polychromasia Hypochromasia Microcytosis Tear Drop Cells Smear Path Review VBG pH VBG pCO2 VBG pO2 VBG HCO3 VBG O2 Saturation VBG Base Excess Sodium Potassium Chloride Carbon Dioxide Anion Gap BUN Creatinine Estim Creat Clear Calc Estimated GFR POC Glucose 61 105 Random Glucose Lactic Acid F/U @ 2Hr Lactic Acid F/U @ 4Hr Calcium Phosphorus Magnesium Urine Color YELLOW Urine Appearance CLOUDY Urine pH 7.5 Ur Specific [place] 1.020 Urine Protein 3+ H Urine Glucose (UA) NEG Urine Ketones NEG Urine Blood 2+ H Urine Nitrite NEG Ur Leukocyte Esterase 2+ H Urine RBC 15-29 H Urine WBC TNTC H Ur Squamous Epith Cells 1+ Urine Bacteria 4+ Salicylates Urine Opiates Screen Urine Fentanyl Screen Acetaminophen Ur Barbiturates Screen Valproic Acid Ur Phencyclidine Scrn Ur Amphetamines Screen U Benzodiazepines Scrn Urine Cocaine Screen U Marijuana (THC) Screen 04/20/21 04/20/21 04/20/21 17:55 17:55 17:55 WBC RBC Hgb Hct MCV MCH MCHC RDW Plt Count MPV Immature Gran % (Auto) Neut % (Auto) Lymph % (Auto) [place] % (Auto) Eos % (Auto) Baso % (Auto) Lymph # (Auto) [place] # (Auto) Eos # (Auto) Baso # (Auto) Abs Immat Gran (auto) Absolute Neuts (auto) Absolute Nucleated RBC Nucleated RBC % (auto) Neutrophils % (Manual) Band Neutrophils % Lymphocytes % (Manual) Monocytes % (Manual) Abs Neuts (Manual) Lymphocytes # (Manual) Monocytes # (Manual) Platelet Estimate Plt Morphology Comment RBC Morphology Polychromasia Hypochromasia Microcytosis Tear Drop Cells Smear Path Review VBG pH VBG pCO2 VBG pO2 VBG HCO3 VBG O2 Saturation VBG Base Excess Sodium Potassium Chloride Carbon Dioxide Anion Gap BUN Creatinine Estim Creat Clear Calc Estimated GFR POC Glucose Random Glucose Lactic Acid F/U @ 2Hr 6.0 H* Lactic Acid F/U @ 4Hr Calcium Phosphorus Magnesium Urine Color Urine Appearance Urine pH Ur Specific [place] Urine Protein Urine Glucose (UA) Urine Ketones Urine Blood Urine Nitrite Ur Leukocyte Esterase Urine RBC Urine WBC Ur Squamous Epith Cells Urine Bacteria Salicylates < 5.0 L Urine Opiates Screen Urine Fentanyl Screen Acetaminophen < 1 Ur Barbiturates Screen Valproic Acid 8.6 L Ur Phencyclidine Scrn Ur Amphetamines Screen U Benzodiazepines Scrn Urine Cocaine Screen U Marijuana (THC) Screen 04/20/21 04/20/21 04/20/21 17:57 20:15 20:32 WBC RBC Hgb Hct MCV MCH MCHC RDW Plt Count MPV Immature Gran % (Auto) Neut % (Auto) Lymph % (Auto) [place] % (Auto) Eos % (Auto) Baso % (Auto) Lymph # (Auto) [place] # (Auto) Eos # (Auto) Baso # (Auto) Abs Immat Gran (auto) Absolute Neuts (auto) Absolute Nucleated RBC Nucleated RBC % (auto) Neutrophils % (Manual) Band Neutrophils % Lymphocytes % (Manual) Monocytes % (Manual) Abs Neuts (Manual) Lymphocytes # (Manual) Monocytes # (Manual) Platelet Estimate Plt Morphology Comment RBC Morphology Polychromasia Hypochromasia Microcytosis Tear Drop Cells Smear Path Review VBG pH VBG pCO2 VBG pO2 VBG HCO3 VBG O2 Saturation VBG Base Excess Sodium 141 Potassium 6.1 H* Chloride 105 Carbon Dioxide 23 Anion Gap 19 BUN 54 H Creatinine 2.03 H Estim Creat Clear Calc 59.5 Estimated GFR 33 POC Glucose Random Glucose 122 H Lactic Acid F/U @ 2Hr Lactic Acid F/U @ 4Hr 5.8 H* Calcium 8.0 L Phosphorus Magnesium Urine Color Urine Appearance Urine pH Ur Specific [place] Urine Protein Urine Glucose (UA) Urine Ketones Urine Blood Urine Nitrite Ur Leukocyte Esterase Urine RBC Urine WBC Ur Squamous Epith Cells Urine Bacteria Salicylates Urine Opiates Screen Not Detected Urine Fentanyl Screen Not Detected Acetaminophen Ur Barbiturates Screen Not Detected Valproic Acid Ur Phencyclidine Scrn Not Detected Ur Amphetamines Screen Not Detected U Benzodiazepines Scrn Not Detected Urine Cocaine Screen Not Detected U Marijuana (THC) Screen Not Detected 04/20/21 04/20/21 04/21/21 20:34 23:49 05:20 WBC 13.0 H RBC 3.07 L Hgb 6.5 L* Hct 22.6 L D MCV 73.6 L D MCH 21.2 L MCHC 28.8 L RDW 21.2 H Plt Count 252 MPV 10.3 Immature Gran % (Auto) Cancelled Neut % (Auto) Cancelled Lymph % (Auto) Cancelled [place] % (Auto) Cancelled Eos % (Auto) Cancelled Baso % (Auto) Cancelled Lymph # (Auto) Cancelled [place] # (Auto) Cancelled Eos # (Auto) Cancelled Baso # (Auto) Cancelled Abs Immat Gran (auto) Cancelled Absolute Neuts (auto) Cancelled Absolute Nucleated RBC 0.030 H Nucleated RBC % (auto) 0.2 Neutrophils % (Manual) 73 Band Neutrophils % 22 H Lymphocytes % (Manual) 2 L Monocytes % (Manual) 3 Abs Neuts (Manual) 12.4 H Lymphocytes # (Manual) 0.3 L Monocytes # (Manual) 0.4 Platelet Estimate NORMAL Plt Morphology Comment NORMAL RBC Morphology NOTED Polychromasia 2+ (3-5) Hypochromasia 2+ (15-30) Microcytosis 1+ (5-14) Tear Drop Cells 1+ (0-2) Smear Path Review VBG pH 7.46 H VBG pCO2 29 VBG pO2 42 VBG HCO3 21 L VBG O2 Saturation 66.0 VBG Base Excess -1.3 Sodium Potassium Chloride Carbon Dioxide Anion Gap BUN Creatinine Estim Creat Clear Calc Estimated GFR POC Glucose 176 H Random Glucose Lactic Acid F/U @ 2Hr Lactic Acid F/U @ 4Hr Calcium Phosphorus Magnesium Urine Color Urine Appearance Urine pH Ur Specific [place] Urine Protein Urine Glucose (UA) Urine Ketones Urine Blood Urine Nitrite Ur Leukocyte Esterase Urine RBC Urine WBC Ur Squamous Epith Cells Urine Bacteria Salicylates Urine Opiates Screen Urine Fentanyl Screen Acetaminophen Ur Barbiturates Screen Valproic Acid Ur Phencyclidine Scrn Ur Amphetamines Screen U Benzodiazepines Scrn Urine Cocaine Screen U Marijuana (THC) Screen 04/21/21 04/21/21 04/21/21 05:20 05:22 05:59 WBC RBC Hgb Hct MCV MCH MCHC RDW Plt Count MPV Immature Gran % (Auto) Neut % (Auto) Lymph % (Auto) [place] % (Auto) Eos % (Auto) Baso % (Auto) Lymph # (Auto) [place] # (Auto) Eos # (Auto) Baso # (Auto) Abs Immat Gran (auto) Absolute Neuts (auto) Absolute Nucleated RBC Nucleated RBC % (auto) Neutrophils % (Manual) Band Neutrophils % Lymphocytes % (Manual) Monocytes % (Manual) Abs Neuts (Manual) Lymphocytes # (Manual) Monocytes # (Manual) Platelet Estimate Plt Morphology Comment RBC Morphology Polychromasia Hypochromasia Microcytosis Tear Drop Cells Smear Path Review VBG pH 7.58 H VBG pCO2 24 VBG pO2 41 VBG HCO3 23 VBG O2 Saturation 72.0 VBG Base Excess 2.0 Sodium 140 Potassium 5.4 H Chloride 105 Carbon Dioxide 21 L Anion Gap 19 BUN 58 H Creatinine 2.44 H Estim Creat Clear Calc 49.5 Estimated GFR 27 POC Glucose 177 H Random Glucose 183 H D Lactic Acid F/U @ 2Hr Lactic Acid F/U @ 4Hr Calcium 7.9 L Phosphorus 3.8 Magnesium 1.8 Urine Color Urine Appearance Urine pH Ur Specific [place] Urine Protein Urine Glucose (UA) Urine Ketones Urine Blood Urine Nitrite Ur Leukocyte Esterase Urine RBC Urine WBC Ur Squamous Epith Cells Urine Bacteria Salicylates Urine Opiates Screen Urine Fentanyl Screen Acetaminophen Ur Barbiturates Screen Valproic Acid Ur Phencyclidine Scrn Ur Amphetamines Screen U Benzodiazepines Scrn Urine Cocaine Screen U Marijuana (THC) Screen 04/21/21 11:46 WBC RBC Hgb Hct MCV MCH MCHC RDW Plt Count MPV Immature Gran % (Auto) Neut % (Auto) Lymph % (Auto) [place] % (Auto) Eos % (Auto) Baso % (Auto) Lymph # (Auto) [place] # (Auto) Eos # (Auto) Baso # (Auto) Abs Immat Gran (auto) Absolute Neuts (auto) Absolute Nucleated RBC Nucleated RBC % (auto) Neutrophils % (Manual) Band Neutrophils % Lymphocytes % (Manual) Monocytes % (Manual) Abs Neuts (Manual) Lymphocytes # (Manual) Monocytes # (Manual) Platelet Estimate Plt Morphology Comment RBC Morphology Polychromasia Hypochromasia Microcytosis Tear Drop Cells Smear Path Review VBG pH VBG pCO2 VBG pO2 VBG HCO3 VBG O2 Saturation VBG Base Excess Sodium Potassium Chloride Carbon Dioxide Anion Gap BUN Creatinine Estim Creat Clear Calc Estimated GFR POC Glucose 169 H Random Glucose Lactic Acid F/U @ 2Hr Lactic Acid F/U @ 4Hr Calcium Phosphorus Magnesium Urine Color Urine Appearance Urine pH Ur Specific [place] Urine Protein Urine Glucose (UA) Urine Ketones Urine Blood Urine Nitrite Ur Leukocyte Esterase Urine RBC Urine WBC Ur Squamous Epith Cells Urine Bacteria Salicylates Urine Opiates Screen Urine Fentanyl Screen Acetaminophen Ur Barbiturates Screen Valproic Acid Ur Phencyclidine Scrn Ur Amphetamines Screen U Benzodiazepines Scrn Urine Cocaine Screen U Marijuana (THC) Screen Microbiology Microbiology Results: Microbiology 04/20/21 16:28 Blood - Venous Blood Culture - Final 04/20/21 15:08 Urine clean catch - Urine pedersen top Urine Culture - Preliminary Gram negative jason Progress Note: A&P Assessment and plan (1) Chronic hypercapnic respiratory failure: Status: Acute (2) Cardiogenic shock: Status: Acute (3) Biventricular heart failure with reduced left ventricular function: Status: Acute (4) Type 2 diabetes mellitus: Status: Acute (5) Congestive heart failure with cardiomyopathy: Status: Acute (6) Cardiac arrest: Status: Acute (7) Hypoglycemia: Status: Acute (8) Acidosis, lactic: Status: Acute (9) Proteinuria: Status: Acute (10) Hyperkalemia: Status: Acute (11) Abdominal pain: Status: Acute (12) Chronic heart failure with preserved ejection fraction (HFpEF): Status: Acute (13) Diabetic foot ulcers: Status: Acute (14) Nonhealing surgical wound: Status: Acute (15) PVD (peripheral vascular disease): Status: Acute (16) Colostomy complication: Status: Acute (17) Rectal cancer: Status: Acute (18) Acute UTI: Status: Acute (19) Amputation toe: Status: Acute (20) Anxiety: Status: Chronic (21) HTN (hypertension): Status: Chronic Plan for all intents and purposes appears to be brain he has noted no signs of of even vegetative function and has a very poor prognosis evident this is evidence of profound hypoxic encephalopathy and will be discussing TIMBER MANAGEMENT PROFESSOR with the family Quality Stroke Does the patient have a stroke diagnosis?: No VTE Prior VTE?: No VTE Risk Level:: Medical - moderate - high VTE Device Contraindication: N/A - Device Ordered VTE Drug Contraindication: Treatment Not Tolerated
[2021-04-21 18:14] LABS: Glucose, Whole Blood 137 mg/dL (60-115)
[2021-04-21] MEDS: HYDROmorphone HCl 1 MG/ML SYRINGE 0.5 MG IVPUSH (23:36)
[2021-04-21 23:55] LABS: Glucose, Whole Blood 142 mg/dL (60-115)
[2021-04-22] VITALS (14 sets, daily range): BP systolic 165–183; BP diastolic 70–88; PULSE 95–108; RESP 18; TEMP 35.1–37.7; O2SAT 98–100; BMI 47.7
[2021-04-22] MEDS: Chlorhexidine Gluc Oral Rinse 15 ML MOUTHWASH BUCCAL ×2 (00:44→09:19)
[2021-04-22] MEDS: Piperacillin Sodium/Tazobactam 2.25 GM in 0.9 % Sodium Chloride 50 ML IV ×2 (00:44→06:07)
[2021-04-22 05:55] LABS: MANUAL DIFF FLAG NO
[2021-04-22 06:03] LABS: Basophils Percent Auto 0.1 % (0-2); Eosinophils Percent Auto 0.4 % (0-4); Hematocrit 22.9 % (42.0-52.0); Imm Gran Pct Auto 0.9 % (0.0-0.4); Lymphocytes Percent Auto 8.9 % (20-40); Mean Corpuscular HGB Conc 29.3 g/dl (31.0-36.0); Mean Corpuscular Hemoglobin 20.7 pg (27.0-33.0); Mean Corpuscular Volume 70.9 fL (80.0-98.0); Mean Platelet Volume 10.3 fL (9.4-12.4); Monocytes Absolute Auto 0.9 X10*3/uL (0.1-1.2); Monocytes Percent Auto 8.1 % (2-11); NRBC Pct Auto 0.4 /100WBC (0.0-0.2); Neutrophils Absolute Auto 9.1 x10*3/uL (2.0-8.3); Neutrophils Percent Auto 81.6 % (45-73); Platelet Count 290 X10*3/uL (160-400); Red Blood Count 3.23 X10*6/uL (4.60-5.80); Red Cell Distribution Width 21.7 % (11.0-16.0); White Blood Count 11.2 X10*3/uL (4.8-10.8)
[2021-04-22 06:04] LABS: Glucose, Whole Blood 124 mg/dL (60-115)
[2021-04-22] MEDS: Pantoprazole Sodium 40 MG/10 ML VIAL IVPUSH (06:08)
[2021-04-22 06:15] LABS: Hemoglobin 6.7 g/dl (14.0-18.0)
--- NOTE | 2021-04-22 07:32 | PC.NURSE ---
Patient has diabetic ulcers to bilateral feet. Covered with gauze/ roll gauze. 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
[2021-04-22 07:44] LABS: Anion Gap 18 (12-20); Blood Urea Nitrogen 64 mg/dL (9-16); Calcium 7.8 mg/dL (8.4-10.2); Carbon Dioxide 23 mmol/L (22-29); Chloride 106 mmol/L (96-108); Creatinine Clr Calc Pharmacy 34.6; Estimated Glomerular Filt Rate 19; Glucose Random 124 mg/dL (60-115); Magnesium 1.8 mg/dL (1.6-2.6); Phosphorus 2.9 mg/dL (2.7-4.5); Potassium 4.7 mmol/L (3.3-5.1); Sodium 142 mmol/L (135-145)
[2021-04-22 07:46] LABS: VBG Base Excess 6.1 mmol/L; VBG HCO3 26 mmol/L (22-26); VBG pCO2 23 mmHg; VBG pH 7.66 (7.32-7.43); VBG pO2 52 mmHg
[2021-04-22 08:22] LABS: Venous Blood Gas Refer to POC result
--- NOTE | 2021-04-22 09:30 | MHC.CLN ---
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
[2021-04-22] MEDS: Morphine Sulfate 10 MG/ML CARTRIDGE 5 MG IVPUSH (11:50)
--- NOTE | 2021-04-22 12:41 | PM.DS ---
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: Status: Acute (4) Type 2 diabetes mellitus: Status: Acute (5) Congestive heart failure with cardiomyopathy: Status: Acute (6) Cardiac arrest: Status: Acute (7) Hypoglycemia: Status: Acute (8) Acidosis, lactic: Status: Acute (9) Proteinuria: Status: Acute (10) Hyperkalemia: Status: Acute (11) Abdominal pain: Status: Acute (12) Chronic heart failure with preserved ejection fraction (HFpEF): Status: Acute (13) Diabetic foot ulcers: Status: Acute (14) Nonhealing surgical wound: Status: Acute (15) PVD (peripheral vascular disease): Status: Acute (16) Colostomy complication: Status: Acute (17) Rectal cancer: Status: Acute (18) Acute UTI: Status: Acute (19) Amputation toe: Status: Acute (20) Anxiety: Status: Chronic (21) HTN (hypertension): Status: Chronic DS: Summary Hospital Course Hospital Course: this 65-year-old morbidly obese male with type 2 diabetes mellitus and associated neuropathy and nephropathy and congestive cardiomyopathy with a base ejection fraction of 30% chronic atrial fibrillation with single-chamber wireless pacemaker and severe peripheral vascular disease complicated by soft tissue infection and osteomyelitis with the prolonged courses of antibiotics and mcfp patient presented in cardiac arrest asystolic and pulseless and apneic resuscitated into the emergency room and total down time of almost 1 hour but 10 minute resuscitation before spontaneous circulation was restored during which time to epinephrine were given and a paced rhythm with myocardial capture echo revealing more severe diffuse hypokinesis of the left ventricle with 20% ejection fraction significant dilatation and dysfunction of the right ventricle clear-cut biventricular failure but no primary valve or pericardial disease for 2 consecutive days and at least 3-4 neurologic exam is there was no evidence of spontaneous respiratory effort no gag reflex no cough he had no doll's eyes he did not have corneal reflexes so clearly even profound brainstem dysfunction and of course he never awaken and was completely unresponsive even to deep pain Status at Discharge Overall status at discharge: other Time Spent with Patient Time attestation: Total time spent providing and/or coordinating discharge services: Discharge coordination time: Greater than 30 minutes Specific discharge activities: 1 lasted neurologic examination to prove persistent likelihood of brain and extensive time spent with the family in the final process instituting comfort measures and including extubation Quality: Stroke Does the patient have a stroke diagnosis?: No Physical Exam Vital Signs: Vital Signs: Last Vital Signs Temp 98.8 F 04/22/21 11:00 Pulse 97 04/22/21 11:00 Resp 18 04/22/21 11:00 BP 165/74 H 04/22/21 11:00 Pulse Ox 100 04/22/21 11:00 BMI result Body Mass Index 47.7 unresponsive patient with no signs of brainstem function certainly no signs of cortical function clinically meeting criteria for brain cardiac exam with 100% paced rhythm underlying atrial fibrillation variable rates were noted in audible breath sounds bilaterally abdomen soft no organomeg elizabeth severe anasarca from biventricular failure DS: Data Data Completed and Pending Completed studies during hospitalization [Text1]: Procedures Detachment at Left 5th Toe, Complete, Open Approach (12/02/19) Detachment at Right 5th Toe, Complete, Open Approach (12/02/19) Insertion of Infusion Device into Superior Vena Cava, Percutaneous Approach (08/17/20) Labs on day of discharge: Laboratory Results - last 24 hr 04/21/21 04/21/21 04/22/21 18:11 23:52 05:23 WBC RBC Hgb Hct MCV MCH MCHC RDW Plt Count MPV Immature Gran % (Auto) Neut % (Auto) Lymph % (Auto) [place] % (Auto) Eos % (Auto) Baso % (Auto) Lymph # (Auto) [place] # (Auto) Eos # (Auto) Baso # (Auto) Abs Immat Gran (auto) Absolute Neuts (auto) Absolute Nucleated RBC Nucleated RBC % (auto) VBG pH 7.66 H* VBG pCO2 23 VBG pO2 52 VBG HCO3 26 VBG O2 Saturation 86.0 VBG Base Excess 6.1 Sodium Potassium Chloride Carbon Dioxide Anion Gap BUN Creatinine Estim Creat Clear Calc Estimated GFR POC Glucose 137 H 142 H Random Glucose Calcium Phosphorus Magnesium 04/22/21 04/22/21 04/22/21 05:25 05:25 06:02 WBC 11.2 H RBC 3.23 L Hgb 6.7 L* Hct 22.9 L MCV 70.9 L MCH 20.7 L MCHC 29.3 L RDW 21.7 H Plt Count 290 MPV 10.3 Immature Gran % (Auto) 0.9 H Neut % (Auto) 81.6 H Lymph % (Auto) 8.9 L [place] % (Auto) 8.1 Eos % (Auto) 0.4 Baso % (Auto) 0.1 Lymph # (Auto) 1.0 L [place] # (Auto) 0.9 Eos # (Auto) 0.0 Baso # (Auto) 0.0 Abs Immat Gran (auto) 0.10 H Absolute Neuts (auto) 9.1 H Absolute Nucleated RBC 0.050 H Nucleated RBC % (auto) 0.4 H VBG pH VBG pCO2 VBG pO2 VBG HCO3 VBG O2 Saturation VBG Base Excess Sodium 142 Potassium 4.7 Chloride 106 Carbon Dioxide 23 Anion Gap 18 BUN 64 H Creatinine 3.36 H Estim Creat Clear Calc 34.6 Estimated GFR 19 POC Glucose 124 H Random Glucose 124 H Calcium 7.8 L Phosphorus 2.9 Magnesium 1.8 Preliminary micro results at discharge 04/20/21 16:27 Blood Culture - Preliminary Blood - Venous No growth after 24 hours. 04/20/21 15:08 Urine Culture - Preliminary Urine clean catch - Urine pedersen top Gram negative jason Discharge Plan Discharge Anticipated Discharge Date/Time: 04/22/21 12:52 Patient Disposition: Discharge Diagnosis: cardio respiratory arrest with markedly prolonged hypoxic time with anoxic induced brain Referrals: Winston Mir MD [Primary Care Provider] - 1 Week Discharge Medications: Discontinued sodium bicarbonate 650 mg Tablet 650 mg PO TID Qty: 90 0RF tramadol 50 mg Tablet 50 mg PO Q6H PRN (Reason: Pain) 0RF melatonin 3 mg Tablet 9 mg BEDTIME 0RF amlodipine 5 mg tablet 1 tab PO DAILY 0RF magnesium hydroxide [Milk of Magnesia] 400 mg/5 mL Suspension 30 ml PO DAILY PRN (Reason: Constipation) 0RF bisacodyl 10 mg Suppository 10 mg CA DAILY PRN (Reason: Constipation) 0RF ferrous sulfate 325 mg (65 mg iron) Tablet 325 mg PO DAILY 0RF buspirone 10 mg Tablet 10 mg PO BID 0RF divalproex [Depakote] 125 mg Tablet,Delayed Release (Dr/Ec) 125 mg PO DAILY@1999 0RF ascorbic acid (vitamin C) [Vitamin C] 500 mg Tablet Extended Release 500 mg PO DAILY 0RF cholecalciferol (vitamin D3) 25 mcg (1,000 unit) Capsule 25 mcg PO DAILY 0RF pregabalin [Lyrica] 100 mg Capsule 100 mg PO TID 0RF sertraline 100 mg Tablet 100 mg PO DAILY 0RF guaifenesin [Mucinex] 600 mg Tablet Extended Release 12hr 600 mg PO BID 0RF gabapentin 800 mg Tablet 800 mg PO TID 0RF glucagon 1 mg/mL Recon Soln 1 mg IM NEEDED 0RF acetaminophen 325 mg Tablet 650 mg PO Q6H PRN (Reason: elevated temp or pain) 0RF Rx Instructions: NOT TO EXCEED 3GM OF APAP IN 24 HOURS oxycodone 5 mg tablet 5 mg PO Q12H PRN (Reason: Pain) 0RF sennosides [senna] 8.6 mg Tablet 8.6 mg PO BEDTIME 0RF carvedilol 6.25 mg Tablet 6.25 mg PO BID 0RF aspirin 325 mg Tablet 325 mg PO DAILY 0RF glipizide 2.5 mg Tablet Extended Release 24hr 2.5 mg PO DAILY 0RF sertraline 50 mg tablet 50 mg PO DAILY 0RF Lactobacillus acidophilus Tablet 1,000 mmu cells PO BID 0RF furosemide 40 mg Tablet 40 mg PO DAILY 0RF ondansetron HCl 4 mg Tablet 4 mg PO Q6H PRN (Reason: Nausea) 0RF lorazepam 0.5 mg tablet 1 tab PO TID PRN (Reason: Anxiety) 0RF losartan 50 mg tablet 50 mg PO DAILY 0RF Discharge Orders: Discharge Order (Routine); Ordered 04/22/21 Ordered By: Stanley Gardner
== END 2021-04-22 12:18 | disposition expired | DRG 208 ==
LOC: HO.ED 15:27 → HO.ICU 15:48
PROVIDERS: Physician Assistant; Admitting Provider Internal Medicine Cardiovascular Disease; Emergency Provider Emergency Medicine; PCP Family Medicine; Visit Provider Internal Medicine Cardiovascular Disease
DX: J96.22 Acute and chronic respiratory failure with hypercapnia (principal); I50.43 Acute on chronic combined systolic (congestive) and diastolic (congestive) heart failure; N17.0 Acute kidney failure with tubular necrosis; R40.20 Unspecified coma; E66.2 Morbid (severe) obesity with alveolar hypoventilation; Z68.42 Body mass index [BMI] 45.0-49.9, adult; G93.1 Anoxic brain damage, not elsewhere classified; I42.0 Dilated cardiomyopathy; R57.0 Cardiogenic shock; Z93.3 Colostomy status; E11.22 Type 2 diabetes mellitus with diabetic chronic kidney disease; I50.82 Biventricular heart failure; E11.51 Type 2 diabetes mellitus with diabetic peripheral angiopathy without gangrene; E11.649 Type 2 diabetes mellitus with hypoglycemia without coma; N18.2 Chronic kidney disease, stage 2 (mild); E11.621 Type 2 diabetes mellitus with foot ulcer; Z86.74 Personal history of sudden cardiac arrest; Z85.048 Personal history of other malignant neoplasm of rectum, rectosigmoid junction, and anus; Z20.822 Contact with and (suspected) exposure to COVID-19; Z79.891 Long term (current) use of opiate analgesic; Z79.899 Other long term (current) drug therapy
CPT/HCPCS: 36415; 70450; 71250; 74176; 80048; 80076; 80143; 80164; 80179; 80307; 81001; 81003; 82803; 82947; 83605; 83690; 83735; 84100; 84145; 84484; 85007; 85025; 85027; 85610; 85730; 87040; 87086; 87635; 93005; 94002; 94003; 94640; 96365; 96366; 96375; 99285; 99291; J0171; J0610; J1170; J2270; J2543